=== PATIENT | female | born 1940 | race Caucasian/White ===

== ENCOUNTER → 2017-10-05 07:47 | Outpatient (CLI) | payer MEDICARE, SELFPAY ==
[2017-10-05 10:02] LABS: Absolute Lymphocyte Count 1.68 X10^3/ul (0.83-4.51); Absolute Neutrophil Count 2.9 X10^3/uL (2.0-7.7); Basophil# 0.05 X10^3/uL; Basophil% 0.9 % (0-1); Eosinophil# 0.15 X10^3/uL; Eosinophils% 2.8 % (0-5); Hematocrit 37.8 % (37-47); Hemoglobin 12.4 g/dl (12.0-15.0); Lymphocyte # 1.68 X10^3/ul (4.0); Lymphocyte % 31.1 % (19-41); Mean Corp Hgb Conc 32.8 g/gl (32-36); Mean Corpuscular Hgb 31.5 pg (27.0-32.0); Mean Corpuscular Volume 95.9 fL (81-99); Mean Platelet Vol. 9.3 fl (6.2-12.0); Monocyte% 11.1 % (0-10); Neutrophil % 53.5 % (47-70); POSITIVE COUNT NO; POSITIVE DIFFERENTIAL NO; Platelet Count 261 K/mm3 (150-450); RBC Distribution Width CV 12.8 % (11.6-14.6); RBC Distribution Width SD 43.5 fl (35.1-43.9); Red Blood Count 3.94 M/mm3 (4.2-5.4); White Blood Count 5.4 K/mm3 (4.4-11.0)
[2017-10-05 10:03] LABS: POSITIVE MORPHOLOGY NO
[2017-10-05 10:09] LABS: Color, Urine Yellow (Yellow); Glucose, Dipstick Normal (Normal); Ketone-Dipstick Negative (Negative); Leukocyte Esterase-Dipstick 25 /ul (Negative); Nitrite-Dipstick Negative (Negative); Occult Blood-Urine Negative /ul (Negative); Protein-Dipstick 30 mg/dl (Negative); Specific Gravity, Urine 1.015 (1.002-1.030); Urine Bilirubin Dipstick Negative (Negative); Urine Clarity Clear (Clear); Urine Urobilinogen Normal (Normal)
[2017-10-05 10:14] LABS: Cholesterol 230 mg/dL (200); High Density Lipoprotein 53 mg/dL; Triglycerides 185 mg/dL; Very Low Density Lipoprotein 37 mg/dL (5-40)
== END ==
PROVIDERS: Family Provider Family Medicine; PCP Family Medicine; Visit Provider Family Medicine
DX: Z00.00 Encounter for general adult medical examination without abnormal findings (principal); R10.32 Left lower quadrant pain; I10 Essential (primary) hypertension; E78.5 Hyperlipidemia, unspecified
CPT/HCPCS: 36415; 80061; 81002; 85025

== ENCOUNTER → 2018-01-24 10:13 | Outpatient (CLI) | payer MEDICARE, SELFPAY ==
--- NOTE | 2018-01-24 10:15 | BI_ITS ---
MAMMOGRAPHY - UNILATERAL DIAGNOSTIC: LEFT BREAST REASON FOR EXAM: Female, 77 years old. Prior right mastectomy. PERTINENT HISTORY: Personal history of breast cancer. Mother with breast cancer. TECHNIQUE: Digital unilateral breast mai (3D mammographic acquisition) in the CC and MLO projections. 2-D mediolateral oblique (MLO) and craniocaudad (CC) views of both breasts were obtained. CAD: Full Field Digital Mammography with Computer Added Detection was performed. COMPARISON: Comparison is made with prior study dated October 09, 2016 and August 15, 2013. FINDINGS: Breast Composition: The left breast is heterogeneously dense, which may obscure small masses. There are no dominant masses or suspicious calcifications. No other significant abnormalities are identified. There has been no significant change since the prior study. BI/UNILAT LT SCRN W/CAD IMPRESSION: Stable unilateral diagnostic mammogram. One year follow-up mammogram recommended. (A) ASSESSMENT CATEGORY: BIRADS Category 1: Negative. A letter regarding these results will be sent to the patient by the facility within 30 days. Approximately 10% of breast cancers are not detected by mammography. A normal mammogram should not delay biopsy of a clinically suspicious abnormality. Electronically Signed: Luis M Tracey MD at 11:22 EST Tel [phone], Service support ,
--- OUTSIDE RECORDS SUMMARY | 2018-03-21 12:06 | XMS RPT_ITS ---
:1940 Author Organization [facility] Care Team Providers Name Role Phone Canelo Harley Attending Unavailable Canelo Harley Referring Unavailable Canelo Harley Primary Care Unavailable Canelo Harley Attending Unavailable Canelo Harley Referring Unavailable Canelo Harley Primary Care Unavailable PROBLEMS PROBLEMS DATE TYPE CONDITION / CODE ATTENDING STATUS SOURCE 10/05/2017 Unknown R10.32 - Left Canelo Harley Active [place] lower quadrant Community pain / Hospital R10.32(ICD-10) Repository 10/05/2017 Unknown E78.5 - Canelo Harley Active [place] Hyperlipidemia, Community unspecified / Hospital E78.5(ICD-10) Repository PROCEDURES PROCEDURES No Procedure Records FoundRESULTS RESULTS UNILAT LT SCRN Observed: 01/24/2018 Status: F Source: [place] W/CAD 10:16 AM [facility] REPOSITORY [facility] Imaging Services [address] [place] [address] UNILAT LT SCRN W/CAD MR#: [id number] Acct: [id number] Name: HALIMA GIORDANO Rep #: [id number] : 1940 F 77 From: Luis M Tracye MD PCP: Canelo Harley MD Status: REG CLI Study: UNILAT LT SCRN W/CAD Date of Exam: 01/24/18 Exam# [id number] Ordering Dr: Canelo Harley MD MAMMOGRAPHY - UNILATERAL DIAGNOSTIC: LEFT BREAST REASON FOR EXAM: Female, 77 years old. Prior right mastectomy. PERTINENT HISTORY: Personal history of breast cancer. Mother with breast cancer. TECHNIQUE: Digital unilateral breast mai (3D mammographic acquisition) in the CC and MLO projections. 2-D mediolateral oblique (MLO) and craniocaudad (CC) views of both breasts were obtained. CAD: Full Field Digital Mammography with Computer Added Detection was performed. COMPARISON: Comparison is made with prior study dated October 09, 2016 and August 15, 2013. FINDINGS: Breast Composition: The left breast is heterogeneously dense, which may obscure small masses. There are no dominant masses or suspicious calcifications. No other significant abnormalities are identified. There has been no significant change since the prior study. BI/UNILAT LT SCRN W/CAD IMPRESSION: Stable unilateral diagnostic mammogram. One year follow-up mammogram recommended. (A) ASSESSMENT CATEGORY: BIRADS Category 1: Negative. A letter regarding these results will be sent to the patient by the facility within 30 days. Approximately 10% of breast cancers are not detected by mammography. A normal mammogram should not delay biopsy of a clinically suspicious abnormality. Electronically Signed: Luis M Tracey MD at 11:22 EST Tel [phone], Service support , CC: Canelo Harley MD Flame Burner: Signed CBC W/DIFF, AUTOMATED Collected: 10/05/2017 Status: F Source: [place] 7:56 AM [facility] [place], [place] REPOSITORY TYPE CODE TESTS RESULT OUT OF RANGE REFERENCE UNITS LAB L100.1000 4.4-11.0 K/mm3 Normal WBC 5.4 LAB L100.1200 4.2-5.4 M/mm3 Low RBC 3.94 LAB L100.1300 12.0-15.0 g/dl Normal HGB 12.4 LAB L100.1400 37-47 % Normal HCT 37.8 LAB L100.1500 81-99 fL Normal MCV 95.9 LAB L100.1600 27.0-32.0 pg Normal MCH 31.5 LAB L100.1700 32-36 g/gl Normal MCHC 32.8 LAB L100.1810 11.6-14.6 % Normal RDW CV 12.8 LAB L100.1820 35.1-43.9 fl Normal RDW SD 43.5 LAB L100.1900 150-450 K/mm3 Normal PLT 261 LAB L100.2000 6.2-12.0 fl Normal MPV 9.3 LAB L100.2100 47-70 % Normal NEUT% 53.5 LAB L100.2200 19-41 % Normal LY% 31.1 LAB L100.2300 0-10 % High MONO% 11.1 LAB L100.2400 0-5 % Normal EO% 2.8 LAB L100.2500 0-1 % Normal BASO% 0.9 LAB L100.2550 0.0-0.9 % Normal IM GRAN % 0.600 Result Comment: IG% - Immature Granulocytes (promyelocytes, myelocytes and metamyelocytes) > 1% indicates that a LEFT SHIFT is Present. LAB L100.2620 2.0-7.7 X10 3/uL Normal Absolute Neut 2.9 LAB L100.2720 0.83-4.51 X10 3/ul Normal Absolute Lymph 1.68 Performed By: #### L100.0100 #### [facility] [address] [place], [address] URINALYSIS, ROUTINE Collected: 10/05/2017 Status: F Source: [place] (DIPSTICK) 7:56 AM [facility] [place] [place] REPOSITORY Order Comment: How was Urine Obtained? CLEAN CATCH TYPE CODE TESTS RESULT OUT OF RANGE REFERENCE UNITS LAB L400.3000 Yellow COLOR Normal Yellow LAB L400.3050 Clear Normal CLARITY Clear LAB L400.3200 Normal mg/dl Normal GLUCOSE, UR Normal LAB L400.3300 Negative mg/dL Normal BILIRUBIN URINE Negative LAB L400.3400 Negative mg/dl Normal KETONE UR Negative LAB L400.3465 1.002-1.030 Normal SP.GR. DIPSTX 1.015 LAB L400.3550 5.0 - 8.0 pH UR Normal 6.0 LAB L400.3600 Negative mg/dl High PROT 30 DIPSTX LAB L400.3700 Normal mg/dl Normal UROBILI Normal LAB L400.3750 Negative Normal NITRITE UR Negative LAB L400.3780 Negative /ul Normal OCCULT BLOOD-UR Negative LAB L400.3800 Negative /ul High LEUK 25 ESTERASE Performed By: #### L400.2010 #### [facility] [address] [facility] [place], [place], [address] LIPID PROFILE Collected: 10/05/2017 Status: F Source: [place] 7:56 AM [facility] [place] [place] REPOSITORY TYPE CODE TESTS RESULT OUT OF RANGE REFERENCE UNITS LAB L501.4900 200 mg/dL High CHOL 230 Result Comment: <200 mg/dL Desirable 200-240 mg/dL Borderline >240 mg/dL High Risk LAB L501.5000 mg/dL Normal TRIG 185 Result Comment: The drugs N-Acetylcysteine and Metamizole may falsely depress this assay. Serum Triglycerides Reference Interval Normal <150 mg/dL Borderline high 150 - 199 mg/dL High 200 - 499 mg/dL Very High > or = 500 mg/dL LAB L501.6400 mg/dL Normal HDL 53 Result Comment: The drugs N-Acetylcysteine and Metamizole may falsely depress this assay. Reference Range HDL <40 mg/dL Low HDL Cholesterol HDL >or= 60 mg/dL High HDL Cholesterol LAB L501.6500 0-130 mg/dL High LDL 140 LAB L501.6600 5-40 mg/dL Normal VLDL 37 Performed By: #### L500.4100 #### [facility] [address] [facility] [place], [place], [address] ALLERGIES ALLERGIES DATE TYPE / CODE NAME / CODE REACTION SEVERITY SOURCE 01/25/2016 Drug tetracycline Unknown Unknown [facility] Allergy/4160 /[id number]( [facility] 81378(SNOMED RXNORM) Repository CT) ENCOUNTERS ENCOUNTERS ADMIT/DISCHARGE ACCOUNT ADMITTING ENCOUNTER LOCATION SOURCE NUMBER CLASS 01/24/2018 [id number] Ambulatory [place] [facility] ing:OPBI Repository 10/05/2017 [id number] Amb[place] [facility] ing:MTLAB Repository PAYERS PAYERS ENCOUNTER GUARANTOR PAYER SUBSCRIBER SOURCE 01/24/2018 HALIMA Velazquez Primary HALIMA [id number] [facility] Community [id number] Number: Repository [address]Tjq: 330 [id number] [phone] () Date:[id number] [address] [place] [address] [id number]: 01/24/2018 Secondary NOT GIVENUNK [place] Insurance:SELF PAY [facility] Number: Effective Repository Date:2017-12-13 10/05/2017 HALIMA Velazquez Primary HALIMA [id number] [facility] Community [place] [id number], [place] [address]Yps: Number: Repository [id number] () Date:[id number] [address] [place] [id number]: 10/05/2017 Secondary NOT GIVENUNK [place] Insurance:SELF PAY [facility] Number: Effective Repository Date:2017-10-05
== END ==
PROVIDERS: Family Provider Family Medicine; PCP Family Medicine; Referring Provider Family Medicine; Visit Provider Family Medicine
DX: Z12.31 Encounter for screening mammogram for malignant neoplasm of breast (principal); Z90.11 Acquired absence of right breast and nipple; Z85.3 Personal history of malignant neoplasm of breast; Z80.3 Family history of malignant neoplasm of breast
CPT/HCPCS: 77061; 77063; 77067; G0279

== ENCOUNTER 2018-11-02 12:27 | Emergency (ER) | payer MEDICARE, SELFPAY ==
[2018-11-02 12:28] VITALS: BP 214/105; PULSE 72; RESP 17; TEMP 36.7; O2SAT 99; BMI 23.8
--- NOTE | 2018-11-02 12:53 | EKG12_ITS ---
Test Reason : DYSRHYTHMIA Blood Pressure : / mmHG Vent. Rate : 056 BPM Atrial Rate : 056 BPM P-R Int : 212 ms QRS Dur : 082 ms QT Int : 462 ms P-R-T Axes : 072 023 052 degrees QTc Int : 445 ms Sinus bradycardia with 1st degree A-V block with Premature atrial complexes Otherwise normal ECG Confirmed by FILI PERSON ([id number]), magazine editor LUCY RICO ([id number]) on 11/11/2018 2:56:26 PM Referred By: [place] Confirmed By:FILI PERSON
[2018-11-02 13:00] LABS: Absolute Lymphocyte Count 1.67 X10^3/uL (0.83-4.51); Absolute Neutrophil Count 5.6 X10^3/uL (2.0-7.7); Basophil# 0.05 X10^3/uL; Basophil% 0.6 % (0-1); Eosinophils% 1.2 % (0-5); Hematocrit 40.3 % (37-47); Hemoglobin 13.1 g/dL (12.0-15.0); Lymphocyte # 1.67 X10^3/ul (4.0); Lymphocyte % 20.5 % (19-41); Mean Corp Hgb Conc 32.5 g/dL (32-36); Mean Corpuscular Hgb 31.3 pg (27.0-32.0); Mean Corpuscular Volume 96.4 fL (81-99); Mean Platelet Vol. 9.2 fl (6.2-12.0); Monocyte# 0.66 X10^3/uL; Monocyte% 8.1 % (0-10); NRBC Flagged by Analyzer 0 % (0-5); Neutrophil # 5.64 X10^3/uL (2.7-7.7); Neutrophil % 69.4 % (47-70); Platelet Count 300 K/mm3 (150-450); RBC Distribution Width CV 12.6 % (11.6-14.6); Red Blood Count 4.18 M/mm3 (4.2-5.4); White Blood Count 8.1 K/mm3 (4.4-11.0)
[2018-11-02 13:16] VITALS: BP 217/87; PULSE 64; RESP 15; O2SAT 97
[2018-11-02] MEDS: Metoprolol Tartrate 25 MG Tablet PO (13:17)
[2018-11-02 13:19] LABS: Anion Gap 5 (5-15); BUN 21 mg/dL (7-18); BUN/Creat Ratio 14.8 RATIO (10-20); Calcium,Total 9.1 mg/dL (8.5-10.1); Chloride 109 mmol/L (98-107); Creatinine, Serum 1.42 mg/dL (0.55-1.02); EST Glomerular Filtration Rate 38 mL/min (>60); Est Glom Filt Rate - Afr Amer 46 mL/min (>60); Estimated Creatinine Clearance 33.02 ml/min; Glucose 104 mg/dL (74-106); Potassium 4.3 mmol/L (3.5-5.1); Sodium Level 140 mmol/L (136-145)
--- NOTE | 2018-11-02 14:17 | ED.VIS.GEN ---
History of Present Illness Chief Complaint: Hypertension Narrative: Patient presenting for evaluation secondary to hypertension. Patient has a long-standing history of hypertension and is on 25 mg of metoprolol once a day, and 40 mg of quinapril once a day. Patient states that she has been on that for quite a long time. She reports that over the course of last week she has been dealing with high blood pressures and some intermittent headaches. She denies any visual changes numbness weakness chest pain shortness of breath orthopnea or exertional dyspnea. No peripheral edema is noted. No changes or missed medication doses. Review of systems otherwise negative. Past Medical History - Allergies and Home Meds Allergies/Adverse Reactions: Allergies tetracycline Adverse Reaction (Verified 11/02/18 12:28) Unknown Primary Care Physician: Canelo Harley MD [Primary Care Provider] - Past Medical History: - - Hypertension Smoking Status: Never smoker Review of Systems All systems negative except as indicated Neurological: Reports: Headache Physical Exam Vital Signs/Narrative: Vital Signs Temp Pulse Resp BP Pulse Ox 11/02/18 13:16 64 15 217/87 H 97 11/02/18 12:28 98.1 F 72 17 214/105 H 99 Inital Vital Signs reviewed: Yes General: Well nourished, Well developed, No Acute Distress Head: Normocephalic, Atraumatic Eyes: Perrl, EOMI ENT: Moist mucous membranes, No rhinorrhea Neck: Supple, Nontender Cardiovascular: Regular rate, Regular rhythm, No murmurs Respiratory: No distress, CTA bilaterally, Chest nontender Abdomen: Soft, Nontender, Nondistended, Normal bowel sounds Back: Nontender, Normal Inspection Extremities: Nontender, No edema Skin: Normal color, No rash Neurological: Alert, Oriented x3, Cranial nerves II-XII grossly intact, Normal Strength, Normal Sensation Psychological: Normal affect, Normal Mood Diagnostic/Tx/Re-eval - EKG Follow-up EKG Interpretation: - - First-degree AV block with OK interval of 212 ventricular rate is [address] segments normal T waves no evidence of acute ischemia or arrhythmia - Medical Decision Making Patient had secondary to hypertension. She was found to be significantly hypertensive she was given a dose of metoprolol in the emergency department. Patient's work-up for endorgan damage including CBC and chemistry showed only modest elevation of her creatinine from 1.2-1 0.4- troponin normal electrolytes. She is not having any strokelike symptoms I do not believe that CT is indicated. Patient continued to have hypertension in the emergency department, I believe that she would benefit from upward titration of her medications. I recommended that she start taking her metoprolol 25 mg twice a day, as well as her quinapril 40 mg twice a day. Patient was instructed to follow-up with primary care next week. She was given signs and symptoms which to return. Patient was discharged ED Disposition - Plan for ED Patient: Disposition: Home or Assisted Living Diagnosis: Hypertension Instructions: HYPERTENSION, New (Begin Treatment) Referrals: Canelo Harley MD [Primary Care Provider] - 1 Week Additional Instructions: Take your metoprolol 25 mg twice a day, and your quinapril 40 mg twice a day
[2018-11-02 14:51] VITALS: BP 218/62; PULSE 71; RESP 16; O2SAT 98
[2018-11-02] MEDS: Lisinopril 40 MG Tablet PO (14:52)
== END 2018-11-02 14:52 | disposition home or self-care (01) ==
PROVIDERS: Emergency Provider Emergency Medicine; Family Provider Family Medicine; PCP Family Medicine
DX: I10 Essential (primary) hypertension (principal); I44.0 Atrioventricular block, first degree; Z88.1 Allergy status to other antibiotic agents; Z79.899 Other long term (current) drug therapy
CPT/HCPCS: 80048; 84484; 85025; 93005; 99283; A4216

== ENCOUNTER → 2018-12-19 08:06 | Outpatient (CLI) | payer MEDICARE, SELFPAY ==
[2018-12-19 09:56] LABS: Absolute Lymphocyte Count 1.31 X10^3/uL (0.83-4.51); Absolute Neutrophil Count 3.5 X10^3/uL (2.0-7.7); Basophil# 0.03 X10^3/uL; Basophil% 0.5 % (0-1); Eosinophil# 0.14 X10^3/uL; Eosinophils% 2.5 % (0-5); Hematocrit 37.6 % (37-47); Hemoglobin 12.2 g/dL (12.0-15.0); Lymphocyte # 1.31 X10^3/ul (4.0); Lymphocyte % 23.5 % (19-41); Mean Corp Hgb Conc 32.4 g/dL (32-36); Mean Corpuscular Hgb 31.6 pg (27.0-32.0); Mean Corpuscular Volume 97.4 fL (81-99); Mean Platelet Vol. 9.4 fl (6.2-12.0); Monocyte# 0.57 X10^3/uL; Monocyte% 10.2 % (0-10); NRBC Flagged by Analyzer 0 % (0-5); Neutrophil % 62.9 % (47-70); Platelet Count 240 K/mm3 (150-450); RBC Distribution Width CV 12.8 % (11.6-14.6); RBC Distribution Width SD 45.8 fl (35.1-43.9); Red Blood Count 3.86 M/mm3 (4.2-5.4); White Blood Count 5.6 K/mm3 (4.4-11.0)
[2018-12-19 09:59] LABS: Color, Urine Yellow (Yellow); Glucose, Dipstick Normal (Normal); Ketone-Dipstick Negative (Negative); Leukocyte Esterase-Dipstick Negative /ul (Negative); Nitrite-Dipstick Negative (Negative); Occult Blood-Urine Negative /ul (Negative); Protein-Dipstick Negative (Negative); Urine Bilirubin Dipstick Negative (Negative); Urine Clarity Sl. Cloudy (Clear); Urine Urobilinogen Normal (Normal)
[2018-12-19 10:13] LABS: ALB/GLOB Ratio 1.2 RATIO (0.9-2.4); AST(SGOT) 19 U/L (15-37); Alanine Aminotransfer ALT/SGPT 21 U/L (13-56); Albumin, Serum 3.8 g/dL (3.2-5.0); Alkaline Phosphatase 80 U/L (45-117); Anion Gap 5 (5-15); BUN 21 mg/dL (7-18); BUN/Creat Ratio 16.5 RATIO (10-20); Chloride 109 mmol/L (98-107); Cholesterol 218 mg/dL (200); Creatinine, Serum 1.27 mg/dL (0.55-1.02); EST Glomerular Filtration Rate 43 mL/min (>60); Est Glom Filt Rate - Afr Amer 52 mL/min (>60); Globulin 3.3 g/dL (2.2-4.2); Glucose 109 mg/dL (74-106); High Density Lipoprotein 51 mg/dL; Potassium 4.8 mmol/L (3.5-5.1); Protein, Total 7.1 g/dL (6.4-8.2); Sodium Level 141 mmol/L (136-145); Triglycerides 164 mg/dL; Very Low Density Lipoprotein 33 mg/dL (5-40)
== END ==
PROVIDERS: Family Provider Family Medicine; PCP Family Medicine; Referring Provider Family Medicine; Visit Provider Family Medicine
DX: Z00.00 Encounter for general adult medical examination without abnormal findings (principal); I10 Essential (primary) hypertension; E78.5 Hyperlipidemia, unspecified
CPT/HCPCS: 36415; 80053; 80061; 81002; 85025

== ENCOUNTER → 2019-02-27 11:22 | Outpatient (CLI) | payer MEDICARE, SELFPAY ==
--- NOTE | 2019-02-27 11:26 | BI_ITS ---
MAMMOGRAPHY - UNILATERAL SCREENING: LEFT BREAST REASON FOR EXAM: Female, 78 years old. Routine annual screening examination (unilateral). PERTINENT HISTORY: Prior right mastectomy. Personal history of breast cancer. TECHNIQUE: Digital examination. Mediolateral oblique (MLO) and craniocaudad (CC) views of the breast were obtained. CAD: CAD was performed on this study. COMPARISON: January 24, 2018. FINDINGS: Breast Composition: The breasts are heterogeneously dense, which may obscure small masses. There are no dominant masses or suspicious calcifications. There are scattered, typically benign appearing calcifications. No other significant abnormalities are identified. BI/SCREEN MAMM (CAD) W/LORRAINE UNI L IMPRESSION: Stable bilateral screening mammogram. ASSESSMENT CATEGORY: BIRADS Category 2: Benign. A letter regarding these results will be sent to the patient by the facility within 30 days. FOLLOW UP RECOMMENDATION: Yearly follow up mammogram recommended. (A) [id number] Approximately 10% of breast cancers are not detected by mammography. A normal mammogram should not delay biopsy of a clinically suspicious abnormality. [id number] Electronically Signed: Vicente Kovacs MD at 12:43 EST , Service support ,
== END ==
PROVIDERS: Family Provider Family Medicine; PCP Family Medicine; Referring Provider Family Medicine; Visit Provider Family Medicine
DX: Z12.31 Encounter for screening mammogram for malignant neoplasm of breast (principal)
CPT/HCPCS: 77063; 77067

== ENCOUNTER → 2020-06-29 08:04 | Outpatient (CLI) | payer MEDICARE, SELFPAY ==
[2020-06-29 10:03] LABS: Absolute Lymphocyte Count 1.38 X10^3/uL (0.83-4.51); Absolute Neutrophil Count 3.6 X10^3/uL (2.0-7.7); Basophil# 0.04 X10^3/uL; Basophil% 0.7 % (0-1); Eosinophil# 0.14 X10^3/uL; Eosinophils% 2.4 % (0-5); Hematocrit 39.8 % (37-47); Hemoglobin 12.6 g/dL (12.0-15.0); Lymphocyte # 1.38 X10^3/ul (0.83-4.51); Lymphocyte % 23.9 % (19-41); Mean Corp Hgb Conc 31.7 g/dL (32-36); Mean Corpuscular Hgb 30.4 pg (27.0-32.0); Mean Corpuscular Volume 96.1 fL (81-99); Mean Platelet Vol. 9.5 fl (6.2-12.0); Monocyte# 0.64 X10^3/uL; Monocyte% 11.1 % (0-10); NRBC Flagged by Analyzer 0 % (0-5); Neutrophil # 3.57 X10^3/uL (2.7-7.7); Neutrophil % 61.7 % (47-70); Platelet Count 262 K/mm3 (150-450); RBC Distribution Width CV 12.7 % (11.6-14.6); RBC Distribution Width SD 45.1 fl (35.1-43.9); Red Blood Count 4.14 M/mm3 (4.2-5.4); White Blood Count 5.8 K/mm3 (4.4-11.0)
[2020-06-29 10:35] LABS: Cholesterol 263 mg/dL (200); High Density Lipoprotein 55 mg/dL; Triglycerides 188 mg/dL; Very Low Density Lipoprotein 38 mg/dL (5-40)
== END ==
PROVIDERS: PCP Family Medicine; Referring Provider Family Medicine; Visit Provider Family Medicine
DX: E78.5 Hyperlipidemia, unspecified (principal); I10 Essential (primary) hypertension
CPT/HCPCS: 36415; 80061; 85025

== ENCOUNTER → 2020-12-20 08:03 | Outpatient (CLI) | payer MEDICARE, SELFPAY ==
[2020-12-20 10:19] LABS: Absolute Lymphocyte Count 1.25 X10^3/uL (0.83-4.51); Absolute Neutrophil Count 3.5 X10^3/uL (2.0-7.7); Basophil# 0.02 X10^3/uL; Basophil% 0.4 % (0-1); Eosinophil# 0.12 X10^3/uL; Eosinophils% 2.2 % (0-5); Hematocrit 35.7 % (37-47); Hemoglobin 11.6 g/dL (12.0-15.0); Lymphocyte # 1.25 X10^3/ul (0.83-4.51); Lymphocyte % 22.5 % (19-41); Mean Corp Hgb Conc 32.5 g/dL (32-36); Mean Corpuscular Volume 98.3 fL (81-99); Monocyte# 0.59 X10^3/uL; Monocyte% 10.6 % (0-10); NRBC Flagged by Analyzer 0 % (0-5); Neutrophil # 3.54 X10^3/uL (2.7-7.7); Neutrophil % 63.8 % (47-70); Platelet Count 220 K/mm3 (150-450); RBC Distribution Width CV 12.6 % (11.6-14.6); RBC Distribution Width SD 45.4 fl (35.1-43.9); Red Blood Count 3.63 M/mm3 (4.2-5.4); White Blood Count 5.6 K/mm3 (4.4-11.0)
[2020-12-20 10:34] LABS: AST(SGOT) 18 U/L (15-37); Alanine Aminotransfer ALT/SGPT 17 U/L (13-56); Albumin, Serum 3.4 g/dL (3.2-5.0); Alkaline Phosphatase 74 U/L (45-117); Anion Gap 6 (5-15); BUN 26 mg/dL (7-18); BUN/Creat Ratio 18.7 RATIO (10-20); Calcium,Total 8.8 mg/dL (8.5-10.1); Chloride 109 mmol/L (98-107); Cholesterol 224 mg/dL (200); Creatinine, Serum 1.39 mg/dL (0.55-1.02); EST Glomerular Filtration Rate 39 mL/min (>60); Est Glom Filt Rate - Afr Amer 47 mL/min (>60); Globulin 3.3 g/dL (2.2-4.2); Glucose 104 mg/dL (74-106); High Density Lipoprotein 49 mg/dL; Potassium 4.7 mmol/L (3.5-5.1); Protein, Total 6.7 g/dL (6.4-8.2); Sodium Level 140 mmol/L (136-145); Triglycerides 172 mg/dL; Very Low Density Lipoprotein 34 mg/dL (5-40)
== END ==
PROVIDERS: PCP Family Medicine; Referring Provider Family Medicine; Visit Provider Family Medicine
DX: I10 Essential (primary) hypertension (principal); E78.5 Hyperlipidemia, unspecified
CPT/HCPCS: 36415; 80053; 80061; 85025

== ENCOUNTER 2021-02-12 11:03 | Emergency (ER) | payer OTHER, MEDICARE, SELFPAY ==
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
[2021-02-12 11:04] VITALS: BP 212/92; PULSE 87; RESP 18; TEMP 36.7; O2SAT 98; BMI 24.3
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
== END 2021-02-12 12:20 | disposition home or self-care (01) ==
PROVIDERS: Emergency Provider Emergency Medicine; PCP Family Medicine
DX: S62.611A Displaced fracture of proximal phalanx of left index finger, initial encounter for closed fracture (principal); S60.222A Contusion of left hand, initial encounter; V49.40XA Driver injured in collision with unspecified motor vehicles in traffic accident, initial encounter; W22.11XA Striking against or struck by driver side automobile airbag, initial encounter; Y93.89 Activity, other specified; Y92.9 Unspecified place or not applicable; Y99.9 Unspecified external cause status; I10 Essential (primary) hypertension; Z79.899 Other long term (current) drug therapy
CPT/HCPCS: 29125; 73130; 99282

== ENCOUNTER 2021-06-16 17:52 | Emergency (ER) | payer MEDICARE, SELFPAY ==
[2021-06-16] VITALS (12 sets, daily range): BP systolic 192–224; BP diastolic 72–94; PULSE 73–86; RESP 16–23; TEMP 36.7–36.8; O2SAT 97–100; BMI 24.4
--- NOTE | 2021-06-16 17:54 | CT_ITS ---
STUDY: CT HEAD STROKE PROTOCOL W/O CONTRAST INJECTION REASON FOR EXAM: Female, 81 years old. Neuro deficit, acute, stroke suspected RADIATION DOSAGE (If Supplied By Facility): CTDIvol = ( 44 ) mGy, DLP = ( 779 ) mGycm TECHNIQUE: Transaxial CT imaging of the brain was performed without administration of intravenous contrast material. Individualized dose optimization techniques were used for this CT. COMPARISON: No relevant priors. FINDINGS: Normal soft tissue structures. Normal calvarium. There is mild cerebral atrophy with widening of the extra-axial spaces and ventricular dilatation. There are areas of decreased attenuation within the white matter tracts of the supratentorial brain, consistent with microvascular disease changes. There is a lacunar infarct of the left basal ganglia. Normal brainstem. Normal cerebellum. There is no intracranial hemorrhage. There is left middle cervical artery increased density with calcification or focal thrombus, series 2 image 17/42. Normal visualized paranasal sinuses. ASPECT score: 10 CT/STROKE Brain/Head without Cont IMPRESSION: Chronic involutional changes of the brain. Left middle cerebral artery thrombus versus atherosclerosis. N.B. : The above Results were Read Back by Michael Barahona MD to Dr. Beau Iniguez MD, and understanding confirmed on 06/16/2021 18:16:52 (ET). Electronically Signed: Michael Barahona MD at 18:18 EDT ,
--- NOTE | 2021-06-16 17:54 | EKG12_ITS ---
Test Reason : STROKE Blood Pressure : / mmHG Vent. Rate : 078 BPM Atrial Rate : 078 BPM P-R Int : 200 ms QRS Dur : 092 ms QT Int : 398 ms P-R-T Axes : 058 013 056 degrees QTc Int : 453 ms Normal sinus rhythm Septal infarct , age undetermined Abnormal ECG Confirmed by ALEX NIETO, OBI ([id number]), graphics editor LUCAS SPEAR ([id number]) on 06/21/2021 8:48:55 AM Referred By: TL Confirmed By:OBI JOHNSON MD
--- NOTE | 2021-06-16 17:55 | CT_ITS ---
STUDY: CTA HEAD AND NECK WITH CONTRAST REASON FOR EXAM: Female, 81 years old. Neuro deficit, acute, stroke suspected , slurred speech RADIATION DOSAGE (If Supplied By Facility): CTDIvol = ( 21.37 ) mGy, DLP = ( 688.85 ) mGycm TECHNIQUE: CT angiography was performed with a multi-detector CT scanner. Data acquisition was obtained from the skull base through the vertex following intravenous administration of 100mL Isovue-370. MIP images were reconstructed from the axial data set. Post-processing of the angiographic images was performed, with multiplanar reformation and 3D reconstruction. Individualized dose optimization techniques were used for this CT. COMPARISON: No relevant priors. FINDINGS: Normal bilateral petrous carotid arteries. Normal right cavernous carotid artery with a normal supraclinoid bifurcation. Normal left cavernous carotid artery with a normal supraclinoid bifurcation. There is moderate, 50-69% focal narrowing of the right A1 segments of the anterior cerebral artery. Normal left A1 segments of the anterior cerebral artery. Normal intact anterior communicating artery (ACOM). Normal bilateral A2 segments of the anterior cerebral arteries. Normal right M1 and M2 segments of the middle cerebral arteries, with a normal M1 bifurcation. There is irregularity of the left M1 and M2 branches with moderate, 50-69% luminal narrowing, suggesting atherosclerotic plaque formation, without an occlusion. Normal right posterior communicating artery (PCOM). Normal left posterior communicating artery (PCOM). Normal bilateral vertebral arteries. Normal basilar artery with a normal basilar bifurcation. The visualized bilateral superior cerebellar (SCA) arteries are normal. Normal bilateral P1, P2 and visualized P3 segments of the posterior cerebral arteries. There is no demonstrated aneurysm of the [place] of [place]. There is no acute abnormality of the visualized brain. AORTIC ARCH: Normal visualized aortic arch. Normal origins of the brachiocephalic, left common carotid, and left subclavian arteries. RIGHT CAROTID ARTERIES: Normal right common carotid artery (CCA). Normal right common carotid bulb. Normal origin of the right internal carotid (ICA) artery without a hemodynamically significant stenosis. There is atherosclerotic tortuous elongation of the cervical portion of the right internal carotid artery. Normal origin of the right external carotid artery (ECA). LEFT CAROTID ARTERIES: Normal left common carotid artery (CCA). There is mild atherosclerotic plaque formation with minimal narrowing of the left carotid bulb. There is mild atherosclerotic plaque formation of the origin of the left internal carotid artery with less than 50% cross sectional diameter stenosis. Normal visualized cervical portion of the left internal carotid artery. Normal origin of the left external carotid artery (ECA). VERTEBRAL ARTERIES: Normal bilateral vertebral arteries. 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 N.B. : The above Results were Read Back by Michael Barahona MD to Beau Iniguez and understanding confirmed on 06/16/2021 18:17:14 (ET). Electronically Signed: Michael Barahona MD at 18:28 EDT ,
[2021-06-16 18:20] LABS: Absolute Lymphocyte Count 1.79 X10^3/uL (0.83-4.51); Absolute Neutrophil Count 4.5 X10^3/uL (2.0-7.7); Basophil# 0.03 X10^3/uL; Basophil% 0.4 % (0-1); Eosinophil# 0.12 X10^3/uL; Eosinophils% 1.6 % (0-5); Hematocrit 39.1 % (37-47); Hemoglobin 12.7 g/dL (12.0-15.0); Lymphocyte # 1.79 X10^3/ul (0.83-4.51); Lymphocyte % 24.5 % (19-41); Mean Corp Hgb Conc 32.5 g/dL (32-36); Mean Corpuscular Hgb 31.5 pg (27.0-32.0); Mean Platelet Vol. 9.1 fl (6.2-12.0); Monocyte# 0.88 X10^3/uL; NRBC Flagged by Analyzer 0 % (0-5); Neutrophil # 4.46 X10^3/uL (2.7-7.7); Platelet Count 280 K/mm3 (150-450); RBC Distribution Width CV 12.6 % (11.6-14.6); RBC Distribution Width SD 45.1 fl (35.1-43.9); Red Blood Count 4.03 M/mm3 (4.2-5.4); White Blood Count 7.3 K/mm3 (4.4-11.0)
[2021-06-16 18:26] LABS: Partial Thromboplast Time 27.2 Seconds (24.1-36.2); Prothrombin Time (Protime)PT. 12.7 SECONDS (11.7-14.9)
[2021-06-16 18:30] LABS: Anion Gap 6 (5-15); BUN 30 mg/dL (7-18); Calcium,Total 9.1 mg/dL (8.5-10.1); Chloride 109 mmol/L (98-107); Creatinine, Serum 1.67 mg/dL (0.55-1.02); EST Glomerular Filtration Rate 31 mL/min (>60); Est Glom Filt Rate - Afr Amer 38 mL/min (>60); Estimated Creatinine Clearance 26.67 ml/min; Glucose 126 mg/dL (74-106); Potassium 5.2 mmol/L (3.5-5.1); Sodium Level 139 mmol/L (136-145); Troponin-I HS 6 pg/mL (3.0-54.0)
--- NOTE | 2021-06-16 18:51 | EDS_ITS ---
HPI History of Present Illness Chief Complaint: Neuro S/Sx Informant: patient and EMS Narrative Narrative: Patient presenting by EMS for field stroke activation. Last normal 9 AM checked by family at 5:30 PM found to have slurred speech left facial droop. EMS was contacted. On their arrival noted left facial droop slurred speech speech resolving on their arrival. Patient blood glucose 120s. History of hypertension with blood pressure 240/90. No stroke history. Patient does not take anticoagulation medicines. Patient denies headache. PFSH PFSH Medical History HTN (hypertension) Home Medications quinapril 40 mg PO DAILY 01/25/16 [History Last Taken 11/02/18] metoprolol tartrate 25 mg PO BID 11/02/18 [History Last Taken 11/02/18 12:00] latanoprost 1 drp EACH EYE QHS 06/16/21 [History Last Taken Unknown] [id number] [Centrum Silver Women] 1 tab PO DAILY 06/16/21 [History Last Taken Unknown] Allergy/AdvReac Type Severity Reaction Status Date / Time tetracycline AdvReac Unknown Verified 02/12/21 11:06 Surgical History H/O mastectomy Social History Smoking Status: Never smoker ROS ROS ED Constitutional Constitutional ED: Denies chills, fever(s) or sweats Eyes Eyes: Denies change in vision ENT ENT ED: Denies dysphagia or sore throat Cardiovascular Cardiovascular: Denies chest pain, leg edema, palpitations or racing heartbeat Respiratory/Chest Respiratory/Chest: Denies cough, dyspnea or dyspnea on exertion Gastrointestinal Gastrointestinal: Denies abdominal pain, diarrhea, nausea or vomiting Genitourinary Genitourinary ED: Denies dysuria, hematuria or urinary frequency Musculoskeletal Musculoskeletal: Denies back pain, extremity pain or neck pain Integumentary Denies rash or wounds Neurologic Neurologic: Reports other Details: Slurred speech, left facial droop ; Denies headache(s), paresthesias or weakness EXAM Physical Exam Const Vital Signs: 06/16/21 17:54 06/16/21 17:56 06/16/21 18:24 Temperature 98.0 F Temperature Source Oral Pulse Rate 84 82 Respiratory Rate 17 22 H Blood Pressure 224/79 H 218/80 H Blood Pressure Mean 127 126 Pulse Ox 98 97 98 Oxygen Delivery Method Room Air Room Air Room Air 06/16/21 18:27 06/16/21 18:43 06/16/21 18:57 Temperature Temperature Source Pulse Rate 81 81 79 Respiratory Rate 20 H 21 H 16 Blood Pressure 218/80 H 216/94 H 217/72 H Blood Pressure Mean 126 134 120 Pulse Ox 98 98 98 Oxygen Delivery Method Room Air Room Air Room Air 06/16/21 19:30 06/16/21 20:00 06/16/21 20:30 Temperature 98.2 F Temperature Source Oral Pulse Rate 78 79 78 Respiratory Rate 17 16 16 Blood Pressure 205/83 H 194/72 H 194/80 H Blood Pressure Mean 123 112 118 Pulse Ox 100 99 99 Oxygen Delivery Method Nasal Cannula Room Air 06/16/21 21:00 06/16/21 21:30 06/16/21 22:12 Temperature 98.2 F Temperature Source Pulse Rate 74 73 80 Respiratory Rate 20 H 16 21 H Blood Pressure 192/84 H 193/81 H 218/81 H Blood Pressure Mean 120 118 126 Pulse Ox 98 98 99 Oxygen Delivery Method Room Air Room Air Positive well nourished and well developed General Appearance ED: well developed and NAD HEENT Reports moist mucous membranes normocephalic and atraumatic Nose: other Other Details: Mild left lip droop Eyes PERRL, EOMs intact bilaterally and conjunctivae normal General Eye ED: Yes normal appearance of both eyes Neck no lymphadenopathy and supple General: Negative for tenderness Chest Wall Chest: Negative for tenderness Resp normal respiratory effort and normal air movement Effort and Inspection: symmetric chest movement; Negative for respiratory dis tress Cardio regular rate, regular rhythm and no murmurs Peripheral Pulses: pulses 2+ throughout GI normal to inspection, nondistended, normoactive bowel sounds and non-tender Palpation: Negative for guarding or rebound tenderness present Back/Spine no CVA tenderness and no thoracic nor lumbar tenderness Extremity normal to inspection General Extremety ED: Negative for edema or tenderness General Extremity: Negative for edema Neuro oriented x3 and no sensory deficits noted Sensorium / Orientation: awake and alert Skin no rashes or lesions noted and no wounds STROKE Vital Signs/Narrative: Vital Signs Temp Pulse Resp BP Pulse Ox 06/16/21 22:12 98.2 F 80 21 H 218/81 H 99 06/16/21 21:30 73 16 193/81 H 98 06/16/21 21:00 74 20 H 192/84 H 98 06/16/21 20:30 78 16 194/80 H 99 06/16/21 20:00 98.2 F 79 16 194/72 H 99 06/16/21 19:30 78 17 205/83 H 100 Inital Vital Signs reviewed: Yes NIHSS Initial: 1a Level of Consciousness: 0 1b LOC Questions (Score 2 if aphasic/stupor): 0 1c LOC Commands (Only score 1st attempt): 0 2 Best Gaze (If aphasic, use reflexive mvmts.): 0 3 Visual: 0 4 Facial Palsy: 1 5 Motor Arm Right (UN = amputation/fusion): 0 5 Motor Arm Left: 0 6 Motor Leg Right: 0 6 Motor Leg Left: 0 7 Limb ataxia (Only + if out of proportion): 0 8 Sensory (Aphasia/stupor=0 or 1, coma=2): 1 9 Best Language: 0 10 Dysarthria (mute, coma=2, intubated=UN): 0 11 Extinction and Inattention (only scored if +): 0 Total Score: 2 MDM MDM MDM Narrative Medical decision making narrative: Patient initially seen on arrival slurred speech improved, slight left lip droop. She was sent straight to CT with CTA. Discussion with radiologist there is concerns for left middle cerebral artery thrombus versus atherosclerosis on noncontrast scan. 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 There is no thrombus. At the same time stroke neurologist Dr. Stoll at 1815 was on the phone I discussed with her the finding she reviewed the imaging and agree with high-grade stenosis and no thrombus. No tPA. Initial blood pressure was 240 by EMS 224/79 on arrival down to 218 during discussion she states she would like the blood pressure to stay just below 220 and not any higher. With high-grade stenosis she would like her down at [facility]. She recommended rectal aspirin 300 mg no additional loading due to her high blood pressure. Will send to the ED. Son did come the ED confirmed this and agrees with plan to transfer. EKG reviewed and was sinus, labs are stable. Addition reports does have a hypertension history along with left carotid endarterectomy in the past performed here approximate 4 years ago. We will send by ground unless clinically symptoms change. Chest x-ray 1 view reviewed by myself and read by radiology shows no acute process. Lab Data Attestation: I reviewed the patient's lab results. Labs: Laboratory Results - last 24 hr 06/16/21 06/16/21 06/16/21 18:00 18:00 18:00 WBC 7.3 RBC 4.03 L Hgb 12.7 Hct 39.1 MCV 97.0 MCH 31.5 MCHC 32.5 RDW Std Deviation 45.1 H RDW Coeff of Erinn 12.6 Plt Count 280 MPV 9.1 Immature Gran % (Auto) 0.500 Neut % (Auto) 61.0 Lymph % (Auto) 24.5 [place] % (Auto) 12.0 H Eos % (Auto) 1.6 Baso % (Auto) 0.4 Absolute Neuts (auto) 4.5 Absolute Lymphs (auto) 1.79 Nucleated RBC % 0 PT 12.7 INR 1.0 APTT 27.2 Sodium 139 Potassium 5.2 H Chloride 109 H Carbon Dioxide 24.0 Anion Gap 6 BUN 30 H Creatinine 1.67 H Estim Creat Clear Calc 26.67 Est GFR (MDRD) Af Amer 38 L Est GFR (MDRD) Non-Af 31 L BUN/Creatinine Ratio 18.0 Glucose 126 H Calcium 9.1 Troponin I High Sens 6 Radiography Diagnostic Testing: Clinical Impression(s) from Imaging Studies Brain CT 06/16/21 17:54 IMPRESSION: Chronic involutional changes of the brain. Left middle cerebral artery thrombus versus atherosclerosis. N.B. : The above Results were Read Back by Michael Barahona MD to Dr. Beau Iniguez MD, and understanding confirmed on 06/16/2021 18:16:52 (ET). Electronically Signed: Michael Barahona MD at 18:18 EDT Reading Location ID and State: [facility] / [place] , Service support , ADDENDUM: 06/16/21 3695 IMPRESSION: Chronic involutional changes of the brain. Left middle cerebral artery thrombus versus atherosclerosis. N.B. : The above Results were Read Back by Michael Barahona MD to Dr. Beau Iniguez MD, and understanding confirmed on 06/16/2021 18:16:52 (ET). Electronically Signed: Michael Barahona MD at 18:18 EDT Reading Location ID and State: [address] [place] [address] , Service support , Head/Neck CTA 06/16/21 17:55 IMPRESSION: Atherosclerosis with moderate, 50 to 69%, left middle cerebral artery and right A1 stenoses There is mild, less than 50%, narrowing of the left internal carotid artery. N.B. : The above Results were Read Back by Michael Barahona MD to Beau Iniguez and understanding confirmed on 06/16/2021 18:17:14 (ET). Electronically Signed: Michael Barahona MD at 18:28 EDT Reading Location ID and State: [address] [place] [address] , Service support , ADDENDUM: 06/16/21 1835 IMPRESSION: Atherosclerosis with moderate, 50 to 69%, left middle cerebral artery and right A1 stenoses There is mild, less than 50%, narrowing of the left internal carotid artery. N.B. : The above Results were Read Back by Michael Barahona MD to Beau Iniguez and understanding confirmed on 06/16/2021 18:17:14 (ET). Electronically Signed: Michael Barahona MD at 18:28 EDT Reading Location ID and State: [address] [place] [address] , Service support , Chest X-Ray 06/16/21 19:02 IMPRESSION: Cardiac enlargement. No focal infiltrate. Electronically Signed: Michael Barahona MD at 19:41 EDT Reading Location ID and State: [facility] / [place] , Service support , EKG Initial EKG: Attestation: I personally reviewed and interpreted this EKG as follows: Comments: Sinus rate of 78, no ST or T wave changes. Stroke Documentation Questions Stroke Team Activated: Yes Reviewed Inclusion/Exclusion criteria: Yes Was Patient considered for Endovascular Intervention?: Yes-CTA +,PT transferred for further eval of endovascular intervention IV Alteplase (t-PA) Administered: No No contraindications for IV Alteplase (t-PA) administration.: No Not given: Patient refusal: No (No thrombus, outside the window for no peripheral tPA.) Critical Care Time Critical Care Time: Yes Critical care time (excluding procedures): 30-74 minutes, Discussing w/Patient &/or Family/[employer], Discussing w/Consultants, Arranging Admission or Transfer, Performing Direct Patient Care at Bedside and - (35 minutes) Discharge Plan Triage Chief Complaint: Neuro S/Sx ED Provider: Beau Iniguez Dx/Rx/DC Orders Clinical Impression: Acute CVA (cerebrovascular accident), Facial droop, Slurring of speech, 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
[2021-06-16] MEDS: Aspirin 300 MG Suppository RC (18:53)
--- NOTE | 2021-06-16 19:02 | RAD_ITS ---
STUDY: X-RAY CHEST REASON FOR EXAM: Female, 81 years old. Neuro deficit, acute, stroke suspected TECHNIQUE: Single AP portable view of the chest. COMPARISON: None. FINDINGS: There are surgical clips in the right axillary region. There are monitoring devices. The lungs are clear and expanded. There is no demonstrated pleural abnormality. There is mild cardiac enlargement. Normal mediastinum and soledad. There is central vascular prominence. Normal visualized aortic arch and descending thoracic aorta. There is demineralization of the osseous structures. There is degenerative change of the spine. There is posttraumatic change of the left proximal humerus. There is no demonstrated abnormality of the visualized soft tissue structures of the upper abdomen. RAD/Chest 1 View IMPRESSION: Cardiac enlargement. No focal infiltrate. Electronically Signed: Michael Barahona MD at 19:41 EDT ,
== END 2021-06-16 22:28 | disposition other institution (70) ==
PROVIDERS: Emergency Provider Emergency Medicine; PCP Family Medicine; Visit Provider Emergency Medicine
DX: I63.312 Cerebral infarction due to thrombosis of left middle cerebral artery (principal); R47.81 Slurred speech; I10 Essential (primary) hypertension; R29.810 Facial weakness; Z79.899 Other long term (current) drug therapy; R29.702 NIHSS score 2
CPT/HCPCS: 70450; 70496; 70498; 71045; 80048; 84484; 85025; 85610; 85730; 93005; 99285; Q9967; A4216

== ENCOUNTER 2021-06-18 19:40 | Emergency (ER) | payer MEDICARE, SELFPAY ==
[2021-06-18] VITALS (9 sets, daily range): BP systolic 139–177; BP diastolic 65–124; PULSE 70–86; RESP 15–28; TEMP 36.6–37.2; O2SAT 97–99; BMI 23.8; BMI 25.2
--- NOTE | 2021-06-18 19:54 | EKG12_ITS ---
Test Reason : CVA Blood Pressure : / mmHG Vent. Rate : 084 BPM Atrial Rate : 084 BPM P-R Int : 186 ms QRS Dur : 084 ms QT Int : 402 ms P-R-T Axes : 078 045 054 degrees QTc Int : 475 ms Normal sinus rhythm Septal infarct , age undetermined , cannot be excluded Abnormal ECG Confirmed by ALEX NIETO, OBI ([id number]), editor index LUCAS SPEAR ([id number]) on 06/21/2021 9:22:16 AM Referred By: Confirmed By:OBI JOHNSON MD
--- NOTE | 2021-06-18 19:54 | CT_ITS ---
EXAM: CT HEAD WITHOUT IV CONTRAST - CT Head Stroke Protocol W/O Contrast Injection HISTORY: Neuro deficit, acute, stroke suspected TECHNIQUE: Routine protocol CT Head. IV Contrast: None. RADIATION DOSAGE (If Supplied By Facility): CTDIvol = ( ) mGy, DLP = ( ) mGycm Individualized dose optimization techniques were used for this CT. COMPARISON: CT head 06/16/2021. LIMITATIONS: None. FINDINGS: BRAIN: No acute bleed. No edema. Focus of decreased attenuation in the right basal ganglia appears more pronounced compared to prior study may be acute or subacute lacunar infarct. Old lacunar infarct in the left basal ganglia is unchanged. Decreased attenuation in the periventricular white matter bilaterally. Arterial calcifications. VENTRICLES AND SULCI: Not dilated. EXTRA-AXIAL: No hemorrhage, fluid collection, or mass. CALVARIUM / SKULL BASE: Unremarkable. FACE/SINUSES: Unremarkable. SOFT TISSUES: Unremarkable. CT/STROKE Brain/Head without Cont IMPRESSION: Right basal ganglia infarct is more pronounced compared to the study from 2 days ago may be acute or subacute. MRI may be helpful to evaluate for acute infarct as clinically indicated. Chronic microvascular ischemic disease. I discussed the findings with Dr. Cardenas by telephone at 5:21 PM. N.B. : The above Results were Read Back by Breana Castillo MD to Dr. Theresa MD, MD, and understanding confirmed on 06/18/2021 20:21:54 (ET). Electronically Signed: Breana Castillo MD at 20:23 EDT ,
--- NOTE | 2021-06-18 19:54 | RAD_ITS ---
STUDY: X-RAY CHEST REASON FOR EXAM: Female, 81 years old. Neuro deficit, acute, stroke suspected TECHNIQUE: Single AP portable view of the chest. COMPARISON: 06/16/2021 FINDINGS: Right mastectomy. The lungs are clear and expanded. There is no demonstrated pleural abnormality. Normal size heart. Normal mediastinum and soledad. Normal visualized pulmonary arteries. There is atherosclerotic calcification of the aortic arch with tortuosity. Normal visualized thoracic spine. 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 There is no demonstrated abnormality of the visualized soft tissue structures of the upper abdomen. RAD/Chest 1 View IMPRESSION: No airspace consolidation or pleural effusion. Electronically Signed: Dre Sullivan MD ([place]) at 20:47 EDT ,
--- NOTE | 2021-06-18 19:55 | ED.VIS.STROK ---
HPI History of Present Illness Chief Complaint: Weakness Informant: patient Onset/Context/Timing Onset: Hours (3) Timing: Continuous Quality and Location: Positive for Left Leg Weakness and Difficulty with Ambulation Current Severity: Moderate Maximum Severity: Moderate Worsened by: nothing Relieved by: n/a Associated Symptoms Associated Symptoms: Negative for Headache, Nausea, Vomiting and Chest Pain Narrative Narrative: Patient recently had an ischemic stroke, she was seen here and transferred to [facility], they did more testing, there was no intervention performed according to the patient, and she was discharged today, she states her deficits were left-sided weakness with difficulty walking. She has been walking well including this morning, and she states they wheeled her out in a wheelchair to the car and she was able to walk to the car without any difficulty. That was about 1630. She rode home in the car, and got out noticed that she was walking abnormally because her leg was weak and she states that prior to discharge her left lower extremity weakness had been back to normal. She states her left arm is weak and similar to what it had been. She denies any chest pain, shortness of breath, headache at this time, vision changes, or other new symptoms. [facility] Medical History HTN (hypertension) Stroke/cerebrovascular accident Home Medications quinapril 40 mg PO DAILY 01/25/16 [History Last Taken 11/02/18] metoprolol tartrate 25 mg PO BID 11/02/18 [History Last Taken 11/02/18 12:00] latanoprost 1 drp EACH EYE QHS 06/16/21 [History Last Taken Unknown] tqlldqjp-nfe-zpfe-FA-lutein [Centrum Silver Women] 1 tab PO DAILY 06/16/21 [History Last Taken Unknown] aspirin 81 mg PO DAILY 06/18/21 [History Last Taken Unknown] nifedipine 60 mg PO BID 06/18/21 [History Last Taken Unknown] Allergy/AdvReac Type Severity Reaction Status Date / Time tetracycline AdvReac Unknown Verified 02/12/21 11:06 Surgical History H/O mastectomy Social History Smoking Status: Never smoker ROS ROS ED Constitutional Constitutional ED: Denies chills or fever(s) Eyes Eyes: Denies change in vision or diplopia ENT ENT ED: Denies rhinorrhea or sore throat Cardiovascular Cardiovascular: Denies chest pain or palpitations Respiratory/Chest Respiratory/Chest: Denies cough or dyspnea Gastrointestinal Gastrointestinal: Denies abdominal pain, diarrhea, nausea or vomiting Genitourinary Genitourinary ED: Denies dysuria or hematuria Musculoskeletal Musculoskeletal: Denies back pain or neck pain Integumentary Denies abscess or rash Neurologic Neurologic: Reports as per HPI, abnormal gait and weakness; Denies headache(s) or paresthesias Psychiatric Psychiatric: Denies anxiety or suicidal thoughts EXAM Physical Exam Const Vital Signs: 06/18/21 19:41 06/18/21 19:49 06/18/21 19:54 Temperature 98.1 F 97.9 F Temperature Source Temporal Temporal Pulse Rate 86 84 Respiratory Rate 20 H 28 H Respiratory Effort Normal Non-Labored Respiratory Pattern Normal Blood Pressure 177/76 H 142/70 H Blood Pressure Mean 109 94 Pulse Ox 98 99 Oxygen Delivery Method Room Air Room Air 06/18/21 20:21 06/18/21 20:24 06/18/21 20:30 Temperature 98.4 F 98.9 F Temperature Source Temporal Temporal Pulse Rate 82 82 84 Respiratory Rate 21 H 20 H 20 H Respiratory Effort Respiratory Pattern Blood Pressure 142/65 H 147/74 H 145/124 H Blood Pressure Mean 90 98 131 Pulse Ox 98 98 99 Oxygen Delivery Method Room Air Room Air 06/18/21 21:00 06/18/21 21:27 06/18/21 22:00 Temperature 98.4 F 98.1 F 97.9 F Temperature Source Temporal Temporal Temporal Pulse Rate 84 82 79 Respiratory Rate 19 H 15 15 Respiratory Effort Respiratory Pattern Blood Pressure 139/72 H 142/65 H 154/104 H Blood Pressure Mean 94 90 120 Pulse Ox 97 97 97 Oxygen Delivery Method Room Air Room Air Room Air Positive well nourished and well developed General Appearance ED: well developed and NAD HEENT Reports moist mucous membranes normocephalic and atraumatic Eyes PERRL and EOMs intact bilaterally Neck full ROM and supple Resp normal respiratory effort and clear to auscultation bilaterally Cardio regular rate, regular rhythm and no murmurs GI non-tender and non-distended Auscultation: normoactive bowel sounds Palpation: soft Back/Spine no CVA tenderness General Back: other FROM Extremity normal to inspection General Extremety ED: Negative for edema, pulses abnormal or tenderness General Extremity: Negative for edema or pulses abnormal Neuro oriented x3, CN's II-XII intact bilaterally and no sensory deficits noted Neuro Narrative: Drift left arm and leg, otherwise no focal deficits Sensorium / Orientation: awake and alert Skin no rashes or lesions noted and no wounds STROKE Vital Signs/Narrative: Vital Signs Temp Pulse Resp BP Pulse Ox 06/18/21 22:00 97.9 F 79 15 154/104 H 97 06/18/21 21:27 98.1 F 82 15 142/65 H 97 06/18/21 21:00 98.4 F 84 19 H 139/72 H 97 06/18/21 20:30 98.9 F 84 20 H 145/124 H 99 06/18/21 20:24 98.4 F 82 20 H 147/74 H 98 06/18/21 20:21 82 21 H 142/65 H 98 06/18/21 19:54 97.9 F 84 28 H 142/70 H 99 06/18/21 19:41 98.1 F 86 20 H 177/76 H 98 NIHSS Initial: 1a Level of Consciousness: 0 1b LOC Questions (Score 2 if aphasic/stupor): 0 1c LOC Commands (Only score 1st attempt): 0 2 Best Gaze (If aphasic, use reflexive mvmts.): 0 3 Visual: 0 4 Facial Palsy: 0 5 Motor Arm Right (UN = amputation/fusion): 0 5 Motor Arm Left: 1 6 Motor Leg Right: 0 6 Motor Leg Left: 1 7 Limb ataxia (Only + if out of proportion): 0 8 Sensory (Aphasia/stupor=0 or 1, coma=2): 0 9 Best Language: 0 10 Dysarthria (mute, coma=2, intubated=UN): 0 11 Extinction and Inattention (only scored if +): 0 Total Score: 2 MDM MDM MDM Narrative Medical decision making narrative: Patient stable and unchanged when return from CT. Discussed with [facility] stroke neurology Dr. Cuellar over video conferencing, she examined the patient, agrees the patient is worse, knows the patient, and request that we send the patient back there since they just discharged her which I think is perfectly reasonable. Her initial blood pressure was 177/76, now 142/70, she would like the blood pressure higher if we are able, so I will give the patient a liter of fluid and we will prep her for transfer. She agrees that IV tPA not indicated due to recent infarct. The CT shows subacute infarct in the basal ganglia on the right, potentially causing or related to this, but I do not have the MRI to compare it with. No bleed. Lab Data Attestation: I reviewed the patient's lab results. Labs: Laboratory Results - last 24 hr 06/18/21 06/18/21 06/18/21 19:50 19:50 19:50 WBC 8.1 RBC 3.83 L Hgb 12.2 Hct 36.6 L MCV 95.6 MCH 31.9 MCHC 33.3 RDW Std Deviation 46.6 H RDW Coeff of Erinn 13.2 Plt Count 269 MPV 9.2 Immature Gran % (Auto) 0.400 Neut % (Auto) 72.0 H Lymph % (Auto) 15.7 L King % (Auto) 9.4 Eos % (Auto) 2.1 Baso % (Auto) 0.4 Absolute Neuts (auto) 5.8 Absolute Lymphs (auto) 1.27 Nucleated RBC % 0 PT 12.2 INR 0.9 APTT 23.9 L Sodium Cancelled Potassium Cancelled Chloride Cancelled Carbon Dioxide Cancelled Anion Gap Cancelled BUN Cancelled Creatinine Cancelled Estim Creat Clear Calc Cancelled Est GFR (MDRD) Af Amer Cancelled Est GFR (MDRD) Non-Af Cancelled BUN/Creatinine Ratio Cancelled Glucose Cancelled Calcium Cancelled Troponin I High Sens Cancelled 06/18/21 20:30 WBC RBC Hgb Hct MCV MCH MCHC RDW Std Deviation RDW Coeff of Erinn Plt Count MPV Immature Gran % (Auto) Neut % (Auto) Lymph % (Auto) King % (Auto) Eos % (Auto) Baso % (Auto) Absolute Neuts (auto) Absolute Lymphs (auto) Nucleated RBC % PT INR APTT Sodium 139 Potassium 4.9 Chloride 112 H Carbon Dioxide 22.0 Anion Gap 5 BUN 33 H Creatinine 1.64 H Estim Creat Clear Calc 27.16 Est GFR (MDRD) Af Amer 39 L Est GFR (MDRD) Non-Af 32 L BUN/Creatinine Ratio 20.1 H Glucose 124 H Calcium 8.6 Troponin I High Sens 7 Radiography Diagnostic Testing: Clinical Impression(s) from Imaging Studies Brain CT 06/18/21 19:54 IMPRESSION: Right basal ganglia infarct is more pronounced compared to the study from 2 days ago may be acute or subacute. MRI may be helpful to evaluate for acute infarct as clinically indicated. Chronic microvascular ischemic disease. I discussed the findings with Dr. Cardenas by telephone at 5:21 PM. N.B. : The above Results were Read Back by Breana Castillo MD to Dr. Theresa MD, , and understanding confirmed on 06/18/2021 20:21:54 (ET). Electronically Signed: Breana Castillo MD at 20:23 EDT , ADDENDUM: 06/18/212029 IMPRESSION: Right basal ganglia infarct is more pronounced compared to the study from 2 days ago may be acute or subacute. MRI may be helpful to evaluate for acute infarct as clinically indicated. Chronic microvascular ischemic disease. I discussed the findings with Dr. Cardenas by telephone at 5:21 PM. N.B. : The above Results were Read Back by Breana Castillo MD to Dr. Theresa MD, , and understanding confirmed on 06/18/2021 20:21:54 (ET). Electronically Signed: Breana Castillo MD at 20:23 EDT , Chest X-Ray 06/18/21 19:54 IMPRESSION: No airspace consolidation or pleural effusion. Electronically Signed: Dre Sullivan MD (Brooks) at 20:47 EDT , Rhythm Strip Rhythm Strip: Sinus Rhythm Rate: 86 Ectopy: None Stroke Documentation Questions Stroke Team Activated: Yes Was Patient considered for Endovascular Intervention?: No-CTA not indicated IV Alteplase (t-PA) Administered: No (due to recent cerebral infarct) Critical Care Time Critical Care Time: Yes Critical care time (excluding procedures): 30-74 minutes (35 min), Including time spent:, Discussing w/Patient &/or Family/All Terrain Vehicle Racer, Discussing w/Consultants, Arranging Admission or Transfer and Performing Direct Patient Care at Bedside Discharge Plan Triage Chief Complaint: Weakness ED Provider: Michael Cardenas Dx/Rx/DC Orders Clinical Impression: Acute cerebrovascular accident (CVA) due to ischemia Prescriptions: No Action quinapril 40 MG tablet 40 mg PO DAILY RF: 0 metoprolol tartrate 25 MG tablet 25 mg PO BID RF: 0 latanoprost 0.005 % drops 1 drp EACH EYE QHS RF: 0 Centrum Silver Women 8 mg iron-400 mcg-300 mcg Tablet 1 tab PO DAILY RF: 0 nifedipine 60 mg Tablet Extended Release 60 mg PO BID RF: 0 aspirin 81 mg Capsule 81 mg PO DAILY RF: 0 Primary Care Provider: Canelo Harley Referrals: Canelo Harley MD [Primary Care Provider] - Disposition Disposition: Acute Care Hospital Discharge Location: [facility]
[2021-06-18 20:04] LABS: Absolute Lymphocyte Count 1.27 X10^3/uL (0.83-4.51); Absolute Neutrophil Count 5.8 X10^3/uL (2.0-7.7); Basophil# 0.03 X10^3/uL; Basophil% 0.4 % (0-1); Eosinophil# 0.17 X10^3/uL; Eosinophils% 2.1 % (0-5); Hematocrit 36.6 % (37-47); Hemoglobin 12.2 g/dL (12.0-15.0); Lymphocyte # 1.27 X10^3/ul (0.83-4.51); Lymphocyte % 15.7 % (19-41); Mean Corp Hgb Conc 33.3 g/dL (32-36); Mean Corpuscular Hgb 31.9 pg (27.0-32.0); Mean Corpuscular Volume 95.6 fL (81-99); Mean Platelet Vol. 9.2 fl (6.2-12.0); Monocyte# 0.76 X10^3/uL; Monocyte% 9.4 % (0-10); NRBC Flagged by Analyzer 0 % (0-5); Neutrophil # 5.83 X10^3/uL (2.7-7.7); Platelet Count 269 K/mm3 (150-450); RBC Distribution Width CV 13.2 % (11.6-14.6); RBC Distribution Width SD 46.6 fl (35.1-43.9); Red Blood Count 3.83 M/mm3 (4.2-5.4); White Blood Count 8.1 K/mm3 (4.4-11.0)
[2021-06-18 20:13] LABS: International Normalized Ratio 0.9; Partial Thromboplast Time 23.9 Seconds (24.1-36.2); Prothrombin Time (Protime)PT. 12.2 SECONDS (11.7-14.9)
[2021-06-18] MEDS: 0.9% Normal Saline 1,000 ML 999 ML IV (20:33)
--- NOTE | 2021-06-18 20:34 | CM.ED ---
SW Note Referral Reason: Stroke Alert Referral Source: Stroke Alert SW met with patient's daughter while patient was in imaging. Patient presented to [facility] on for stroke and went to [facility]. Patient's daughter reports she lives in [place] and drove to [place] to be with her mother/patient. Patient was discharged today from [facility] and was doing well so good they told her she could drive home. However, when they got home patient was on the toilet and slumped over so they decided to call the squad. Patient's daughter said that they will have a family meeting tomorrow. Patient resides with her grandson and her other son lives down the street. Patient's daughter reports she is concerned that patient may not be taking her medication correctly. SW provided emotional support. Patient's daughter had discussed the family needing to discuss advanced directives with patient. SW offered to provide patient's daughter with [place] advanced directive booklet and patient's daughter was receptive to obtaining the resource. SW provided advanced directives and information about advanced directive to patient's daughter. Emotional support provided. SW remains available if needs arise. Mary ZUÑIGA
[2021-06-18 20:55] LABS: Anion Gap 5 (5-15); BUN 33 mg/dL (7-18); BUN/Creat Ratio 20.1 RATIO (10-20); Calcium,Total 8.6 mg/dL (8.5-10.1); Chloride 112 mmol/L (98-107); Creatinine, Serum 1.64 mg/dL (0.55-1.02); EST Glomerular Filtration Rate 32 mL/min (>60); Est Glom Filt Rate - Afr Amer 39 mL/min (>60); Estimated Creatinine Clearance 27.16 ml/min; Glucose 124 mg/dL (74-106); Potassium 4.9 mmol/L (3.5-5.1); Sodium Level 139 mmol/L (136-145); Troponin-I HS 7 pg/mL (3.0-54.0)
== END 2021-06-18 22:32 | disposition short-term general hospital (02) ==
PROVIDERS: Emergency Provider Emergency Medicine; PCP Family Medicine; Visit Provider Emergency Medicine
DX: I63.81 Other cerebral infarction due to occlusion or stenosis of small artery (principal); G81.94 Hemiplegia, unspecified affecting left nondominant side; R29.702 NIHSS score 2; I10 Essential (primary) hypertension; Z79.899 Other long term (current) drug therapy; Z86.73 Personal history of transient ischemic attack (TIA), and cerebral infarction without residual deficits
CPT/HCPCS: 70450; 71045; 80048; 84484; 85025; 85610; 85730; 93005; 96360; 99285; J7030; A4216

== ENCOUNTER 2021-08-24 11:59 | Emergency (ER) | payer MEDICARE, SELFPAY ==
[2021-08-24 12:00] VITALS: BP 129/71; PULSE 70; RESP 18; TEMP 36.4; O2SAT 100; BMI 22.5
--- NOTE | 2021-08-24 12:26 | EKG12_ITS ---
Test Reason : SOB Blood Pressure : / mmHG Vent. Rate : 065 BPM Atrial Rate : 065 BPM P-R Int : 246 ms QRS Dur : 090 ms QT Int : 428 ms P-R-T Axes : 069 010 030 degrees QTc Int : 445 ms Sinus rhythm with 1st degree A-V block Otherwise normal ECG Confirmed by CAROL NIETO, GURMEET ([id number]), assignment editor LUCAS SPEAR ([id number]) on 08/25/2021 11:20:00 A M Referred By: DENG Confirmed By:ABBE MEDINA MD
--- NOTE | 2021-08-24 12:27 | EX.ED.DYSGE1 ---
HPI History of Present Illness Chief Complaint: Shortness of Breath Detail of Chief Complaint: Shortness of breath and weight loss Informant: patient Narrative Narrative: Patient presents the emergency department complaint of shortness of breath for the last 2 weeks with exertion. Patient denies any chest pain or pressure or heaviness. She denies recent travel or surgery. Patient did have a stroke in May and was seen at [facility] for that. Patient states that she has lost about 20 pounds in the last 30 days and just has no appetite. Patient's daughter came to see her today and advised that she be evaluated in the emergency department. Patient denies any blood in her stool or black tarry stool. Patient has remote history of breast cancer with right mastectomy in 1993. She denies urinary symptoms. She denies fever or cough. [facility] Medical History (Updated 08/24/21 @ 15:[address] Holli Clemente DO) HTN (hypertension) Hypercholesteremia Stroke/cerebrovascular accident Home Medications quinapril 40 mg tablet 40 mg PO DAILY 01/25/16 [History Last Taken 11/02/18] metoprolol tartrate 25 mg tablet 25 mg PO BID 11/02/18 [History Last Taken 11/02/18 12:00] latanoprost 0.005 % eye drops 1 drp EACH EYE QHS 06/16/21 [History Last Taken Unknown] multivit with rxaurjkt-sjzd-KU-lutein 8 mg iron-400 mcg-300 mcg tablet (Centrum Silver Women) 1 tab PO DAILY 06/16/21 [History Last Taken Unknown] aspirin 81 mg capsule 81 mg PO DAILY 06/18/21 [History Last Taken Unknown] nifedipine 60 mg tablet,extended release 60 mg PO BID 06/18/21 [History Last Taken Unknown] cephalexin 500 mg capsule 500 mg PO Q6 #28 CAPSULES 08/24/21 [Rx Last Taken Unknown] Allergy/AdvReac Type Severity Reaction Status Date / Time tetracycline AdvReac Unknown Verified 08/24/21 12:00 Surgical History H/O mastectomy Social History Smoking Status: Never smoker ROS ROS ED ROS Narrative Weight loss Review of Systems ROS Unobtainable: other Constitutional Constitutional ED: Reports lethargy; Denies chills, fever(s), sweats or weight loss Eyes Eyes: Denies blurry vision, change in vision or diplopia ENT ENT ED: Denies rhinorrhea or sore throat Cardiovascular Cardiovascular: Reports chest pain and racing heartbeat; Denies orthopnea Respiratory/Chest Respiratory/Chest: Reports dyspnea and dyspnea on exertion; Denies cough, orthopnea or sputum Gastrointestinal Gastrointestinal: Denies abdominal pain, diarrhea, nausea or vomiting Genitourinary Genitourinary ED: Denies dysuria, hematuria or urinary frequency Musculoskeletal Musculoskeletal: Denies arthralgias, back pain, myalgias or neck pain Integumentary Denies abscess, Abrasions or rash Neurologic Neurologic: Reports other Details: Dizziness ; Denies headache(s) or weakness Psychiatric Psychiatric: Denies anxiety, depression or suicidal thoughts Endocrine Endocrinology: Denies polydipsia, polyphagia or polyuria Hematologic/Lymphatic Hematologic/Lymphatic: Denies easy bleeding, easy bruising or lymphadenopathy Allergic/Immunologic Allergic/Immunologic ED: Denies mouth swelling, tongue swelling or urticaria EXAM Physical Exam Const Vital Signs: 08/24/21 12:00 08/24/21 14:10 Temperature 97.6 F L Temperature Source Temporal Pulse Rate 70 62 Respiratory Rate 18 18 Blood Pressure 129/71 H Blood Pressure Mean 90 Pulse Ox 100 97 Oxygen Delivery Method Room Air Room Air Positive well nourished and well developed General Appearance ED: well developed and NAD HEENT Reports TM's clear and moist mucous membranes normocephalic and atraumatic; Negative for trauma or tenderness Tympanic Membrane ED: Yes TM's clear Eyes PERRL and EOMs intact bilaterally General Eye ED: Negative for pale conjunctiva or scleral icterus Neck no lymphadenopathy, supple and no JVD General: Negative for tenderness Chest Wall inspection of chest normal and palpation of chest normal Chest: Negative for tenderness Resp normal respiratory effort and clear to auscultation bilaterally Effort and Inspection: Negative for respiratory distress or pain with movement Auscultation: Negative for rhonchi, wheezes or diminished lung sounds Cardio regular rate, regular rhythm, S1 normal heart sound, S2 normal heart sound and no murmurs Peripheral Pulses: pulses 2+ throughout GI normal to inspection, nondistended, normoactive bowel sounds, soft to palpation, non-tender, non-distended and no masses Back/Spine no CVA tenderness and no thoracic nor lumbar tenderness Extremity normal to inspection General Extremety ED: Negative for edema General Extremity: Negative for edema Neuro oriented x3, CN's II-XII intact bilaterally, no sensory deficits noted and gait normal Sensorium / Orientation: awake, alert, oriented to person, oriented to place and oriented to time Motor Exam: strength 5/5 throughout and strength abnormal Psych mental status grossly normal Skin no rashes or lesions noted and no wounds MDM MDM MDM Narrative Medical decision making narrative: IV line established on arrival. EKG obtained arrival showed a sinus rhythm with a first-degree AV block with no acute ST segment changes. Troponin was normal. Chemistries unremarkable other than a slightly elevated creatinine at 1.76 which is slightly elevated and chronically. Urinalysis was significant for 500 cassette esterase and 25-50 WBCs without bacteria. Urine culture was sent. Patient was started on Keflex for suspected UTI. D-dimer was normal when corrected for age. Chest x-ray showed no acute disease process. At this point etiology of her exertional dyspnea is unclear and her weight loss is unclear. I recommended follow-up with her primary care physician to arrange for outpatient stress testing as well as colonoscopy and further work-up as indicated. At this point I do not see an acute disease process. Daughter states that since the stroke patient also has been more stressed and really has not been eating very much. There are some concern that there may be some anxiety and some depression. Patient not suicidal. Daughter will make outpatient follow-up arrangements with patient. Lab Data Attestation: I reviewed the patient's lab results. Labs: Laboratory Results - last 24 hr 08/24/21 08/24/21 08/24/21 12:45 12:45 12:45 WBC 9.3 RBC 3.55 L Hgb 11.5 L Hct 34.7 L MCV 97.7 MCH 32.4 H MCHC 33.1 RDW Std Deviation 46.9 H RDW Coeff of Erinn 13.1 Plt Count 287 MPV 9.2 Immature Gran % (Auto) 0.900 Neut % (Auto) 77.6 H Lymph % (Auto) 13.2 L Hamilton % (Auto) 7.5 Eos % (Auto) 0.5 Baso % (Auto) 0.3 Absolute Neuts (auto) 7.2 Absolute Lymphs (auto) 1.22 Nucleated RBC % 0 D-Dimer Quant (PE/DVT) 0.51 H* Sodium 141 Potassium 4.9 Chloride 110 H Carbon Dioxide 24.0 Anion Gap 7 BUN 24 H Creatinine 1.76 H Estim Creat Clear Calc 24.43 Est GFR (MDRD) Af Amer 35 L Est GFR (MDRD) Non-Af 29 L BUN/Creatinine Ratio 13.6 Glucose 150 H Calcium 9.1 Troponin I High Sens 14 Urine Color Urine Clarity Urine pH Ur Specific Johnson Urine Protein Urine Glucose (UA) Urine Ketones Urine Occult Blood Urine Nitrite Urine Bilirubin Urine Urobilinogen Ur Leukocyte Esterase Urine RBC Urine WBC Ur Squamous Epith Cells Urine Bacteria Urine Mucus 08/24/21 13:45 WBC RBC Hgb Hct MCV MCH MCHC RDW Std Deviation RDW Coeff of Erinn Plt Count MPV Immature Gran % (Auto) Neut % (Auto) Lymph % (Auto) Hamilton % (Auto) Eos % (Auto) Baso % (Auto) Absolute Neuts (auto) Absolute Lymphs (auto) Nucleated RBC % D-Dimer Quant (PE/DVT) Sodium Potassium Chloride Carbon Dioxide Anion Gap BUN Creatinine Estim Creat Clear Calc Est GFR (MDRD) Af Amer Est GFR (MDRD) Non-Af BUN/Creatinine Ratio Glucose Calcium Troponin I High Sens Urine Color Yellow Urine Clarity Sl. Cloudy Urine pH 5.0 Ur Specific Johnson 1.020 Urine Protein 30 H Urine Glucose (UA) Normal Urine Ketones 5 H Urine Occult Blood Negative Urine Nitrite Negative Urine Bilirubin Negative Urine Urobilinogen 1 H Ur Leukocyte Esterase 500 H Urine RBC 0 SEEN Urine WBC 25-50 SEEN Ur Squamous Epith Cells 0-5 SEEN Urine Bacteria 0 SEEN Urine Mucus 0 SEEN Radiography Diagnostic Testing: Clinical Impression(s) from Imaging Studies Chest X-Ray 08/24/21 13:00 IMPRESSION: Normal x-ray examination of the chest. Electronically Signed: Jani Yu MD at 13:29 EDT , Discharge Plan Triage Chief Complaint: Shortness of Breath ED Provider: Holli Clemente Dx/Rx/DC Orders Clinical Impression: Exertional dyspnea, Acute UTI, Weight loss Instructions: ED Dyspnea Prescriptions: New cephalexin [cephalexin] 500 mg capsule 500 mg PO Q6 Qty: 28 0RF No Action quinapril 40 MG tablet 40 mg PO DAILY metoprolol tartrate 25 MG tablet 25 mg PO BID Label Comments: TAKE 1 TABLET BY MOUTH EVERY 12 HOURS latanoprost 0.005 % drops 1 drp EACH EYE QHS Label Comments: Instill 1 drop in both eyes daily Centrum Silver Women 8 mg iron-400 mcg-300 mcg Tablet 1 tab PO DAILY nifedipine 60 mg Tablet Extended Release 60 mg PO BID aspirin 81 mg Capsule 81 mg PO DAILY Primary Care Provider: Canelo Harley Referrals: Canelo Harley MD [Primary Care Provider] - 3-5 Days Activity Restrictions/Additional Instructions: Follow-up with your primary care physician for possible outpatient stress testing as well as further evaluation into your recent weight loss including possibly colonoscopy. Disposition Disposition: Home, Self Care
[2021-08-24 12:53] LABS: Absolute Lymphocyte Count 1.22 X10^3/uL (0.83-4.51); Absolute Neutrophil Count 7.2 X10^3/uL (2.0-7.7); Basophil# 0.03 X10^3/uL; Basophil% 0.3 % (0-1); Eosinophil# 0.05 X10^3/uL; Eosinophils% 0.5 % (0-5); Hematocrit 34.7 % (37-47); Hemoglobin 11.5 g/dL (12.0-15.0); Lymphocyte # 1.22 X10^3/ul (0.83-4.51); Lymphocyte % 13.2 % (19-41); Mean Corp Hgb Conc 33.1 g/dL (32-36); Mean Corpuscular Hgb 32.4 pg (27.0-32.0); Mean Corpuscular Volume 97.7 fL (81-99); Mean Platelet Vol. 9.2 fl (6.2-12.0); Monocyte# 0.69 X10^3/uL; Monocyte% 7.5 % (0-10); NRBC Flagged by Analyzer 0 % (0-5); Neutrophil # 7.18 X10^3/uL (2.7-7.7); Neutrophil % 77.6 % (47-70); Platelet Count 287 K/mm3 (150-450); RBC Distribution Width CV 13.1 % (11.6-14.6); RBC Distribution Width SD 46.9 fl (35.1-43.9); Red Blood Count 3.55 M/mm3 (4.2-5.4); White Blood Count 9.3 K/mm3 (4.4-11.0)
--- NOTE | 2021-08-24 13:00 | RAD_ITS ---
STUDY: X-RAY CHEST REASON FOR EXAM: Female, 81 years old. shortness of breath TECHNIQUE: Single AP portable view of the chest. COMPARISON: 06/18/2021 FINDINGS: Status post right axillary lymph node dissection. The lungs are clear and expanded. There is no demonstrated pleural abnormality. Normal size heart. Normal mediastinum and soledad. Normal visualized pulmonary arteries. Normal visualized aortic arch and descending thoracic aorta. Normal visualized thoracic spine. Normal visualized ribs, clavicles, and shoulders. There is no demonstrated abnormality of the visualized soft tissue structures of the upper abdomen. RAD/Chest 1 View (Portable) IMPRESSION: Normal x-ray examination of the chest. Electronically Signed: Jani uY MD at 13:29 EDT ,
[2021-08-24 13:10] LABS: Anion Gap 7 (5-15); BUN 24 mg/dL (7-18); BUN/Creat Ratio 13.6 RATIO (10-20); Calcium,Total 9.1 mg/dL (8.5-10.1); Chloride 110 mmol/L (98-107); Creatinine, Serum 1.76 mg/dL (0.55-1.02); EST Glomerular Filtration Rate 29 mL/min (>60); Est Glom Filt Rate - Afr Amer 35 mL/min (>60); Estimated Creatinine Clearance 24.43 ml/min; Glucose 150 mg/dL (74-106); Potassium 4.9 mmol/L (3.5-5.1); Sodium Level 141 mmol/L (136-145); Troponin-I HS 14 pg/mL (3.0-54.0)
[2021-08-24 13:20] LABS: D-Dimer Quantitative (DVT/PE) 0.51 FEU/ug/m (0.27-0.49)
[2021-08-24 13:48] LABS: Bacteria 0 SEEN /hpf (None Seen); Mucous, Urine 0 SEEN /hpf (<or=2+); Red Blood Cells-Urine 0 SEEN /hpf (0-5)
[2021-08-24 13:55] LABS: Color, Urine Yellow (Yellow); Glucose, Dipstick Normal (Normal); Ketone-Dipstick 5 mg/dl (Negative); Leukocyte Esterase-Dipstick 500 /ul (Negative); Nitrite-Dipstick Negative (Negative); Occult Blood-Urine Negative /ul (Negative); Protein-Dipstick 30 mg/dl (Negative); Urine Bilirubin Dipstick Negative (Negative); Urine Clarity Sl. Cloudy (Clear); Urine Urobilinogen 1 mg/dl (Normal)
[2021-08-24 14:01] LABS: Squamous Epithelial Cells - UA 0-5 SEEN /hpf (5-10); White Blood Cells 25-50 SEEN /hpf (0-5)
[2021-08-24 14:10] VITALS: PULSE 62; RESP 18; O2SAT 97
[2021-08-24 15:00] VITALS: O2SAT 97
[2021-08-24] MEDS: Cephalexin 250 MG Capsule 500 MG PO (15:39)
== END 2021-08-24 15:53 | disposition home or self-care (01) ==
PROVIDERS: Emergency Provider Emergency Medicine; PCP Family Medicine; Visit Provider Emergency Medicine
DX: R06.09 Other forms of dyspnea (principal); N39.0 Urinary tract infection, site not specified; R63.4 Abnormal weight loss; I10 Essential (primary) hypertension; E78.00 Pure hypercholesterolemia, unspecified; Z68.22 Body mass index [BMI] 22.0-22.9, adult; Z79.82 Long term (current) use of aspirin; Z79.899 Other long term (current) drug therapy; Z86.73 Personal history of transient ischemic attack (TIA), and cerebral infarction without residual deficits
CPT/HCPCS: 71045; 80048; 81001; 84484; 85025; 85379; 87086; 87088; 87811; 93005; 99285; A4216

== ENCOUNTER 2021-10-14 12:15 | Emergency (ER) | payer MEDICARE, SELFPAY ==
[2021-10-14 12:17] VITALS: BP 190/79; PULSE 61; RESP 18; TEMP 36.6; O2SAT 99; BMI 20.5
[2021-10-14 13:00] VITALS: BP 182/92
--- NOTE | 2021-10-14 14:08 | EDS_ITS ---
HPI History of Present Illness Chief Complaint: Hypertension Narrative Narrative: Patient presents with her son because of elevated blood pressure. She takes metoprolol 25 mg orally. She is asymptomatic because she had been diagnosed with a stroke in May of this month, and was on metoprolol and nifedipine. They weaned her off the nifedipine recently, but over the last few days her son has noticed that her blood pressure has been elevating. She had intermittent dizziness, but currently feels well. No chest pain or shortness of breath. No other symptoms. She took her medication this morning and took her blood pressure just prior to arrival where it was elevated in the 180s systolic. [facility] Medical History (Updated 10/14/21 @ 14:14 by Davide Llamas MD) HTN (hypertension) Hypercholesteremia Stroke/cerebrovascular accident Home Medications quinapril 40 mg tablet 40 mg PO DAILY 01/25/16 [History Last Taken 11/02/18] metoprolol tartrate 25 mg tablet 25 mg PO BID 11/02/18 [History Last Taken 11/02/18 12:00] latanoprost 0.005 % eye drops 1 drp EACH EYE QHS 06/16/21 [History Last Taken Unknown] aspirin 81 mg capsule 81 mg PO DAILY 06/18/21 [History Last Taken Unknown] atorvastatin 80 mg tablet 80 mg PO DAILY 10/14/21 [History Last Taken Unknown] metoprolol tartrate 50 mg tablet 50 mg PO DAILY #14 tabs 10/14/21 [Rx Last Taken Unknown] Allergy/AdvReac Type Severity Reaction Status Date / Time tetracycline AdvReac Unknown Verified 10/14/21 12:18 Surgical History H/O mastectomy Social History Smoking Status: Never smoker ROS ROS ED ROS Narrative Constitutional: No fever, no chills. Elevated blood pressure. HEENT: No sore throat. No neck pain. No loss of vision. No rhinorrhea. Cardiovascular: No chest pain. No palpitations. No pedal edema. Respiratory: No cough, no shortness of breath. Abdominal: No abdominal pain. No nausea. No vomiting. Genitourinary: No dysuria. No hematuria. Musculoskeletal: No myalgias. No arthralgias. Neurologic: No headaches. No dizziness. No lightheadedness. Skin: No rash. No change in color. Psychiatric: No depression. No anxiety. EXAM Physical Exam Narrative Exam Narrative: Afebrile. Vital signs noted. HEENT: Normocephalic. Atraumatic. PERRL, EOMI. Neck soft and supple. No point tenderness or step off. Cardiovascular: Regular rate and rhythm. No murmurs, rubs, or gallops appreciated. Respiratory: No tachypnea. Lungs clear to auscultation bilaterally. Gastrointestinal: Abdomen soft, nontender, with normoactive bowel sounds. No rebound or guarding. Neurological: Awake. Alert. Nonfocal, nonlateralizing. Skin: No rash. Normal color. No pallor. Musculoskeletal: No pedal edema. Full range of motion extremities. Const Vital Signs: 10/14/21 12:17 10/14/21 12:47 10/14/21 13:00 Temperature 97.8 F Temperature Source Temporal Pulse Rate 61 Respiratory Rate 18 Respiratory Effort Normal Non-Labored Respiratory Pattern Normal Blood Pressure 190/79 H 182/92 H Blood Pressure Mean 116 122 Pulse Ox 99 Oxygen Delivery Method Room Air MDM MDM MDM Narrative Medical decision making narrative: Once again, patient is asymptomatic here. Her blood pressure is 182/92. I do feel this is because they have recently weaned her off nifedipine. I discussed patient with the nurse practitioner for Dr. Quach, who reviewed the patient's chart over the phone. They suggested starting her on an CLIFF inhibitor. As she is already on 1 medication I will start her out at 5 mg orally. However, it was noted that she takes quinapril 40 mg daily and took it this morning. I did note that she takes metoprolol regular release I do feel that she would benefit from 50 mg extended release. She was given a dose of 25 mg extended release metoprolol here in the emergency department. She will keep an eye on her blood pressure and heart rate. Additionally, she states she has a follow-up appointment with her primary care physician on the , approximately 6 days from now. I feel she be discharged safely home with follow-up. Return instructions to the emergency department were reviewed. Disposition is discharged home in stable condition. Discharge Plan Triage Chief Complaint: Hypertension Other Complaint: Dizziness ED Provider: Davide Llamas Dx/Rx/DC Orders Clinical Impression: Hypertension, uncontrolled, History of stroke, Asymptomatic hypertension Instructions: ED Hypertension, Established, ED High Blood Pressure Hypertension Prescriptions: New metoprolol tartrate 50 mg tablet 50 mg PO DAILY Qty: 14 0RF No Action quinapril 40 MG tablet 40 mg PO DAILY metoprolol tartrate 25 MG tablet 25 mg PO BID Label Comments: TAKE 1 TABLET BY MOUTH EVERY 12 HOURS latanoprost 0.005 % drops 1 drp EACH EYE QHS Label Comments: Instill 1 drop in both eyes daily aspirin 81 mg Capsule 81 mg PO DAILY atorvastatin 80 mg tablet 80 mg PO DAILY Label Comments: Take 1 tablet by mouth once a day Primary Care Provider: Linda Quach Referrals: Linda Quach, DO [Primary Care Provider] - Keep [place] appointment Activity Restrictions/Additional Instructions: Continue taking your quinapril 40 mg orally daily. Stop taking metoprolol regular release 25 mg, and start metoprolol XL 50 mg orally once a day until seen by your primary care provider. Disposition Disposition: Home, Self Care
[2021-10-14 14:11] VITALS: RESP 16
[2021-10-14] MEDS: Metoprolol(XL)Succ 25 MG Tablet PO (14:32)
[2021-10-14 14:35] VITALS: BP 159/77; PULSE 74; RESP 16; O2SAT 95
== END 2021-10-14 14:39 | disposition home or self-care (01) ==
PROVIDERS: Emergency Provider Emergency Medicine; PCP Family Medicine; Visit Provider Emergency Medicine
DX: I10 Essential (primary) hypertension (principal); E78.00 Pure hypercholesterolemia, unspecified; Z79.82 Long term (current) use of aspirin; Z79.899 Other long term (current) drug therapy; Z86.73 Personal history of transient ischemic attack (TIA), and cerebral infarction without residual deficits
CPT/HCPCS: 99283

== ENCOUNTER 2021-10-17 01:37 | Emergency (ER) | payer MEDICARE, SELFPAY ==
[2021-10-17 01:37] VITALS: BP 225/93; PULSE 65; RESP 16; TEMP 36.6; O2SAT 99; BMI 20.2
--- NOTE | 2021-10-17 02:00 | EDS_ITS ---
HPI History of Present Illness Chief Complaint: Hypertension Informant: patient and family Onset/Context/Timing Onset: Today (past 3-4 hrs) Context: Onset with activity (sleep; woke her up w/ head discomfort) Timing: Continuous Quality: discomfort, not headache Current Severity: Mild Maximum Severity: Moderate Worsened by: nothing but BP was up Relieved by: taking extra quinapril 40mg Associated Symptoms Associated Symptoms: none Narrative Narrative: Patient has history of high blood pressure, she was seen here 3 days ago for the same thing except not as symptomatic tonight. She was awakened with discomfort in her head, which she felt the last time her blood pressure was elevated. She took her blood pressure and it was over 200 systolic so she took an extra quinapril 40 mg tonight. She waited a couple hours and still felt symptomatic recheck her blood pressure and still over 200 so she presents to the emergency department. At the time of my evaluation her blood pressure is 193 systolic, then 200/77, she states she is feeling better, she developed no dizziness, nausea, focal neurologic symptoms, chest discomfort, shortness of breath, confusion, vision change. She was recently prescribed a higher dose of her usual metoprolol tartrate, from 25 twice daily to 50 twice daily, and she has been compliant with her other medications. States she has a history of a stroke that affected her left side, she feels she has recovered from that and none of those symptoms have recurred tonight. [facility] Medical History HTN (hypertension) Hypercholesteremia Stroke/cerebrovascular accident Home Medications quinapril 40 mg tablet 40 mg PO DAILY 01/25/16 [History Last Taken 11/02/18] metoprolol tartrate 25 mg tablet 25 mg PO BID 11/02/18 [History Last Taken 11/02/18 12:00] latanoprost 0.005 % eye drops 1 drp EACH EYE QHS 06/16/21 [History Last Taken Unknown] aspirin 81 mg capsule 81 mg PO DAILY 06/18/21 [History Last Taken Unknown] atorvastatin 80 mg tablet 80 mg PO DAILY 10/14/21 [History Last Taken Unknown] metoprolol tartrate 50 mg tablet 50 mg PO DAILY #14 tabs 10/14/21 [Rx Last Taken Unknown] clonidine HCl 0.1 mg tablet 0.1 mg PO BID PRN SBP > 180 #10 tabs 10/17/21 [Rx Last Taken Unknown] Allergy/AdvReac Type Severity Reaction Status Date / Time tetracycline AdvReac Unknown Verified 10/17/21 01:41 Surgical History H/O mastectomy Social History Smoking Status: Never smoker ROS ROS ED Constitutional Constitutional ED: Denies chills or fever(s) Eyes Eyes: Denies blurry vision, change in vision or diplopia ENT ENT ED: Denies rhinorrhea or sore throat Cardiovascular Cardiovascular: Denies chest pain or palpitations Respiratory/Chest Respiratory/Chest: Denies cough or dyspnea Gastrointestinal Gastrointestinal: Denies abdominal pain, diarrhea, nausea or vomiting Genitourinary Genitourinary ED: Denies dysuria or hematuria Musculoskeletal Musculoskeletal: Denies back pain or neck pain Integumentary Denies abscess or rash Neurologic Neurologic: Reports as per HPI; Denies headache(s), paresthesias or weakness Psychiatric Psychiatric: Denies anxiety or suicidal thoughts EXAM Physical Exam Const Vital Signs: 10/17/21 01:37 10/17/21 01:41 10/17/21 02:46 Temperature 97.8 F Temperature Source Temporal Pulse Rate 65 Respiratory Rate 16 Respiratory Effort Normal Non-Labored Respiratory Pattern Normal Blood Pressure 225/93 H 192/69 H Blood Pressure Mean 137 110 Pulse Ox 99 Oxygen Delivery Method Room Air Positive well nourished and well developed General Appearance ED: well developed and NAD HEENT Reports moist mucous membranes normocephalic and atraumatic Eyes PERRL and EOMs intact bilaterally Neck full ROM and supple Resp normal respiratory effort and clear to auscultation bilaterally Cardio regular rate, regular rhythm and no murmurs Rate: Negative for tachycardic GI non-tender and non-distended Auscultation: normoactive bowel sounds Palpation: soft Back/Spine no CVA tenderness General Back: other FROM Extremity normal to inspection General Extremety ED: Negative for edema, pulses abnormal or tenderness General Extremity: Negative for edema or pulses abnormal Neuro oriented x3, CN's II-XII intact bilaterally, no sensory deficits noted and gait normal Teressa Coma Scale: document GCS findings Spontaneous Obeys Commands Oriented 15 Sensorium / Orientation: awake and alert Motor Exam: strength 5/5 throughout Skin no rashes or lesions noted and no wounds MDM MDM MDM Narrative Medical decision making narrative: Patient was given clonidine 0.1 mg orally and observed. Her symptoms had already almost completely resolved and further improved to resolution, her blood pressure gradually came down over the next hour or 2 to 139/67. She was able to walk without feeling lightheaded or poorly. Until she can follow-up with her doctor I will prescribe her clonidine to use as needed, she was advised to do that instead of doubling up on her CLIFF inhibitor. She is comfortable with that plan. Discharge Plan Triage Chief Complaint: Hypertension ED Provider: Michael Cardenas Dx/Rx/DC Orders Clinical Impression: Accelerated hypertension Instructions: Hypertension Dc Prescriptions: New clonidine HCl 0.1 mg tablet 0.1 mg PO BID PRN (Reason: SBP > 180) Qty: 10 0RF No Action quinapril 40 MG tablet 40 mg PO DAILY metoprolol tartrate 25 MG tablet 25 mg PO BID Label Comments: TAKE 1 TABLET BY MOUTH EVERY 12 HOURS latanoprost 0.005 % drops 1 drp EACH EYE QHS Label Comments: Instill 1 drop in both eyes daily aspirin 81 mg Capsule 81 mg PO DAILY atorvastatin 80 mg tablet 80 mg PO DAILY Label Comments: Take 1 tablet by mouth once a day metoprolol tartrate 50 mg tablet 50 mg PO DAILY Qty: 14 0RF Primary Care Provider: Linda Quach Referrals: Linda Quach, [Primary Care Provider] - 3-5 Days Disposition Disposition: Home, Self Care
[2021-10-17] MEDS: cloNIDine HCl 0.1 MG Tablet PO (02:03)
[2021-10-17 02:46] VITALS: BP 192/69
[2021-10-17 03:31] VITALS: BP 139/67; PULSE 53; RESP 15; O2SAT 98
== END 2021-10-17 03:46 | disposition home or self-care (01) ==
PROVIDERS: Emergency Provider Emergency Medicine; PCP Family Medicine; Visit Provider Emergency Medicine
DX: I10 Essential (primary) hypertension (principal); E78.00 Pure hypercholesterolemia, unspecified; Z79.899 Other long term (current) drug therapy; Z86.73 Personal history of transient ischemic attack (TIA), and cerebral infarction without residual deficits
CPT/HCPCS: 99283

== ENCOUNTER → 2022-04-20 | Outpatient (CLI) | payer MEDICARE, SELFPAY ==
[2022-04-20 10:32] LABS: Absolute Lymphocyte Count 1.28 X10^3/uL (0.83-4.51); Absolute Neutrophil Count 3.3 X10^3/uL (2.0-7.7); Basophil# 0.05 X10^3/uL; Basophil% 0.9 % (0-1); Eosinophil# 0.13 X10^3/uL; Eosinophils% 2.4 % (0-5); Hematocrit 36.6 % (37-47); Hemoglobin 11.6 g/dL (12.0-15.0); Lymphocyte # 1.28 X10^3/ul (0.83-4.51); Lymphocyte % 24.1 % (19-41); Mean Corp Hgb Conc 31.7 g/dL (32-36); Mean Corpuscular Hgb 31.6 pg (27.0-32.0); Mean Corpuscular Volume 99.7 fL (81-99); Mean Platelet Vol. 9.6 fl (6.2-12.0); Monocyte# 0.51 X10^3/uL; Monocyte% 9.6 % (0-10); NRBC Flagged by Analyzer 0 % (0-5); Neutrophil # 3.32 X10^3/uL (2.7-7.7); Neutrophil % 62.6 % (47-70); Platelet Count 234 K/mm3 (150-450); RBC Distribution Width CV 13.2 % (11.6-14.6); RBC Distribution Width SD 48.6 fl (35.1-43.9); Red Blood Count 3.67 M/mm3 (4.2-5.4); White Blood Count 5.3 K/mm3 (4.4-11.0)
[2022-04-20 10:54] LABS: Hemoglobin A1c 5.3 % (3.8-5.6)
[2022-04-20 11:36] LABS: ALB/GLOB Ratio 1.2 RATIO (0.9-2.4); AST(SGOT) 21 U/L (15-37); Alanine Aminotransfer ALT/SGPT 19 U/L (13-56); Albumin, Serum 3.6 g/dL (3.2-5.0); Alkaline Phosphatase 65 U/L (45-117); Anion Gap 6 (5-15); BUN 26 mg/dL (7-18); BUN/Creat Ratio 17.8 RATIO (10-20); Calcium,Total 9.2 mg/dL (8.5-10.1); Chloride 113 mmol/L (98-107); Cholesterol 132 mg/dL (200); Creatinine, Serum 1.46 mg/dL (0.55-1.02); EST Glomerular Filtration Rate 36 mL/min (>60); Est Glom Filt Rate - Afr Amer 44 mL/min (>60); Glucose 107 mg/dL (74-106); High Density Lipoprotein 70 mg/dL; Potassium 4.8 mmol/L (3.5-5.1); Protein, Total 6.6 g/dL (6.4-8.2); Sodium Level 143 mmol/L (136-145); Thyroid Stim Hormone (TSH) 0.93 uIU/mL (0.358-3.74); Triglycerides 90 mg/dL; Very Low Density Lipoprotein 18 mg/dL (5-40)
== END | disposition home or self-care (01) ==
LOC: MTLAB 08:01
PROVIDERS: PCP Family Medicine; Referring Provider Family Medicine; Visit Provider Family Medicine
DX: E78.5 Hyperlipidemia, unspecified (principal); Z79.899 Other long term (current) drug therapy
CPT/HCPCS: 36415; 80053; 80061; 83036; 84443; 85025

== ENCOUNTER → 2022-05-04 | Outpatient (CLI) | payer MEDICARE, SELFPAY ==
[2022-05-04 09:56] LABS: Absolute Lymphocyte Count 1.12 X10^3/uL (0.83-4.51); Absolute Neutrophil Count 3.7 X10^3/uL (2.0-7.7); Basophil# 0.03 X10^3/uL; Basophil% 0.5 % (0-1); Eosinophil# 0.15 X10^3/uL; Eosinophils% 2.7 % (0-5); Hematocrit 34.4 % (37-47); Lymphocyte # 1.12 X10^3/ul (0.83-4.51); Lymphocyte % 19.9 % (19-41); Mean Corpuscular Hgb 31.4 pg (27.0-32.0); Mean Corpuscular Volume 98.3 fL (81-99); Mean Platelet Vol. 9.2 fl (6.2-12.0); Monocyte# 0.62 X10^3/uL; NRBC Flagged by Analyzer 0 % (0-5); Neutrophil % 65.5 % (47-70); Platelet Count 218 K/mm3 (150-450); RBC Distribution Width CV 13.1 % (11.6-14.6); RBC Distribution Width SD 46.7 fl (35.1-43.9); White Blood Count 5.6 K/mm3 (4.4-11.0)
[2022-05-04 10:12] LABS: Vitamin B12 419 pg/mL (211-911)
[2022-05-04 10:28] LABS: Anion Gap 7 (5-15); BUN 27 mg/dL (7-18); BUN/Creat Ratio 18.6 RATIO (10-20); Calcium,Total 9.4 mg/dL (8.5-10.1); Chloride 110 mmol/L (98-107); Creatinine, Serum 1.45 mg/dL (0.55-1.02); EST Glomerular Filtration Rate 37 mL/min (>60); Est Glom Filt Rate - Afr Amer 44 mL/min (>60); Ferritin 100 ng/mL (8-252); Glucose 101 mg/dL (74-106); Iron 84 ug/dL (50-170); Iron Binding Capacity,Total 303 ug/dL (250-450); Potassium 4.4 mmol/L (3.5-5.1); Sodium Level 141 mmol/L (136-145)
== END | disposition home or self-care (01) ==
LOC: MTLAB 07:39
PROVIDERS: PCP Family Medicine; Referring Provider Family Medicine; Visit Provider Family Medicine
DX: D64.9 Anemia, unspecified (principal)
CPT/HCPCS: 36415; 80048; 82607; 82728; 83540; 83550; 85025

== ENCOUNTER → 2022-07-12 | Outpatient (CLI) | payer MEDICARE, SELFPAY ==
--- NOTE | 2022-07-12 13:37 | BI_ITS ---
MAMMOGRAPHY - UNILATERAL SCREENING: LEFT BREAST REASON FOR EXAM: Female, 82 years old. Routine annual screening examination (unilateral). PERTINENT HISTORY: Personal history of breast cancer. Prior right mastectomy. Mother with breast cancer. TECHNIQUE: Digital unilateral breast lorraine (3D mammographic acquisition) in the CC and MLO projections. 2-D mediolateral oblique (MLO) and craniocaudad (CC) views of both breasts were obtained. CAD: Full Field Digital Mammography with Computer Added Detection was performed. COMPARISON: Comparison is made with prior examination dated July 29, 2019 and January 25, 2008. FINDINGS: Breast Composition: The breasts are heterogeneously dense, which may obscure small masses. There are no dominant masses or suspicious calcifications. No other significant abnormalities are identified. There has been no significant change since the prior study. BI/SCREEN MAMM (CAD) W/LORRAINE UNI L IMPRESSION: Stable unilateral screening mammogram. Yearly follow-up mammogram recommended. (A) ASSESSMENT CATEGORY: BIRADS Category 1: Negative. A letter regarding these results will be sent to the patient by the facility within 30 days. Approximately 10% of breast cancers are not detected by mammography. A normal mammogram should not delay biopsy of a clinically suspicious abnormality. [id number] Electronically Signed: Luis M Tracey MD at 14:04 EDT ,
== END | disposition home or self-care (01) ==
LOC: OPBI 13:35
PROVIDERS: PCP Family Medicine; Referring Provider Family Medicine; Visit Provider Family Medicine
DX: Z12.31 Encounter for screening mammogram for malignant neoplasm of breast (principal); Z90.11 Acquired absence of right breast and nipple; Z85.3 Personal history of malignant neoplasm of breast; Z80.3 Family history of malignant neoplasm of breast
CPT/HCPCS: 77063; 77067

== ENCOUNTER → 2023-02-27 | Outpatient (CLI) | payer MEDICARE, SELFPAY ==
--- NOTE | 2023-02-27 15:33 | BD_ITS ---
STUDY: DUAL ENERGY X-RAY ABSORPTIOMETRY / DXA REASON FOR EXAM: Female, 82 years old. [id number] TECHNIQUE: Bone Mineral Density (BMD) measurements of lumbar spine and bilateral hips were obtained. COMPARISON: None. FINDINGS: Lumbar Spine (L1-L4): g/cm2 (0.957) / T-score (-0.8) / Z-score (2.0) Findings are suggestive of normal bone density with a low fracture risk. Left Femur Total: g/cm2 (0.817) / T-score (-1.0) / Z-score (1.3) Left Femoral Neck: g/cm2 (0.642) / T-score (-1.9) / Z-score (0.6) Right Femur Total: g/cm2 (0.729) / T-score (-1.7) / Z-score (0.6) Right Femoral Neck: g/cm2 (0.544) / T-score (-2.7) / Z-score (-0.2) BD/Dexa Bone Density Study IMPRESSION: The patient is considered osteoporotic as outlined below according to World [employer] Organization (WHO) criteria with a high fracture risk. Reference Information: The T-score is the number of standard deviations above or below the standard which is normal for young adults at their peak bone mineral density. The World Health Organization (WHO) interprets the T-scores as follows: Above -1 Normal bone density Between -1 and -2.5 Osteopenia Equal to / or below -2.5 Osteoporosis As a practical clinical guideline, osteopenia may be graded as follows: Mild -1 through -1.5 Moderate -1.6 through -2.0 Severe -2.1 through -2.4 The Z-score is the number of standard deviations above or below age-matched controls. A Z-score of less than -1.5 would be considered abnormal. References: 1. NIH Osteoporosis and Related Bone Diseases www osteo.org 2. International Society for Clinical Densitometry www iscd.org 3. National Osteoporosis Foundation www nof.org Electronically Signed: Luis M Tracey MD at 14:48 EST ,
--- OUTSIDE RECORDS SUMMARY | 2023-02-27 18:01 | XMS RPT_ITS | CCD ---
Author Name Unknown Address [address] [place] [address] Organization [facility] Care Team Providers Care Color Paste Mixing Supervisor Name Role Phone Jossie Lomas MD Primary Care Provider SIMÓN DESOUZA Admitting Unavailable SIMÓN DESOUZA Attending Unavailable FUAD RAINES Referring Unavailable CONSULT, NEUROLOGY-STROKE ALERT Consulting Unavailable JOSSIE LOMAS Primary Care Unavailable JOE ROBLES Referring Unavailable ROD CUELLAR Admitting Unavailable ROD CUELLAR Attending Unavailable JOSSIE LOMAS Primary Care Unavailable MARLEY CASTANO Attending Unavailable ROD CUELLAR Referring Unavailable Jossie Lomas MD Primary Care Provider Unavailable Primary Care Provider Unavailabl e Allergies Allergy Classification Reported Allergen(s) Allergy Type Date of Onset Reaction(s) Facility (7 sources) Tetracycline; Translations: [TETRACYCLINE] Drug Allergy 10-27-2015 GI Upset [facility] Work Phone: (1 source) atorvastatin Drug Allergy 09-13-2016 Unknown [facility] Medications Current Medications Medication Drug Class(es) Dates Sig (Normalized) Sig (Original) amoxicillin 875 mg / clavulanate 125 mg oral tablet (1 source) Penicillin-class Antibacterial Start: 05-05-2022 End: 05-10-2022 take 1 tablet by mouth twice daily amoxicillin-clav ulanic acid (AUGMENTIN) 875-125 mg per tablet Take 1 tablet by mouth twice daily for 5 days. 10 tablet 0 05/05/2022 05/10/2022 Active Completed/Discontinued Medications Medication Drug Class(es) Dates Sig (Normalized) Sig (Original) Acetaminophen (2 sources) Start: 06-19-2021 End: 06-24-2021 take 1 tablet by mouth every four hours as needed acetaminophen (TYLENOL) tablet 650 mg Problems Problem Classification Problem Date Documented Date Episodic/Chronic Acute cerebrovascular disease (6 sources) Cerebrovascular accident; Translations: [Cerebral infarction, unspecified] Onset: 06-17-2021 Chronic Deficiency and other anemia (3 sources) Anemia; Translations: [Anemia, unspecified] Onset: 06-21-2021 Episodic Disorders of lipid metabolism (1 source) Hyperlipoproteinemia; 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 E Codes: Natural/environment (1 source) Cat bite - wound; Translations: [Bitten by cat, initial encounter] Episodic Fluid and electrolyte disorders (3 sources) Disorder of electrolytes; Translations: [Other disorders of electrolyte and fluid balance, not elsewhere classified] Onset: 06-21-2021 Episodic Other diseases of kidney and ureters (3 sources) Kidney disease; Translations: [Disorder of kidney and ureter, unspecified] Onset: 06-21-2021 Episodic Transient cerebral ischemia (1 source) Cerebral ischemia; Translations: [Transient cerebral ischemic attack, unspecified] Chronic Results Test Name Value Interpretation Reference Range Facil ity Vital Signs Date Time Vital Sign Value Performing Clinician Joann samuels 05-05-2022 18:01-0500 Body temperature 97.5 [degF] Krislyn Aberegg PA Work Phone: [facility] 05-05-2022 18:01-0500 Body weight 67.86 kg Krislyn Aberegg PA Work Phone: [facility] 05-05-2022 18:01-0500 Diastolic blood pressure 92 mm[Hg] Krislyn Aberegg PA Work Phone: [facility] 05-05-2022 18:01-0500 Heart rate 71 /min Krislyn Aberegg PA Work Phone: [facility] 05-05-2022 18:01-0500 Respiratory rate 16 /min Krislyn Aberegg PA Work Phone: [facility] 05-05-2022 18:01-0500 SaO2% (BldA) [Mass fraction] 99 % Krislyn Aberegg PA Work Phone: [facility] 05-05-2022 18:01-0500 Systolic blood pressure 168 mm[Hg] Margarito GARCIA Work Phone: [facility] 07-28-2021 08:34-0400 Body height 175.3 cm Marley Castano RANGE MANAGER[employer] Work Phone: [facility] Encounters Encounter Date Encounter Type Care Provider Facility Start: 05-05-2022 End: 05-05-2022 ambulatory Facility:[facility] Start: 05-05-2022 End: 05-05-2022 Patient encounter procedure Margarito GARCIA Work Phone: [facility] Procedures Date Procedure Procedure Detail Performing Clinician Start: 06-24-2021 CBC AND ELECTRONIC DIFF Amy Ho R[employer] MANAGER[employer] Work Phone: Start: 06-24-2021 Complete blood count with white cell differential, automated Amy Robbie Ho [employer] MANAGER[employer] Work Phone: Start: 06-24-2021 Electrolyte panel Dania ca E Vic [employer] Work Phone: Start: 06-22-2021 Blood count platelet automated Suellen Abad MD Work Phone: Start: 06-21-2021 CONTINUOUS CARDIAC MONITORING STRIP Other Other Start: 06-21-2021 Creatinine blood Suellen Abad MD Work Phone: Start: 06-20-2021 CONTINUOUS CARDIAC MONITORING STRIP Other Other Start: 06-20-2021 Creatinine blood Suellen Abad MD Work Phone: Start: 06-19-2021 CONTINUOUS CARDIAC MONITORING STRIP Other Other Start: 06-19-2021 Mri brain brain stem w/o contrast material Suellen Abad MD Work Phone: Start: 06-19-2021 Hemoglobin glycosyla adryan a1c Suellen Abad MD Work Phone: Start: 06-19-2021 Hepatic function panel Suellen Abad MD Work Phone: Start: 06-18-2021 CONTINUOUS CARDIAC MONITORING STRIP Other Other Start: 06-18-2021 Electrolyte panel Christina Schwartz R[employer] MANAGER[employer] Work Phone: Start: 06-18-2021 Hepatic function panel Christina Schwartz [employer] MANAGER[employer] Work Phone: Start: 06-17-2021 Assay of magnesium Juanita Schwartz [employer] MANAGER[employer] Work Phone: Start: 06-17-2021 Echo tthrc r-t 2d w/wom-mode compl spec&colr d Suzy Luke [employer] MANAGER[employer] Work Phone: Start: 06-17-2021 IP CONSULT TO SPEECH THERAPY Jim Bhakta Naila R[employer] MANAGER[employer] Work Phone: Start: 06-17-2021 Mri brain brain stem w/o contrast material Fred Tidwell MD Work Phone: Start: 06-17-2021 CBC AND ELECTRONIC DIFF Jim Livia Naila [employer] MANAGER[employer] Work Phone: Start: 06-17-2021 Complete blood count with white cell differential, automated Jim Livia Yoo R[employer] MANAGER[employer] Work Phone: Start: 06-17-2021 GOLD TOP TUBE Agnes Elkins MD Work Phone: Start: 06-17-2021 Hemoglobin glycosyla adryan a1c Fred Tidwell MD Work Phone: Start: 06-17-2021 Lipid panel Fred friend MD Work Phone: Start: 06-17-2021 LT BLUE TOP TUBE Agnes Elkins MD Work Phone: Start: 06-17-2021 MINT GREEN TOP TUBE Miguel Ágnel Elkins MD Work Phone: Plan of Treatment Date Care Activity Detail Author Start: 06-17-2022 End: 06-17-2022 Cardiac event recording EVENT MONITOR, CARDIAC ECG Routine Cerebrovascular accident (CVA), unspecified mechanism Transient cerebral ischemia, unspecified type Expected: 06/17/2022, Expires: 06/17/2022 [facility] Immunizations Immunization Date Immunization Notes Care Provider Ximena jenkins 05-05-2022 TD(adult) unspecifie d formulation Margarito GARCIA Work Phone: [facility] Work Phone: 05-05-2022 tetanus and diphther ia toxoids, adsorbed, preservative free, for adult use (5 Lf of tetanus toxoid and 2 Lf of diphtheria toxoid) Margarito GARCIA Work Phone: [facility] 06-19-2021 COVID-19 mRNA vaccin e - monster-sucrose (by [employer]) HOLDER TOP 0.3 mL Rod Cuellar MD Work Phone: [facility] 06-19-2021 COVID-19 vaccine, MONSTER-SUCROSE, Pfizer, 0.3 ML Rod Cuellar MD Work Phone: [facility] 06-19-2021 pneumococcal vaccine , unspecified formulation Rod Cuellar MD Work Phone: [facility] 01-25-2016 tetanus and diphther ia toxoids, adsorbed, preservative free, for adult use (2 Lf of tetanus toxoid and 2 Lf of diphtheria toxoid) Margarito GARCIA Work Phone: [facility] Payers Date Payer Category Payer Unknown [facility] ANTHLUIS MIGUEL [employer] O [id number] 2022-Present [phone] [address] [place] [address] HMO [id number] 2022 Unknown [id number] 2021 Medicare [id number] 2021 Medicare [id number] 2013 Medicare [employer] [place] [place] [id number] 2013-Present [phone] [address] [place] [address] [facility] [id number] 1938 Unknown [id number] 1938 Unknown [id number] 1938 Unknown [id number] Social History Date Type Detail Facility Tobacco smoking status NHIS Tobacco smoking consumption unknown [facility] Start: 1940 Sex Assigned At Not on file [facility] Start: 06-07-2021 End: 08-24-2021 Exposure to SARS-CoV-2 (event) Not sure [facility] Start: 07-28-2021 End: 05-05-2022 Tobacco smoking status NHIS Ex-smoker [facility] End: [birth year]26-1956 History of tobacco use Current smoker [facility] End: 02-26-1956 History of tobacco use Cigarette Smoker [facility] Start: 07-28-2021 Tobacco use and exposure Smokeless tobacco non-user [facility] Start: 07-28-2021 Alcohol intake Lifetime non-d manda (finding) [facility] Start: 10-27-2015 End: 05-05-2022 Alcohol intake Not Asked [facility] Clinical Notes 06-17-2021 to 05-05-2022 JOSE Johnson - 05/05/2022 6:13 PM ESTPatient InstructionsTelephone Encounter - Amberly Ferguson LPN - 08/24/2021 9:05 AM EDTPatient InstructionsKOBE Cisneros - 06/24/2021 2:01 PM EDT Note Date & Type Note Facility 05-05-2022 Note HNO ID: [id number] Author: JOSE Johnson Service: ? Author Type: Physician Plating Stripper Type: Progress Notes Filed: 05/11/2022 9:42 AM Note Text: This note was created using Reconnexriter. Subjective Patrica Newman is a 81 year old female. HPI 81-year-old female presents for cat bite to right hand. She is right-hand dominant. States that her cat bit her 3 days ago. Her cat is up-to-date on vaccines. She has a laceration over the dorsum of her right hand. She has mild surrounding redness. No difficulty moving the hand. She has not had any drainage from the wound. No numbness or tingling in the hand. No fevers. Last tetanus was in 2016. PAST MEDICAL HISTORY Diagnosis Date Glaucoma Hyperlipidemia Hypertension PAST SURGICAL HISTORY Procedure Laterality Date BREAST SURGERY HX ALLERGIES Atorvastatin and Tetracycline MEDICATIONS aspirin 81 mg chewable tablet Take 1 tablet by mouth once daily. atorvastatin (LIPITOR) 80 mg tablet Take by mouth. enalapril (VASOTEC) 10 mg tablet Take 10 mg by mouth once daily. metoprolol succinate ER (TOPROL XL) 50 mg 24 hr tablet Take 50 mg by mouth once daily. amoxicillin-clavulanic acid (AUGMENTIN) 875-125 mg per tablet Take 1 tablet by mouth twice daily for 5 days. quinapril (ACCUPRIL) 20 mg tablet Take 20 mg by mouth daily at bedtime. (Patient not taking: Reported on 05/05/2022) TETRAHYDROZOLINE HCL/ZN SULF (EYE DROPS OPHTHALMIC) Use in eyes. FAMILY HISTORY Problem Relation Age of Onset Cancer Mother Aneurysm Father Social History Tobacco Use Smoking status: Former Types: Cigarettes Substance Use Topics Drug use: Never Review of Systems Constitutional: Negative for chills and fever. HENT: Negative for congestion, ear pain and sore throat. Respiratory: Negative for cough and shortness of breath. Cardiovascular: Negative for chest pain. Gastrointestinal: Negative for diarrhea and vomiting. Skin: Positive for wound. Objective BP 168/92 Pulse 71 Temp 36.4 ?C (97.5 ?F) (Tympanic) Resp 16 Wt 67.9 kg (149 lb 9.6 oz) SpO2 99% Physical Exam Vitals and nursing note reviewed. Constitutional: General: She is not in acute distress. Appearance: Normal appearance. She is not toxic-appearing. Cardiovascular: Rate and Rhythm: Normal rate and regular rhythm. Pulmonary: Effort: Pulmonary effort is normal. Breath sounds: Normal breath sounds. Musculoskeletal: Right hand: Swelling, laceration and tenderness present. Normal capillary refill. Normal pulse. Hands: Comments: Small superficial laceration from cat bite as noted above on image. No drainage from the wound. No bleeding. No fluctuance. No foreign body seen. Tender to touch. Mild surrounding erythema with minimal swelling. Normal ROM right hand. Manager Of Broadcast Content strength 5/5. Cap refill less than 2 seconds. Normal sensation. No lymphatic streaking noted. Radial and ulnar pulses 2+. Neurological: Mental Status: She is alert. Assessment and Plan ASSESSMENT/PLAN: 1. Cat bite, initial encounter - ICD9: 879.8, E906.3, ICD10: W55.01XA -Tetanus administered. -Rx for Augmentin. Creatinine clearance calculated at 34. No renal dose adjustment needed at this point. -Recommended XR to rule out any foreign body or broken tooth in the wound although it does not appear or feel like there is foreign body. XR not available at time of exam. Discussed with patient coming back tomorrow AM for XR, but she declines. She will continue to watch the wound. States that she checked her cat's teeth afterwards and none appeared broken. -Recommended follow-up with PCP on Sunday for wound recheck. -Advised to go to ER if she develops worsening redness, swelling, difficulty moving the hand, lymphangitic streaking, fevers. She understands. -Wound care instructions given. 2. Laceration of right hand, foreign body presence unspecified, initial encounter - ICD9: 882.0, ICD10: S61.411A (primary diagnosis) - see above. Wound care instructions given. - RX Augmentin. Diagnosis and treatment plan were discussed and questions were answered to the patient's satisfaction. Pt acknowledged understanding of concepts and follow up plan. Specific signs and symptoms that would indicate the need for higher level of care were discussed in detail warranting prompt ER evaluation. JOSE Johnson [facility] 05-05-2022 History of Present illness Narrative Images from the original note were not included. This note was created using NoteWriter. Subjective Patrica Newman is a 81 year old female. HPI 81-year-old female presents for cat bite to right hand. She is right-hand dominant. States that her cat bit her 3 days ago. Her cat is up-to-date on vaccines. She has a laceration over the dorsum of her right hand. She has mild surrounding redness. No difficulty moving the hand. She has not had any drainage from the wound. No numbness or tingling in the hand. No fevers. Last tetanus was in 2016. PAST MEDICAL HISTORY Diagnosis Date Glaucoma Hyperlipidemia Hypertension PAST SURGICAL HISTORY Procedure Laterality Date BREAST SURGERY HX ALLERGIES Atorvastatin and Tetracycline MEDICATIONS aspirin 81 mg chewable tablet Take 1 tablet by mouth once daily. atorvastatin (LIPITOR) 80 mg tablet Take by mouth. enalapril (VASOTEC) 10 mg tablet Take 10 mg by mouth once daily. metoprolol succinate ER (TOPROL XL) 50 mg 24 hr tablet Take 50 mg by mouth once daily. amoxicillin-clavulanic acid (AUGMENTIN) 875-125 mg per tablet Take 1 tablet by mouth twice daily for 5 days. quinapril (ACCUPRIL) 20 mg tablet Take 20 mg by mouth daily at bedtime. (Patient not taking: Reported on 05/05/2022) TETRAHYDROZOLINE HCL/ZN SULF (EYE DROPS OPHTHALMIC) Use in eyes. FAMILY HISTORY Problem Relation Age of Onset Cancer Mother Aneurysm Father Social History Tobacco Use Smoking status: Former Types: Cigarettes Substance Use Topics Drug use: Never Review of Systems Constitutional: Negative for chills and fever. HENT: Negative for congestion, ear pain and sore throat. Respiratory: Negative for cough and shortness of breath. Cardiovascular: Negative for chest pain. Gastrointestinal: Negative for diarrhea and vomiting. Skin: Positive for wound. Objective BP 168/92 Pulse 71 Temp 36.4 C (97.5 F) (Tympanic) Resp 16 Wt 67.9 kg (149 lb 9.6 oz) SpO2 99% Physical Exam Vitals and nursing note reviewed. Constitutional: General: She is not in acute distress. Appearance: Normal appearance. She is not toxic-appearing. Cardiovascular: Rate and Rhythm: Normal rate and regular rhythm. Pulmonary: Effort: Pulmonary effort is normal. Breath sounds: Normal breath sounds. Musculoskeletal: Right hand: Swelling, laceration and tenderness present. Normal capillary refill. Normal pulse. Hands: Comments: Small superficial laceration from cat bite as noted above on image. No drainage from the wound. No bleeding. No fluctuance. No foreign body seen. Tender to touch. Mild surrounding erythema with minimal swelling. Normal ROM right hand. Manager Of Broadcast Content strength 5/5. Cap refill less than 2 seconds. Normal sensation. No lymphatic streaking noted. Radial and ulnar pulses 2+. Neurological: Mental Status: She is alert. Assessment and Plan ASSESSMENT/PLAN: 1. Cat bite, initial encounter - ICD9: 879.8, E906.3, ICD10: W55.01XA -Tetanus administered. -Rx for Augmentin. Creatinine clearance calculated at 34. No renal dose adjustment needed at this point. -Recommended XR to rule out any foreign body or broken tooth in the wound although it does not appear or feel like there is foreign body. XR not available at time of exam. Discussed with patient coming back tomorrow AM for XR, but she declines. She will continue to watch the wound. States that she checked her cat's teeth afterwards and none appeared broken. -Recommended follow-up with PCP on Sunday for wound recheck. -Advised to go to ER if she develops worsening redness, swelling, difficulty moving the hand, lymphangitic streaking, fevers. She understands. -Wound care instructions given. Diagnosis and treatment plan were discussed and questions were answered to the patient's satisfaction. Pt acknowledged understanding of concepts and follow up plan. Specific signs and symptoms that would indicate the need for higher level of care were discussed in detail warranting prompt ER evaluation. JOSE Johnson documented in this encounter [facility] 05-05-2022 Instructions JOSE Johnson - 05/05/2022 6:11 PM EST Keep wound clean and dry. Wash with Dial unscented soap and water. You may apply antibiotic ointment. Follow-up with PCP in 2 days for wound recheck. Take antibiotic as prescribed. Finish all this medication. If you develop fevers, worsening redness, difficulty moving the hand, streaks of redness of the arm, go to the emergency room immediately. documented in this encounter [facility] 08-24-2021 Miscellaneous Notes Pt's daughter called with concerns about mothers weight loss of 20 lbs in the past month, loss of appetite. She needs to make an appointment to see Dr Cricket Ferguson LPN August 24, 2021 9:09 AM documented in this encounter [facility] 07-28-2021 Instructions LEO Miller - 07/28/2021 9:40 AM EDT Call if patient is not taking atorvastatin at home. documented in this encounter [facility] 07-28-2021 History of Present illness Narrative [facility] Department of Neurology Section of Cerebrovascular Disease and Neurocritical Care Hospital Follow Up IDENTIFYING PATIENT INFORMATION: Patrica Newman MR# [id number] 07/28/2021 CHIEF COMPLAINT: Follow up after hospitalization HISTORY OF PRESENT ILLNESS: The patient Patrica Newman is a 81 y.o. female has a past medical history of Essential hypertension, benign. Patrica Newman who presents to the outpatient stroke clinic accompanied in the office by her Son Alen. Patrica Newman for follow-up after recent hospitalization. For details, please refer to the discharge summary dated 06/24/21. In summary, the patient was admitted to the hospital 06/17/21-06/18/21, who originally presented as a transfer from OSH following resolution of left sided weakness. Patient LKW was on 06/16 at 0900. Patient developed symptoms of slurred speech, left sided leg and arm weakness (leg greater than arm). mRS 0. On arrival to OSH, vitals were BP 224/79, HR 84, Temp 98.0F, SpO2 97%. They were evaluated via Telestroke by Dr. Douglass. CT head was obtained and w/o significant findings. CTA with question of L MCA high grade stenosis. Patient was then transferred to [facility] for further evaluation. Upon arrival to [facility] ED, vitals were BP 224/87, HR 75, Temp 97.6F, SpO2 98%, RR 16. Blood pressure was being checked regularly at home. Patient was seen by PCP on previous Sunday with BP of 120/80. Blood pressure average at home were SBP 150's. On initial examination NIHSS obtained was 0. MRI obtained showed acute infarcts in the R BG. The patient was evaluated by therapies who felt she could go home without additional therapy. 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 MRI brain: Acute infarcts within the right basal ganglia within the MCA territory. No evidence of hemorrhagic transformation or significant mass effect. OSH CTA brain/neck: 50-69% focal narrowing of the right A1 segment of the STEVENSON. Left M1 and M2 50-69% . Less than 50% of the L ICA. TTE: EF 65-70% LDL 156, a1c 5.5. Patient started on ASA 81mg lifelong. Pt was discharged 06/18 after completing workup for R BG acute stroke thought to 2/2 small vessel disease. At discharge patient had an NIHSS of 0. She was able to walk around with physical therapy. Her family noted some dysarthria during their 1.5 hour ride home after discharge. At home, she was unable to stand up to go to the bathroom. Notable increased left lower extremity weakness. EMS was called and she was taken to [facility], where she was noted to have LLE weakness with NIHSS of 1. Pt was transferred directly to the [facility] neurovascular service for further workup. Upon arrival BP 175/78. NIHSS 2 for dysarthria and LLE drift. Her MRI brain showed more confluent/larger area of infarction in the right basal ganglia from time of discharge. No hemorrhage. 06/18/21 episode of worsening LLE weakness was deemed related to completion of RBG infarct. No changes in medical management. Patient was subsequently discharged on 06/24/21 PAST MEDICALHISTORY: Past Medical History: Diagnosis Date Essential hypertension, benign PAST SURGICAL HISTORY: No past surgical history on file. CURRENT MEDICATIONS: Current Outpatient Medications Medication Sig Dispense Refill aspirin 81 MG Chew Tab chewable tablet Chew 1 tablet daily. 30 tablet 3 metoprolol 25 MG tab regular release Take 1 tablet by mouth every 12 hours. 60 tablet 3 NIFEdipine 60 MG Tab SR 24 HR tablet Take 1 tablet by mouth every 12 hours. 60 tablet 3 quinapril 40 MG tablet Take 40 mg by mouth daily. No current facility-administered medications for this visit. ALLERGIES: Allergies Allergen Reactions Tetracycline SOCIAL HISTORY: Psycho-Social History: She has no history on file for tobacco use, alcohol use, and drug use. 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 FAMILY HISTORY: No family history of early strokes PAIN ASSESSMENT (Patient reports Pain): none FALL ASSESSMENT: none MEDICATION COMPLIANCE: Takes medication as prescribed without missed doses RECENT HOSPITALIZATION: none HOME HEALTH NEEDS: none FUNCTIONAL ASSESSMENT (Able to perform all ADLs): Performs all ADL's independently REVIEW OF SYSTEMS: No history of fever, chills, sweats, weight loss, vision loss, double vision,visual scintillations, blurring, hearing loss, tinnitus, voice change, speech problems, chest pain, dyspnea, palpitations, cough, swallowing difficulties, nausea, vomiting, diarrhea, constipation, hematuria, dysuria, frequency, joint pain, joint swelling, rash, easy bruising, bleeding, headache, memory loss, dizzy, LOC, sensory loss, numbness, tingling, tremors, twitches, seizures, balance problems, gait problems, coordination difficulties, depression, fatigue, or insomnia. Positive Review of Systems: focal motor weakness, fatigue PHYSICAL EXAM: Vitals: 07/28/21 0834 BP: 176/78 Pulse: 95 Temp: 98.1 degrees F (36.7 degrees C) TempSrc: Infrared Weight: 69.7 kg (153 lb 9.6 oz) Height: 1.753 m (5' 9 ) Blood pressure elevated in clinic. Will continue to check and record blood pressures and discuss with PCP if blood pressures are consistently elevated >140s. Average SBP 130s per patient. Neurological examination: General: The patient appears nutritionally appropriate, well-groomed, and appears comfortable in no acute distress. Mental Status: The patient s mental status was normal including orientation, memory, attention span, concentration, and fund of knowledge. Language was intact. Cranial nerves: Visual read full, pupils were equal and reactive to light, and extra-ocular motion was intact. Face motion and sensation were symmetric. Hearing was symmetric to bilateral finger rub. Palate was symmetric. Bilateral shoulder shrug was intact. Tongue was midline with normal movement. There was no dysarthria. Motor: No pronator drift. Bilateral fast finger movements were symmetric. -5/5 LUE/LLE muscle strength. Sensation: Intact light touch bilaterally, no extinction. Coordination: Bilateral finger to nose was normal. Gait: Gait was narrow-based and steady. NIH STROKE SCALE 1a. Level of consciousness: 0 1b. Level of consciousness questions: 0 1c. Level of consciousness commands: 0 2. Best Gaze: 0 3. Visual: 0 4. Facial Palsy: 0 5a. Motor left arm: 0 5b. Motor right arm: 0 6a. Motor left le 6b. Motor right le 7. Limb Ataxia: 0 8. Sensory: 0 9. Best Language: 0 10. Dysarthria: 0 11. Extinction and Inattention: 0 TOTAL: 0 Modified [facility]: 1 DATA: HgBA1c: Lab Results Component Value Date HGBA1C 5.5 06/19/2021 Lipid panel: Lab Results Component Value Date CHOLESTEROL 199 06/19/2021 TRIG 142 06/19/2021 HDL 47 06/19/2021 LDLCALC 124 (H) 06/19/2021 RADIOLOGY REVIEW: I have reviewed radiology image(s) and report(s) of: MRI BRAIN WITHOUT CONTRAST Narrative: EXAM: MRI BRAIN WITHOUT CONTRAST, 06/19/2021 15:27 PM COMPARISON: Radiograph from June 17 CLINICAL INDICATIONS: 81 years Female Stroke Workup; TECHNIQUE: A series of multisequence, multiplanar images of the brain are obtained without intravenous contrast. Thank you for allowing me to assist in the care of your patient. If health care providers have questions or concerns regarding this report, please text me on [employer] secure chat, and for any emergent needs please call or text my personal cell - S. Cristina Hankins MD. FINDINGS: Progressive acute insults in the right basal ganglia since June 17 with more confluent infarct in the right caudate body and putamen involving the posterior limb internal capsule. No hemorrhage. Scattered white matter changes including a tiny old left cerebellar insult. Remote left caudate infarct. Flow-voids patent. Normal ventricles and sulci with some volume loss. Sinuses clear. Orbits normal. Mastoids are mostly clear with minor left-sided fluid. Normal nasopharynx and extracranial structures. Impression: IMPRESSION: Now more confluent/larger area of infarction in the right basal ganglia from 2 days ago. No hemorrhage. SSMENT: The patient is a 81 y.o. female with a history of has a past medical history of Essential hypertension, benign. who presents to outpatient stroke clinic for follow-up after recent hospitalization. 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 Readmission on 06/18/21 of worsening LLE weakness was deemed related to completion of RBG infarct. No changes in medical management. Patient was subsequently discharged on 06/24/21 Patient was started on statin therapy in hospital, which caused significant leg cramps per patient. Medication (atorvastatin was discontinued). Patient states primary care started her on atorvastatin 80mg without issue. Medication reconciled to include atorvastatin. Patient to notify this provider if patient taking different statin or medication. Patient discharged on ASA 81mg. Patient was sent home with cardiac event monitor today (07/28/21), so no results available. Patient attending PT/OT twice a week with overall improvement of symptoms. Discussed natural history, prognosis, and treatment of stroke as well as recovery issues.Discussed incidence and natural history of post stroke fatigue.For secondary stroke prevention, the patient should continue daily anti-platelet medication and vascular risk factor modification. PLAN: ? Anti-platelet medication: continue ASA 81mg lifelong ? Physical therapy/Speech therapy/Rehabilitation ? To reduce the risk of future ischemic stroke, the patient needs continued vascular risk factor modification. The following are the recommended guidelines*: ? LDL Goal: < 70 mg/dL ? Smoking Cessation ? Diabetes management: Goal <6.5 ? Blood pressure control: should achieve <140/80 mmHg. BP management should aim to achieve termite exterminator control in a reasonable amount of time, taking into consideration the individual patient's requirements and characteristics. ? Weight Management: Goal for BMI is 18.5-24.9 kg/m2. ? Alcohol: No more than 2 drinks/day for men or 1 drink/day for non- women. ? Promote lifestyle modification: weight control, physical activity, moderation of alcohol intake, moderate sodium intake. ? Follow-up with Neurovascular 6 months ADDITIONAL RECOMMENDATIONS: Will defer any further evaluation that may be warranted to patients primary care physician. Thank you for allowing me to participate in the care of Patrica Newman. If you have any questions or concerns please contact me. LEO Miller 07/28/2021 8:58 AM I spent about 45 minutes today with patient, reviewing history, and hospital records, MRs, CTs, labs, examining patient, discussing impressions, answering questions and charting. *References: (1) Felix et al, Stroke 2011, [phone]:[id number]; (2) Ulcas et al, Stroke 2006, [id number]; (3) Kerry et al, Stroke 2006; 37: [phone]; (4) Caroline Baldwin. ANDREA 2003, [id number]; (5) Lance, et al, Circulation 2001, 103-163; (6) Abdul, et al, Stroke 1999, 6021-7110;(7) ATP III. See also http:///nhlbi.nih.gov/guidelines/c holesterol/index.htm documented in this encounter [facility] 06-24-2021 Miscellaneous Notes PIV removed. AVS/DARCY reviewed with patient. Patient waiting for daughter to arrive to transport home. Problem: Patient Care Overview Goal: Plan of Care Review Outcome: Adequate for Discharge Goal: Individualization & Mutuality Outcome: Adequate for Discharge Goal: Discharge Needs Assessment Outcome: Adequate for Discharge Goal: Interdisciplinary Rounds/Family Conf Outcome: Adequate for Discharge Problem: Dysphagia (Adult) Goal: Identify Related Risk Factors and Signs and Symptoms Description: Related risk factors and signs and symptoms are identified upon initiation of Human Response Clinical Practice Guideline (CPG) Outcome: Adequate for Discharge Goal: Functional/Safe Swallow Description: Patient will demonstrate the desired outcomes by discharge/transition of care. Outcome: Adequate for Discharge Goal: Compensatory Techniques to Improve Safety/Function with Swallowing Description: Patient will demonstrate the desired outcomes by discharge/transition of care. Outcome: Adequate for Discharge Problem: Stroke (Ischemic) (Adult) Goal: Signs and Symptoms of Listed Potential Problems Will be Absent, Minimized or Managed (Stroke) Description: Signs and symptoms of listed potential problems will be absent, minimized or managed by discharge/transition of care (reference Stroke (Ischemic) (Adult) CPG). Outcome: Adequate for Discharge Stroke patient education has been reviewed and all required elements are complete and personalized. Care plan documentation complete and patient adequate for discharge. Next dose medication details have been added to the AVS as appropriate. Problem: PT - Mobility Goal: Ambulation Description: Pt will ambulate 300 feet with least restrictive device with supervision to improve ability to navigate home environment. Outcome: Progressing Toward Goal Goal: Stairs Description: Pt will ascend/descend 3 stairs with no railings with stand by assist with least restrictive device to improve ability to perform functional mobility necessary in recommended discharge environment. Outcome: Progressing Toward Goal Problem: PT - Transfers Goal: Supine <-> Sit Description: Pt will perform bed mobility with flat bed & no rail with independence in order to improve functional mobility and safety. Outcome: Progressing Toward Goal Goal: Sit <-> Stand Description: Pt will perform sit to/from stand transfers with supervision with least restrictive device in order to improve functional mobility and safety. Outcome: Progressing Toward Goal Problem: OT - ADLs Goal: Grooming Description: Pt will complete grooming in standing with modified independence for improved ability to safely complete ADLs. Outcome: Ongoing Problem: OT - Balance Goal: Balance - Standing Description: Pt will perform 10 minutes of functional ADL task in standing with modified independence and balance level of modified Independent to promote safety and improved balance required for self-care activities. Outcome: Ongoing Problem: OT - Strength/ROM Goal: Neuro Re-education Description: Pt will participate in neuro re-ed of (RUE/LUE) to improve strength by 1 muscle grade in each group, for improved use in ADLs. Outcome: Ongoing Problem: OT - Cognition Goal: Cognition Home Maintenance Description: Pt will complete simulated home maintenance task (medication management, finance management, etc.) with modified independence to promote safety and success at discharge destination. Outcome: Ongoing Problem: Patient Care Overview Goal: Plan of Care Review Outcome: Met This Shift Flowsheets (Taken 06/22/2021 1504) Plan Of Care Reviewed With: family patient Goal: Discharge Needs Assessment Outcome: Progressing Toward Goal Flowsheets (Taken 06/22/2021 1504) Outpatient/Agency/Support Group Needs: inpatient rehabilitation facility correction facility Goal: Interdisciplinary Rounds/Family Conf Outcome: Met This Shift Flowsheets (Taken 06/22/2021 1504) Participants: advanced practice nurse patient nursing physician physical therapy family social work/services occupational therapy Problem: Stroke (Ischemic) (Adult) Goal: Signs and Symptoms of Listed Potential Problems Will be Absent, Minimized or Managed (Stroke) Description: Signs and symptoms of listed potential problems will be absent, minimized or managed by discharge/transition of care (reference Stroke (Ischemic) (Adult) CPG). Outcome: Progressing Toward Goal Flowsheets (Taken 06/22/2021 1504) Problems Assessed (Stroke (Ischemic)/TIA): all Problems Present (Stroke (Ischemic)/TIA): situational response NIHSS- 0 Problem: OT - Dressing Goal: Lower Body Dressing Description: Pt will complete LE dressing tasks with modified independence for improved ability to complete self-care activities. Outcome: Ongoing Problem: OT - ADLs Goal: Grooming Description: Pt will complete grooming in standing with modified independence for improved ability to safely complete ADLs. Outcome: Ongoing Goal: Bathing Description: Pt will perform full body bathing routine with modified independence while seated for improved ability to complete self-care activities. Outcome: Ongoing Problem: OT - Balance Goal: Balance - Standing Description: Pt will perform 10 minutes of functional ADL task in standing with modified independence and balance level of modified Independent to promote safety and improved balance required for self-care activities. Outcome: Ongoing Problem: OT - Strength/ROM Goal: Neuro Re-education Description: Pt will participate in neuro re-ed of (RUE/LUE) to improve strength by 1 muscle grade in each group, for improved use in ADLs. Outcome: Ongoing Problem: OT - Balance Goal: Balance - Standing Description: Pt will perform 10 minutes of functional ADL task in standing with modified independence and balance level of modified Independent to promote safety and improved balance required for self-care activities. Outcome: Ongoing Problem: OT - Strength/ROM Goal: Neuro Re-education Description: Pt will participate in neuro re-ed of (RUE/LUE) to improve strength by 1 muscle grade in each group, for improved use in ADLs. Outcome: Ongoing Problem: FURNITURE SANDER - Cognition Goal: Memory Goal 2 Description: Patient will demonstrate understanding of x3 external or internal memory strategies with inconsistent minimal cues, across 1-2 sessions in order to facilitate improvements with memory for greater level of independence. Outcome: Ongoing Goal: Meticognition Goal 2 Description: Patient will state x2-3 changes in function that impact his/her level of independence, with min prompts, across 1-2 sessions in order to improve insight into deficits, improve safety and improve level of independence. Outcome: Ongoing Problem: OT - ADLs Goal: Grooming Description: Pt will complete grooming in standing with modified independence for improved ability to safely complete ADLs. Outcome: Ongoing Problem: OT - Balance Goal: Balance - Standing Description: Pt will perform 10 minutes of functional ADL task in standing with modified independence and balance level of modified Independent to promote safety and improved balance required for self-care activities. Outcome: Ongoing Problem: OT - Strength/ROM Goal: Neuro Re-education Description: Pt will participate in neuro re-ed of (RUE/LUE) to improve strength by 1 muscle grade in each group, for improved use in ADLs. Outcome: Ongoing Problem: OT - Dressing Goal: Lower Body Dressing Description: Pt will complete LE dressing tasks with modified independence for improved ability to complete self-care activities. Outcome: Ongoing Problem: OT - ADLs Goal: Grooming Description: Pt will complete grooming in standing with modified independence for improved ability to safely complete ADLs. Outcome: Ongoing Goal: Bathing Description: Pt will perform full body bathing routine with modified independence while seated for improved ability to complete self-care activities. Outcome: Ongoing Problem: OT - Balance Goal: Balance - Standing Description: Pt will perform 10 minutes of functional ADL task in standing with modified independence and balance level of modified Independent to promote safety and improved balance required for self-care activities. Outcome: Ongoing Problem: OT - Strength/ROM Goal: Neuro Re-education Description: Pt will participate in neuro re-ed of (RUE/LUE) to improve strength by 1 muscle grade in each group, for improved use in ADLs. Outcome: Ongoing Problem: OT - Cognition Goal: Cognition Home Maintenance Description: Pt will complete simulated home maintenance task (medication management, finance management, etc.) with modified independence to promote safety and success at discharge destination. Outcome: Ongoing Problem: PT - Mobility Goal: Ambulation Description: Pt will ambulate 100 feet with least restrictive device with standby assistance to improve ability to navigate home environment. Outcome: Ongoing Goal: Stairs Description: Pt will ascend/descend 3 stairs with no railings with contact guard assistance with least restrictive device to improve ability to perform functional mobility necessary in recommended discharge environment. Outcome: Ongoing Problem: PT - Transfers Goal: Supine <-> Sit Description: Pt will perform bed mobility with flat bed & no rail with independence in order to improve functional mobility and safety. Outcome: Ongoing Goal: Sit <-> Stand Description: Pt will perform sit to/from stand transfers with supervision with least restrictive device in order to improve functional mobility and safety. Outcome: Ongoing I certify that this patient requires inpatient services at this time. I anticipate the expected length of stay will include at least two midnights. Inpatient services are due to the following medical concerns stroke. Plans for post hospitalization care will be discharge to [facility]. Please see the H&P note by Dr. Abad for full note. Repeat brain MRI pending. Plan: -Follow up brain MRI, possibly extension of the known right basal ganglia stroke -Therapy evaluation for placement -Rest of the stroke work up completed during her last admission -Permissive HTN -COVID booster and Pneumococcal vaccine ordered per patient request, daughter aware Patient's daughter was updated at bedside. Provider NIH Stroke Scale NIH Interval (Provider): daily NIH Level of Conciousness (Provider): 0 NIH LOC Questions (Provider): 0 NIH LOC Commands (Provider): 0 NIH Best Gaze (Provider): 0 NIH Visual (Provider): 0 NIH Facial Palsy (Provider): 0 NIH Left Arm Motor (Provider): 0 NIH Right Arm Motor (Provider): 0 NIH Left Leg Motor (Provider): 0 NIH Right Leg Motor (Provider): 0 NIH Limb Ataxia (Provider): 0 NIH Sensory (Provider): 0 NIH Best Language (Provider): 0 NIH Dysarthria (Provider): 0 NIH Extinction and Inattention (Provider): 0 NIH Total Score (Provider): 0 LEO Olson 06/19/2021 1:15 PM documented in this encounter [facility] 06-24-2021 Note Formatting of this n ote might be different from the original. PIV removed. AVS/DARCY reviewed with patient. Patient waiting for daughter to arrive to transport home. [facility] 06-24-2021 Note Formatting of this n ote might be different from the original. Problem: Patient Care Overview Goal: Plan of Care Review Outcome: Adequate for Discharge Goal: Individualization & Mutuality Outcome: Adequate for Discharge Goal: Discharge Needs Assessment Outcome: Adequate for Discharge Goal: Interdisciplinary Rounds/Family Conf Outcome: Adequate for Discharge Problem: Dysphagia (Adult) Goal: Identify Related Risk Factors and Signs and Symptoms Description: Related risk factors and signs and symptoms are identified upon initiation of Human Response Clinical Practice Guideline (CPG) Outcome: Adequate for Discharge Goal: Functional/Safe Swallow Description: Patient will demonstrate the desired outcomes by discharge/transition of care. Outcome: Adequate for Discharge Goal: Compensatory Techniques to Improve Safety/Function with Swallowing Description: Patient will demonstrate the desired outcomes by discharge/transition of care. Outcome: Adequate for Discharge Problem: Stroke (Ischemic) (Adult) Goal: Signs and Symptoms of Listed Potential Problems Will be Absent, Minimized or Managed (Stroke) Description: Signs and symptoms of listed potential problems will be absent, minimized or managed by discharge/transition of care (reference Stroke (Ischemic) (Adult) CPG). Outcome: Adequate for Discharge [facility] 06-24-2021 Note Formatting of this n ote might be different from the original. Stroke patient education has been reviewed and all required elements are complete and personalized. Care plan documentation complete and patient adequate for discharge. Next dose medication details have been added to the AVS as appropriate. [facility] 06-24-2021 History of Present illness Narrative Placement Plan Expected Discharge Date: 06/25/2021 Referred Level of Care: SNF Barriers: Current Referrals and Status 1. [facility]- denied Per admissions, precert has been denied for SNF level of care. SHIPFITTER HELPER updated. TEETEE Babcock, KOBE-S Marketing Manager Health Communications for 10 BS NEUROVASCULAR STROKE SERVICE Daily Progress Note IDENTIFYING INFORMATION Patrica Newman MR# [id number] 06/24/2021 HISTORY OF PRESENT ILLNESS Patrica Newman is a 81 y.o. female with PMH significant for HTN and recent R BG acute stroke who presents as a re-admission for LLE weakness. Pt was discharged 06/18 after completing workup for R BG acute stroke thought to 2/2 small vessel disease. At discharge pt had an NIHSS of 0. She was able to walk around with physical therapy. Her family noted some dysarthria during their 1.5 hour ride home after discharge. At home, she was unable to stand up to go to the bathroom. EMS was called and she was taken to [facility], where she was noted to have LLE weakness with NIHSS of 1. Pt was transferred directly to the [facility] neurovascular service for further workup. Upon arrival BP 175/78. A stroke alert was not called for STAT consultation. NIHSS 2 for dysarthria and LLE drift. INTERVAL HISTORY 06/20- MRI brain complete, therapies recommending IPR 06/21- [facility], precert denied, discussed with patient/family, VM left to initiate peer to peer 06/22-Add metoprolol, discussed dispo options with family 06/23-start low dose lisinopril, recheck creatinine tmw 06/24- [facility], SNF precert pending PHYSICAL EXAM Gen: awake, alert HEENT: normocephalic, no scalp lesions or tenderness Neck: trachea midline CV: +S1S2, RRR, no m/r/g Lungs: LCTA bilaterally with equal chest rise Abd: soft, nontender, nondistended, +BS x4 quadrants Extrem: Warm and well perfused, no edema, 2+ pulses bilaterally Neuro: Oriented x4, [place] x 4, sensation intact and equal bilaterally to light touch CN II - All visual read intact CN II/III - PERRL CN III/IV/ - EOMI CN V - Light touch to face intact in V1-3 CN VII - Facial movement intact and symmetrical bilaterally CN VIII - Hearing intact CN X - Cough present CN XI - muscular movement of shoulders and sternocleidomastoid muscles intact and equal bilaterally CN XII - midline protrusion of tongue MOTOR EXAMINATION: 06/30 NIHSS 06/24/2021 Provider NIH Stroke Scale NIH Interval (Provider): daily NIH Level of Conciousness (Provider): 0 NIH LOC Questions (Provider): 0 NIH LOC Commands (Provider): 0 NIH Best Gaze (Provider): 0 NIH Visual (Provider): 0 NIH Facial Palsy (Provider): 0 NIH Left Arm Motor (Provider): 0 NIH Right Arm Motor (Provider): 0 NIH Left Leg Motor (Provider): 0 NIH Right Leg Motor (Provider): 0 NIH Limb Ataxia (Provider): 0 NIH Sensory (Provider): 0 NIH Best Language (Provider): 0 NIH Dysarthria (Provider): 0 NIH Extinction and Inattention (Provider): 0 NIH Total Score (Provider): 0 ASSESSMENT AND PLAN Neuro: R BG stroke MRI brain-Now more confluent/larger area of infarction in the right basal ganglia -prior work up complete, no further work up indicated -Stroke Etiology (TOAST Criteria): -Antiplatelet plan: ASA 81 mg daily -Statin therapy: intolerant due to muscle cramps -Blood Pressure goal: normotension Ischemic Stroke Core Measures -NIHSS on admission 2 -Patient has been started on Mechanical (SCD's) and Pharmacological (SQ heparin/Lovenox) DVT prophylaxis. -Antiplatelet therapy has been initiated, Aspirin 81mg daily. -Anticoagulation therapy was not indicated for this patient, -Patients LDL 142 and HgbA1c 5.5 were checked and the patient will not be discharged on Atorvastatin d/t inability to tolerate -Dysphagia screening ordered, and will be completed prior to patient receiving oral intake. -Stroke education booklet has been ordered and will be provided by the RN that includes both written and verbal education to the patient and family regarding ischemic strokes. We have reviewed the patient's personal modifiable risk factors including: HTN, HLD as well as education on reducing these risk factors -Patient is being assessed for Rehab by PT/OT/Speech and PM&R if indicated. HTN (POA) -senior living goal after stroke is less than 130/80 -Continue on CLIFF inhibitor and BB at home -start lisinopril 10 mg 06/23 (on quinopril at home) -06/21 nifedipine increased to home dose, 60mg q12hr -06/22-restart home metoprolol 25 mg every 12 hours -06/24 BP stable Disposition: Patrica Newman will likely be discharged when arrangements are made pending insurance approval. Everett Soriano Gogolisa, RANGE MANAGER-SALON STYLIST 06/24/2021 10:09 AM VITAL SIGNS Temp: [97.6 F (36.4 C)-98.7 F (37.1 C)] 97.8 F (36.6 C) Pulse (Heart Rate): [72-82] 82 Resp Rate: [14-24] 16 BP: (131-138)/(59-68) 138/68 O2 Sat (%): [97 %-100 %] 97 % Oxygen Therapy: Oxygen Therapy O2 Sat (%): 97 % O2 Device: room air Intake/Output: Intake/Output Summary (Last 24 hours) at 06/24/2021 1009 Last data filed at 06/24/2021 0925 Gross per 24 hour Intake 1047.5 ml Output -- Net 1047.5 ml LABS/CULTURES Lab Results Component Value Date WBC 7.12 06/24/2021 HGB 11.3 (L) 06/24/2021 HCT 34.3 (L) 06/24/2021 PLATELET 253 06/24/2021 MCV 96.3 06/24/2021 Lab Results Component Value Date SODIUM 140 06/24/2021 POTASSIUM 4.8 06/24/2021 CHLORIDE 111 (H) 06/24/2021 CO2 20 (L) 06/24/2021 BUN 44 (H) 06/24/2021 CREATSERUM 1.56 (H) 06/24/2021 GLUCOSE 90 06/24/2021 Lab Results Component Value Date CHOLESTEROL 199 06/19/2021 CHOLESTEROL 238 (H) 06/17/2021 CHOLESTEROL 233 (H) 06/17/2021 TRIG 142 06/19/2021 TRIG 162 (H) 06/17/2021 TRIG 153 (H) 06/17/2021 HDL 47 06/19/2021 HDL 50 06/17/2021 HDL 49 06/17/2021 LDLCALC 124 (H) 06/19/2021 LDLCALC 156 (H) 06/17/2021 LDLCALC 153 (H) 06/17/2021 Lab Results Component Value Date HGBA1C 5.5 06/19/2021 Lab Results Component Value Date ALBUMIN 3.6 06/19/2021 , No results found for: CPK, TROP IMAGING/DIAGNOSTIC STUDIES MRI BRAIN WITHOUT CONTRAST Final Result IMPRESSION: Now more confluent/larger area of infarction in the right basal ganglia from 2 days ago. No hemorrhage. CATIONS aspirin 81 mg Oral Daily Or aspirin 300 mg Rectal Daily heparin 5,000 Units Subcutaneous Q8H latanoprost 1 drop Both Eyes QHS lisinopril 10 mg Oral Daily metoprolol 25 mg Oral Q12H NIFEdipine 60 mg Oral Q12H pneumococcal 23-valent 0.5 mL Intramuscular Once During Admission senna 8.6 mg Oral QAM Or senna 8.6 mg Per NG tube QAM Provided emotional and spiritual support to the patient. Production Maintenance Mechanic support is available as needed. Chaplains are available in-house 24 hours a day and 7 days a week. For urgent matters in [facility], please page [phone]. If the request is not urgent, please enter a consult. Consults are responded to within 24 hours. STEPHEN KRAUSE M.A, [place] [employer] 18/09 Pager 1500 [facility] Pager [address] [place]: [phone] 06/23/21 9045 Clinical Encounter Type Visited With Patient Visit Type Follow-up Pastoral Time Spent 15 min Spiritual Assessment Spiritual Observation Spirituality helpful Emotional Observation Coping well Interventions Provided Active listening;Supportive presence Facilitated Verbalization of feelings Monologist Education Monologist Service Available Yes Plan of Care Continue Visiting PRN Acute Physical Therapy Treatment Prior to Admission AMPAC score(s): PRIOR LEVEL AM-PAC Mobility Raw Score: 23 PRIOR LEVEL AM-PAC Activity Raw Score: 24 Current AM-PAC score(s): CURRENT AM-PAC Mobility Raw Score: 19 Based on the above AM-PAC score(s) and PT clinical judgment, patient is a good candidate for discharge to Inpatient Rehab Facility Supporting Factors (would benefit from skilled therapy services): Patient status is anticipated to be appropriate to tolerate inpatient rehab therapy requirements at time of discharge from acute care, Impaired functional status, Decreased strength, Impaired balance, Decreased endurance necessitating skilled therapy services, but able to tolerate therapy requirements for inpatient rehab, Impaired self-care abilities, Assistance needed with functional mobility, Fall risk, Recent decline in functional mobility, Patient has appropriate assistance and setup at home for ultimate discharge to home once patient has progressed functionally following inpatient rehab Mobility equipment available at home: none used ADL equipment available at home: none Equipment needed for discharge: to be determined Current therapy frequency recommendation in acute: Therapy Frequency: 5 times a week Precautions and Weightbearing Status: Existing Precautions/Restrictions: fall Patient Safety Communication Prior to Visit: Nursing Respiratory Status O2 Device: room air Subjective: Pt agreeable to therapy. Unclear if able to have 24/7 supervision/assist at home at this time. Pain: General Pain Documentation (Adult, OB, Peds) Presence of Pain: denies pain/discomfort Objective/Observation: Vitals/Vitals Responses to Treatment: WFL Cognition Overall Cognitive Status: Within Functional Limits Arousal/Alertness: Appropriate responses to stimuli Orientation Level: Oriented X4 Following Commands: Follows all commands and directions without difficulty Extremity Assessments: See PT Evaluation flowsheet for Extremity Measurement updates. Balance: Sitting Balance Static Sitting-Level of Assistance: Supervision Skilled Rationale: Positioning Sitting Balance Skilled Intervention/Details: pt sat edge of chair in prepartion for gait Standing Balance Static Standing-Level of Assistance: Contact guard Dynamic Standing-Level of Assistance: Contact guard Standing-Balance Support: Gait belt Skilled Rationale: Verbal cues, Hand placement Standing Balance Skilled Intervention/Details: pt preformed dynamic reaching in multiple planes outside SHELLY and standing with eyes closed in order to challenge balance for 5-6 min. Pt showed good ankle/hip stratgey to maintain balance and no need for additional assist. Mobility Assessment/Intervention: Transfer Assessment/Intervention: Sit to Stand Transfer Pi[place] Level: Sit->Stand: contact guard assist Assistive Device: Sit->Stand: armed chair, 2 wheeled walker Skilled Rationale: Hand placement, Verbal cues, Sequencing Skilled Intervention/Details: Sit->Stand: pt preformed multiple stands in session requiring uE support on armed chair. x5 sequential sit to stands in order to increase strength in which last 2 stands required min assist and increased time due to muscle fatigue. PT cued for eccentric quad control and for scooting to edge of chair. PT noted momentum strategies to ascend. Gait/Functional Mobility Assessment/Intervention: Gait Assessment Pi[place] Level: Gait: contact guard assist Assistive Device: Gait: 2 wheeled walker, gait belt Gait Distance (feet): 150x2 Gait Deviations Identified: decreased gait speed, decreased heel strike, decreased step length, flexed posture, shuffling Gait Skilled Rationale: verbal, tactile, upright posture, increase step length, increase step width Skilled Intervention/Details - Gait: pt demonstrated path deviation towards L side. PT cued for increased step length and speed in order to replicate pt baseline gait. PT cued for upright posturing with trunk and neck extension. pt completed gait training for last 100 feet without AD requireing contact gaurd in order to progress to PLOF. Stairs Assessment/Intervention: Stairs Assessment Piute Level: Stair Negotiation: contact guard assist Assistive Device: Stair Negotiation: right rail (ascending) Number of stairs: 6 Stairs Skilled Rationale: verbal, tactile, nonreciprocal pattern Skilled Intervention/Details - Stairs: pt ascended stairs with reciprocepical pattern up the steps and nonreceprical pattern descending. PT provided education on LE sequencing to increase safety. PT provided contact gaurd due to unsteadiness. Outcome Score(s): CURRENT [facility] Basic Mobility Inpatient Short Form Turning over in bed: 4 - No Assistance Sitting/standing from chair: 3 - A Little Assistance Moving from lying on back to sittin - A Little Assistance Moving to and from bed to chair: 3 - A Little Assistance Walk in hospital room: 3 - A Little Assistance Climbing 3-5 steps with a railin - A Little Assistance CURRENT [facility] Mobility Raw Score: 19 CURRENT [facility] Mobility Functional Limitation/Modifier: 41.77% Currently Impaired in Basic Mobility - CK Interventions: Assessment & Plan: Pt making good progress towards goals. Pt would benefit from continued PT to address functional impairments and return to PLOF. Patient Instruction/Education this session: upright posturing, safe stair navigation Plan for next session: gait without AD, stairs, sit to stands Acute PT Goals Plan of Care by Jania Carter PT at 06/23/2021 2:38 PM Version 1 of 1 Problem: PT - Mobility Goal: Ambulation Description: Pt will ambulate 300 feet with least restrictive device with supervision to improve ability to navigate home environment. Outcome: Progressing Toward Goal Goal: Stairs Description: Pt will ascend/descend 3 stairs with no railings with stand by assist with least restrictive device to improve ability to perform functional mobility necessary in recommended discharge environment. Outcome: Progressing Toward Goal Problem: PT - Transfers Goal: Supine <-> Sit Description: Pt will perform bed mobility with flat bed & no rail with independence in order to improve functional mobility and safety. Outcome: Progressing Toward Goal Goal: Sit <-> Stand Description: Pt will perform sit to/from stand transfers with supervision with least restrictive device in order to improve functional mobility and safety. Outcome: Progressing Toward Goal PT treatment consisted of Therapeutic Activity, Gait/Stair Training and Neuro Muscle Re-Education to work and progress towards above goal(s). Treating Therapist: Amanda Benitez Additional Details: Co-evaluation/co-treatment performed?: No simultaneous treatment performed I was assisted by Jania Carter DPT for today's session. and I used facemask, protective eye shield, and gloves in today's patient interaction. Patient location at end of session: chair Alarms on at end of session: chair alarm Needs in reach. Time In: 1235 Time Out: 1300 Total Visit Time: 25 minutes Total Treatment Time (skilled, billable minutes): 25 minutes Upon discontinuation of Acute Care Physical Therapy Services or patient discharge from the hospital this note represents the current Physical Therapy Discharge Summary. Associated attestation - Jania Carter PT - 06/23/2021 3:14 PM EDT I, Jania Carter PT, provided direct guidance in the room during this patient care session. I attest that all documentation reflects accurate skilled clinical decisions and judgements. Placement Plan Expected Discharge Date: 06/24/2021 Referred Level of Care: SNF Barriers: precert Current Referrals and Status 1. [facility] SNF- accepted Still no response from peer to peer request. Admissions is in agreement to submit precert for SNF level of care at [facility] once updated PT note is sent. following. 1530 PT note sent to [facility]. TEETEE Babcock, KOBE-Bo Marketing Manager Health Communications for 10 BS Acute Occupational Therapy Treatment Prior to Admission AM-PAC Score: PRIOR LEVEL AM-PAC Activity Raw Score: 24 PRIOR LEVEL AM-PAC Mobility Raw Score: 23 Current AM-PAC score(s): CURRENT AM-PAC Activity Raw Score: 20 Based on the above AM-PAC score(s), and OT clinical judgment, discharge destination recommendation is: Inpatient Rehab facility. May progress to home with family support Discharge Barriers: Patient needs assistance with ADLs, Patient needs assistance with IADLs (see note below), Patient needs assistance with functional mobility Mobility equipment available at home: none used ADL equipment available at home: none Equipment recommendations for discharge: Current therapy frequency recommendation(s) in acute: 5 times a week Precautions and Weightbearing Status: OT Existing Precautions/Restrictions: fall Patient Safety Communication Prior to Visit: Nursing Subjective: Agreeable to therapy, pleasant throughout Pain: General Pain Documentation (Adult, OB, Peds) Presence of Pain: denies pain/discomfort Objective/Observation: Vitals/Vitals Responses to Treatment: VSS Cognition Overall Cognitive Status: Within Functional Limits Arousal/Alertness: Appropriate responses to stimuli Orientation Level: Oriented X4 Following Commands: Follows all commands and directions without difficulty Safety Judgment: Decreased awareness of need for assistance Cognition Comments: Pt found standing in room without assist ADL Assessment/Intervention: ADLs: ADL Assessment: Grooming Deficit Grooming Assistance: Stand by Grooming Location: standing at sink Grooming Deficit: Generalized weakness, Activity tolerance Grooming Skilled Rationale (Verbal/Tactile/Visual/Demonstrati on): Supervision, Setup, Technique of activity Grooming Intervention/Details: Standing to brush hair, face and dentures X 10 minutes Balance: Standing Balance Static Standing-Level of Assistance: Contact guard, Stand-by assist Dynamic Standing-Level of Assistance: Contact guard Standing-Balance Support: Gait belt Skilled Rationale: Verbal cues, Hand placement Transfer Assessment/Intervention: Sit to Stand Transfer Piute Level: Sit->Stand: contact guard assist Skilled Rationale: Hand placement, Verbal cues Outcome Score(s): SLUMS Total Score: 26 CURRENT AM-PAC Daily Activity Inpatient Short Form Putting on/Taking Off Lower Body Clothin - A Little Assistance Bathin - A Little Assistance Toiletin - A Little Assistance Putting on/Taking Off Upper Body Clothin - No Assistance Groomin - A Little Assistance Eatin - No Assistance CURRENT AM-PAC Activity Raw Score: 20 CURRENT AM-PAC Activity Functional Limitation/Modifier: 38.32% Currently Impaired in Daily Activity - CJ Interventions: Intervention 1 Intervention Name: SLUMs assessment Details: Completed to assess overall cognition and home safety awareness for IADLs Assessment & Plan: Pt with good progress towards goals. Pt scored 26/30 on SLUMS with 27 being a normative score. Pt able to answer higher level comprehension questions throughout assessment and difficulty with higher level abstract concepts. Pt with no LOB during session as she was able to correct some standing postural swaying. Due to progress, could discharge home with family support and OP therapy Plan for next session: Address fine motor skills Acute OT Goals Plan of Care by Chani Lee OT at 06/23/2021 12:24 PM Version 1 of 1 Problem: OT - ADLs Goal: Grooming Description: Pt will complete grooming in standing with modified independence for improved ability to safely complete ADLs. Outcome: Ongoing Problem: OT - Balance Goal: Balance - Standing Description: Pt will perform 10 minutes of functional ADL task in standing with modified independence and balance level of modified Independent to promote safety and improved balance required for self-care activities. Outcome: Ongoing Problem: OT - Strength/ROM Goal: Neuro Re-education Description: Pt will participate in neuro re-ed of (RUE/LUE) to improve strength by 1 muscle grade in each group, for improved use in ADLs. Outcome: Ongoing Problem: OT - Cognition Goal: Cognition Home Maintenance Description: Pt will complete simulated home maintenance task (medication management, finance management, etc.) with modified independence to promote safety and success at discharge destination. Outcome: Ongoing OT treatment consisted of ADL retraining, balance training, cognitive training and transfer training to work and progress towards above goal(s). Treating Therapist: Chani Lee OT Additional Details: Co-evaluation/co-treatment performed?: No simultaneous treatment performed I used facemask, protective eye shield, and gloves in today's patient interaction. Patient location at end of session: chair Alarms on at end of session: chair alarm Needs in reach. Time In: 1013 Time Out: 1040 Total Visit Time: 27 minutes Total Treatment Time (skilled, billable minutes): 27 minutes Upon discontinuation of Acute Care Occupational Therapy Services or patient discharge from the hospital this note represents the current Occupational Therapy Discharge Summary. NEUROVASCULAR STROKE SERVICE Daily Progress Note IDENTIFYING INFORMATION Patrica Newman MR# [id number] 06/23/2021 HISTORY OF PRESENT ILLNESS Patrica Newman is a 81 y.o. female with PMH significant for HTN and recent R BG acute stroke who presents as a re-admission for LLE weakness. Pt was discharged 06/18 after completing workup for R BG acute stroke thought to 2/2 small vessel disease. At discharge pt had an NIHSS of 0. She was able to walk around with physical therapy. Her family noted some dysarthria during their 1.5 hour ride home after discharge. At home, she was unable to stand up to go to the bathroom. EMS was called and she was taken to [facility], where she was noted to have LLE weakness with NIHSS of 1. Pt was transferred directly to the [facility] neurovascular service for further workup. Upon arrival BP 175/78. A stroke alert was not called for STAT consultation. NIHSS 2 for dysarthria and LLE drift. INTERVAL HISTORY 06/20- MRI brain complete, therapies recommending IPR 06/21- EDWARD, precert denied, discussed with patient/family, VM left to initiate peer to peer 06/22-Add metoprolol, discussed dispo options with family 06/23-start low dose lisinopril, recheck creatinine tmw PHYSICAL EXAM Gen: awake, alert HEENT: normocephalic, no scalp lesions or tenderness Neck: trachea midline CV: +S1S2, RRR, no m/r/g Lungs: LCTA bilaterally with equal chest rise Abd: soft, nontender, nondistended, +BS x4 quadrants Extrem: Warm and well perfused, no edema, 2+ pulses bilaterally Neuro: Oriented x4, [place] x 4, sensation intact and equal bilaterally to light touch CN II - All visual read intact CN II/III - PERRL CN III/IV/ - EOMI CN V - Light touch to face intact in V1-3 CN VII - Facial movement intact and symmetrical bilaterally CN VIII - Hearing intact CN X - Cough present CN XI - muscular movement of shoulders and sternocleidomastoid muscles intact and equal bilaterally CN XII - midline protrusion of tongue MOTOR EXAMINATION: 06/30 NIHSS 06/23/2021 Provider NIH Stroke Scale NIH Interval (Provider): daily NIH Level of Conciousness (Provider): 0 NIH LOC Questions (Provider): 0 NIH LOC Commands (Provider): 0 NIH Best Gaze (Provider): 0 NIH Visual (Provider): 0 NIH Facial Palsy (Provider): 0 NIH Left Arm Motor (Provider): 0 NIH Right Arm Motor (Provider): 0 NIH Left Leg Motor (Provider): 0 NIH Right Leg Motor (Provider): 0 NIH Limb Ataxia (Provider): 0 NIH Sensory (Provider): 0 NIH Best Language (Provider): 0 NIH Dysarthria (Provider): 0 NIH Extinction and Inattention (Provider): 0 NIH Total Score (Provider): 0 ASSESSMENT AND PLAN Neuro: R BG stroke MRI brain-Now more confluent/larger area of infarction in the right basal ganglia -prior work up complete, no further work up indicated -Stroke Etiology (TOAST Criteria): -Antiplatelet plan: ASA 81 mg daily -Statin therapy: intolerant due to muscle cramps -Blood Pressure goal: normotension Ischemic Stroke Core Measures -NIHSS on admission 2 -Patient has been started on Mechanical (SCD's) and Pharmacological (SQ heparin/Lovenox) DVT prophylaxis. -Antiplatelet therapy has been initiated, Aspirin 81mg daily. -Anticoagulation therapy was not indicated for this patient, -Patients LDL 142 and HgbA1c 5.5 were checked and the patient will not be discharged on Atorvastatin d/t inability to tolerate -Dysphagia screening ordered, and will be completed prior to patient receiving oral intake. -Stroke education booklet has been ordered and will be provided by the RN that includes both written and verbal education to the patient and family regarding ischemic strokes. We have reviewed the patient's personal modifiable risk factors including: HTN, HLD as well as education on reducing these risk factors -Patient is being assessed for Rehab by PT/OT/Speech and PM&R if indicated. HTN (POA) -long term care social worker goal after stroke is less than 130/80 -Continue on CLIFF inhibitor and BB at home -start lisinopril 10 mg 06/23 (on quinopril at home) -06/21 nifedipine increased to home dose, 60mg q12hr -06/22-restart home metoprolol 25 mg every 12 hours Disposition: Patrica Newman will likely be discharged to to [facility] pending peer to peer. Amy Ho APRN-SALON STYLIST 06/23/2021 7:07 AM VITAL SIGNS Temp: [97.9 F (36.6 C)-98.1 F (36.7 C)] 98.1 F (36.7 C) Pulse (Heart Rate): [78-96] 78 Resp Rate: [16-18] 16 BP: (146-171)/(65-77) 160/72 O2 Sat (%): [97 %-100 %] 97 % Weight: [68.7 kg (151 lb 6.4 oz)] 68.7 kg (151 lb 6.4 oz) Oxygen Therapy: Oxygen Therapy O2 Sat (%): 97 % O2 Device: room air Intake/Output: Intake/Output Summary (Last 24 hours) at 06/23/2021 0707 Last data filed at 06/23/2021 0420 Gross per 24 hour Intake 1630 ml Output 1375 ml Net 255 ml LABS/CULTURES Lab Results Component Value Date WBC 6.27 06/21/2021 HGB 11.1 (L) 06/21/2021 HCT 33.9 (L) 06/21/2021 PLATELET 231 06/22/2021 MCV 97.4 06/21/2021 Lab Results Component Value Date SODIUM 140 06/21/2021 POTASSIUM 4.4 06/21/2021 CHLORIDE 112 (H) 06/21/2021 CO2 20 (L) 06/21/2021 BUN 28 (H) 06/21/2021 CREATSERUM 1.23 (H) 06/21/2021 GLUCOSE 102 (H) 06/21/2021 Lab Results Component Value Date CHOLESTEROL 199 06/19/2021 CHOLESTEROL 238 (H) 06/17/2021 CHOLESTEROL 233 (H) 06/17/2021 TRIG 142 06/19/2021 TRIG 162 (H) 06/17/2021 TRIG 153 (H) 06/17/2021 HDL 47 06/19/2021 HDL 50 06/17/2021 HDL 49 06/17/2021 LDLCALC 124 (H) 06/19/2021 LDLCALC 156 (H) 06/17/2021 LDLCALC 153 (H) 06/17/2021 Lab Results Component Value Date HGBA1C 5.5 06/19/2021 Lab Results Component Value Date ALBUMIN 3.6 06/19/2021 , No results found for: CPK, TROP IMAGING/DIAGNOSTIC STUDIES MRI BRAIN WITHOUT CONTRAST Final Result IMPRESSION: Now more confluent/larger area of infarction in the right basal ganglia from 2 days ago. No hemorrhage. CATIONS aspirin 81 mg Oral Daily Or aspirin 300 mg Rectal Daily enoxaparin 40 mg Subcutaneous Q24H latanoprost 1 drop Both Eyes QHS metoprolol 25 mg Oral Q12H NIFEdipine 60 mg Oral Q12H pneumococcal 23-valent 0.5 mL Intramuscular Once During Admission senna 8.6 mg Oral QAM Or senna 8.6 mg Per NG tube QAM Associated attestation - Andi Bashir MD - 06/27/2021 12:30 AM EDT I have interviewed and examined patient on 06/23/21. I have reviewed old records. I have independently reviewed all labs and imaging including MRI's and CT's. I have personally performed an H&P and reviewed resident's/SHIPFITTER HELPER's note and agree with the plan of care. Data and Imaging Reviewed by me personally: DATA LABS: LDL 142 and HgbA1c 5.5 RADIOLOGY REVIEW: I have reviewed radiology image(s) and reports(s) of: Now more confluent/larger area of infarction in the right basal ganglia -prior work up complete Objective, O/N: EDWARD, start CLIFF Assessment/Plan completed in its entirety by myself : Diagnosis: SubAcute R BG stroke, Etiology /TOAST criteria: - . Recent stroke workup compelted. She felt weaker, no new stroke, completion of old stroke. Swallow evaluation. SBP goal < 140. Continue daily anti-platelet medication (ASA) and vascular risk factor modification, intolerant to statins, will get weekly MAB from PCP. . DVT prophylaxis with SCDs and heparin SQ. Stroke education and smoking cessation. PT/OT consults. Andi Bashir MD Dispo - IPR - precert denied. The following are the risk factors for mortality: Infarction Due to Cerebral Artery Occlusion Introduced self and role of the square shear operator to patient. Provided emotional and spiritual support through active listening/supportive presence, prayer, and validation of feelings. Chaplains are available in-house 24 hours a day and 7 days a week. For urgent matters in [facility], please page [phone]. If the request is not urgent, please enter a consult. Consults are responded to within 24 hours. STEPHEN KRAUSE M.A, [facility] 18/09 Pager 1500 [place] Pager [phone] [place]: [phone] 06/22/21 1500 Clinical Encounter Type Visited With Patient Visit Type Introduction Pastoral Time Spent 15 min Sabianist Encounters Sabianist Needs Prayer Spiritual Assessment Spiritual Observation Spirituality helpful Emotional Observation Sad Hope Observation Specific hope focus Support Observation Some support;By Family Interventions Provided Active listening;Prayer;Supportive presence Facilitated Verbalization of feelings Monologist Education Monologist Service Available Yes Plan of Care Continue Visiting PRN Acute Occupational Therapy Treatment Prior to Admission AM-PAC Score: PRIOR LEVEL AM-PAC Activity Raw Score: 24 PRIOR LEVEL AM-PAC Mobility Raw Score: 23 Current AM-PAC score(s): CURRENT AM-PAC Activity Raw Score: 19 Based on the above AM-PAC score(s), and OT clinical judgment, discharge destination recommendation is: Inpatient Rehab Facility Discharge Barriers: Patient needs assistance with ADLs, Patient needs assistance with IADLs (see note below), Patient needs assistance with functional mobility Mobility equipment available at home: none used ADL equipment available at home: none Equipment recommendations for discharge: Current therapy frequency recommendation(s) in acute: 5 times a week Precautions and Weightbearing Status: OT Existing Precautions/Restrictions: fall Patient Safety Communication Prior to Visit: Nursing Communication order: Okay to shower off of tele Subjective: Agreeable to therapy, feels good after her shower Pain: General Pain Documentation (Adult, OB, Peds) Presence of Pain: denies pain/discomfort Objective/Observation: Vitals/Vitals Responses to Treatment: VSS Cognition Overall Cognitive Status: Impaired Arousal/Alertness: Appropriate responses to stimuli Orientation Level: Oriented X4 Following Commands: Follows all commands and directions without difficulty Safety Judgment: Decreased awareness of need for assistance, Decreased awareness of need for safety Awareness of Errors: Assistance required to identify errors made Deficits: Decreased awareness of deficits ADL Assessment/Intervention: ADLs: ADL Assessment: Bathing Deficit, UE Dressing Deficit, LE Dressing Deficit Bathing Assistance: Contact guard assist Bathing Location: seated on shower chair, standing in shower (Assist for standing) Bathing Deficit: Activity tolerance, Balance Bathing Skilled Rationale (Verbal/Tactile/Visual/Demonstrati on): Supervision, Setup, Technique of activity UE Dressing Assistance: Contact guard assist UE Dressing Location: seated in chair UE Dressing Deficit: Activity tolerance UE Dressing Skilled Rationale (Verbal/Tactile/Visual/Demonstrati on): Setup, Supervision, Technique of activity LE Dressing Assistance: Contact guard assist LE Dressing Location: seated in chair LE Dressing Deficit: Activity tolerance, Balance LE Dressing Skilled Rationale (Verbal/Tactile/Visual/Demonstrati on): Setup, Supervision Toilet Assistance: Contact guard assist Toileting Location: toilet Toileting Deficit: Activity tolerance, Balance Toilet Skilled Rationale (Verbal/Tactile/Visual/Demonstrati on): Supervision, Setup, Technique of activity Toileting Intervention/Details: Assist for balance during pericare Balance: Standing Balance Static Standing-Level of Assistance: Minimum assistance Dynamic Standing-Level of Assistance: Minimum assistance Skilled Rationale: Hand placement, Verbal cues Transfer Assessment/Intervention: Sit to Stand Transfer [place] Level: Sit->Stand: minimum assist (75% patient effort) Skilled Rationale: Hand placement, Verbal cues Functional Mobility: Functional Mobility Pi[place] Level: Functional Mobility/Gait: contact guard assist Functional Mobility Distance: Distance needed to access restroom Functional Mobility Deficits: Balance Functional Mobility Skilled Rationale: Cues for increased safety, Verbal cues CURRENT AM-PAC Daily Activity Inpatient Short Form Putting on/Taking Off Lower Body Clothin - A Little Assistance Bathin - A Little Assistance Toiletin - A Little Assistance Putting on/Taking Off Upper Body Clothin - A Little Assistance Groomin - A Little Assistance Eatin - No Assistance CURRENT AM-PAC Activity Raw Score: 19 CURRENT AM-PAC Activity Functional Limitation/Modifier: 42.80% Currently Impaired in Daily Activity - CK Assessment & Plan: Pt with good progress towards goals. Continues with deficits in balance this session with retropulsion noted throughout particularly when standing to dry off body, but able to correct with cueing. Pt also with lateral leaning to R side during mobility with min assist to correct. Due to pt's deficits in transfers, balance, higher level processing required for IADLs and occupational duties, pt would benefit from continued OT services before safe discharge home. Plan for next session: Address higher level cognition and dynamic balance Acute OT Goals Plan of Care by Chani Lee OT at 06/22/2021 2:35 PM Version 1 of 1 Problem: OT - Dressing Goal: Lower Body Dressing Description: Pt will complete LE dressing tasks with modified independence for improved ability to complete self-care activities. Outcome: Ongoing Problem: OT - ADLs Goal: Grooming Description: Pt will complete grooming in standing with modified independence for improved ability to safely complete ADLs. Outcome: Ongoing Goal: Bathing Description: Pt will perform full body bathing routine with modified independence while seated for improved ability to complete self-care activities. Outcome: Ongoing Problem: OT - Balance Goal: Balance - Standing Description: Pt will perform 10 minutes of functional ADL task in standing with modified independence and balance level of modified Independent to promote safety and improved balance required for self-care activities. Outcome: Ongoing Problem: OT - Strength/ROM Goal: Neuro Re-education Description: Pt will participate in neuro re-ed of (RUE/LUE) to improve strength by 1 muscle grade in each group, for improved use in ADLs. Outcome: Ongoing OT treatment consisted of ADL retraining, balance training, strengthening and transfer training to work and progress towards above goal(s). Treating Therapist: Chani Lee OT Additional Details: Co-evaluation/co-treatment performed?: No simultaneous treatment performed I was assisted by Martha Bernard for today's session. and I used facemask, protective eye shield, and gloves in today's patient interaction. Patient location at end of session: chair Alarms on at end of session: chair alarm Needs in reach. Time In: 1335 Time Out: 1408 Total Visit Time: 33 minutes Total Treatment Time (skilled, billable minutes): 33 minutes Upon discontinuation of Acute Care Occupational Therapy Services or patient discharge from the hospital this note represents the current Occupational Therapy Discharge Summary. Progression of Care Note Expected Discharge Date: 06/24/2021 Medical Milestones Remaining: None Assessment and Discharge Plan as of 06/22/2021 2:04 PM Plan was discussed with Patient and Family member (daughter) on this date. Anticipated discharge disposition: Inpatient Rehab Facility Anticipated Services at Discharge: Physical Therapy, Occupational Therapy, Long-Term, Outpatient follow up Barriers to Discharge: Insurance Authorization Explanation of Barriers: Need to complete peer to peer as insurance denied IPR for Pt. KOBE Duncan Fountain Operator 2-1006 Readmission Risk Score Risk of Readmission: 4.1 Category Reference: High:16-100 Mod-High:10-16 Mod-Low: 5-10 Low: 0-5 Placement Plan Expected Discharge Date: 06/24/2021 Referred Level of Care: IPR v SNF Barriers: peer to peer Current Referrals and Status 1. [facility]- accepted Peer to peer pending for IPR precert denial. SW met with pt and daughter at bedside to update on insurance denial and attempt to appeal this decision. SW explained that if peer to peer is denied, [facility] is able to attempt precert for this level of care next. Pt and family are in agreement with this plan. SW discussed backup plan and community resources in the case that all inpatient levels of care are denied by insurance. SW following. TEETEE Babcock, KOBE-S Marketing Manager Health Communications for 10 BS NEUROVASCULAR STROKE SERVICE Daily Progress Note IDENTIFYING INFORMATION Patrica Newman MR# [id number] 06/22/2021 HISTORY OF PRESENT ILLNESS Patrica Newman is a 81 y.o. female with PMH significant for HTN and recent R BG acute stroke who presents as a re-admission for LLE weakness. Pt was discharged 06/18 after completing workup for R BG acute stroke thought to 2/2 small vessel disease. At discharge pt had an NIHSS of 0. She was able to walk around with physical therapy. Her family noted some dysarthria during their 1.5 hour ride home after discharge. At home, she was unable to stand up to go to the bathroom. EMS was called and she was taken to [facility], where she was noted to have LLE weakness with NIHSS of 1. Pt was transferred directly to the [facility] neurovascular service for further workup. Upon arrival BP 175/78. A stroke alert was not called for STAT consultation. NIHSS 2 for dysarthria and LLE drift. INTERVAL HISTORY 06/20- MRI brain complete, therapies recommending IPR 06/21- [facility], precert denied, discussed with patient/family, VM left to initiate peer to peer 06/22-Add metoprolol, discussed dispo options with family PHYSICAL EXAM Gen: awake, alert HEENT: normocephalic, no scalp lesions or tenderness Neck: trachea midline No JVD CV: +S1S2, RRR, no m/r/g Lungs: LCTA bilaterally with equal chest rise Abd: soft, nontender, nondistended, +BS x4 quadrants Extrem: Warm and well perfused, no edema, 2+ pulses bilaterally Neuro: Oriented x4, [place] x 4, sensation intact and equal bilaterally to light touch CN II - All visual read intact CN II/III - PERRL CN III/IV/ - EOMI CN V - Light touch to face intact in V1-3 CN VII - Facial movement intact and symmetrical bilaterally CN VIII - Hearing intact CN X - Cough present CN XI - muscular movement of shoulders and sternocleidomastoid muscles intact and equal bilaterally CN XII - midline protrusion of tongue MOTOR EXAMINATION: 06/30 NIHSS 06/22/2021 Provider NIH Stroke Scale NIH Interval (Provider): daily NIH Level of Conciousness (Provider): 0 NIH LOC Questions (Provider): 0 NIH LOC Commands (Provider): 0 NIH Best Gaze (Provider): 0 NIH Visual (Provider): 0 NIH Facial Palsy (Provider): 0 NIH Left Arm Motor (Provider): 0 NIH Right Arm Motor (Provider): 0 NIH Left Leg Motor (Provider): 0 NIH Right Leg Motor (Provider): 0 NIH Limb Ataxia (Provider): 0 NIH Sensory (Provider): 0 NIH Best Language (Provider): 0 NIH Dysarthria (Provider): 0 NIH Extinction and Inattention (Provider): 0 NIH Total Score (Provider): 0 ASSESSMENT AND PLAN Neuro: R BG stroke MRI brain-Now more confluent/larger area of infarction in the right basal ganglia -prior work up complete, no further work up indicated -Stroke Etiology (TOAST Criteria): -Antiplatelet plan: ASA 81 mg daily -Statin therapy: intolerant due to muscle cramps -Blood Pressure goal: normotension Ischemic Stroke Core Measures -NIHSS on admission 2 -Patient has been started on Mechanical (SCD's) and Pharmacological (SQ heparin/Lovenox) DVT prophylaxis. -Antiplatelet therapy has been initiated, Aspirin 81mg daily. -Anticoagulation therapy was not indicated for this patient, -Patients LDL 142 and HgbA1c 5.5 were checked and the patient will not be discharged on Atorvastatin d/t inability to tolerate -Dysphagia screening ordered, and will be completed prior to patient receiving oral intake. -Stroke education booklet has been ordered and will be provided by the RN that includes both written and verbal education to the patient and family regarding ischemic strokes. We have reviewed the patient's personal modifiable risk factors including: HTN, HLD as well as education on reducing these risk factors -Patient is being assessed for Rehab by PT/OT/Speech and PM&R if indicated. HTN (POA) -senior living goal after stroke is less than 130/80 -Continue on CLIFF inhibitor and BB at home -06/21 nifedipine increased to home dose, 60mg q12hr -06/22-restart home metoprolol 25 mg every 12 hours Disposition: Patrica Newman will likely be discharged to to [facility] pending peer to peer. Amy Ho, [place]AT-SALON STYLIST 06/22/2021 6:47 AM VITAL SIGNS Temp: [97 F (36.1 C)-98.3 F (36.8 C)] 97 F (36.1 C) Pulse (Heart Rate): [81-93] 86 Resp Rate: [16-20] 18 BP: (145-172)/(61-72) 160/61 O2 Sat (%): [95 %-98 %] 98 % Oxygen Therapy: Oxygen Therapy O2 Sat (%): 98 % O2 Device: room air Intake/Output: Intake/Output Summary (Last 24 hours) at 06/22/2021 0647 Last data filed at 06/22/2021 0600 Gross per 24 hour Intake 1040 ml Output 875 ml Net 165 ml LABS/CULTURES Lab Results Component Value Date WBC 6.27 06/21/2021 HGB 11.1 (L) 06/21/2021 HCT 33.9 (L) 06/21/2021 PLATELET 231 06/22/2021 MCV 97.4 06/21/2021 Lab Results Component Value Date SODIUM 140 06/21/2021 POTASSIUM 4.4 06/21/2021 CHLORIDE 112 (H) 06/21/2021 CO2 20 (L) 06/21/2021 BUN 28 (H) 06/21/2021 CREATSERUM 1.23 (H) 06/21/2021 GLUCOSE 102 (H) 06/21/2021 Lab Results Component Value Date CHOLESTEROL 199 06/19/2021 CHOLESTEROL 238 (H) 06/17/2021 CHOLESTEROL 233 (H) 06/17/2021 TRIG 142 06/19/2021 TRIG 162 (H) 06/17/2021 TRIG 153 (H) 06/17/2021 HDL 47 06/19/2021 HDL 50 06/17/2021 HDL 49 06/17/2021 LDLCALC 124 (H) 06/19/2021 LDLCALC 156 (H) 06/17/2021 LDLCALC 153 (H) 06/17/2021 Lab Results Component Value Date HGBA1C 5.5 06/19/2021 Lab Results Component Value Date ALBUMIN 3.6 06/19/2021 , No results found for: CPK, TROP IMAGING/DIAGNOSTIC STUDIES MRI BRAIN WITHOUT CONTRAST Final Result IMPRESSION: Now more confluent/larger area of infarction in the right basal ganglia from 2 days ago. No hemorrhage. CATIONS aspirin 81 mg Oral Daily Or aspirin 300 mg Rectal Daily atorvastatin 80 mg Oral QHS enoxaparin 40 mg Subcutaneous Q24H latanoprost 1 drop Both Eyes QHS NIFEdipine 60 mg Oral Q12H pneumococcal 23-valent 0.5 mL Intramuscular Once During Admission senna 8.6 mg Oral QAM Or senna 8.6 mg Per NG tube QAM Associated attestation - Andi Bashir MD - 06/27/2021 12:29 AM EDT I have interviewed and examined patient on 06/22/21. I have reviewed old records. I have independently reviewed all labs and imaging including MRI's and CT's. I have personally performed an H&P and reviewed resident's/SHIPFITTER HELPER's note and agree with the plan of care. Data and Imaging Reviewed by me personally: DATA LABS: LDL 142 and HgbA1c 5.5 RADIOLOGY REVIEW: I have reviewed radiology image(s) and reports(s) of: Now more confluent/larger area of infarction in the right basal ganglia -prior work up complete Objective, O/N: EDWARD, add BB Assessment/Plan completed in its entirety by myself : Diagnosis: SubAcute R BG stroke, Etiology /TOAST criteria: - . Recent stroke workup compelted. She felt weaker, no new stroke, completion of old stroke. Swallow evaluation. SBP goal < 140. Continue daily anti-platelet medication (ASA) and vascular risk factor modification, intolerant to statins, will get weekly MAB from PCP. . DVT prophylaxis with SCDs and heparin SQ. Stroke education and smoking cessation. PT/OT consults. Andi Bashir MD Dispo - IPR - precert denied. The following are the risk factors for mortality: Infarction Due to Cerebral Artery Occlusion Acute Occupational Therapy Treatment Prior to Admission AM-PAC Score: PRIOR LEVEL AM-PAC Activity Raw Score: 24 PRIOR LEVEL AM-PAC Mobility Raw Score: 23 Current AM-PAC score(s): CURRENT AM-PAC Activity Raw Score: 19 Based on the above AM-PAC score(s), and OT clinical judgment, discharge destination recommendation is: Inpatient Rehab Facility Discharge Barriers: Patient needs assistance with ADLs, Patient needs assistance with IADLs (see note below), Patient needs assistance with functional mobility Mobility equipment available at home: none used ADL equipment available at home: none Equipment recommendations for discharge: Current therapy frequency recommendation(s) in acute: 5 times a week Precautions and Weightbearing Status: OT Existing Precautions/Restrictions: fall Patient Safety Communication Prior to Visit: Nursing Subjective: Agreeable to therapy, pleasant throughout Pain: General Pain Documentation (Adult, OB, Peds) Presence of Pain: denies pain/discomfort Objective/Observation: Vitals/Vitals Responses to Treatment: VSS. Stated my heart feels like it is beating fast with heart rate at 103 at that time Cognition Overall Cognitive Status: Impaired Arousal/Alertness: Appropriate responses to stimuli Orientation Level: Oriented X4 Following Commands: Follows one step commands without difficulty Safety Judgment: Decreased awareness of need for assistance, Decreased awareness of need for safety Awareness of Errors: Assistance required to identify errors made Deficits: Decreased awareness of deficits Balance: Standing Balance Static Standing-Level of Assistance: Contact guard Dynamic Standing-Level of Assistance: Minimum assistance Standing-Balance Support: Gait belt Skilled Rationale: Verbal cues, Hand placement Transfer Assessment/Intervention: Sit to Stand Transfer Pi[place] Level: Sit->Stand: minimum assist (75% patient effort) Skilled Rationale: Hand placement, Verbal cues Skilled Intervention/Details: Sit->Stand: Momentum strategies noted Functional Mobility: Functional Mobility [place] Level: Functional Mobility/Gait: contact guard assist Assistive Device: Functional Mobility/Gait: gait belt Functional Mobility Distance: Distance needed for common household mobility Functional Mobility Deficits: Balance Functional Mobility Skilled Rationale: Cues for increased safety, Verbal cues Skilled Intervention/Details - Functional Mobility/Gait: several min LOB she corrected and veering throughout CURRENT [facility] Daily Activity Inpatient Short Form Putting on/Taking Off Lower Body Clothin - A Little Assistance Bathin - A Little Assistance Toiletin - A Little Assistance Putting on/Taking Off Upper Body Clothin - A Little Assistance Groomin - A Little Assistance Eatin - No Assistance CURRENT [facility] Activity Raw Score: 19 CURRENT [facility] Activity Functional Limitation/Modifier: 42.80% Currently Impaired in Daily Activity - CK Interventions: Intervention 1 Intervention Name: Reaching and grasp Details: Scanning in hallway for targets with 75% accuracy. Pt required cueing for scanning to locate targets , however no LOB when grasping with LUE Intervention 2 Intervention Name: Fine motor Details: Completed 9 hole peg test and educated on use of curos caps to practice dexterity tasks with LUE 9 Hole Peg: LUE: 52.19 Seconds RUE: 30.10 Seconds Age Female Left (Seconds) Female Right (Seconds) 71+ 18.45-29.77 16.47-28.51 Intervention 3 Intervention Name: Balance Details: Static standing with pt required to reach and grasp wtih LUE and throw into basket to address coordination and dynamic standing balance Assessment & Plan: Pt with good progress towards goals. Improved balance with mobility, but still veering throughout mobility tasks. Pt also with decreased fine motor skills with LUE as evidenced by 9 hole peg assessment. 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 Plan for next session: address fine motor skills Acute OT Goals Plan of Care by Chani Lee OT at 06/21/2021 2:13 PM Version 1 of 1 Problem: OT - Balance Goal: Balance - Standing Description: Pt will perform 10 minutes of functional ADL task in standing with modified independence and balance level of modified Independent to promote safety and improved balance required for self-care activities. Outcome: Ongoing Problem: OT - Strength/ROM Goal: Neuro Re-education Description: Pt will participate in neuro re-ed of (RUE/LUE) to improve strength by 1 muscle grade in each group, for improved use in ADLs. Outcome: Ongoing OT treatment consisted of balance training, neuromuscular re-education and transfer training to work and progress towards above goal(s). Treating Therapist: Chani Lee OT Additional Details: Co-evaluation/co-treatment performed?: No simultaneous treatment performed I used facemask, protective eye shield, and gloves in today's patient interaction. Patient location at end of session: chair Alarms on at end of session: none Needs in reach. Time In: 1332 Time Out: 1357 Total Visit Time: 25 minutes Total Treatment Time (skilled, billable minutes): 25 minutes Upon discontinuation of Acute Care Occupational Therapy Services or patient discharge from the hospital this note represents the current Occupational Therapy Discharge Summary. Acute Care FURNITURE SANDER Speech/Language/Cognitive Evaluation Best mode of Communication: spoken language (regular speech) Discharge Recommendations: Based on the below outcome measures/assessment score(s) and FURNITURE SANDER clinical judgment, discharge destination recommendation is: Deferred to PT/OT recomendations related to mobility Discharge Barriers: 1:1 assist needed for IADL's including medication management and finances Supporting factors for discharge setting: Impaired cognitive skills limiting safety/insight Acute FURNITURE SANDER Outcomes Tracking Communicate basic wants and needs?: yes Demo insight/appreciation of deficits?: no Appreciate deficits - Details: emerging Complete basic problem solving?: yes Current therapy frequency recommendation in acute: Speech/Lang/Cog Therapy Frequency: 3 times a week Clinical Impression: Patirca Newman presents with mild cognitive communication deficits, characterized by deficits in the areas of insight and short term memory. Short term memory deficits appear baseline per most recent FURNITURE SANDER evaluation as well as pt report. This FURNITURE SANDER previously evaluated this pt on 06/17/21, pt noted to have decreased insight into deficits compared to most recent evaluation. Expressive/receptive language intact, able to communicate wants and needs. Pt would benefit from ongoing FURNITURE SANDER services to address noted deficits. Patient Instruction/Education this session: Role of FURNITURE SANDER and POC Plan for next session: Address POC Subjective: Sitting upright in chair, pleasant and agreeable to evaluation. Pain: General Pain Documentation (Adult, OB, Peds) Presence of Pain: denies pain/discomfort Patient History Comments: Patrica Newman is a 81 y.o. female with recent R BG acute stroke (06/17) who presents as a re-admission for LLE weakness. MRI Brain revealed more confluent/larger area of infarction in the right basal ganglia. 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 Respiratory Status: Room Air EXPRESSIVE LANGUAGE: Intact Task: Answering 'wh' Questions Intact Repetition Intact Verbalize Basic Wants and Needs Intact Functional Participation in Conversation Intact Expressive Language Characteristics: Fluent RECEPTIVE LANGUAGE: Intact Task: Follow 1-Step Commands Intact Answers Basic Y/N Questions Intact Conversational Comprehension Intact READING: Intact (Presumed intact, pt able to read items in room) Task: Functional Environmental Reading Intact WRITING: Unable to assess SOCIAL INTERACTION/PRAGMATICS: Intact Task: Initiates Conversation Intact Takes Turns in Communication Intact Maintains Eye Contact Intact Maintains Topic Intact Shifts Topics Appropriately Intact Affect Intact Responds Appropriately to Questions Intact COGNITION: Impaired Task: Arousal/Alertness Appropriate responses to stimuli Orientation Level Oriented X4 Safety Judgment Decreased awareness of need for safety Awareness of Errors Assistance required to identify errors made Deficits Decreased awareness of deficits Attention Span Appears intact Memory Decreased short term memory Problem Solving Able to problem solve independently Cognition Comments Decreased insight to deficits. CRANIAL NERVE EXAMINATION: Cranial Nerve Exam CN V (Trigeminal) strong equal bilateral strength of masseter and temporal muscles CN VII (Facial) strong bilateral movement of upper and lower face CN IX (glossopharyngeal) uvula is midline CN X (Vagus) uvula is midline CN XI (Accessory) strong and equal rotation of head CN XII (Hypoglossal) clearly articulated speech, tongue midline with strong equal strength MOTOR SPEECH TASKS: Intact Task: Speech Intelligibility Intact VOCAL PARAMETERS: Intact Task: Vocal Quality WDL Subjective Voice Evaluation Grade of dysphonia (G): 0 Roughness (R): 0 Breathiness (B): 0 Asthenia (A): 0 Strain (S): 0 FURNITURE SANDER Outcomes: The Orientation Log (O-Log) is designed to be a quick quantitative measure of orientational status for use at bedside with rehabilitation inpatients. Place, time, and situational (Etiology/Event + Pathology/Deficits) domains are assessed. Patient responses are scored according to the following criteria: 3 = correct spontaneously or upon first free recall attempt; 2 = correct upon logical cueing (e.g., That was yesterday, so today must be ); 1 = correct upon multiple choice or phonemic cuing; and 0 = incorrect despite cueing, inappropriate response, or unable to respond. Patient scored Total Score: this date. The Cognitive Log (Cog-Log) is designed to be a quick quantitative measure of cognition for use at bedside with rehabilitation patients. It is intended for individuals who have achieved consistent accurate orientation, such as measured by the Orientation Log (O-Log). The Cog-Log can be used to document cognitive progress on a daily basis, in the areas of immediate memory, reasoning, thought organization and attention. All items are scored from 0 to 3 for a total possible score of 30, which can be graphed for quick reference. Patient scored Total Score: this date. Patient with noted difficulty in the areas of short term memory and insight and was noted to benefit from logical cues. Acute FURNITURE SANDER Goals Plan of Care by MEGHAN Elias at 06/21/2021 2:08 PM Version 1 of 1 Problem: FURNITURE SANDER - Cognition Goal: Memory Goal 2 Description: Patient will demonstrate understanding of x3 external or internal memory strategies with inconsistent minimal cues, across 1-2 sessions in order to facilitate improvements with memory for greater level of independence. Outcome: Ongoing Goal: Meticognition Goal 2 Description: Patient will state x2-3 changes in function that impact his/her level of independence, with min prompts, across 1-2 sessions in order to improve insight into deficits, improve safety and improve level of independence. Outcome: Ongoing I used facemask, protective eye shield, and gloves in today's patient interaction. Speech Language Pathologist: MEGHAN Elias Time In: 1408 Time Out: 1433 Total Visit Time: 25 minutes Total Treatment Time (skilled, billable minutes): 25 minutes Patient location at end of session: chair Alarms on at end of session: FURNITURE SANDER did not touch/manage existing alarms this session. Needs in reach. Upon discontinuation of Acute Care Speech Therapy Services or patient discharge from the hospital this note represents the current Speech Therapy Discharge Summary Acute Care Speech Language Pathology Note Received consult for swallow evaluation. However, patient passed [place] Swallow Screening by nursing. Swallow eval by FURNITURE SANDER will not be completed at this time unless this service notified of change in status or re-consult for swallow eval placed. FURNITURE SANDER to proceed with speech/language/cognitive evaluation per order. Thank you. No charge Keshia Hogan MA, [facility]FURNITURE SANDER Email: [email or web address] Placement Plan Expected Discharge Date: 06/24/2021 Referred Level of Care: IPR Barriers: precert denied Current Referrals and Status 1. [facility] SW notified by [facility] that precert has been denied stating pt does not meet IPR criteria. A peer to peer can be completed by calling and updated clinicals need faxed to [phone]. SW updated team and will continue to follow. TEETEE Babcock, KOBE-Bo Marketing Manager Health Communications for [facility] NEUROVASCULAR STROKE SERVICE Daily Progress Note IDENTIFYING INFORMATION Patrica Newman MR# [id number] 06/21/2021 HISTORY OF PRESENT ILLNESS Patrica Newman is a 81 y.o. female with PMH significant for HTN and recent R BG acute stroke who presents as a re-admission for LLE weakness. Pt was discharged 06/18 after completing workup for R BG acute stroke thought to 2/2 small vessel disease. At discharge pt had an NIHSS of 0. She was able to walk around with physical therapy. Her family noted some dysarthria during their 1.5 hour ride home after discharge. At home, she was unable to stand up to go to the bathroom. EMS was called and she was taken to [facility], where she was noted to have LLE weakness with NIHSS of 1. Pt was transferred directly to the [facility] neurovascular service for further workup. Upon arrival BP 175/78. A stroke alert was not called for STAT consultation. NIHSS 2 for dysarthria and LLE drift. INTERVAL HISTORY 06/20- MRI brain complete, therapies recommending IPR 06/21- [place], precert denied, discussed with patient/family, VM left to initiate peer to peer PHYSICAL EXAM Gen: awake, alert HEENT: normocephalic, no scalp lesions or tenderness Neck: trachea midline No JVD CV: +S1S2, RRR, no m/r/g Lungs: LCTA bilaterally with equal chest rise Abd: soft, nontender, nondistended, +BS x4 quadrants Extrem: Warm and well perfused, no edema, 2+ pulses bilaterally Neuro: Oriented x4, [place] x 4, sensation intact and equal bilaterally to light touch CN II - All visual read intact CN II/III - PERRL CN III/IV/ - EOMI CN V - Light touch to face intact in V1-3 CN VII - Facial movement intact and symmetrical bilaterally CN VIII - Hearing intact CN X - Cough present CN XI - muscular movement of shoulders and sternocleidomastoid muscles intact and equal bilaterally CN XII - midline protrusion of tongue MOTOR EXAMINATION: 06/30 NIHSS 06/21/2021 Provider NIH Stroke Scale NIH Interval (Provider): daily NIH Level of Conciousness (Provider): 0 NIH LOC Questions (Provider): 0 NIH LOC Commands (Provider): 0 NIH Best Gaze (Provider): 0 NIH Visual (Provider): 0 NIH Facial Palsy (Provider): 0 NIH Left Arm Motor (Provider): 0 NIH Right Arm Motor (Provider): 0 NIH Left Leg Motor (Provider): 0 NIH Right Leg Motor (Provider): 0 NIH Limb Ataxia (Provider): 0 NIH Sensory (Provider): 0 NIH Best Language (Provider): 0 NIH Dysarthria (Provider): 0 NIH Extinction and Inattention (Provider): 0 NIH Total Score (Provider): 0 ASSESSMENT AND PLAN Neuro: R BG stroke MRI brain-Now more confluent/larger area of infarction in the right basal ganglia -prior work up complete, no further work up indicated -Stroke Etiology (TOAST Criteria): -Antiplatelet plan: ASA 81 mg daily -Statin therapy: intolerant due to muscle cramps -Blood Pressure goal: normotension Ischemic Stroke Core Measures -NIHSS on admission 2 -Patient has been started on Mechanical (SCD's) and Pharmacological (SQ heparin/Lovenox) DVT prophylaxis. -Antiplatelet therapy has been initiated, Aspirin 81mg daily. -Anticoagulation therapy was not indicated for this patient, -Patients LDL 142 and HgbA1c 5.5 were checked and the patient will not be discharged on Atorvastatin d/t inability to tolerate -Dysphagia screening ordered, and will be completed prior to patient receiving oral intake. -Stroke education booklet has been ordered and will be provided by the RN that includes both written and verbal education to the patient and family regarding ischemic strokes. We have reviewed the patient's personal modifiable risk factors including: HTN, HLD as well as education on reducing these risk factors -Patient is being assessed for Rehab by PT/OT/Speech and PM&R if indicated. HTN (POA) -senior living goal after stroke is less than 130/80 -Continue on CLIFF inhibitor and BB at home -06/21 nifedipine increased to home dose, 60mg q12hr Disposition: Patrica Newman will likely be discharged to to [facility] pending peer to peer. Everett Wise APRN-ELVIN 06/21/2021 12:50 PM VITAL SIGNS Temp: [97.8 F (36.6 C)-98.4 F (36.9 C)] 98 F (36.7 C) Pulse (Heart Rate): [71-97] 86 Resp Rate: [18-20] 18 BP: (133-182)/(62-77) 172/71 O2 Sat (%): [95 %-100 %] 98 % Weight: [71.5 kg (157 lb 9.6 oz)] 71.5 kg (157 lb 9.6 oz) Oxygen Therapy: Oxygen Therapy O2 Sat (%): 98 % O2 Device: room air Intake/Output: Intake/Output Summary (Last 24 hours) at 06/21/2021 1250 Last data filed at 06/20/2021 204 Gross per 24 hour Intake 960 ml Output -- Net 960 ml LABS/CULTURES Lab Results Component Value Date WBC 6.27 06/21/2021 HGB 11.1 (L) 06/21/2021 HCT 33.9 (L) 06/21/2021 PLATELET 228 06/21/2021 MCV 97.4 06/21/2021 Lab Results Component Value Date SODIUM 140 06/21/2021 POTASSIUM 4.4 06/21/2021 CHLORIDE 112 (H) 06/21/2021 CO2 20 (L) 06/21/2021 BUN 28 (H) 06/21/2021 CREATSERUM 1.23 (H) 06/21/2021 GLUCOSE 102 (H) 06/21/2021 Lab Results Component Value Date CHOLESTEROL 199 06/19/2021 CHOLESTEROL 238 (H) 06/17/2021 CHOLESTEROL 233 (H) 06/17/2021 TRIG 142 06/19/2021 TRIG 162 (H) 06/17/2021 TRIG 153 (H) 06/17/2021 HDL 47 06/19/2021 HDL 50 06/17/2021 HDL 49 06/17/2021 LDLCALC 124 (H) 06/19/2021 LDLCALC 156 (H) 06/17/2021 LDLCALC 153 (H) 06/17/2021 Lab Results Component Value Date HGBA1C 5.5 06/19/2021 Lab Results Component Value Date ALBUMIN 3.6 06/19/2021 , No results found for: CPK, TROP IMAGING/DIAGNOSTIC STUDIES MRI BRAIN WITHOUT CONTRAST Final Result IMPRESSION: Now more confluent/larger area of infarction in the right basal ganglia from 2 days ago. No hemorrhage. CATIONS aspirin 81 mg Oral Daily Or aspirin 300 mg Rectal Daily atorvastatin 80 mg Oral QHS enoxaparin 40 mg Subcutaneous Q24H latanoprost 1 drop Both Eyes QHS NIFEdipine 60 mg Oral Q12H pneumococcal 23-valent 0.5 mL Intramuscular Once During Admission senna 8.6 mg Oral QAM Or senna 8.6 mg Per NG tube QAM Associated attestation - Andi Bashir MD - 06/27/2021 12:28 AM EDT I have interviewed and examined patient on 06/21/21. I have reviewed old records. I have independently reviewed all labs and imaging including MRI's and CT's. I have personally performed an H&P and reviewed resident's/SHIPFITTER HELPER's note and agree with the plan of care. Data and Imaging Reviewed by me personally: DATA LABS: LDL 142 and HgbA1c 5.5 RADIOLOGY REVIEW: I have reviewed radiology image(s) and reports(s) of: Now more confluent/larger area of infarction in the right basal ganglia -prior work up complete Objective, O/N: EDWARD Assessment/Plan completed in its entirety by myself : Diagnosis: SubAcute R BG stroke, Etiology /TOAST criteria: - . Recent stroke workup compelted. She felt weaker, no new stroke, completion of old stroke. Swallow evaluation. SBP goal < 140. Continue daily anti-platelet medication (ASA) and vascular risk factor modification, intolerant to statins, will get weekly MAB from PCP. . DVT prophylaxis with SCDs and heparin SQ. Stroke education and smoking cessation. PT/OT consults. Andi Bashir MD Dispo - IPR - precert denied. The following are the risk factors for mortality: Infarction Due to Cerebral Artery Occlusion Acute Occupational Therapy Treatment Prior to Admission AM-PAC Score: PRIOR LEVEL AM-PAC Activity Raw Score: 24 PRIOR LEVEL AM-PAC Mobility Raw Score: 23 Current AM-PAC score(s): CURRENT AM-PAC Activity Raw Score: 19 Based on the above AM-PAC score(s), and OT clinical judgment, discharge destination recommendation is: Inpatient Rehab Facility Discharge Barriers: Patient needs assistance with ADLs, Patient needs assistance with IADLs (see note below), Patient needs assistance with functional mobility Mobility equipment available at home: none used ADL equipment available at home: none Equipment recommendations for discharge: Current therapy frequency recommendation(s) in acute: 5 times a week Precautions and Weightbearing Status: OT Existing Precautions/Restrictions: fall Patient Safety Communication Prior to Visit: Nursing Subjective: Agreeable to therapy, pleasant throughout Pain: General Pain Documentation (Adult, OB, Peds) Presence of Pain: denies pain/discomfort Objective/Observation: Vitals/Vitals Responses to Treatment: VSS Cognition Overall Cognitive Status: Impaired Arousal/Alertness: Appropriate responses to stimuli Orientation Level: Oriented X4 Following Commands: Follows all commands and directions without difficulty Safety Judgment: Decreased awareness of need for assistance, Decreased awareness of need for safety Awareness of Errors: Assistance required to identify errors made ADL Assessment/Intervention: ADLs: ADL Assessment: Toileting Deficit Grooming Assistance: Contact guard assist Grooming Location: standing at sink Grooming Deficit: Generalized weakness, Activity tolerance Grooming Skilled Rationale (Verbal/Tactile/Visual/Demonstrati on): Setup, Supervision Grooming Intervention/Details: Brushed hair in standing Toilet Assistance: Minimal Toileting Location: toilet Toileting Deficit: Activity tolerance Toilet Skilled Rationale (Verbal/Tactile/Visual/Demonstrati on): Supervision, Setup Toileting Intervention/Details: assist for balance and standing from low commode Balance: Standing Balance Static Standing-Level of Assistance: Contact guard Dynamic Standing-Level of Assistance: Minimum assistance Standing-Balance Support: Gait belt Skilled Rationale: Verbal cues, Hand placement Transfer Assessment/Intervention: Sit to Stand Transfer [place] Level: Sit->Stand: minimum assist (75% patient effort) Skilled Rationale: Verbal cues, Hand placement Skilled Intervention/Details: Sit->Stand: momentum strategies Functional Mobility: Functional Mobility [place] Level: Functional Mobility/Gait: contact guard assist Assistive Device: Functional Mobility/Gait: gait belt Functional Mobility Distance: Distance needed for common household mobility Functional Mobility Deficits: Balance Functional Mobility Skilled Rationale: Cues for increased safety, Verbal cues Skilled Intervention/Details - Functional Mobility/Gait: mild LOB noted throughout, but self corrected. Slowed pace and challenged for increasing pace, however quickly reverted back to slowed speed CURRENT AM-PAC Daily Activity Inpatient Short Form Putting on/Taking Off Lower Body Clothin - A Little Assistance Bathin - A Little Assistance Toiletin - A Little Assistance Putting on/Taking Off Upper Body Clothin - A Little Assistance Groomin - A Little Assistance Eatin - No Assistance CURRENT AM-PAC Activity Raw Score: 19 CURRENT AM-PAC Activity Functional Limitation/Modifier: 42.80% Currently Impaired in Daily Activity - CK Interventions: Intervention 1 Intervention Name: IADL tasks Details: Completed standing task of folding various sizes of laundry X 8 minutes with min assist for balance as pt often with posterior leaning. 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 Improved balance during mobility with pt able to self correct, however during standing tasks, pt retropulsive and required assistance to correct balance. At times, decreased insight into deficits. Due to pt's deficits in transfers, endurance, participation in ADLs, pt would benefit from continued OT services before safe discharge home. Plan for next session: Address dynamic standing balance Acute OT Goals Plan of Care by Chani Lee OT at 06/20/2021 2:47 PM Version 1 of 1 Problem: OT - ADLs Goal: Grooming Description: Pt will complete grooming in standing with modified independence for improved ability to safely complete ADLs. Outcome: Ongoing Problem: OT - Balance Goal: Balance - Standing Description: Pt will perform 10 minutes of functional ADL task in standing with modified independence and balance level of modified Independent to promote safety and improved balance required for self-care activities. Outcome: Ongoing Problem: OT - Strength/ROM Goal: Neuro Re-education Description: Pt will participate in neuro re-ed of (RUE/LUE) to improve strength by 1 muscle grade in each group, for improved use in ADLs. Outcome: Ongoing OT treatment consisted of ADL retraining, IADL retraining, balance training and transfer training to work and progress towards above goal(s). Treating Therapist: Chani Lee OT Additional Details: Co-evaluation/co-treatment performed?: Yes, simultaneous billable treatment I used facemask, protective eye shield, and gloves in today's patient interaction. Patient location at end of session: chair Alarms on at end of session: chair alarm Needs in reach. Time In: 1405 Time Out: 1435 Total Visit Time: 30 minutes Total Treatment Time (skilled, billable minutes): 25 minutes Upon discontinuation of Acute Care Occupational Therapy Services or patient discharge from the hospital this note represents the current Occupational Therapy Discharge Summary. Placement Plan Expected Discharge Date: 06/24/2021 Referred Level of Care: IPR Barriers: precert Current Referrals and Status 1. [facility]- accepted Per CM, pt requests referral to [facility]. SW sent referral and facility is able to accept and start precert. SW updated pt and daughter at bedside and they are in agreement. TEETEE Babcock, KOBE-S Marketing Manager Health Communications for [facility] Discharge Planning Patient Assessment Admission Assessment Patient Assessment Completed: Yes Anticipated discharge disposition: Inpatient Rehab Facility Reason for Admission: stroke like symptoms Is the patient able to participate in the assessment?: Yes Information source: Patient, Review of Medical Record Information Source Name/Contact: Patrica Newman [phone] Demographics Verified and Updated: Yes Has the patient been admitted to any hospital in the last 30 days?: Transferred From Outside Hospital Advanced Care Planning Has the patient completed Advance Directives?: Completed, Not Available in Medical Record Copy of Advance Directives was requested?: Yes Advance Directives Requested From: Pt Legal Next of Kin Does the patient have a Guardian?: No Spouse: No Adult Child(marina), List All Adult Children: Yes Name and Contact information: Alen Newman [phone] Would you like to add additional adult children?: Yes Name and Contact information: Whit Quirozkrista [phone] Referral to Social Work to Identify Legal Next of Kin?: No Reviewed and Updated in Demographics? : Yes Outpatient Providers Does patient have a primary care physician? : Yes When was the patient's last PCP visit?: < 30 days Does the patient follow any specialists?: No Reviewed and updated Care Team?: Yes Patient Care Team: Jossie Lomas MD as PCP - General (Family Medicine) Environment/Caregivers Is the patient from a facility or mcfp?: No Patient lives with: Other Family (grandson) Living Environment: House Does the patient have a first floor set-up with bed and bathroom?: Yes Patient Caregiving Responsibilities: Self Patient-identified caregiver/support network: Family Who does the patient identify as a teachable caregiver(s)?: Child(marina) - Independent Services Does the patient use a home health or hospice agency?: No Current with dialysis?: No Does the patient use any community programs or services?: No Does patient use DME? : none Does the patient use oxygen?: No Does patient use medical supplies? : none Initial ADLs Prior to Arrival What is the patient's baseline physical functioning prior to this acute illness?: independent What is the patient's baseline cognitive functioning prior to this acute illness?: independent Is the patient's baseline functioning changed by this acute illness? : Yes Changes observed : Physical Are there therapy or specialists consults?: Yes Select consult type: PT, OT, FURNITURE SANDER Does the patient's home require any home modifications for discharge? : No CM to recommend therapy or other consults? : No Medication Management Does the patient have prescription insurance coverage? : Yes Is the patient on Anticoagulation? 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 : No Employed?: Yes Coping/Stress Concerns about patient s coping and stress?: No Concerns about patient s caregiver s coping and stress?: Unable to Assess Values and Beliefs Cultural or taoist practices that may impact discharge planning and/or medical care?: No (Church) Initial Discharge Planning Anticipated discharge disposition: Inpatient Rehab Facility Transportation Available for Discharge: Ambulance Anticipated DME: none Anticipated Services at Discharge: Physical Therapy, Occupational Therapy, Long-Term, Outpatient follow up Patient Assessment Completed: Yes Risk of Readmission: 3.5 Category Reference: High:16-100 Mod-High:10-16 Mod-Low: 5-10 Low: 0-5 Expected Discharge Date: 06/24/2021 Readmission Summary and Discharge Planning Narrative CM explained the levels of care to Pt. Pt is agreeable to discharging to inpatient rehabilitation. Pt's choice is [facility]. CM informed SW. Case Management Plan 1. RX, PCP, and demographics reviewed and updated in the system 2. Will monitor team recommendations for level of care at discharge 3. Patient will be provided instructions on follow up appointments 4. Patient will be provided instructions/information on the warning signs and symptoms which may indicate the need to seek medical attention 5. Will continue to follow with medical team to arrange recommended follow up with specialty physicians KOBE Duncan Fountain Operator [phone] NEUROVASCULAR STROKE SERVICE Daily Progress Note IDENTIFYING INFORMATION Patrica Newman MR# [id number] 06/20/2021 HISTORY OF PRESENT ILLNESS Patrica Newman is a 81 y.o. female with PMH significant for HTN and recent R BG acute stroke who presents as a re-admission for LLE weakness. Pt was discharged yesterday 06/18 after completing workup for R BG acute stroke thought to 2/2 small vessel disease. At discharge pt had an NIHSS of 0. She was able to walk around with physical therapy. Her family noted some dysarthria during their 1.5 hour ride home after discharge. At home, she was unable to stand up to go to the bathroom. EMS was called and she was taken to [facility], where she was noted to have LLE weakness with NIHSS of 1. Pt was transferred directly to the [facility] neurovascular service for further workup. Upon arrival BP 175/78. A stroke alert was not called for STAT consultation. NIHSS 2 for dysarthria and LLE drift. INTERVAL HISTORY 06/20-MRI brain complete, therapies recommending IPR PHYSICAL EXAM Gen: awake, alert HEENT: normocephalic, no scalp lesions or tenderness Neck: trachea midline No JVD CV: +S1S2, RRR, no m/r/g Lungs: LCTA bilaterally with equal chest rise Abd: soft, nontender, nondistended, +BS x4 quadrants Extrem: Warm and well perfused, no edema, 2+ pulses bilaterally Neuro: Oriented x4, [place] x 4, sensation intact and equal bilaterally to light touch CN II - All visual read intact CN II/III - PERRL CN III/IV/ - EOMI CN V - Light touch to face intact in V1-3 CN VII - Facial movement intact and symmetrical bilaterally CN VIII - Hearing intact CN X - Cough present CN XI - muscular movement of shoulders and sternocleidomastoid muscles intact and equal bilaterally CN XII - midline protrusion of tongue MOTOR EXAMINATION: 5/5 NIHSS 06/20/2021 Provider NIH Stroke Scale NIH Interval (Provider): daily NIH Level of Conciousness (Provider): 0 NIH LOC Questions (Provider): 0 NIH LOC Commands (Provider): 0 NIH Best Gaze (Provider): 0 NIH Visual (Provider): 0 NIH Facial Palsy (Provider): 0 NIH Left Arm Motor (Provider): 0 NIH Right Arm Motor (Provider): 0 NIH Left Leg Motor (Provider): 0 NIH Right Leg Motor (Provider): 0 NIH Limb Ataxia (Provider): 0 NIH Sensory (Provider): 0 NIH Best Language (Provider): 0 NIH Dysarthria (Provider): 0 NIH Extinction and Inattention (Provider): 0 NIH Total Score (Provider): 0 ASSESSMENT AND PLAN Neuro: R BG stroke MRI brain-Now more confluent/larger area of infarction in the right basal ganglia -prior work up complete, no further work up indicated -Stroke Etiology (TOAST Criteria): -Antiplatelet plan: ASA 81 mg daily -Statin therapy: intolerant due to muscle cramps -Blood Pressure goal: normotension Ischemic Stroke Core Measures -NIHSS on admission 2 -Patient has been started on Mechanical (SCD's) and Pharmacological (SQ heparin/Lovenox) DVT prophylaxis. -Antiplatelet therapy has been initiated, Aspirin 81mg daily. -Anticoagulation therapy was not indicated for this patient, -Patients LDL 142 and HgbA1c 5.5 were checked and the patient will not be discharged on Atorvastatin d/t inability to tolerate -Dysphagia screening ordered, and will be completed prior to patient receiving oral intake. -Stroke education booklet has been ordered and will be provided by the RN that includes both written and verbal education to the patient and family regarding ischemic strokes. We have reviewed the patient's personal modifiable risk factors including: HTN, HLD as well as education on reducing these risk factors -Patient is being assessed for Rehab by PT/OT/Speech and PM&R if indicated. HTN (POA) -long term care social worker goal after stroke is less than 130/80 Continue on CLIFF inhibitor and BB at home -restart nifedipine here (half dose ) Follow up with PCP for further management Disposition: Patrica Newman will likely be discharged to to [facility] Amy Ho APRN-ELVIN 06/20/2021 6:49 AM VITAL SIGNS Temp: [98 F (36.7 C)-98.8 F (37.1 C)] 98.1 F (36.7 C) Pulse (Heart Rate): [78-96] 78 Resp Rate: [16-26] 21 BP: (165-193)/(75-87) 169/78 O2 Sat (%): [97 %-100 %] 98 % Oxygen Therapy: Oxygen Therapy O2 Sat (%): 98 % O2 Device: room air Intake/Output: Intake/Output Summary (Last 24 hours) at 06/20/2021 0649 Last data filed at 06/20/2021 0510 Gross per 24 hour Intake 750 ml Output 750 ml Net 0 ml LABS/CULTURES Lab Results Component Value Date WBC 7.32 06/20/2021 HGB 10.9 (L) 06/20/2021 HCT 34.5 (L) 06/20/2021 PLATELET 225 06/20/2021 MCV 99.1 (H) 06/20/2021 Lab Results Component Value Date SODIUM 140 06/20/2021 POTASSIUM 4.6 06/20/2021 CHLORIDE 111 (H) 06/20/2021 CO2 20 (L) 06/20/2021 BUN 26 (H) 06/20/2021 CREATSERUM 1.39 (H) 06/20/2021 GLUCOSE 100 (H) 06/20/2021 Lab Results Component Value Date CHOLESTEROL 199 06/19/2021 CHOLESTEROL 238 (H) 06/17/2021 CHOLESTEROL 233 (H) 06/17/2021 TRIG 142 06/19/2021 TRIG 162 (H) 06/17/2021 TRIG 153 (H) 06/17/2021 HDL 47 06/19/2021 HDL 50 06/17/2021 HDL 49 06/17/2021 LDLCALC 124 (H) 06/19/2021 LDLCALC 156 (H) 06/17/2021 LDLCALC 153 (H) 06/17/2021 Lab Results Component Value Date HGBA1C 5.5 06/19/2021 Lab Results Component Value Date ALBUMIN 3.6 06/19/2021 , No results found for: CPK, TROP IMAGING/DIAGNOSTIC STUDIES MRI BRAIN WITHOUT CONTRAST Final Result IMPRESSION: Now more confluent/larger area of infarction in the right basal ganglia from 2 days ago. No hemorrhage. CATIONS aspirin 81 mg Oral Daily Or aspirin 300 mg Rectal Daily atorvastatin 80 mg Oral QHS enoxaparin 40 mg Subcutaneous Q24H pneumococcal 23-valent 0.5 mL Intramuscular Once During Admission senna 8.6 mg Oral QAM Or senna 8.6 mg Per NG tube QAM Associated attestation - Andi Bashir MD - 06/27/2021 12:27 AM EDT I have interviewed and examined patient on 06/20/21. I have reviewed old records. I have independently reviewed all labs and imaging including MRI's and CT's. I have personally performed an H&P and reviewed resident's/SHIPFITTER HELPER's note and agree with the plan of care. Data and Imaging Reviewed by me personally: DATA LABS: LDL 142 and HgbA1c 5.5 RADIOLOGY REVIEW: I have reviewed radiology image(s) and reports(s) of: Now more confluent/larger area of infarction in the right basal ganglia -prior work up complete Objective, O/N: EDWARD Assessment/Plan completed in its entirety by myself : Diagnosis: SubAcute R BG stroke, Etiology /TOAST criteria: - . Recent stroke workup compelted. She felt weaker, no new stroke, completion of old stroke. Swallow evaluation. SBP goal < 140. Continue daily anti-platelet medication (ASA) and vascular risk factor modification, intolerant to statins, will get weekly MAB from PCP. . DVT prophylaxis with SCDs and heparin SQ. Stroke education and smoking cessation. PT/OT consults. Andi Bashir MD The following are the risk factors for mortality: Infarction Due to Cerebral Artery Occlusion Acute Occupational Therapy Evaluation Prior to Admission AM-PAC Score: PRIOR LEVEL AM-PAC Activity Raw Score: 24 Current AM-PAC score(s): CURRENT AM-PAC Activity Raw Score: 19 Based on the above AM-PAC score(s) and OT clinical judgment, discharge destination recommendation is: Inpatient Rehab Facility Discharge Barriers: Patient needs assistance with ADLs, Patient needs assistance with IADLs (see note below), Patient needs assistance with functional mobility Mobility equipment available at home: ADL equipment available at home: bedside commode Equipment recommendations for discharge: Current therapy frequency recommendation(s) in acute: 5 times a week Precautions and Weightbearing Status: OT Existing Precautions/Restrictions: fall Patient Safety Communication Prior to Visit: Nursing Subjective: Agreeable to therapy, lacks insight into deficits. 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 Objective/Observation: Vitals/Vitals Responses to Treatment: VSS Vision Screen Currently wearing corrective lenses: Reading only Subjective Patient Complaints: Blurry vision (intermittent) Clinical Observations: Appeared intact Speech Speech: word-finding difficulties (Slight) Hearing Hearing: no gross deficits noted Cognition Overall Cognitive Status: Impaired Arousal/Alertness: Appropriate responses to stimuli Orientation Level: Oriented X4 Following Commands: Follows one step commands without difficulty, Follows one step commands with increased time Safety Judgment: Decreased awareness of need for assistance, Decreased awareness of need for safety Awareness of Errors: Assistance required to correct errors made, Assistance required to identify errors made Deficits: Decreased awareness of deficits ADLs: ADL Assessment: Toileting Deficit ADL Anticipated Performance (ADLs not directly observed this session): Eating, Grooming, Bathing, UE Dressing, LE Dressing Eating Assistance: Independent Grooming Assistance: Contact guard assist Bathing Assistance: Minimal UE Dressing Assistance: Minimal LE Dressing Assistance: Minimal Toilet Assistance: Moderate Toileting Location: toilet Toileting Deficit: Activity tolerance, Generalized weakness Toilet Skilled Rationale (Verbal/Tactile/Visual/Demonstrati on): Setup, Supervision, Technique of activity Extremity Assessments: RUE Assessment RUE Assessment: Within Functional Limits, Strength WFL LUE Assessment LUE Assessment: (Except shoulder to 100 degrees) Left UE Assessment Details: 4+/5 Balance: Standing Balance Static Standing-Level of Assistance: Contact guard Dynamic Standing-Level of Assistance: Minimum assistance Standing-Balance Support: Gait belt Skilled Rationale: Verbal cues, Hand placement, Full extension to upright positioning/posture, Finding/maintaining midline positioning Neuro: Sensation Overall Sensation: Intact Proprioception Proprioception: intact Fine Motor Coordination Left Hand, Finger To Nose: mild impairment Right Hand, Finger To Nose: normal performance Left Hand Thumb/Finger Opposition Skills: mild impairment Right Hand Thumb/Finger Opposition Skills: normal performance Mobility Assessment Supine to Sit Mobility Piute Level: Supine->Sit: contact guard assist Bed Features/Set-up: Supine->Sit: Head of bed elevated Skilled Rationale: Verbal cues, Hand placement Transfer Assessment: Sit to Stand Transfer Piute Level: Sit->Stand: minimum assist (75% patient effort) Skilled Rationale: Hand placement, Verbal cues Skilled Intervention/Details: Sit->Stand: Lateral leaning to R side throughout Toilet Transfer Piute Level: Toilet: moderate assist (50% patient effort) Skilled Rationale: Verbal cues, Hand placement Functional Mobility: Functional Mobility Piute Level: Functional Mobility/Gait: minimum assist (75% patient effort) Assistive Device: Functional Mobility/Gait: gait belt Functional Mobility Distance: Distance needed for common household mobility Functional Mobility Deficits: Balance, Ataxia Functional Mobility Skilled Rationale: Cues for increased safety, Verbal cues, Technique of activity, Finding/maintaining midline positioning Outcome Score(s): Fugl-Luong UE Motor Score: 43 Fugl-Luong Assessment (FMA) of the Upper Extremity Flexor Synergy: -Shoulder retraction: Partial- 1 -Shoulder elevation: Partial- 1 -Shoulder abduction: None-0 -Shoulder external rotation: Full- 2 -Elbow flexion: Full- 2 -Forearm supination: Full- 2 Extensor Synergy: -Shoulder adduction/internal rotation: Full- 2 -Elbow extension: Full- 2 -Forearm pronation: Full- 2 Volitional Movement Mixing Synergies: -Hand to lumbar spine: Partial- 1 -Shoulder flexion 0-90 degrees: Partial- 1 -Pronation-supination (elbow at 90 degrees): Full- 2 Volitional Movement With Little Or No Synergy: -Shoulder abduction 0-90 degrees: Partial- 1 -Shoulder flexion 90-180 degrees: Partial- 1 -Pronation-supination (elbow at 0 degrees): Partial- 1 Wrist: -Stability at 15 degrees extension (elbow at 90 degrees): Partial- 1 -Wrist extension-flexion (elbow at 90 degrees): Partial- 1 -Stability at 15 degrees extension (elbow at 0 degrees): Partial- 1 -Wrist extension-flexion (elbow at 0 degrees): Partial- 1 -Circumduction: Partial- 1 Hand: -Mass flexion: Full- 2 -Mass extension: Full- 2 -Hook grasp: Partial- 1 -Thumb abduction with card: Full- 2 -Pincer grasp with pencil: Full- 2 -Cylinder grasp with can: Full- 2 -Spherical gasp with ball: Full- 2 Coordination/Speed: -Tremor: Slight- 1 -Dysmetria: Slight- 1 -Time: 2-5 seconds- 1 Full FMA Score (out of 60): 43 [facility] Daily Activity Inpatient Short Form Putting on/Taking Off Lower Body Clothin - A Little Assistance Bathin - A Little Assistance Toiletin - A Little Assistance Putting on/Taking Off Upper Body Clothin - A Little Assistance Groomin - A Little Assistance Eatin - No Assistance [facility] Activity Raw Score: 19 [facility] Activity Functional Limitation/Modifier: 42.80% Currently Impaired in Daily Activity - CK Assessment & Plan: Patient was admitted for Recent R BG stroke with discharge home. Once home, pt unable to walk or transfer and seen for therapy evaluation related to ADL performance. Exam findings include impairments in: aerobic capacity, attention, cognitive impairments, balance, endurance, ROM, strength, transfers. These impairments contribute to occupational performance limitations including bathing, grooming, toileting, functional mobility, ADL transfers, dressing. Patient will benefit from skilled occupational therapy to address these impairments, occupational performance limitations, and participation restrictions. Patient's rehab potential is: good, to achieve stated therapy goals. Planned Therapy Interventions (OT Eval): IADL retraining, balance training, ADL retraining, fine motor coordination training, ROM (range of motion), strengthening Patient Instruction/Education this session: Patient Instruction: OT role, plan of care Plan for next session: Address LUE functional use and balance Acute OT Goals Plan of Care by Chani Lee OT at 06/19/2021 1:03 PM Version 1 of 1 Problem: OT - Dressing Goal: Lower Body Dressing Description: Pt will complete LE dressing tasks with modified independence for improved ability to complete self-care activities. Outcome: Ongoing Problem: OT - ADLs Goal: Grooming Description: Pt will complete grooming in standing with modified independence for improved ability to safely complete ADLs. Outcome: Ongoing Goal: Bathing Description: Pt will perform full body bathing routine with modified independence while seated for improved ability to complete self-care activities. Outcome: Ongoing Problem: OT - Balance Goal: Balance - Standing Description: Pt will perform 10 minutes of functional ADL task in standing with modified independence and balance level of modified Independent to promote safety and improved balance required for self-care activities. Outcome: Ongoing Problem: OT - Strength/ROM Goal: Neuro Re-education Description: Pt will participate in neuro re-ed of (RUE/LUE) to improve strength by 1 muscle grade in each group, for improved use in ADLs. Outcome: Ongoing Problem: OT - Cognition Goal: Cognition Home Maintenance Description: Pt will complete simulated home maintenance task (medication management, finance management, etc.) with modified independence to promote safety and success at discharge destination. Outcome: Ongoing Evaluating Therapist: Chani Lee OT Additional Details: Co-evaluation/co-treatment performed?: Yes, simultaneous billable treatment This co-evaluation session performed between OT and PT was beneficial, necessary and provided distinct services in establishing this person's individual plan of care. Medical complexity with functional deficits necessitated two skilled therapy disciplines working concurrently to determine each discipline's goals. This co-treatment was medically necessary due to patient's: Postural control I used facemask, protective eye shield, and gloves in today's patient interaction. OT Evaluation Complexity Occupational Profile and Client History: Moderate - expanded history Assessment of Occupational Performance: Moderate (3-5 performance deficits) Clinical Decision/Performance Deficits: Moderate (detailed assessments w/several treatment options) Time In: 0945 Time Out: 1010 Total Visit Time: 25 minutes Total Treatment Time (skilled, billable minutes): 25 minutes Patient location at end of session: chair Alarms on at end of session: chair alarm Needs in reach. Upon discontinuation of Acute Care Occupational Therapy Services or patient discharge from the hospital this note represents the current Occupational Therapy Discharge Summary. Acute Physical Therapy Evaluation Prior to Admission [facility] score(s): PRIOR LEVEL AM-PAC Mobility Raw Score: 23 Current AM-PAC score(s): CURRENT AM-PAC Mobility Raw Score: 18 Based on the above AM-PAC score(s) and PT clinical judgment, patient is a good candidate for discharge to Inpatient Rehab Facility Supporting Factors (would benefit from skilled therapy services): Patient status is anticipated to be appropriate to tolerate inpatient rehab therapy requirements at time of discharge from acute care, Impaired functional status, Decreased strength, Impaired balance, Decreased endurance necessitating skilled therapy services, but able to tolerate therapy requirements for inpatient rehab, Impaired self-care abilities, Assistance needed with functional mobility, Fall risk, Recent decline in functional mobility, Patient has appropriate assistance and setup at home for ultimate discharge to home once patient has progressed functionally following inpatient rehab Mobility equipment available at home: none used ADL equipment available at home: none Equipment needed for discharge: to be determined Current therapy frequency recommendation in acute: Therapy Frequency: 5 times a week Precautions and Weightbearing Status: Existing Precautions/Restrictions: fall Patient Safety Communication Prior to Visit: Nursing Respiratory Status O2 Device: room air Subjective: Pt agreeable to therapy, daughter present Pain: General Pain Documentation (Adult, OB, Peds) Presence of Pain: denies pain/discomfort Home Setting Residence: House Lives With: child(marina) (daughter) First floor setup: bedroom, walk-in shower Number of stairs to enter home: 3 Number of stairs in home: 0 Stair Railings at Home: entry - no rail Mobility Equipment Available: none used ADL Equipment Available: none Previous Level of Function Prior level ADL Overview: Independent with all ADLs Dominant Hand: Right Bed Mobility/Transfers: independent Ambulation Skills: independent Assistive Device: none used Level of Ambulation: community Prior Level of Function Details: 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, daughter available to help PRN but works during day Objective/Observation: Cognition Overall Cognitive Status: Impaired Arousal/Alertness: Appropriate responses to stimuli Following Commands: Follows one step commands with increased time, Follows one step commands with repetition Safety Judgment: Decreased awareness of need for assistance, Decreased awareness of need for safety Deficits: Decreased awareness of deficits Vision Screen Currently wearing corrective lenses: No, Reading only Vision History: Blurriness in L eye since CVA Speech Speech: no gross deficits noted Hearing Hearing: no gross deficits noted Extremity Assessments: RLE Assessment RLE Assessment: Within Functional Limits LLE Assessment LLE Assessment: AROM WFL, Strength Impaired Left LE Assessment Details: hip flexors/quads 3/5, PF/DF 4/5 Sensation Overall Sensation: Impaired Light Touch: Intact Sensation Comments: initially N/T in LLE but has imrpoved Mobility Assessment: Supine to Sit Mobility Piute Level: Supine->Sit: minimum assist (75% patient effort) Bed Features/Set-up: Supine->Sit: Head of bed elevated, Use of bed rail Skilled Rationale: Verbal cues, Hand placement, Sequencing Skilled Intervention/Details: Supine->Sit: Extra time/cues Balance: Sitting Balance Static Sitting-Level of Assistance: Supervision Dynamic Sitting-Level of Assistance: Supervision Skilled Rationale: Verbal cues, Cues for increased safety Standing Balance Static Standing-Level of Assistance: Minimum assistance Dynamic Standing-Level of Assistance: Minimum assistance Standing-Balance Support: No upper extremity supported, Gait belt Skilled Rationale: Verbal cues, Sequencing, Cues for increased safety Standing Balance Skilled Intervention/Details: Moderate unsteadiness with standing activities with multiple near LOB Transfer Assessment: Sit to Stand Transfer Piute Level: Sit->Stand: minimum assist (75% patient effort) Physical Assist: Sit->Stand: 1 person + 1 person to manage equipment Skilled Rationale: Verbal cues, Hand placement, Sequencing Skilled Intervention/Details: Sit->Stand: x1 from EOB, x1 from low toilet Stand to Sit Transfer Piute Level: Stand->Sit: minimum assist (75% patient effort) Physical Assist: Stand->Sit: 1 person + 1 person to manage equipment Skilled Rationale: Verbal cues, Hand placement, Sequencing, Controlled descent for sitting Skilled Intervention/Details: Stand->Sit: Pt with difficulty controlling descent Gait/Functional Mobility: Gait Assessment Piute Level: Gait: minimum assist (75% patient effort) Physical Assist: Gait: chair follow Assistive Device: Gait: gait belt Gait Distance (feet): 10 + 125 Gait Deviations Identified: decreased frank, decreased gait speed, decreased heel strike, decreased step length, flexed posture, path deviation Gait Skilled Rationale: verbal, upright posture, safety to avoid obstacles Skilled Intervention/Details - Gait: Pt with tendency to deviate towards L, moderate unsteadiness with few near LOB requiring min A to maintain bal Wheelchair Assessment Patient currently uses wheelchair?: No Stairs: Stairs Assessment Piute Level: Stair Negotiation: not tested CURRENT AM-PAC Basic Mobility Inpatient Short Form Turning over in bed: 4 - No Assistance Sitting/standing from chair: 3 - A Little Assistance Moving from lying on back to sittin - A Little Assistance Moving to and from bed to chair: 3 - A Little Assistance Walk in hospital room: 3 - A Little Assistance Climbing 3-5 steps with a railin - A Lot of Assistance [facility]RENT [facility] Mobility Raw Score: 18 [facility]RENT [facility] Mobility Functional Limitation/Modifier: 46.58% Currently Impaired in Basic Mobility - CK Assessment & Plan: Patient was admitted for LLE weakness and seen for therapy evaluation related to functional mobility status. Exam findings include impairments in: Strength, Balance, Coordination, Posture, Transfers, Gait/Locomotion. These impairments contribute to functional limitations including Increased fall risk, Decreased functional mobility. Current clinical presentation is Evolving - changing/inconsistent clinical characteristics (Moderate). Patient history factors impacting Plan Of Care include N/A. Patient will benefit from skilled physical therapy to address these impairments, functional limitations, and participation restrictions and has good rehab potential to achieve therapy goals. Planned Therapy Interventions: balance training, endurance, functional activity tolerance, gait training, neuromuscular re-education Plan for next session: progress per pt tolerance Acute PT Goals Plan of Care by Reshma Wilson PT at 06/19/2021 9:46 AM Version 1 of 1 Problem: PT - Mobility Goal: Ambulation Description: Pt will ambulate 100 feet with least restrictive device with standby assistance to improve ability to navigate home environment. Outcome: Ongoing Goal: Stairs Description: Pt will ascend/descend 3 stairs with no railings with contact guard assistance with least restrictive device to improve ability to perform functional mobility necessary in recommended discharge environment. Outcome: Ongoing Problem: PT - Transfers Goal: Supine <-> Sit Description: Pt will perform bed mobility with flat bed & no rail with independence in order to improve functional mobility and safety. Outcome: Ongoing Goal: Sit <-> Stand Description: Pt will perform sit to/from stand transfers with supervision with least restrictive device in order to improve functional mobility and safety. Outcome: Ongoing Evaluating Therapist: Reshma Wilson PT Additional Details: Co-evaluation/co-treatment performed?: Yes, simultaneous billable treatment This co-evaluation session performed between PT and OT was beneficial, necessary and provided distinct services in establishing this person's individual plan of care. Medical complexity with functional deficits necessitated two skilled therapy disciplines working concurrently to determine each discipline's goals. This co-treatment was medically necessary due to patient's: activity tolerance I used facemask, protective eye shield, and gloves in today's patient interaction. Evaluation Complexity Components History: Moderate (1-2 personal factors and/or comorbidities) Body Systems Review: Moderate (Addressing a total of 3 or more elements) Clinical Presentation: Evolving - changing/inconsistent clinical characteristics (Moderate) Clinical Decision Making: Moderate Time In: 0946 Time Out: 1012 Total Visit Time: 26 minutes Total Treatment Time (skilled, billable minutes): 26 minutes Patient location at end of session: chair Alarms on at end of session: chair alarm Needs in reach. Upon discontinuation of Acute Care Physical Therapy Services or patient discharge from the hospital this note represents the current Physical Therapy Discharge Summary. documented in this encounter [facility] 06-24-2021 Hospital course Narrative Discharge Summary Name: Patrica Newman Age: 81 y.o. Birthday: 1940 Admit Date: 06/19/2021 12:30 AM Discharge Date: 06/24/21 Discharge Time: 1530 Discharge Unit: [address] [place] [address] Admission Information Admitting Physician: Rod Cuellar MD Discharge Information Discharge Physician: Andi Bashir MD Problem List Active Hospital Problems Diagnosis Anemia (Low HGB) Renal disease (High Serum Creatinine) Electrolyte disorder (K, Cl, or Na) Stroke Resolved Hospital Problems No resolved problems to display. Brief Summary of Hospital Course for Discharge Summary: Dear Providers, We recently had the pleasure of taking care of Patrica Newman at [facility]. As you well know Patrica Newman is a 81 y.o. female with PMH significant for HTN and recent R BG acute stroke who presented as a re-admission for LLE weakness. Pt was discharged 06/18 after completing workup for R BG acute stroke thought to 2/2 small vessel disease. At discharge pt had an NIHSS of 0. She was able to walk around with physical therapy. Her family noted some dysarthria during their 1.5 hour ride home after discharge. At home, she was unable to stand up to go to the bathroom. EMS was called and she was taken to [facility], where she was noted to have LLE weakness with NIHSS of 1. Pt was transferred directly to the [facility] neurovascular service for further workup. Upon arrival BP 175/78. A stroke alert was not called for STAT consultation. NIHSS 2 for dysarthria and LLE drift. Her MRI brain showed more confluent/larger area of infarction in the right basal ganglia from 2 days ago (time of discharge). No hemorrhage. She was evaluated by OT, PT and speech therapy. IPR was recommend for her dispo however insurance denied both IPR and SNF level of care. She is being discharged to home with outpatient PT/OT in a stable condition. This discharge plan has been explained to the patient and her daughter. Diagnosis: R basal ganglia stroke Mechanism: small vessel disease Management plan at discharge: -ASA 81mg daily for secondary stroke risk reduction -Patient not discharged on statin due to historic intolerance of statin medications. Recommend discussing alternatives with PCP. -Continue home BP regimen (quinapril, nifedipine, metoprolol) -Outpatient PT/OT Follow up plan after discharge: -Follow up with a vascular neurologist in 2-3 months or as soon as your able to be seen -Follow up with PCP within 2 weeks of discharge Physical exam on the day of discharge: Gen: awake, alert, NAD HEENT: normocephalic, no scalp lesions or tenderness Neck: trachea midline CV: +S1S2, RRR, no m/r/g Lungs: LCTA bilaterally with equal chest rise Abd: soft, nontender, nondistended, +BS x4 quadrants Extrem: Warm and well perfused, no edema Neuro: Oriented x4, [place] x 4, sensation intact and equal bilaterally to light touch CN II - All visual read intact CN II/III - PERRLA CN III/IV/ - EOMI CN V - Light touch to face intact in V1-3 CN VII - Facial movement intact and symmetrical bilaterally CN VIII - Hearing intact CN X - Cough present CN XI - muscular movement of shoulders and sternocleidomastoid muscles intact and equal bilaterally CN XII - midline protrusion of tongue MOTOR EXAMINATION: no drift Provider NIH Stroke Scale NIH Interval (Provider): discharge NIH Level of Conciousness (Provider): 0 NIH LOC Questions (Provider): 0 NIH LOC Commands (Provider): 0 NIH Best Gaze (Provider): 0 NIH Visual (Provider): 0 NIH Facial Palsy (Provider): 0 NIH Left Arm Motor (Provider): 0 NIH Right Arm Motor (Provider): 0 NIH Left Leg Motor (Provider): 0 NIH Right Leg Motor (Provider): 0 NIH Limb Ataxia (Provider): 0 NIH Sensory (Provider): 0 NIH Best Language (Provider): 0 NIH Dysarthria (Provider): 0 NIH Extinction and Inattention (Provider): 0 NIH Total Score (Provider): 0 Modified Stacia Scale Score Premorbid (MRSS): No symptoms Modified Stacia Scale Score at Discharge (MRSS): No significant disability despite symptoms, able to carry out all usual duties and activities Advance Care Planning (ACP) ACP discussion deferred by clinician today. Reason: visit focused on symptom burden Brief Summary of Consults for Discharge Summary: Brief Summary of Procedures and Imaging for Discharge Summary: Summary of last selected lab results and date obtained: Lab Results Component Value Date WBC 7.12 06/24/2021 HGB 11.3 (L) 06/24/2021 HCT 34.3 (L) 06/24/2021 PLATELET 253 06/24/2021 MCV 96.3 06/24/2021 Lab Results Component Value Date SODIUM 140 06/24/2021 POTASSIUM 4.8 06/24/2021 CHLORIDE 111 (H) 06/24/2021 CO2 20 (L) 06/24/2021 BUN 44 (H) 06/24/2021 CREATSERUM 1.56 (H) 06/24/2021 GLUCOSE 90 06/24/2021 Lab Results Component Value Date ALT 8 (L) 06/19/2021 AST 17 06/19/2021 ALKPHOS 57 06/19/2021 BILITOTAL 0.5 06/19/2021 BILIDIRECT 0.1 06/19/2021 Brief Summary of Labs for Discharge Summary: Discharge Orders AMB REFERRAL TO NEUROLOGY AMB REFERRAL TO PHYSICAL THERAPY AMB REFERRAL TO OCCUPATIONAL THERAPY Current Outpatient Meds: Medication List for when you go home CONTINUE taking these medications aspirin 81 MG CHEW chewable tablet Chew 1 tablet daily. metoprolol 25 MG tab regular release Take 1 tablet by mouth every 12 hours. Commonly known as: LOPRESSOR NIFEdipine 60 MG tab XL tablet Take 1 tablet by mouth every 12 hours. Commonly known as: ADALAT-CC quinapril 40 MG TABS Take 40 mg by mouth daily. Commonly known as: ACCUPRIL Medication Instructions: Know your medicines ? Make sure you know why you are taking each medicine. ? Make a master list of all your medicines. Write down the medicine names and doctors' names. Include doses and side effects too. And write down why you take each medicine. Include all prescription and ronx-mhm-xwtbpay medicines, vitamins, and supplements. Keep this list up to date. Take a copy to each doctor visit. ? Know when you will run out of each medicine. Ask your pharmacist if there are ways the drugstore can remind you to refill your medicines so you do not run out. Write refill reminders on your calendar. Don't wait until you have a few pills left. ? Ask your pharmacist to plan your refills so that you can bean picker all your medicines at the same time. This can mean fewer trips to the drugstore. ? If we have prescribed you a new medication during your stay, please contact with your primary physician for refills Follow-up: No follow-up provider specified. Upcoming Appointments (up to five)-Some appointments for Medical Center outpatient clinics or diagnostic testing locations are not displayed below Provider Department Dept Phone 07/28/2021 8:40 AM Marley Castano Neurology [facility] [phone] Associated attestation - Andi Bashir MD - 06/27/2021 12:31 AM EDT I have interviewed and examined patient on 06/24/21. I have reviewed old records. I have independently reviewed all labs and imaging including MRI's and CT's. I have personally performed an H&P and reviewed resident's/SHIPFITTER HELPER's note and agree with the plan of care. Data and Imaging Reviewed by me personally: DATA LABS: LDL 142 and HgbA1c 5.5 RADIOLOGY REVIEW: I have reviewed radiology image(s) and reports(s) of: Now more confluent/larger area of infarction in the right basal ganglia -prior work up complete Objective, O/N: EDWARD, start CLIFF Assessment/Plan completed in its entirety by myself : Diagnosis: SubAcute R BG stroke, Etiology /TOAST criteria: - . Recent stroke workup compelted. She felt weaker, no new stroke, completion of old stroke. Swallow evaluation. SBP goal < 140. Continue daily anti-platelet medication (ASA) and vascular risk factor modification, intolerant to statins, will get weekly MAB from PCP. . DVT prophylaxis with SCDs and heparin SQ. Stroke education and smoking cessation. PT/OT consults. Andi Bashir MD Dispo - IPR and SN denied by Insurance. She will be discharged home with home PT, daughter understands. 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 Problem: PT - Mobility Goal: Ambulation Description: Pt will ambulate 300 feet with least restrictive device with supervision to improve ability to navigate home environment. Outcome: Progressing Toward Goal Goal: Stairs Description: Pt will ascend/descend 3 stairs with no railings with stand by assist with least restrictive device to improve ability to perform functional mobility necessary in recommended discharge environment. Outcome: Progressing Toward Goal Problem: PT - Transfers Goal: Supine <-> Sit Description: Pt will perform bed mobility with flat bed & no rail with independence in order to improve functional mobility and safety. Outcome: Progressing Toward Goal Goal: Sit <-> Stand Description: Pt will perform sit to/from stand transfers with supervision with least restrictive device in order to improve functional mobility and safety. Outcome: Progressing Toward Goal [facility] 06-23-2021 Note Formatting of this n ote might be different from the original. Problem: OT - ADLs Goal: Grooming Description: Pt will complete grooming in standing with modified independence for improved ability to safely complete ADLs. Outcome: Ongoing Problem: OT - Balance Goal: Balance - Standing Description: Pt will perform 10 minutes of functional ADL task in standing with modified independence and balance level of modified Independent to promote safety and improved balance required for self-care activities. Outcome: Ongoing Problem: OT - Strength/ROM Goal: Neuro Re-education Description: Pt will participate in neuro re-ed of (RUE/LUE) to improve strength by 1 muscle grade in each group, for improved use in ADLs. Outcome: Ongoing Problem: OT - Cognition Goal: Cognition Home Maintenance Description: Pt will complete simulated home maintenance task (medication management, finance management, etc.) with modified independence to promote safety and success at discharge destination. Outcome: Ongoing [facility] 06-22-2021 Note Formatting of this n ote might be different from the original. Problem: Patient Care Overview Goal: Plan of Care Review Outcome: Met This Shift Flowsheets (Taken 06/22/2021 1504) Plan Of Care Reviewed With: family patient Goal: Discharge Needs Assessment Outcome: Progressing Toward Goal Flowsheets (Taken 06/22/2021 1504) Outpatient/Agency/Support Group Needs: inpatient rehabilitation facility correction facility Goal: Interdisciplinary Rounds/Family Conf Outcome: Met This Shift Flowsheets (Taken 06/22/2021 1504) Participants: advanced practice nurse patient nursing physician physical therapy family social work/services occupational therapy Problem: Stroke (Ischemic) (Adult) Goal: Signs and Symptoms of Listed Potential Problems Will be Absent, Minimized or Managed (Stroke) Description: Signs and symptoms of listed potential problems will be absent, minimized or managed by discharge/transition of care (reference Stroke (Ischemic) (Adult) CPG). Outcome: Progressing Toward Goal Flowsheets (Taken 06/22/2021 1504) Problems Assessed (Stroke (Ischemic)/TIA): all Problems Present (Stroke (Ischemic)/TIA): situational response NIHSS- 0 [facility] 06-22-2021 Note Formatting of this n ote might be different from the original. Problem: OT - Dressing Goal: Lower Body Dressing Description: Pt will complete LE dressing tasks with modified independence for improved ability to complete self-care activities. Outcome: Ongoing Problem: OT - ADLs Goal: Grooming Description: Pt will complete grooming in standing with modified independence for improved ability to safely complete ADLs. Outcome: Ongoing Goal: Bathing Description: Pt will perform full body bathing routine with modified independence while seated for improved ability to complete self-care activities. Outcome: Ongoing Problem: OT - Balance Goal: Balance - Standing Description: Pt will perform 10 minutes of functional ADL task in standing with modified independence and balance level of modified Independent to promote safety and improved balance required for self-care activities. Outcome: Ongoing Problem: OT - Strength/ROM Goal: Neuro Re-education Description: Pt will participate in neuro re-ed of (RUE/LUE) to improve strength by 1 muscle grade in each group, for improved use in ADLs. Outcome: Ongoing [facility] 06-21-2021 Note Formatting of this n ote might be different from the original. Problem: OT - Balance Goal: Balance - Standing Description: Pt will perform 10 minutes of functional ADL task in standing with modified independence and balance level of modified Independent to promote safety and improved balance required for self-care activities. Outcome: Ongoing Problem: OT - Strength/ROM Goal: Neuro Re-education Description: Pt will participate in neuro re-ed of (RUE/LUE) to improve strength by 1 muscle grade in each group, for improved use in ADLs. Outcome: Ongoing [facility] 06-21-2021 Note Formatting of this n ote might be different from the original. Problem: FURNITURE SANDER - Cognition Goal: Memory Goal 2 Description: Patient will demonstrate understanding of x3 external or internal memory strategies with inconsistent minimal cues, across 1-2 sessions in order to facilitate improvements with memory for greater level of independence. Outcome: Ongoing Goal: Meticognition Goal 2 Description: Patient will state x2-3 changes in function that impact his/her level of independence, with min prompts, across 1-2 sessions in order to improve insight into deficits, improve safety and improve level of independence. Outcome: Ongoing [facility] 06-21-2021 Hospital Discharge instructions Everett Wise APRN-ELVIN - 06/21/2021 12:56 PM EDT Please take these discharge instructions to your primary care doctor follow appointment to show them,keep them for your reference and refer to them often for follow up appointments.It is best to write your appointments on a personal calendar so you do not miss them,call if you need to change any appointments please. Education: What are the most common symptoms of stroke? The following are the most common symptoms of stroke. However, each individual may experience symptoms differently. If any of these symptoms are present, call 911 (or your local ambulance service) immediately. Treatment is most effective when started immediately. Symptoms may be sudden and include: -Weakness or numbness of the face, arm, or leg, especially on one side of the body -Confusion or difficulty speaking or understanding -Problems with vision such as dimness or loss of vision in one or both eyes -Dizziness or problems with balance or coordination -Problems with movement or walking -Severe headaches with no other known cause, especially if sudden onset All of the above warning signs may not occur with each stroke. Do not ignore any of the warning signs, even if they go away - take action immediately. The symptoms of stroke may resemble other medical conditions or problems. Always consult your physician for a diagnosis We have provided both written and verbal education to the patient and family regarding ischemic and hemorrhagic strokes. We have discussed the warning signs/symptoms as well as causes of stroke. We have discussed the importance of activating 911/EMS in the event of these symptoms. We have reviewed the patient's personal risk factors as well as education on reducing these risk factors. [facility] Personalized Stroke Treatment Plan My Stroke Type: [x] Ischemic Stroke (Blockage of blood flow to the brain) [] Hemorrhagic Stroke (Bleeding in the brain) [] TIA- Transient Ischemic Attack (mini-stroke) My Risk Factors Include: [x] High Blood Pressure [] Diabetes [x] High Cholesterol [] Heart Disease [] Atrial Fibrillation (Irregular Heart Rate) [] Smoking [] Obesity [] Clotting Disorder [] Alcohol Abuse [] Drug Abuse [x] Prior History [] Family History [] Obstructive Sleep Apnea My Follow-Up Treatment Goals: [x] Blood Pressure < 140/90 [] Stop Smoking Immediately [x] LDL < 70 with [] HgA1C levels <7% [] Decrease BMI to <25 [x] Take all ordered medications [x] Avoid non-prescription or over the counter medication not cleared by your physician [x] Limit Alcohol use to no more than 1 drink per day for females and 2 drinks per day for males [] Do not drive until cleared [x] Follow up with PCP within a week of discharge to home [x] Follow-up with Neurovascular [x] Follow-up with Occupational,physical and speech therapy if ordered [x] Watch out for depression and seek treatment if needed CONTACTS FOR NEUROVASCULAR SERVICE: - You may call your neurovascular doctors office at [phone], if you have questions between 8:30 am and 4:30 pm. - For off hours or the weekend you may call the office or the hospital technical operator at and ask for the stroke resident continuous absorption process operator to be paged. - If you have any questions or needs, please call Roxanne Mireles RN, stroke memory care program director at [phone] Mon-Fri from - ? Any questions concerning your discharge instructions please call Case Management Office [phone] Patient Stroke Resources: [facility] Stroke Support The [facility] Stroke Support Group is for stroke survivors, friends, and family members. Meets every Sunday from 12:00PM to 1:00PM at [facility]), [address] [place] [address] Trudi Rodriguez, at [phone]. If you are outside of the [facility], contact The [employer] at www.strokeassociation.org or 5-925-4-stroke, or for supports groups in your area. Also refer to the Stroke Education booklet you received as part of your stroke education while you were a patient for additional resources Additional Contacts: Evening and Weekend Contacts If you have questions or concerns during evening, weekend, or holiday hours, please call: -[facility] and [facility] technical operator at [phone]. -[facility] technical operator at [phone] Ask the technical operator to page the on-call doctor for Neurovascular service, they were responsible for your care while you were in the hospital. If you having an emergency, call 911. *In the event of an Emergency: If you have a physical or psychiatric emergency call 911 or go to your local emergency department. You should also call your outpatient provider's emergency number. Other reference numbers: [facility] Intake Office at [phone]; [facility] at [phone]; or Suicide Prevention Hotline at 299-953-1802. *Helpful phone numbers: Free Crisis Hotline: 1-695-386-TALK ( ) Suicide Hotline: 922.667.8292 Seniors Suicide Hotline: 709.576.2500 [facility] Youth: 540.118.6227 [facility] [place]: 567.206.2550 (free counseling) [employer] Access Hotline: 278-172-SQIT (131-980-9450) 24-hour crisis text hotline: Text the word 4hope to 713-117 for crisis support. Texting this number is free if you have [employer], [employer], [employer] or Sprint. [facility] Financial Assistance: If you want to learn more about these programs, please call .There are three programs to help you with the cost of your medical care: Medicaid, Hospital Care Assurance Program (HCAP) & mark If you are without Insurance and believe you may qualify for Medicaid/public assistance: The [facility] Department of Job and Family Services can now process cameron (TANF), food (SNAP) and Medicaid Applications over the phone. Please call 9-021-654[facility] (3092) and apply over the phone or apply online at www.benefits.[place].gov. Sunday-Sunday 8am-12pm noon. Medication Assistance Programs [employer] members can buy 100+ common prescriptions for FREE, $3 or $6. Annual membership is $36 for individuals and $72 for families (up to 6 people, including pets). Sign up online or enroll at your nearest pharmacy! -[employer], web site can provide a significant number of coupons for medications at a much lower yanes. LEO Sears - 06/21/2021 12:53 PM EDT Know your medicines Make sure you know why you are taking each medicine. Make a master list of all your medicines. Write down the medicine names and doctors' names. Include doses and side effects too. And write down why you take each medicine. Include all prescription and vdkb-kcb-rwifdon medicines, vitamins, and supplements. Keep this list up to date. Take a copy to each doctor visit. Know when you will run out of each medicine. Ask your pharmacist if there are ways the drugstore can remind you to refill your medicines so you do not run out. Write refill reminders on your calendar. Don't wait until you have a few pills left. Ask your pharmacist to plan your refills so that you can bean picker all your medicines at the same time. This can mean fewer trips to the drugstore. If we have prescribed you a new medication during your stay, please contact with your primary physician for refills LEO Sears - 06/21/2021 12:54 PM EDT Activity -- Please follow these instructions: -Advance your activity as you can tolerate - You may walk all you want. You may go up and down the steps. Use the railing for support - It is normal for your energy level and sleep patterns to change after a stroke - Take rest periods during the day as needed - Complete recovery may take several weeks, months, up to a year. Patience is noland. LEO Sears - 06/21/2021 12:54 PM EDT Current Diet Orders Procedures DIET REGULAR Standing Status: Standing Number of Occurrences: 1 LEO Sears - 06/21/2021 12:54 PM EDT Notify Your Doctor if you have any of the following: NEUROLOGICAL CHANGES-- Change in alertness Increased sleepiness Nausea and vomiting New onset of numbness or weakness in arms or legs New problems with your bowels or bladder New or worse problems with balance or walking Seizures, new or worsening UNRELIEVED HEADACHE PAIN-- New or increased pain unrelieved with pain medications Pain associated with nausea and vomiting Pain associated with other symptoms QUESTIONS OR PROBLEMS-- Any questions or problems that you are unsure about Deep Vein Thrombosis Symptoms Call your doctor or nurse right away if you have any signs of blood clots such as -Tender, swollen or reddened areas anywhere in your leg. -Numbness or tingling in your lower leg or calf, or at the top of your leg or groin -Skin on you leg looks pale or blue or feels cold to touch -Chest pain or have trouble breathing -Fever or chills documented in this encounter [facility] 06-20-2021 Note Formatting of this n ote might be different from the original. Problem: OT - ADLs Goal: Grooming Description: Pt will complete grooming in standing with modified independence for improved ability to safely complete ADLs. Outcome: Ongoing Problem: OT - Balance Goal: Balance - Standing Description: Pt will perform 10 minutes of functional ADL task in standing with modified independence and balance level of modified Independent to promote safety and improved balance required for self-care activities. Outcome: Ongoing Problem: OT - Strength/ROM Goal: Neuro Re-education Description: Pt will participate in neuro re-ed of (RUE/LUE) to improve strength by 1 muscle grade in each group, for improved use in ADLs. Outcome: Ongoing [facility] 06-19-2021 History and physical note Stroke Attending Addendum: I have interviewed and examined patient. I have reviewed Dr. Abad's note and agree with the following highlights, additions, and addendums: The patient is a 81 y.o. right-handed female with a history of hypertension and recent stroke. On 06/16/2021 at 9a developed symptoms of left hemiparesis and dysarthria that resolved on arrival to [facility]. [facility] for acute changes. Telestroke showed NIHSS-0. OSH CT angiogram head/neck showed 69% RA1 stenosis and 69% left MCA stenosis. The patient was transferred to [facility] ER. On arrival NIHSS was 0 and BP 224/87. LDL 156, HgbA1c 5.5. TTE EF 65%. MRI brain diffusion weighted images shows an acute right basal ganglia infarct. She was discharged home on 06/18/21 with NIHSS-0 on Asa. She got home around 430p and then noted she was unable to walk because of left leg weakness. She presented to [facility] where telestroke by me showed NIHSS-1. She was direct admit to [facility] stroke team. On arrival NIHSS-2. Interval Overnight History: 175/77. Patient feels better today. Neurological examination shows left leg weakness, NIHSS-1 (LLE-1). Assessment/Plan: Right basal ganglia infarct. Repeat MRI brain ordered to look for expansion of infarct. Stroke mechanism is small vessel disease (lacunar) subtype. Permissive HTN for now. Continue daily anti-platelet medication (Asa 81) and vascular risk factor modification. Unable to take lipitor due to muscle aches. PT/OT consults- SNF . EM on discharge. Will give COVID booster shot and PNA shot ((requested by patient while here). Rod Cuellar MD [facility] 06-19-2021 History and physical note Stroke Attending Addendum: I have interviewed and examined patient. I have reviewed Dr. Abad's note and agree with the following highlights, additions, and addendums: The patient is a 81 y.o. right-handed female with a history of hypertension and recent stroke. On 06/16/2021 at developed symptoms of left hemiparesis and dysarthria that resolved on arrival [facility]. [facility] brain was negative for acute changes. Telestroke showed NIHSS-0. OSH CT angiogram head/neck showed 69% RA1 stenosis and 69% left MCA stenosis. The patient was transferred to [facility]. On arrival NIHSS was 0 and BP 224/87. LDL 89, HgbA1c 5.5. TTE EF 65%. MRI brain diffusion weighted images shows an acute right basal ganglia infarct. She was discharged home on 06/18/21 with NIHSS-0 on Asa. She got home around 430p and then noted she was unable to walk because of left leg weakness. She presented to [facility] where telestroke by me showed NIHSS-1. She was direct admit to [facility] stroke team. On arrival NIHSS-2. Interval Overnight History: 175/77. Patient feels better today. Neurological examination shows left leg weakness, NIHSS-1 (LLE-1). Assessment/Plan: Right basal ganglia infarct. Repeat MRI brain ordered to look for expansion of infarct. Stroke mechanism is small vessel disease (lacunar) subtype. Permissive HTN for now. Continue daily anti-platelet medication (Asa 81) and vascular risk factor modification. Unable to take lipitor due to muscle aches. PT/OT consults- SNF . EM on discharge. Will give COVID booster shot and PNA shot ((requested by patient while here). Rod Cuellar MD Images from the original note were not included. NEUROVASCULAR EVALUATION NOTE Date of Evaluation: June 19, 2021 Unit: 1018/A Consultation requested by: Dr. Rod Cuellar MD Patient status: Inpatient Length of stay: 0 days Previous Hospitalization/Records Reviewed: historical medical records Chief Complaint / Reason for Consult Worsening LLE weakness History of present Illness Patrica Newman is a 81 y.o. female with PMH significant for HTN and recent R BG acute stroke who presents as a re-admission for LLE weakness. Pt was discharged yesterday 06/18 after completing workup for R BG acute stroke thought to 2/2 small vessel disease. At discharge pt had an NIHSS of 0. She was able to walk around with physical therapy. Her family noted some dysarthria during their 1.5 hour ride home after discharge. At home, she was unable to stand up to go to the bathroom. EMS was called and she was taken to [facility], where she was noted to have LLE weakness with NIHSS of 1. Pt was transferred directly to the [facility] neurovascular service for further workup. Upon arrival BP 175/78. A stroke alert was not called for STAT consultation. NIHSS 2 for dysarthria and LLE drift. Neurovascular-specific History / Information - Home antiplatelet / anticoagulation therapy: Antiplatelet therapy: Aspirin 81mg. - Patient current risk factors: Stroke risk factors include hypertension. Prior stroke history: yes; lacunar. Location: right BG History of stroke in parents? unknown History of stroke in siblings? unknown - Stroke Diagnostic/Treatment Eligibility Information: She was not a candidate for tPA due to outside of window She was not a candidate for thrombectomy due low NIHSS - Stroke Clinical Assessment Information: NIHSS (Provider) Flowsheet Row First Filed Value Provider NIH Stroke Scale NIH Interval (Provider) admission filed on 06/19/2021 0425 NIH Level of Conciousness (Provider) 0 filed on 06/19/2021 0425 NIH LOC Questions (Provider) 0 filed on 06/19/2021 0425 NIH LOC Commands (Provider) 0 filed on 06/19/2021 0425 NIH Best Gaze (Provider) 0 filed on 06/19/2021 0425 NIH Visual (Provider) 0 filed on 06/19/2021 0425 NIH Facial Palsy (Provider) 0 filed on 06/19/2021 0425 NIH Left Arm Motor (Provider) 0 filed on 06/19/2021 0425 NIH Right Arm Motor (Provider) 0 filed on 06/19/2021 0425 NIH Left Leg Motor (Provider) 1 filed on 06/19/2021 0425 NIH Right Leg Motor (Provider) 0 filed on 06/19/2021 0425 NIH Limb Ataxia (Provider) 0 filed on 06/19/2021 0425 NIH Sensory (Provider) 0 filed on 06/19/2021 0425 NIH Best Language (Provider) 0 filed on 06/19/2021 0425 NIH Dysarthria (Provider) 1 filed on 06/19/2021 0425 NIH Extinction and Inattention (Provider) 0 filed on 06/19/2021 0425 NIH Total Score (Provider) 2 filed on 06/19/2021 0425 Is NIH=0 Within 180 min of Last Known Well Time? -- Stroke Scales Flowsheet Row Most Recent Value Modified Stacia Scale Score Premorbid (MRSS) 0 filed on 06/19/2021 0407 NIH Total Score (Provider) 2 filed on 06/19/2021 0425 Past History Past Medical History: Diagnosis Date Essential hypertension, benign No past surgical history on file. No family history on file. Social History Socioeconomic History Marital status: Allergies Allergen Reactions Tetracycline Medications Prior to Admission Medications Prescriptions Last Dose Informant Patient Reported? Taking? NIFEdipine 60 MG Tab SR 24 HR tablet No No Sig: Take 1 tablet by mouth every 12 hours. aspirin 81 MG Chew Tab chewable tablet No No Sig: Chew 1 tablet daily. metoprolol 25 MG tab regular release No No Sig: Take 1 tablet by mouth every 12 hours. Facility-Administered Medications: None Review of Systems Review of Systems Constitutional: Negative for chills, fatigue and fever. HENT: Negative for sore throat, trouble swallowing and voice change. Eyes: Negative for photophobia and visual disturbance. Respiratory: Negative for cough, shortness of breath and wheezing. Cardiovascular: Negative for chest pain, palpitations and leg swelling. Gastrointestinal: Negative for abdominal pain, diarrhea, nausea and vomiting. Genitourinary: Negative for dysuria, hematuria and urgency. Musculoskeletal: Positive for gait problem. Negative for back pain and neck pain. Neurological: Positive for speech difficulty and weakness. Negative for dizziness and tremors. Vitals Temp: [97.6 F (36.4 C)-98.1 F (36.7 C)] 98.1 F (36.7 C) Pulse (Heart Rate): [90-113] 113 Resp Rate: [20-24] 20 BP: (148-175)/(67-78) 175/78 O2 Sat (%): [98 %-99 %] 98 % Weight: [68.3 kg (150 lb 8 oz)] 68.3 kg (150 lb 8 oz) Body mass index is 22.22 kg/m . Patient Lines/Drains/Airways Status Active Lines, Drains, Airways, & Wound Overview None Physical Exam General Physical Exam General: NAD, lying comfortably in bed HENT: Normal oropharynx and mucosa. Normal external appearance of ears and nose. CV/Chest: Regular rate and rhythm. Lungs: No audible wheezing. Normal work of breathing. No accessory muscle use Abdomen: Non distended, non tender Extremities: Warm and well perfused. No appreciable edema, cyanosis or deformity. Skin: No rash. Normal palpation of skin. Musculoskeletal: No joint tenderness. Normal digits and nails by inspection. No clubbing. Neurologic Examination Mental status/Cognition: Alert; oriented to month and age; good attention; no apparent neglect Speech/language: Fluent; comprehension intact; object naming intact; repetition intact Cranial nerves: CN II Visual read full to confrontation without visual extinction CN III,IV, PERRL. EOMI. CN V Facial sensation intact to light touch bilaterally in V1, V2, V3 CN VII Face, Smile, Eyebrow raise/closure symmetric. CN VIII Hearing grossly intact to voice CN IX & X Soft palate elevates symmetrically in the midline, mild dysarthria CN XI Shoulder shrug with full strength CN XII Tongue protrudes midline Motor: Normal bulk and tone. LLE with slight drift, does not hit bed. All other extremities antigravity without drift Sensation: Intact to light touch throughout without extinction Coordination/Complex Motor: [id number]-[id number] intact bilaterally without dysmetria Laboratory Results CBC: WBC/Hgb/Hct/Plts: 6.68/10.8/33.9/231 (06/20 155) Chem: Bun/Creat/Cl/CO2/Glucose: 28/1.42/113/19/111 (06/20 155) Electrolytes: Na/K+/Phos/Mg/Ca: 142/4.4/--/--/-- (06/20 155) Coags: Lipid panel: Lab Results Component Value Date CHOLESTEROL 199 06/19/2021 TRIG 142 06/19/2021 HDL 47 06/19/2021 LDLCALC 124 (H) 06/19/2021 HA1C: Hemoglobin A1C Date Value Ref Range Status 06/17/2021 5.5 4.7 - 5.6 % Final Imaging MRI BRAIN WITHOUT CONTRAST (Results Pending) Assessment Patrica Newman is a 81 y.o. female with PMH significant for HTN and recent admission with acute infarcts within R BG (discharged on 06/18) who presents as a re-admission on 06/19 for LLE weakness. NIHSS 2 for dysarthria and LLE drift. Possible new R BG infarct vs. completion of prior stroke. Plan - Frequent Neuro checks per stroke unit protocol - MRI Brain stroke protocol - Atorvastatin 80mg daily - Antithrombotic - ASA 81mg daily - DVT ppx - SubQ lovenox - Smoking cessation if applicable - SBP goal - <220, PRN labetalol if HR>60 and PRN Hydralazine if HR<60 - Telemetry monitoring for arrhythmia - 72h - Swallow screen prior to PO intake - Stroke education - PT/OT/FURNITURE SANDER Staff: Dr. Cuellar. Thank you for the opportunity to take part in the care of this patient. Signed, Suellen Abad M.D. Neurology, PGY-4 #[id number] documented in this encounter [facility] 06-19-2021 Note Formatting of this n ote might be different from the original. Problem: OT - Dressing Goal: Lower Body Dressing Description: Pt will complete LE dressing tasks with modified independence for improved ability to complete self-care activities. Outcome: Ongoing Problem: OT - ADLs Goal: Grooming Description: Pt will complete grooming in standing with modified independence for improved ability to safely complete ADLs. Outcome: Ongoing Goal: Bathing Description: Pt will perform full body bathing routine with modified independence while seated for improved ability to complete self-care activities. Outcome: Ongoing Problem: OT - Balance Goal: Balance - Standing Description: Pt will perform 10 minutes of functional ADL task in standing with modified independence and balance level of modified Independent to promote safety and improved balance required for self-care activities. Outcome: Ongoing Problem: OT - Strength/ROM Goal: Neuro Re-education Description: Pt will participate in neuro re-ed of (RUE/LUE) to improve strength by 1 muscle grade in each group, for improved use in ADLs. Outcome: Ongoing Problem: OT - Cognition Goal: Cognition Home Maintenance Description: Pt will complete simulated home maintenance task (medication management, finance management, etc.) with modified independence to promote safety and success at discharge destination. Outcome: Ongoing [facility] 06-19-2021 Note Formatting of this n ote might be different from the original. Problem: PT - Mobility Goal: Ambulation Description: Pt will ambulate 100 feet with least restrictive device with standby assistance to improve ability to navigate home environment. Outcome: Ongoing Goal: Stairs Description: Pt will ascend/descend 3 stairs with no railings with contact guard assistance with least restrictive device to improve ability to perform functional mobility necessary in recommended discharge environment. Outcome: Ongoing Problem: PT - Transfers Goal: Supine <-> Sit Description: Pt will perform bed mobility with flat bed & no rail with independence in order to improve functional mobility and safety. Outcome: Ongoing Goal: Sit <-> Stand Description: Pt will perform sit to/from stand transfers with supervision with least restrictive device in order to improve functional mobility and safety. Outcome: Ongoing [facility] 06-19-2021 Note Formatting of this n ote might be different from the original. I certify that this patient requires inpatient services at this time. I anticipate the expected length of stay will include at least two midnights. Inpatient services are due to the following medical concerns stroke. Plans for post hospitalization care will be discharge to [facility]. [facility] 06-19-2021 Note Formatting of this n ote might be different from the original. Please see the H&P note by Dr. Abad for full note. Repeat brain MRI pending. Plan: -Follow up brain MRI, possibly extension of the known right basal ganglia stroke -Therapy evaluation for placement -Rest of the stroke work up completed during her last admission -Permissive HTN -COVID booster and Pneumococcal vaccine ordered per patient request, daughter aware Patient's daughter was updated at bedside. Provider NIH Stroke Scale NIH Interval (Provider): daily NIH Level of Conciousness (Provider): 0 NIH LOC Questions (Provider): 0 NIH LOC Commands (Provider): 0 NIH Best Gaze (Provider): 0 NIH Visual (Provider): 0 NIH Facial Palsy (Provider): 0 NIH Left Arm Motor (Provider): 0 NIH Right Arm Motor (Provider): 0 NIH Left Leg Motor (Provider): 0 NIH Right Leg Motor (Provider): 0 NIH Limb Ataxia (Provider): 0 NIH Sensory (Provider): 0 NIH Best Language (Provider): 0 NIH Dysarthria (Provider): 0 NIH Extinction and Inattention (Provider): 0 NIH Total Score (Provider): 0 LEO Olson 06/19/2021 1:15 PM [facility] 06-19-2021 History and physical note Images from the original note were not included. NEUROVASCULAR EVALUATION NOTE Date of Evaluation: June 19, 2021 Unit: 1018/A Consultation requested by: Dr. Rod Cuellar MD Patient status: Inpatient Length of stay: 0 days Previous Hospitalization/Records Reviewed: historical medical records Chief Complaint / Reason for Consult Worsening LLE weakness History of present Illness Patrica Newman is a 81 y.o. female with PMH significant for HTN and recent R BG acute stroke who presents as a re-admission for LLE weakness. Pt was discharged yesterday 06/18 after completing workup for R BG acute stroke thought to 2/2 small vessel disease. At discharge pt had an NIHSS of 0. She was able to walk around with physical therapy. Her family noted some dysarthria during their 1.5 hour ride home after discharge. At home, she was unable to stand up to go to the bathroom. EMS was called and she was taken to [facility], where she was noted to have LLE weakness with NIHSS of 1. Pt was transferred directly to the [facility] neurovascular service for further workup. Upon arrival BP 175/78. A stroke alert was not called for STAT consultation. NIHSS 2 for dysarthria and LLE drift. Neurovascular-specific History / Information - Home antiplatelet / anticoagulation therapy: Antiplatelet therapy: Aspirin 81mg. - Patient current risk factors: Stroke risk factors include hypertension. Prior stroke history: yes; lacunar. Location: right BG History of stroke in parents? unknown History of stroke in siblings? unknown - Stroke Diagnostic/Treatment Eligibility Information: She was not a candidate for tPA due to outside of window She was not a candidate for thrombectomy due low NIHSS - Stroke Clinical Assessment Information: NIHSS (Provider) Flowsheet Row First Filed Value Provider NIH Stroke Scale NIH Interval (Provider) admission filed on 06/19/2021 042 NIH Level of Conciousness (Provider) 0 filed on 06/19/2021 0425 NIH LOC Questions (Provider) 0 filed on 06/19/2021 0425 NIH LOC Commands (Provider) 0 filed on 06/19/2021 0425 NIH Best Gaze (Provider) 0 filed on 06/19/2021 0425 NIH Visual (Provider) 0 filed on 06/19/2021 0425 NIH Facial Palsy (Provider) 0 filed on 06/19/2021 0425 NIH Left Arm Motor (Provider) 0 filed on 06/19/2021 0425 NIH Right Arm Motor (Provider) 0 filed on 06/19/2021 0425 NIH Left Leg Motor (Provider) 1 filed on 06/19/2021 0425 NIH Right Leg Motor (Provider) 0 filed on 06/19/2021 0425 NIH Limb Ataxia (Provider) 0 filed on 06/19/2021 0425 NIH Sensory (Provider) 0 filed on 06/19/2021 0425 NIH Best Language (Provider) 0 filed on 06/19/2021 0425 NIH Dysarthria (Provider) 1 filed on 06/19/2021 0425 NIH Extinction and Inattention (Provider) 0 filed on 06/19/2021 0425 NIH Total Score (Provider) 2 filed on 06/19/2021 042 Is NIH=0 Within 180 min of Last Known Well Time? -- Stroke Scales Flowsheet Row Most Recent Value Modified Dickey Scale Score Premorbid (MRSS) 0 filed on 06/19/2021 0407 NIH Total Score (Provider) 2 filed on 06/19/2021 042 Past History Past Medical History: Diagnosis Date Essential hypertension, benign No past surgical history on file. No family history on file. Social History Socioeconomic History Marital status: Allergies Allergen Reactions Tetracycline Medications Prior to Admission Medications Prescriptions Last Dose Informant Patient Reported? Taking? NIFEdipine 60 MG Tab SR 24 HR tablet No No Sig: Take 1 tablet by mouth every 12 hours. aspirin 81 MG Chew Tab chewable tablet No No Sig: Chew 1 tablet daily. metoprolol 25 MG tab regular release No No Sig: Take 1 tablet by mouth every 12 hours. Facility-Administered Medications: None Review of Systems Review of Systems Constitutional: Negative for chills, fatigue and fever. HENT: Negative for sore throat, trouble swallowing and voice change. Eyes: Negative for photophobia and visual disturbance. Respiratory: Negative for cough, shortness of breath and wheezing. Cardiovascular: Negative for chest pain, palpitations and leg swelling. Gastrointestinal: Negative for abdominal pain, diarrhea, nausea and vomiting. Genitourinary: Negative for dysuria, hematuria and urgency. Musculoskeletal: Positive for gait problem. Negative for back pain and neck pain. Neurological: Positive for speech difficulty and weakness. Negative for dizziness and tremors. Vitals Temp: [97.6 F (36.4 C)-98.1 F (36.7 C)] 98.1 F (36.7 C) Pulse (Heart Rate): [90-113] 113 Resp Rate: [20-24] 20 BP: (148-175)/(67-78) 175/78 O2 Sat (%): [98 %-99 %] 98 % Weight: [68.3 kg (150 lb 8 oz)] 68.3 kg (150 lb 8 oz) Body mass index is 22.22 kg/m . Patient Lines/Drains/Airways Status Active Lines, Drains, Airways, & Wound Overview None Physical Exam General Physical Exam General: NAD, lying comfortably in bed HENT: Normal oropharynx and mucosa. Normal external appearance of ears and nose. CV/Chest: Regular rate and rhythm. Lungs: No audible wheezing. Normal work of breathing. No accessory muscle use Abdomen: Non distended, non tender Extremities: Warm and well perfused. No appreciable edema, cyanosis or deformity. Skin: No rash. Normal palpation of skin. Musculoskeletal: No joint tenderness. Normal digits and nails by inspection. No clubbing. Neurologic Examination Mental status/Cognition: Alert; oriented to month and age; good attention; no apparent neglect Speech/language: Fluent; comprehension intact; object naming intact; repetition intact Cranial nerves: CN II Visual read full to confrontation without visual extinction CN III,IV, PERRL. EOMI. CN V Facial sensation intact to light touch bilaterally in V1, V2, V3 CN VII Face, Smile, Eyebrow raise/closure symmetric. CN VIII Hearing grossly intact to voice CN IX & X Soft palate elevates symmetrically in the midline, mild dysarthria CN XI Shoulder shrug with full strength CN XII Tongue protrudes midline Motor: Normal bulk and tone. LLE with slight drift, does not hit bed. All other extremities antigravity without drift Sensation: Intact to light touch throughout without extinction Coordination/Complex Motor: Akqmjk-am-qpoi intact bilaterally without dysmetria Laboratory Results CBC: WBC/Hgb/Hct/Plts: 6.68/10.8/33.9/231 (06/20 155) Chem: Bun/Creat/Cl/CO2/Glucose: 28/1.42/113/19/111 (06/20 155) Electrolytes: Na/K+/Phos/Mg/Ca: 142/4.4/--/--/-- (06/20 155) Coags: Lipid panel: Lab Results Component Value Date CHOLESTEROL 199 06/19/2021 TRIG 142 06/19/2021 HDL 47 06/19/2021 LDLCALC 124 (H) 06/19/2021 HA1C: Hemoglobin A1C Date Value Ref Range Status 06/17/2021 5.5 4.7 - 5.6 % Final Imaging MRI BRAIN WITHOUT CONTRAST (Results Pending) Assessment Patrica Newman is a 81 y.o. female with PMH significant for HTN and recent admission with acute infarcts within R BG (discharged on 06/18) who presents as a re-admission on 06/19 for LLE weakness. NIHSS 2 for dysarthria and LLE drift. Possible new R BG infarct vs. completion of prior stroke. Plan - Frequent Neuro checks per stroke unit protocol - MRI Brain stroke protocol - Atorvastatin 80mg daily - Antithrombotic - ASA 81mg daily - DVT ppx - SubQ lovenox - Smoking cessation if applicable - SBP goal - <220, PRN labetalol if HR>60 and PRN Hydralazine if HR<60 - Telemetry monitoring for arrhythmia - 72h - Swallow screen prior to PO intake - Stroke education - PT/OT/FURNITURE SANDER Staff: Dr. Cuellar. Thank you for the opportunity to take part in the care of this patient. Signed, Suellen Abad M.D. Neurology, PGY-4 #[id number] [facility] Work Phone: 06-18-2021 History of Present illness Narrative Stroke Attending Addendum: I have interviewed and examined patient. I have reviewed Amy Ho CNP's note and agree with the following highlights, additions, and addendums: The patient is a 81 y.o. right-handed female with a history of hypertension who on 06/16/2021 at 9a developed symptoms of left hemiparesis and dysarthria that resolved on arrival to [facility] ER. The patient presented to an O[facility] where CT brain was negative for acute changes. Telestroke showed NIHSS-0. OSH CT angiogram head/neck showed 69% RA1 stenosis and 69% left MCA stenosis. The patient was transferred to [facility] ER. On arrival NIHSS was 0 and BP 224/87. LDL 156, HgbA1c 5.5. TTE EF 65%. MRI brain diffusion weighted images shows an acute right basal ganglia infarct. Interval Overnight History: 165/74. No acute events.Patient feels at baseline. Neurological examination shows nonfocal exam, NIHSS-0. Assessment/Plan: DWI + (RBG) TIA. TIA work-up completed. Continue daily anti-platelet medication (Asa 81) and vascular risk factor modification. On nifedipine, lisinopril,metoprolol. Unable to take lipitor due to muscle aches. Follow-up with PCP. DC home today. EM on discharge. Rod Cuellar MD 06/18/21 1026 Social Work Screenings Screening patient has qualified for Depression Patient appropriate for screening? Yes Depression Screening Over the past two weeks have you been bothered by feeling down, depressed, or hopeless? No Do you have a history of depression? No Interventions Intervention Needed? No DHARA Chance Circular Stuffer For Social Work assistance for the weekend, please contact for assistance as needed (8:00am - 4:30pm): [facility]: [phone] Amanda: [phone] Francisco Javier: [phone] Gab/MICU/PCU Dwight: [phone] Acute Physical Therapy Evaluation Prior to Admission [facility] score(s): PRIOR LEVEL AM-PAC Mobility Raw Score: 24 Current AM-PAC score(s): CURRENT AM-PAC Mobility Raw Score: 24 Based on the above AM-PAC score(s) and PT clinical judgment, patient is a good candidate for discharge to (home with prn family assist) icu manager, Chey, notified. Mobility equipment available at home: none used ADL equipment available at home: Equipment needed for discharge: none Current therapy frequency recommendation in acute: Therapy Frequency: no therapy warranted Precautions and Weightbearing Status: Existing Precautions/Restrictions: fall Patient Safety Communication Prior to Visit: Nursing (Sarah) Subjective: Past Medical History: Diagnosis Date Essential hypertension, benign No past surgical history on file. Pain: General Pain Documentation (Adult, OB, Peds) Presence of Pain: denies pain/discomfort Home Setting Residence: House-1st setup of 2 story home Lives With: (adult grandson, who works, daughter may stay with pt short term) Mobility Equipment Available: none used Previous Level of Function Bed Mobility/Transfers: independent Ambulation Skills: independent Assistive Device: none used Level of Ambulation: community Objective/Observation: Vitals/Vitals Responses to Treatment: 229/89 before OOB, 231/93 after OOB Cognition Overall Cognitive Status: Impaired (decreased STM) Vision Screen Currently wearing corrective lenses: No Speech Speech: no gross deficits noted Hearing Hearing: no gross deficits noted Extremity Assessments: RLE Assessment RLE Assessment: Within Functional Limits LLE Assessment LLE Assessment: Within Functional Limits Skin Integrity Skin Integrity Description: WFL Edema Edema: none noted Mobility Assessment: Supine to Sit Mobility Piute Level: Supine->Sit: modified independence Bed Features/Set-up: Supine->Sit: Head of bed elevated Sit to Supine Mobility Piute Level: Sit->Supine: independent Balance: Standing Balance Dynamic Standing-Level of Assistance: Independent Transfer Assessment: Sit to Stand Transfer Piute Level: Sit->Stand: independent Stand to Sit Transfer Piute Level: Stand->Sit: independent Gait/Functional Mobility: Gait Assessment Piute Level: Gait: independent Gait Distance (feet): 150 Stairs: Outcome Score(s): CURRENT [facility] Basic Mobility Inpatient Short Form Turning over in bed: 4 - No Assistance Sitting/standing from chair: 4 - No Assistance Moving from lying on back to sittin - No Assistance Moving to and from bed to chair: 4 - No Assistance Walk in hospital room: 4 - No Assistance Climbing 3-5 steps with a railin - No Assistance [facility] Mobility Raw Score: 24 [facility] Mobility Functional Limitation/Modifier: 0.00% Currently Impaired in Basic Mobility - Interventions: Assessment & Plan: Patient was admitted for left weakness and seen for therapy evaluation related to mobility assessment. Per notes Patrica Newman is a 81 y.o. female with PMHx HTN who presents to the Emergency Department for left sided weakness. Patient states that when she woke up this morning she felt normal. Reports that sometime around this afternoon she began having weakness in her left lower leg. Patient also endorsed slurring of speech that her granddaughter noticed. Patient states that this lasted for about 45 minutes and then resolved. Patient denies any other symptoms. Patient states that currently she is back to her baseline. Patient denies any modifying factors for the symptoms. Patient denies any headache, vision changes, chest pain, shortness of breath, nausea, vomiting, urinary symptoms. Patient has not taken any other medications today. Patient denies any other symptoms or modifying factors. Denies any history of stroke or TIA. 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 However, pt demonstrates memory issues/cognitive impairment and may require supervision for safety. Exam findings include impairments in: na . These impairments contribute to functional limitations including Increased fall risk. Current clinical presentation is Stable - unchanging or predictable (Low). Patient history factors impacting Plan Of Care include na. Patient will benefit from skilled physical therapy to address these impairments, functional limitations, and participation restrictions and has other (see comments) rehab potential to achieve therapy goals. Planned Therapy Interventions: other (see comments) Plan for next session: discharge Acute PT Goals Notes from 06/17/2021 2:34 AM through 06/17/2021 2:34 PM No notes of this type exist for this encounter. Evaluating Therapist: I wore mask, gloves, protective eye wear during this interaction. I was assisted by OT during this visit. Amira Márquez, [id number] Pager [phone] Additional Details: Co-evaluation/co-treatment performed?: Yes, simultaneous billable treatment This co-evaluation session performed between PT and OT was beneficial, necessary and provided distinct services in establishing this person's individual plan of care. Medical complexity with functional deficits necessitated two skilled therapy disciplines working concurrently to determine each discipline's goals. This co-treatment was medically necessary due to patient's: mobility Evaluation Complexity Components History: High (3 personal factors and/or comorbidities) Body Systems Review: Low (Addressing 1-2 elements) Clinical Presentation: Stable - unchanging or predictable (Low) Clinical Decision Making: Low Time In: 1116 Time Out: 1138 Total Visit Time: 22 minutes Total Treatment Time (skilled, billable minutes): 22 minutes Patient location at end of session: bed with head of bed elevated Alarms on at end of session: RN aware Needs in reach. Upon discontinuation of Acute Care Physical Therapy Services or patient discharge from the hospital this note represents the current Physical Therapy Discharge Summary. Acute Occupational Therapy Evaluation Prior to Admission AM-PAC Score: PRIOR LEVEL AM-PAC Activity Raw Score: 24 Current AM-PAC score(s): CURRENT AM-PAC Activity Raw Score: 22 Based on the above AM-PAC score(s) and OT clinical judgment, discharge destination recommendation is: Home with Outpatient Rehab Services Discharge Barriers: Patient needs assistance with IADLs (see note below) Mobility equipment available at home: none used ADL equipment available at home: Equipment recommendations for discharge: none Current therapy frequency recommendation(s) in acute: 3 times a week Precautions and Weightbearing Status: OT Existing Precautions/Restrictions: fall Patient Safety Communication Prior to Visit: Nursing Respiratory Status O2 Device: room air Subjective: Pt agreeable to therapy session. Pain: General Pain Documentation (Adult, OB, Peds) Presence of Pain: denies pain/discomfort Home Setting Residence: House Lives With: (Grandson who works, daughter and son available to provide 24/7 supervision) First floor setup: bedroom, walk-in shower, grab bars Second floor setup: (does not have to access) Number of stairs to enter home: 0 Mobility Equipment Available: none used Previous Level of Function Prior level ADL Overview: Independent with all ADLs Dominant Hand: Right Bed Mobility/Transfers: independent Ambulation Skills: independent Assistive Device: none used Level of Ambulation: community IADL History IADLs: independent Primary Language: [place] IADL Comments: 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, daughter reports pt has been forgetting to take her medication occassionally Objective/Observation: Vitals/Vitals Responses to Treatment: BP 229/89 prior to functional tasks and 231/93 after, RN aware Vision Screen Currently wearing corrective lenses: No Subjective Patient Complaints: (blurred vision resolved) Clinical Observations: appears WFL Speech Speech: no gross deficits noted Hearing Hearing: no gross deficits noted Cognition Overall Cognitive Status: Impaired Arousal/Alertness: Appropriate responses to stimuli Orientation Level: Oriented X4 Following Commands: Follows all commands and directions without difficulty Safety Judgment: Good awareness of safety precautions Awareness of Errors: Decreased awareness of errors Deficits: Decreased awareness of deficits Attention Span: Appears intact Memory: Decreased short term memory Problem Solving: Assistance required to generate solutions Cognition Comments: Pt repeating same story during session ADLs: ADL Assessment: Toileting Deficit ADL Anticipated Performance (ADLs not directly observed this session): Eating, Grooming, Bathing, UE Dressing, LE Dressing Eating Assistance: Independent Grooming Assistance: Independent Grooming Location: standing at sink Grooming Deficit: Increased time to complete Grooming Skilled Rationale (Verbal/Tactile/Visual/Demonstrati on): Technique of activity Grooming Intervention/Details: Pt able to wash her hands while standing at the sink with independence Bathing Assistance: Supervision UE Dressing Assistance: Independent LE Dressing Assistance: Supervision Toilet Assistance: Independent Toileting Location: toilet Toileting Deficit: Increased time to complete Toilet Skilled Rationale (Verbal/Tactile/Visual/Demonstrati on): Facilitate positioning Toileting Intervention/Details: Pt able to complete prisca hygiene and clothing management without difficulty Extremity Assessments: RUE Assessment RUE Assessment: Within Functional Limits LUE Assessment LUE Assessment: Within Functional Limits Balance: Sitting Balance Static Sitting-Level of Assistance: Independent Dynamic Sitting-Level of Assistance: Independent Standing Balance Static Standing-Level of Assistance: Independent Dynamic Standing-Level of Assistance: Supervision Standing-Balance Support: No upper extremity supported Neuro: Sensation Overall Sensation: Intact Sensation Comments: Pt reports no numbness/tingling Proprioception Proprioception: intact Gross Coordination Gross Coordination: bilat UE intact Fine Motor Coordination Additional Documentation: Yes Fine Motor Coordination Left Hand Thumb/Finger Opposition Skills: normal performance Right Hand Thumb/Finger Opposition Skills: normal performance Left Hand, Manipulation of Objects: normal performance Right Hand, Manipulation of Objects: normal performance Left Hand, Diadochokinesis Skills: normal performance Right Hand, Diadochokinesis Skills: normal performance Skin and Edema: Skin Integrity Skin Integrity Description: WFL (visible areas) Edema Edema: none noted Mobility Assessment: Supine to Sit Mobility Pi[place] Level: Supine->Sit: modified independence Bed Features/Set-up: Supine->Sit: Head of bed elevated Sit to Supine Mobility [place] Level: Sit->Supine: independent Transfer Assessment: Sit to Stand Transfer [place] Level: Sit->Stand: independent Stand to Sit Transfer Pi[place] Level: Stand->Sit: independent Functional Mobility: Functional Mobility Pi[place] Level: Functional Mobility/Gait: supervision Functional Mobility Distance: Distance needed to access restroom Functional Mobility Deficits: Balance Functional Mobility Skilled Rationale: Cues for increased safety Outcome Score(s): [facility] Daily Activity Inpatient Short Form Putting on/Taking Off Lower Body Clothin - A Little Assistance Bathin - A Little Assistance Toiletin - No Assistance Putting on/Taking Off Upper Body Clothin - No Assistance Groomin - No Assistance Eatin - No Assistance [facility] Activity Raw Score: 22 [facility] Activity Functional Limitation/Modifier: 25.80% Currently Impaired in Daily Activity - CJ Interventions: -Educated pt and pt's daughter on importance of pill box and initial assistance to ensure accuracy. Assessment & Plan: Patrica Newman is a 81 y.o. female with PMHx HTN who presents to the Emergency Department for left sided weakness. Exam findings include impairments in: cognitive impairments, endurance, transfers. These impairments contribute to occupational performance limitations including bathing, dressing, functional mobility, ADL transfers, work/school integration, home management tasks. The following factors impact the plan of care: Past Medical History: Diagnosis Date Essential hypertension, benign No past surgical history on file. Patient will benefit from skilled occupational therapy to address these impairments, occupational performance limitations, and participation restrictions. Patient's rehab potential is: good, to achieve stated therapy goals. Planned Therapy Interventions (OT Eval): IADL retraining Patient Instruction/Education this session: Patient Instruction: role of OT, pursed lip breathing, importance of OOB activities, safety awareness Plan for next session: continue current plan of care Acute OT Goals Plan of Care by Shoshana Levy OT at 06/17/2021 11:40 AM Version 1 of 1 Problem: OT - Cognition Goal: Cognition Home Maintenance Description: Pt will complete simulated home maintenance task (medication management, finance management, etc.) with modified independence to promote safety and success at discharge destination. Outcome: Ongoing Problem: OT - Other Goal: Safety awareness Description: Pt will demonstrate good safety awareness during I/ADL's with min or less cueing. Outcome: Ongoing Evaluating Therapist: Shoshana Levy OT Additional Details: Co-evaluation/co-treatment performed?: Yes, simultaneous billable treatment This co-evaluation session performed between OT and PT was beneficial, necessary and provided distinct services in establishing this person's individual plan of care. Medical complexity with functional deficits necessitated two skilled therapy disciplines working concurrently to determine each discipline's goals. This co-treatment was medically necessary due to patient's: medical status I was assisted by JOEY Fowler, for today's session. OT Evaluation Complexity Occupational Profile and Client History: Low - brief history Assessment of Occupational Performance: Low (1-3 performance deficits) Clinical Decision/Performance Deficits: Low (problem-focused assessments w/limited treatment options) Time In: 1116 Time Out: 1140 Total Visit Time: 24 minutes Total Treatment Time (skilled, billable minutes): 24 minutes Patient location at end of session: bed with head of bed elevated Alarms on at end of session: none Needs in reach. Upon discontinuation of Acute Care Occupational Therapy Services or patient discharge from the hospital this note represents the current Occupational Therapy Discharge Summary. Brief Updated: HPI: Patrica Newman is a 81 y.o. female with a past medical history significant for hypertension who presents as a transfer from OSH following resolution of weakness. Patient LKW was on 06/16 at 0900. Patient then developed symptoms of slurred speech, L-sided weakness. mRS 0. They were then taken to [facility] via EMS. On arrival to OSH, vitals were BP 224/79, HR 84, Temp 98.0F, SpO2 97%. They were evaluated via Telestroke by Dr. Douglass. CT head was obtained and w/o significant findings. CTA with question of L MCA high grade stenosis. Patient was then transferred to [facility] for further evaluation. Upon arrival to [facility] ED, vitals were BP 224/87, HR 75, Temp 97.6F, SpO2 98%, RR 16. On my initial examination NIHSS obtained was 0. A stroke alert was not called for STAT consultation. Provider NIH Stroke Scale NIH Interval (Provider): admission NIH Level of Conciousness (Provider): 0 NIH LOC Questions (Provider): 0 NIH LOC Commands (Provider): 0 NIH Best Gaze (Provider): 0 NIH Visual (Provider): 0 NIH Facial Palsy (Provider): 0 NIH Left Arm Motor (Provider): 0 NIH Right Arm Motor (Provider): 0 NIH Left Leg Motor (Provider): 0 NIH Right Leg Motor (Provider): 0 NIH Limb Ataxia (Provider): 0 NIH Sensory (Provider): 0 NIH Best Language (Provider): 0 NIH Dysarthria (Provider): 0 NIH Extinction and Inattention (Provider): 0 NIH Total Score (Provider): 0 Imaging: MRI brain: Acute infarcts within the right basal ganglia within the MCA territory. No evidence of hemorrhagic transformation or significant mass effect. OSH CTA brain/neck: 50-69% focal narrowing of the right A1 segment of the ST[place]. Left M1 and M2 50-69% . Less than 50% of the L ICA. TTE: EF 65-70% LDL 156, a1c 5.5 Dx: Basal ganglia infarct Etiology: small vessel disease Stroke Plan: Antiplatelet therapy: ASA 81 mg daily life-long Statin therapy: Atorvastatin 80 mg daily Event monitor upon discharge Consult PT/OT/ST Follow up with [facility] outpatient upon hospital discharge Recommendations: Patient will need to start ASA 81 mg daily life-long as well as statin therapy for secondary stroke risk reduction. Patient SBP on admission 227. Would start bp medication before hospital discharge as well as follow-up with PCP for bp management. Patient will need to be discharge with a 30-day even monitor as well as follow-up with [facility] outpatient. I have seen and examined the patient with the team today 06/17/21. I have personally reviewed all the imaging studies and laboratory data and also reviewed the note. I agree with the assessment and plan with the following additions. SIMÓN DESOUZA MD Acute Care Speech-Language Pathology Clinical Swallow Evaluation Diet recommendation: Recommended Method of Nutrition: PO Recommended Diet Grade: regular Recommended Liquid Consistency: liquid- thin (IDDSI 0) Recommended Medication Administration (as appropriate per MD): Per patient preference Type of Cues/Supervision: none Assistance: independent Other Recommendations: Discharge Recommendations: Based on the below outcome measures/assessment score(s) and FURNITURE SANDER clinical judgment, discharge destination recommendation is: Skilled FURNITURE SANDER services not warranted at discharge Acute FURNITURE SANDER Outcomes Tracking Communicate basic wants and needs?: yes Demo insight/appreciation of deficits?: yes Complete basic problem solving?: yes Current therapy frequency recommendation in acute care: Speech/Lang/Cog Therapy Frequency: no therapy warranted Swallow Therapy Frequency: no therapy warranted Date of Admission: 06/17/2021 Date of Evaluation: 06/17/2021 Attending Physician: Vladimir Curiel MD General Patient Information Name: Patrica Newman Gender: female Date of : 1940 Primary Diagnosis: ICD-10-CM 1. Cerebrovascular accident (CVA), unspecified mechanism I63.9 Past Medical History: Diagnosis Date Essential hypertension, benign No past surgical history on file. Pain: General Pain Documentation (Adult, OB, Peds) Presence of Pain: denies pain/discomfort Patient History Comments: Pt is a 81 y.o. female who presents from outside hospital with transient weakness to LLE, slurred speech, difficulty with word finding, and left facial droop. Symptoms resolved upon arrival to [facility], NIH of 0 upon arrival. MRI brain revealed acute infarcts within the right basal ganglia. PMH significant for HTN. Prior FURNITURE SANDER history: None on file. Current Method of Nutrition: Route of Nutrition: NPO Respiratory Status: O2 Device: room air O2 Sat (%): 100 % Resp Rate: 18 Subjective: Pleasant and agreeable to evaluation. Pt's daughter at bedside for evaluation. Exam limited by cognition: No Objective Evaluation: Oral Motor: Cranial Nerve Exam CN V (Trigeminal) strong equal bilateral strength of masseter and temporal muscles CN VII (Facial) strong bilateral movement of upper and lower face CN IX (Glossopharyngeal) uvula is midline CN X (Vagus) uvula is midline CN XI (Accessory) strong and equal rotation of head CN XII (Hypoglossal) clearly articulated speech Vocal Quality: WDL GRBAS: A perceptual rating scale for voice parameters Rating scale of 0 to 3 0 = no impairment 1 = minimal to mild impairment 2 = moderate impairment 3 = severe impairment Subjective Voice Evaluation Grade of dysphonia (G): 0 Roughness (R): 0 Breathiness (B): 0 Asthenia (A): 0 Strain (S): 0 Positioning: High Black's (60-90 degrees) Anticipatory Phase: Intact Foods and Liquids Trialed: Modality: Amount: Thin Straw 3oz Regular solid Self-fed x3 Oral Phase Function Comments Oral Mucosa Intact Dentition Natural teeth Labial Closure Intact Mastication Intact Oral Stasis Absent Cough before the swallow Absent Oral Phase Summary: Oral phase of the swallow appears intact. Pharyngeal Phase Function Comments Perceived Swallow Present Cough Response No Throat Clear No Subjective Complaint of Residue Absent Pharyngeal Phase Summary: Pharyngeal phase of the swallow appears intact, no clinical s/s of aspiration. Strategies Trialed: Strategy: Effectiveness: Katt Swallow Screen: Katt Swallow Screening Screening Exclusion Criteria: none, continue with [place] Swallow Screening Cognitive Screen: Orientation: able to give name, able to name place, able to name current year Cognitive Screen: Command Following: able to open mouth, able to smile, able to stick out tongue Oral Motor Function : able to close lips, able to move tongue to corners of lips Voice and Swallow Outcomes: Functional Oral Intake Scale: Level 7 - Total oral intake with no restrictions Clinical Impression: Patrica Newman presents with suspected functional oropharyngeal swallowing abilities s/p acute right basal ganglia stroke. No clinical s/s of aspiration noted throughout evaluation. Recommend regular diet and thin liquids. No FURNITURE SANDER services warranted, FURNITURE SANDER to sign off. Acute FURNITURE SANDER Goals Notes from 06/16/2021 11:19 PM through 06/17/2021 11:19 AM 1. Pt will verbalize understanding of results and recommendations from today's evaluation. - Goal met. Speech Language Pathologist: MEGHAN Elias Time In: 907 Time Out: 934 Total Visit Time: 27 minutes Total Treatment Time (skilled, billable minutes): 27 minutes I used facemask, protective eye shield, and gloves in today's patient interaction. Patient location at end of session: bed with head of bed elevated Alarms on at end of session: none Needs in reach. Upon discontinuation of Acute Care Speech Therapy Services or patient discharge from the hospital this note represents the current Speech Therapy Discharge Summary Acute Care FURNITURE SANDER Speech/Language/Cognitive Evaluation Best mode of Communication: spoken language (regular speech) Discharge Recommendations: Based on the below outcome measures/assessment score(s) and FURNITURE SANDER clinical judgment, discharge destination recommendation is: Skilled FURNITURE SANDER services not warranted at discharge Acute FURNITURE SANDER Outcomes Tracking Communicate basic wants and needs?: yes Demo insight/appreciation of deficits?: yes Complete basic problem solving?: yes Current therapy frequency recommendation in acute: Speech/Lang/Cog Therapy Frequency: no therapy warranted Swallow Therapy Frequency: no therapy warranted Clinical Impression: Patrica Newman presents with functional cognitive communication abilities s/p acute right basal ganglia stroke. Noted to have mild short term memory deficits, however these appear baseline per pt and daughter report. Oriented x4 and able to communicate regarding medical course, insight to current deficits. Expressive/receptive language intact, able to communicate wants and needs. No dysarthria. No further FURNITURE SANDER services warranted. Patient Instruction/Education this session: Role of FURNITURE SANDER Plan for next session: n/a Subjective: Pleasant and agreeable to evaluation. Pt's daughter at bedside for evaluation. Pain: General Pain Documentation (Adult, OB, Peds) Presence of Pain: denies pain/discomfort Patient History Comments: Patrica Newman is a 81 y.o. female who presents from outside hospital with transient weakness to LLE, slurred speech, difficulty with word finding, and left facial droop. Symptoms resolved upon arrival to [facility], NIH of 0 upon arrival. MRI brain revealed acute infarcts within the right basal ganglia. PMH significant for HTN. 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 Reports her family lives close and visits frequently. Respiratory Status: Room Air EXPRESSIVE LANGUAGE: Intact Task: Answering 'wh' Questions Intact Repetition Intact Verbalize Basic Wants and Needs Intact Functional Participation in Conversation Intact Expressive Language Characteristics: Fluent RECEPTIVE LANGUAGE: Intact Task: Follow 1-Step Commands Intact Answers Basic Y/N Questions Intact Conversational Comprehension Intact READING: Unable to assess WRITING: Unable to assess SOCIAL INTERACTION/PRAGMATICS: Intact Task: Initiates Conversation Intact Takes Turns in Communication Intact Maintains Eye Contact Intact Maintains Topic Intact Shifts Topics Appropriately Intact Affect Intact Responds Appropriately to Questions Intact COGNITION: Impaired Task: Arousal/Alertness Appropriate responses to stimuli Orientation Level Oriented X4 Safety Judgment Good awareness of safety precautions Awareness of Errors Good awareness of errors made Deficits Fully aware of deficits Attention Span Appears intact Memory Decreased short term memory (baseline) Problem Solving Able to problem solve independently Cognition Comments Deficits in the area of short term memory, however these deficits appear baseline. CRANIAL NERVE EXAMINATION: Cranial Nerve Exam CN V (Trigeminal) strong equal bilateral strength of masseter and temporal muscles CN VII (Facial) strong bilateral movement of upper and lower face CN IX (glossopharyngeal) uvula is midline CN X (Vagus) uvula is midline CN XI (Accessory) strong and equal rotation of head CN XII (Hypoglossal) clearly articulated speech MOTOR SPEECH TASKS: Intact Task: Speech Intelligibility Intact VOCAL PARAMETERS: Intact Task: Vocal Quality WDL Subjective Voice Evaluation Grade of dysphonia (G): 0 Roughness (R): 0 Breathiness (B): 0 Asthenia (A): 0 Strain (S): 0 FURNITURE SANDER Outcomes: The Orientation Log (O-Log) is designed to be a quick quantitative measure of orientational status for use at bedside with rehabilitation inpatients. Place, time, and situational (Etiology/Event + Pathology/Deficits) domains are assessed. Patient responses are scored according to the following criteria: 3 = correct spontaneously or upon first free recall attempt; 2 = correct upon logical cueing (e.g., That was yesterday, so today must be ); 1 = correct upon multiple choice or phonemic cuing; and 0 = incorrect despite cueing, inappropriate response, or unable to respond. Patient scored Total Score: this . The Cognitive Log (Cog-Log) is designed to be a quick quantitative measure of cognition for use at bedside with rehabilitation patients. It is intended for individuals who have achieved consistent accurate orientation, such as measured by the Orientation Log (O-Log). The Cog-Log can be used to document cognitive progress on a daily basis, in the areas of immediate memory, reasoning, thought organization and attention. All items are scored from 0 to 3 for a total possible score of 30, which can be graphed for quick reference. Patient scored Total Score: 27/30 this date. Patient with noted difficulty in the areas of short term memory (deficits appear baseline) and was noted to benefit from repetition and logical cues. Acute FURNITURE SANDER Goals Notes from 06/16/2021 11:35 PM through 06/17/2021 11:35 AM 1. Pt will verbalize understanding of results and recommendations from today's evaluation. - Goal met. I used facemask, protective eye shield, and gloves in today's patient interaction. Speech Language Pathologist: MEGHAN Elias Time In: 907 Time Out: 934 Total Visit Time: 27 minutes Total Treatment Time (skilled, billable minutes): 27 minutes Patient location at end of session: bed with head of bed elevated Alarms on at end of session: none Needs in reach. Upon discontinuation of Acute Care Speech Therapy Services or patient discharge from the hospital this note represents the current Speech Therapy Discharge Summary documented in this encounter [facility] 06-18-2021 Hospital course Narrative Discharge Summary Name: Patrica Newman Age: 81 y.o. Birthday: 1940 Admit Date: 06/17/2021 12:15 AM Discharge Date: 06/18/2021 Discharge Time: 1330 Discharge Unit: [id number] Admission Information Admitting Physician: Simón Desouza MD Discharge Information Discharge Physician: Dr Rod Cuellar Problem List Active Hospital Problems Diagnosis Stroke Resolved Hospital Problems No resolved problems to display. Brief Summary of Hospital Course for Discharge Summary: Dear Providers, We recently had the pleasure of taking care of Patrica Newman at [facility]. As you well know Patrica Newman is a 81 y.o. female with a past medical history significant for hypertension who presents as a transfer from [facility] following resolution of weakness. Patient LKW was on 06/16 at 0900. Patient then developed symptoms of slurred speech, L-sided weakness. mRS 0. They were then taken to [facility] via EMS. On arrival to OSH, vitals were BP 224/79, HR 84, Temp 98.0F, SpO2 97%. They were evaluated via Telestroke by Dr. Douglass. CT head was obtained and w/o significant findings. CTA with question of L MCA high grade stenosis. Patient was then transferred to [facility] for further evaluation. Upon arrival to [facility] ED, vitals were BP 224/87, HR 75, Temp 97.6F, SpO2 98%, RR 16. On my initial examination NIHSS obtained was 0. Brief summary of Imaging: MRI brain: Acute infarcts within the right basal ganglia within the MCA territory. No evidence of hemorrhagic transformation or significant mass effect. OSH CTA brain/neck: 50-69% focal narrowing of the right A1 segment of the STEVENSON. Left M1 and M2 50-69% . Less than 50% of the L ICA. TTE: EF 65-70% LDL 156, a1c 5.5 Dx: R MCA stroke Etiology of stroke: likely small vessel disease Interventions: Antiplatelet therapy: ASA 81 mg daily life-long Statin therapy: Atorvastatin 80 mg daily Event monitor upon discharge Follow up with [facility] outpatient upon hospital discharge Additional medical issues: HTN: long term care social worker goal after stroke is less than 130/80 Continue on CLIFF inhibitor and BB Follow up with PCP for further management Follow up appointments or imaging: Follow up appointment with PCP within 7-10 days of hospital discharge Follow up appointment with [facility] in outpatient stroke clinic On the day of discharge the patient was afebrile, vital signs were stable. Cardiac and pulmonary exams were normal. Neuro: a/o x3. Ramu x4 with purpose NIH on admission and discharge 0 MRS on admission and discharge 0 Amy Ho, RANGE MANAGER-SALON STYLIST Summary of last selected lab results and date obtained: Lab Results Component Value Date WBC 7.90 06/18/2021 HGB 13.2 06/18/2021 HCT 40.7 06/18/2021 PLATELET 268 06/18/2021 MCV 97.4 06/18/2021 Lab Results Component Value Date SODIUM 140 06/18/2021 POTASSIUM 4.7 06/18/2021 CHLORIDE 109 (H) 06/18/2021 CO2 18 (L) 06/18/2021 BUN 23 06/18/2021 CREATSERUM 1.29 (H) 06/18/2021 GLUCOSE 112 (H) 06/18/2021 Lab Results Component Value Date ALT 9 06/18/2021 AST 21 06/18/2021 ALKPHOS 70 06/18/2021 BILITOTAL 0.5 06/18/2021 BILIDIRECT <0.1 06/18/2021 Brief Summary of Labs for Discharge Summary: Discharge Orders AMB REFERRAL TO NEUROLOGY EVENT MONITOR, CARDIAC Current Outpatient Meds: Medication List for when you go home START taking these medications aspirin 81 MG CHEW chewable tablet Chew 1 tablet daily. Start taking on: June 19, 2021 metoprolol 25 MG tab regular release Take 1 tablet by mouth every 12 hours. Commonly known as: LOPRESSOR NIFEdipine 60 MG tab XL tablet Take 1 tablet by mouth every 12 hours. Commonly known as: ADALAT-CC Medication Instructions: Know your medicines ? Make sure you know why you are taking each medicine. ? Make a master list of all your medicines. Write down the medicine names and doctors' names. Include doses and side effects too. And write down why you take each medicine. Include all prescription and edue-uhd-azblwvr medicines, vitamins, and supplements. Keep this list up to date. Take a copy to each doctor visit. ? Know when you will run out of each medicine. Ask your pharmacist if there are ways the drugstore can remind you to refill your medicines so you do not run out. Write refill reminders on your calendar. Don't wait until you have a few pills left. ? Ask your pharmacist to plan your refills so that you can bean picker all your medicines at the same time. This can mean fewer trips to the drugstore. ? If we have prescribed you a new medication during your stay, please contact with your primary physician for refills Follow-up: LEO Miller [address] [facility] [id number] Follow up on 06/21/2021 Neurology/Stroke Clinic appointment scheduled with Marley Seo for 06-20-21 @ 9:20am. Please arrive at 9:05am and bring your photo ID & insurance cards for your appointment. Occupational Therapy It is recommended that you get outpatient OT. Please call the facility of your choice. Follow up Please call to arrange OT near your home. Upcoming Appointments (up to five)-Some appointments for Medical Center outpatient clinics or diagnostic testing locations are not displayed below Provider Department Dept Phone 06/20/2021 9:20 AM Marley Castano Neurology [facility] [phone] documented in this encounter [facility] 06-18-2021 Note Formatting of this n ote might be different from the original. Stroke education booklet has been provided both written and verbal education to the patient and family regarding ischemic strokes. We have discussed the warning signs/symptoms as well as causes of stroke. We have discussed the importance of activating 911/EMS in the event of these symptoms. We have reviewed the patient's personal modifiable risk factors including: HTN, unhealthy diet/HLD as well as education on reducing these risk factors. [facility] Miscellaneous Notes Stroke education booklet has been provided both written and verbal education to the patient and family regarding ischemic strokes. We have discussed the warning signs/symptoms as well as causes of stroke. We have discussed the importance of activating 911/EMS in the event of these symptoms. We have reviewed the patient's personal modifiable risk factors including: HTN, unhealthy diet/HLD as well as education on reducing these risk factors. Problem: Patient Care Overview Goal: Plan of Care Review Outcome: Adequate for Discharge Goal: Individualization & Mutuality Outcome: Adequate for Discharge Goal: Discharge Needs Assessment Outcome: Adequate for Discharge Goal: Interdisciplinary Rounds/Family Conf Outcome: Adequate for Discharge Problem: Stroke (Ischemic) (Adult) Goal: Signs and Symptoms of Listed Potential Problems Will be Absent, Minimized or Managed (Stroke) Description: Signs and symptoms of listed potential problems will be absent, minimized or managed by discharge/transition of care (reference Stroke (Ischemic) (Adult) CPG). Outcome: Adequate for Discharge Problem: OT - Cognition Goal: Cognition Home Maintenance Description: Pt will complete simulated home maintenance task (medication management, finance management, etc.) with modified independence to promote safety and success at discharge destination. Outcome: Adequate for Discharge Problem: OT - Other Goal: Safety awareness Description: Pt will demonstrate good safety awareness during I/ADL's with min or less cueing. Outcome: Adequate for Discharge Problem: OT - Cognition Goal: Cognition Home Maintenance Description: Pt will complete simulated home maintenance task (medication management, finance management, etc.) with modified independence to promote safety and success at discharge destination. Outcome: Ongoing Problem: OT - Other Goal: Safety awareness Description: Pt will demonstrate good safety awareness during I/ADL's with min or less cueing. Outcome: Ongoing DEPARTMENT OF EMERGENCY MEDICINE CHIEF COMPLAINT Speech changes LLE weakness Left facial droop HISTORY OF PRESENT ILLNESS Patrica Newman is a 81 y.o. female was appropriately risk stratified for observation level of care and was placed on the EDOU TIA protocol. This patient has a history of HTN. She presents with concern for transient weakness to LLE, slurred speech, difficulty with word finding and also reports left facial droop. No report of headache, dizziness. Denies fever and chills. No report of chest pain and shortness of breath. She was seen at OSH where she had a CT head which was negative for bleed and a CTA which showed Left MCA stenosis. Aspirin was given at OSH/ She was transferred to [facility] and evaluated by neurovascular. Further observation was recommended. Personal, surgical, family, and social history reviewed with patient. REVIEW OF SYSTEMS Review of Systems Constitutional: Negative for chills and fever. Eyes: Positive for blurred vision (left -resolved). Respiratory: Negative for cough and shortness of breath. Cardiovascular: Negative for chest pain and palpitations. Gastrointestinal: Negative for abdominal pain, nausea and vomiting. Genitourinary: Negative for dysuria. Musculoskeletal: Negative for myalgias. Skin: Negative for rash. Neurological: Positive for speech change and weakness (LLE -resolved). Negative for dizziness, sensory change, loss of consciousness and headaches. All other systems reviewed and are negative. All Other Systems Were Reviewed And Negative Unless Otherwise Noted PAST MEDICAL HISTORY Past Medical History: Diagnosis Date Essential hypertension, benign SURGICAL HISTORY Mastectomy MEDICATIONS GIVEN IN THE ED Medications ondansetron 4mg/2ml (ZOFRAN) injection 4 mg (has no administration in time range) Or ondansetron (ZOFRAN) tablet 4 mg (has no administration in time range) acetaminophen (TYLENOL) tablet 650 mg (has no administration in time range) alum/mag hydrox.-simethicone oral suspension 30 mL (has no administration in time range) lisinopril (PRINIVIL) tablet 40 mg (40 mg Oral Given 06/17/21107) metoprolol (LOPRESSOR) tablet 25 mg (25 mg Oral Given 06/17/21107) ALLERGIES Tetracycline FAMILY HISTORY Hx brain aneurysm- dad History reviewed. No pertinent family history. SOCIAL HISTORY Social History Socioeconomic History Marital status: Spouse name: Not on file Number of children: Not on file Years of education: Not on file Highest education level: Not on file Occupational History Not on file Tobacco Use Smoking status: Not on file Smokeless tobacco: Not on file Substance and Sexual Activity Alcohol use: Not on file Drug use: Not on file Sexual activity: Not on file Other Topics Concern Not on file Social History Narrative Not on file Social Determinants of Health Financial Resource Strain: Not on file Food Insecurity: Not on file Transportation Needs: Not on file Physical Activity: Not on file Stress: Not on file Social Connections: Not on file Intimate Partner Violence: Not on file Housing Stability: Not on file PHYSICAL EXAM BP 188/79 Pulse 64 Temp 97.6 F (36.4 C) (Oral) Resp 18 Ht 1.753 m (5' 9 ) SpO2 100% Physical Exam Vitals reviewed. Constitutional: General: She is not in acute distress. Appearance: Normal appearance. She is not ill-appearing. HENT: Head: Normocephalic and atraumatic. Nose: Nose normal. Eyes: Conjunctiva/sclera: Conjunctivae normal. Cardiovascular: Rate and Rhythm: Normal rate and regular rhythm. Pulmonary: Effort: Pulmonary effort is normal. No respiratory distress. Breath sounds: Normal breath sounds. Abdominal: General: Bowel sounds are normal. Palpations: Abdomen is soft. Tenderness: There is no abdominal tenderness. There is no right CVA tenderness, left CVA tenderness or guarding. Musculoskeletal: General: Normal range of motion. Cervical back: Normal range of motion and neck supple. Skin: General: Skin is warm and dry. Neurological: General: No focal deficit present. Mental Status: She is alert and oriented to person, place, and time. Comments: Patient is alert and oriented x 3. Speech is clear. Moves all extremities. No motor.sensory deficits noted at presents. + mild left facial droop around lips Psychiatric: Mood and Affect: Mood normal. Behavior: Behavior normal. EDOU COURSE & MEDICAL DECISION MAKING Risk stratification appropriate for observation level of care. Patient was placed in EDOU on the TIA protocol. Patient age greater than 64y/o? YES Geriatrics Screening: Delirium Triage Screen: 0 Exclusion Criteria: Non-zero scores are abnormal. The above score does not represent acute delirium based on my assessment. Stage Balance Assessment Score: 0 Exclusion Criteria: Non-zero scores are abnormal. The patient does not need urgent physical and occupational therapy consultation or referral based on the above score and my assessment. ISAR Score: 0 Exclusion Criteria: Before the illness or injury that brought you to the Emergency Department, did you need someone to help you on a regular basis?: No In the last 24 hours, have you needed more help than usual?: No Have you been hospitalized for one or more nights during the past 6 months?: No In general, do you have serious problems with your vision, that cannot be corrected by glasses?: No In general, do you have serious problems with your memory?: No Do you take six or more different medications every day?: No Scores of 2 or higher should prompt consideration of case management consultation. The patient does not need case management based on my assessment. The patient does not Geriatrics consultation or outpatient referral based on the above screening and my assessment. DDx includes: concern for TIA vs CVA I reviewed the patients' medical records and nursing notes and noted their allergies, past medical history, and previous visits. The patient received the following interventions in the ED to date: MRI BRAIN STROKE WITHOUT CONTRAST Final Result IMPRESSION: 1. Acute infarcts within the right basal ganglia within the MCA territory. No evidence of hemorrhagic transformation or significant mass effect. 2. 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 A Critical finding has been discussed with Fred Tidwell MD with a read back to Jose Rust MD on 06/17/2021 5:33 AM . I personally viewed and interpreted these images and I have reviewed and approved this report. CARDIOGRAM (Results Pending) MRI concerning for acute stroke. Neurovasc informed. TTE pending. Awaiting further recommendations. While in the EDOU we will continue to check, monitor and reassess patient and alter our plan as clinically appropriate. PT/OT/FURNITURE SANDER consults placed. I will discuss with the EDOU attending physician. This is a shared visit on 06/17/2021. Electronically signed by: LEO Silver, 06/17/2021 6:40 AM documented in this encounter [facility] 06-18-2021 Note Formatting of this n ote might be different from the original. Problem: Patient Care Overview Goal: Plan of Care Review Outcome: Adequate for Discharge Goal: Individualization & Mutuality Outcome: Adequate for Discharge Goal: Discharge Needs Assessment Outcome: Adequate for Discharge Goal: Interdisciplinary Rounds/Family Conf Outcome: Adequate for Discharge Problem: Stroke (Ischemic) (Adult) Goal: Signs and Symptoms of Listed Potential Problems Will be Absent, Minimized or Managed (Stroke) Description: Signs and symptoms of listed potential problems will be absent, minimized or managed by discharge/transition of care (reference Stroke (Ischemic) (Adult) CPG). Outcome: Adequate for Discharge Problem: OT - Cognition Goal: Cognition Home Maintenance Description: Pt will complete simulated home maintenance task (medication management, finance management, etc.) with modified independence to promote safety and success at discharge destination. Outcome: Adequate for Discharge Problem: OT - Other Goal: Safety awareness Description: Pt will demonstrate good safety awareness during I/ADL's with min or less cueing. Outcome: Adequate for Discharge [facility] 06-17-2021 Physician Emergency department Note This patient was appropriately risk stratified for observation level of care and placed on an observation protocol in our Clinical Decision Unit. The patient's intensity of service and severity of illness was appropriately aligned with observation level of care. Medical Decision Making: This 81-year-old female with put the observation unit for a TIA/CVA workup she presented with left lower extremity and speech changes which have nearly totally resolved. She did have left MCA stenosis on outside CTA. Here she had evidence of an acute CVA but not a large territory involved. Because she was sooo there was thoughts about discharging her but her blood pressure became increasingly difficult to control with systolic so well over 200 diastolic so over 100. A combination of extremely high blood pressure despite giving her medications with new CVA required in admission Physical Exam: Lungs were clear cardiac exam was unremarkable and neurologic exam was unremarkable at the time of our rounds * Disposition: Admit The patient has NOT met appropriate clinical criteria to be discharged from this CDU observation protocol. As such, the patient has failed to be discharged from observation level of care and will require inpatient admission to provide sufficient stabilization and resources to ensure safe disposition. Clinical Impression: 1) acute CVA 2) hypertensive emergency I saw and evaluated the patient with JACKELIN. I provided a substantive portion of the care for this patient. I personally performed all aspects of the medical decision making for this encounter. I have reviewed and verified this with the JACKELIN so that it accurately reflects our care. Vladimir Curiel MD 06/17/211747 [facility] Work Phone: 06-17-2021 Emergency department Note This patient was appropriately risk stratified for observation level of care and placed on an observation protocol in our Clinical Decision Unit. The patient's intensity of service and severity of illness was appropriately aligned with observation level of care. Medical Decision Making: This 81-year-old female with put the observation unit for a TIA/CVA workup she presented with left lower extremity and speech changes which have nearly totally resolved. She did have left MCA stenosis on outside CTA. Here she had evidence of an acute CVA but not a large territory involved. Because she was sooo there was thoughts about discharging her but her blood pressure became increasingly difficult to control with systolic so well over 200 diastolic so over 100. A combination of extremely high blood pressure despite giving her medications with new CVA required in admission Physical Exam: Lungs were clear cardiac exam was unremarkable and neurologic exam was unremarkable at the time of our rounds * Disposition: Admit The patient has NOT met appropriate clinical criteria to be discharged from this CDU observation protocol. As such, the patient has failed to be discharged from observation level of care and will require inpatient admission to provide sufficient stabilization and resources to ensure safe disposition. Clinical Impression: 1) acute CVA 2) hypertensive emergency I saw and evaluated the patient with JACKELIN. I provided a substantive portion of the care for this patient. I personally performed all aspects of the medical decision making for this encounter. I have reviewed and verified this with the JACKELIN so that it accurately reflects our care. Vladimir Curiel MD 06/17/211747 Summary: nursing Patient has bed ready in 1078 B&S. Report called to Gloria MAY.Sarah Wlaton RN Reason for Consult: Social Work-Consult/Stroke Depression Screening/Admitted Prior to 24-hour review timeline SW reviewed Consult Board. SW consult placed for Stroke Depression Screening. The Patient has not been in the ED past the 24-hour timeline and has a room inpatient. ED SW entered a handoff for the inpatient SW to complete the screening when patient is post 24-hour. Nurse to call if Patient request assists. SW will be available throughout the remainder of the shift for Patient/Family Support. Severo Robles, Circular Stuffer, Emergency Dept., ELECTRICIAN-ONLINE FACILITATOR [phone] 06-17-21 @ 10:17am Case Management/Level Glass Vial Filler received a request from the nurse business case analyst to schedule an appointment for the patient with Neurology/Stroke Clinic urgently. The soonest available appointment was then scheduled and placed in the patient's discharge paperwork. The nurse business case analyst was also updated. Established Patient Visit with LEO Jones SundayJune 20 9:20 AM (Arrive by 9:05 AM) Neurology [facility] [address] [facility] [id number] Patient back from MRI Patient moved to MRI CHIEF COMPLAINT No chief complaint on file. Past Medical History: Diagnosis Date Essential hypertension, benign HPI Pertinent Hx: Patrica Newman is a 81 y.o. female with chief complaint of No chief complaint on file. Presents from OSH for LLE weakness, slurred speech. Reports this lasted about 45 min then resolved. Feels at baseline at this time. REVIEW OF SYSTEMS CARDIOVASCULAR: Denies: chest pain RESPIRATORY: Denies: shortness of breath GI: Denies: abdominal pain NEURO: focal weakness (resolved), numbness/tingling, speech problems (resolved) Review of Systems has been reviewed and is otherwise negative unless noted. PHYSICAL EXAM BP (!) 202/85 Pulse 73 Temp 97.6 F (36.4 C) (Oral) Resp (!) 26 Ht 1.753 m (5' 9 ) SpO2 100% No acute distress; EOMI, mucous membranes moist, no neck stiffness/meningismus; lungs CTAB; cardiac RRR; abdomen soft, nontender, no guarding, no rebound tenderness; CN II-XII intact, 5/5 strength in all extremities, sensation intact, normal inponl-qg-jqky testing with no dysmetria, no pronator drift ED COURSE & MEDICAL DECISION MAKING Differential diagnosis includes CVA, TIA, other intracranial pathology, migraine, other stroke mimic. For further evaluation will obtain labs. Analgesic medications PRN, antiemetic medications PRN. Neurovascular c/s. On 06/16/2021 I saw and examined the patient. I discussed the history, examination, and medical decision making as outlined with the resident and agree with the plan of care. Medication list reviewed. I have personally seen and examined this patient. I have fully participated in the care of this patient. I have reviewed all pertinent clinical information, including history, physical exam and plan with the resident. Agnes Elkins MD 06/17/21 0123 dEPARTMENT of Emergency Medicine CHIEF COMPLAINT No chief complaint on file. HPI Patrica Newman is a 81 y.o. female with PMHx HTN who presents to the Emergency Department for left sided weakness. Patient states that when she woke up this morning she felt normal. Reports that sometime around this afternoon she began having weakness in her left lower leg. Patient also endorsed slurring of speech that her granddaughter noticed. Patient states that this lasted for about 45 minutes and then resolved. Patient denies any other symptoms. Patient states that currently she is back to her baseline. Patient denies any modifying factors for the symptoms. Patient denies any headache, vision changes, chest pain, shortness of breath, nausea, vomiting, urinary symptoms. Patient has not taken any other medications today. Patient denies any other symptoms or modifying factors. Denies any history of stroke or TIA. REVIEW OF SYSTEMS Review of Systems Constitutional: Negative for chills and fever. HENT: Negative for congestion and sore throat. Eyes: Negative for pain and visual disturbance. Respiratory: Negative for cough and shortness of breath. Cardiovascular: Negative for chest pain, palpitations and leg swelling. Gastrointestinal: Negative for abdominal pain, nausea and vomiting. Genitourinary: Negative for dysuria and frequency. Musculoskeletal: Negative for arthralgias and myalgias. Skin: Negative for color change and rash. Neurological: Positive for speech difficulty and weakness. Negative for dizziness and headaches. All other systems reviewed and are negative. PAST MEDICAL HISTORY Past Medical History: Diagnosis Date Essential hypertension, benign SURGICAL HISTORY Patient denies PSHx CURRENT MEDICATIONS No current facility-administered medications for this encounter. No current outpatient medications on file. ALLERGIES NKDA FAMILY HISTORY History reviewed. No pertinent family history. SOCIAL HISTORY Never smoker, [place] Island[place] is primary language Social History Socioeconomic History Marital status: Not on file Spouse name: Not on file Number of children: Not on file Years of education: Not on file Highest education level: Not on file Occupational History Not on file Tobacco Use Smoking status: Not on file Smokeless tobacco: Not on file Substance and Sexual Activity Alcohol use: Not on file Drug use: Not on file Sexual activity: Not on file Other Topics Concern Not on file Social History Narrative Not on file Social Determinants of Health Financial Resource Strain: Not on file Food Insecurity: Not on file Transportation Needs: Not on file Physical Activity: Not on file Stress: Not on file Social Connections: Not on file Intimate Partner Violence: Not on file Housing Stability: Not on file PHYSICAL EXAM Ht 1.753 m (5' 9 ) Physical Exam Vitals and nursing note reviewed. Constitutional: General: She is not in acute distress. Appearance: She is not ill-appearing. HENT: Head: Normocephalic and atraumatic. Nose: Nose normal. Mouth/Throat: Mouth: Mucous membranes are moist. Pharynx: Oropharynx is clear. Eyes: Extraocular Movements: Extraocular movements intact. Pupils: Pupils are equal, round, and reactive to light. Cardiovascular: Rate and Rhythm: Normal rate and regular rhythm. Pulses: Normal pulses. Heart sounds: Normal heart sounds. No murmur heard. Pulmonary: Effort: Pulmonary effort is normal. No respiratory distress. Breath sounds: Normal breath sounds. No wheezing. Abdominal: Palpations: Abdomen is soft. There is no mass. Tenderness: There is no abdominal tenderness. There is no guarding. Musculoskeletal: General: No swelling or tenderness. Normal range of motion. Cervical back: Normal range of motion. No rigidity. Lymphadenopathy: Cervical: No cervical adenopathy. Skin: General: Skin is warm and dry. Capillary Refill: Capillary refill takes less than 2 seconds. Findings: No rash. Neurological: General: No focal deficit present. Mental Status: She is alert and oriented to person, place, and time. Cranial Nerves: No cranial nerve deficit. Sensory: No sensory deficit. Motor: No weakness. Gait: Gait normal. Psychiatric: Mood and Affect: Mood normal. Behavior: Behavior normal. ED COURSE & MEDICAL DECISION MAKING Pertinent Labs & Imaging studies if performed reviewed. (See chart for details) Medication list reviewed. EKG Interpretation Interpreted by me Rhythm: sinus Rate: 78 [place]: normal Ectopy: none Conduction: normal ST Segments: no acute change T Waves: no acute change Q Waves: none Assessment: Patrica Newman is a 81 y.o. female with PMHx HTN who presents to the Emergency Department for left sided weakness. Differential Diagnosis includes but is not limited to: TIA, CVA, ICH Medical Decision Making: Patient presents the emergency department alert and in no acute distress. Vital signs unremarkable. Patient's neurologic exam at this point is unremarkable and she is back to her baseline. Patient given her oral blood pressure medications as her blood pressure is highly elevated here in the ED. CT head at [facility]SH without ICH, however dense MCA sign was noted. CTA with 50-69% stenosis of M1 and M2 branches of left MCA. Patient sent to [facility] for Neuro[facility] evaluation, appreciate recs. Patient to CDU for TIA workup (LDL, MRI, echo, A1c). Impression: Weakness, Speech changes Disposition: CDU Thao Gordillo MD Resident 06/17/21227 Symptoms: Slurred speech, L facial droop LKW: 09:00 Any anticoagulant use: Unknown at intake Telestroke completed?: No Accepted in transfer? (include destination / alert level): Yes, Main ED, NO LEVEL/ALERT PER DR. DOUGLASS Additional report: Radiology called report during call. ? L MCA high grade stenosis. Dr. Douglass waiting for CTA to load for review. Per Dr. Douglass, keep SBP <220 for now. Give 300 mg ASA. No level/alert, transfer by ground. No stroke alert called. Patient not currently having slurred speech. Alert and oriented x4. LKW: 1530 Per patient symptoms resolved In an hour. Bed: E026 Expected date: Expected time: Means of arrival: Comments: paty documented in this encounter [facility] 06-17-2021 Emergency department Note Summary: nursing Patient has bed ready in 1078 B&S. Report called to Gloria MAY.Sarah Walton RN [facility] 06-17-2021 Hospital Discharge instructions Christina Schwartz, RANGE MANAGER-SALON STYLIST - 06/17/2021 3:28 PM EDT Please take these discharge instructions to your primary care doctor follow appointment to show them,keep them for your reference and refer to them often for follow up appointments.It is best to write your appointments on a personal calendar so you do not miss them,call if you need to change any appointments please. Education: What are the most common symptoms of stroke? The following are the most common symptoms of stroke. However, each individual may experience symptoms differently. If any of these symptoms are present, call 911 (or your local ambulance service) immediately. Treatment is most effective when started immediately. Symptoms may be sudden and include: -Weakness or numbness of the face, arm, or leg, especially on one side of the body -Confusion or difficulty speaking or understanding -Problems with vision such as dimness or loss of vision in one or both eyes -Dizziness or problems with balance or coordination -Problems with movement or walking -Severe headaches with no other known cause, especially if sudden onset All of the above warning signs may not occur with each stroke. Do not ignore any of the warning signs, even if they go away - take action immediately. The symptoms of stroke may resemble other medical conditions or problems. Always consult your physician for a diagnosis We have provided both written and verbal education to the patient and family regarding ischemic and hemorrhagic strokes. We have discussed the warning signs/symptoms as well as causes of stroke. We have discussed the importance of activating 911/EMS in the event of these symptoms. We have reviewed the patient's personal risk factors as well as education on reducing these risk factors. [facility] Personalized Stroke Treatment Plan My Stroke Type: [] Ischemic Stroke (Blockage of blood flow to the brain) [] Hemorrhagic Stroke (Bleeding in the brain) [] TIA- Transient Ischemic Attack (mini-stroke) My Risk Factors Include: [] High Blood Pressure [] Diabetes [] High Cholesterol [] Heart Disease [] Atrial Fibrillation (Irregular Heart Rate) [] Smoking [] Obesity [] Clotting Disorder [] Alcohol Abuse [] Drug Abuse [] Prior History [] Family History [] Obstructive Sleep Apnea My Follow-Up Treatment Goals: [] Blood Pressure < 120/80 [] Stop Smoking Immediately [] LDL < 70 with CV Disease or <100 without [] HgA1C levels <7% [] Decrease BMI to <25 [x] Take all ordered medications [] Avoid non-prescription or over the counter medication not cleared by your physician [x] Limit Alcohol use to no more than 1 drink per day for females and 2 drinks per day for males [] Do not drive until cleared [x] Follow up with PCP within a week of discharge to home [x] Follow-up with Neurovascular [x] Follow-up with Occupational,physical and speech therapy if ordered [x] Watch out for depression and seek treatment if needed CONTACTS FOR NEUROVASCULAR SERVICE: - You may call your neurovascular doctors office at [phone], if you have questions between 8:30 am and 4:30 pm. - For off hours or the weekend you may call the office or the hospital technical operator at and ask for the stroke resident continuous absorption process operator to be paged. - If you have any questions or needs, please call Roxanne Mireles RN, stroke memory care program director at [phone] Sun-Sun from 08-28 ? Any questions concerning your discharge instructions please call Case Management Office [phone] Patient Stroke Resources: [facility] Stroke Support The [facility] Stroke Support Group is for stroke survivors, friends, and family members. Meets every Sunday from 12:00PM to 1:00PM at [facility]), [address] [place] [address] Trudi Rodriguez, at [phone]. If you are outside of the [facility], contact The [place] [employer] at www.strokeassociation.org or 5-448-2-stroke, or for supports groups in your area. Also refer to the Stroke Education booklet you received as part of your stroke education while you were a patient for additional resources Additional Contacts: Evening and Weekend Contacts If you have questions or concerns during evening, weekend, or holiday hours, please call: -[facility] and [facility] technical operator at [phone]. -[facility] technical operator at [phone] Ask the technical operator to page the on-call doctor for Neurovascular service, they were responsible for your care while you were in the hospital. If you having an emergency, call 911. *In the event of an Emergency: If you have a physical or psychiatric emergency call 911 or go to your local emergency department. You should also call your outpatient provider's emergency number. Other reference numbers: [facility] Intake Office at [phone]; [employer] at 795-295-7347; or Suicide Prevention Hotline at 667-655-5029. *Helpful phone numbers: Free Crisis Hotline: 0-353-611-TALK ( ) Suicide Hotline: 844.435.5094 Seniors Suicide Hotline: 179.971.4573 [facility] Youth: 706.361.7329 Mental Health of [place]: 914.878.8945 (free counseling) [facility] Access Hotline: 240-954-QBLZ (051-969-0190) 24-hour crisis text hotline: Text the word 4hope to 490-020 for crisis support. Texting this number is free if you have [employer], [employer], [employer] or [employer]. [facility] Financial Assistance: If you want to learn more about these programs, please call .There are three programs to help you with the cost of your medical care: Medicaid, Hospital Care Assurance Program (HCAP) & mark If you are without Insurance and believe you may qualify for Medicaid/public assistance: The [facility] Department of Job and Family Services can now process cameron (TANF), food (SNAP) and Medicaid Applications over the phone. Please call [phone] (8057) and apply over the phone or apply online at www.benefits.[place].gov. Sunday-Sunday 8am-12pm noon. Medication Assistance Programs [employer] members can buy 100+ common prescriptions for FREE, $3 or $6. Annual membership is $36 for individuals and $72 for families (up to 6 people, including pets). Sign up online or enroll at your nearest pharmacy! -[employer], web site can provide a significant number of coupons for medications at a much lower yanes. LEO Tao - 06/17/2021 3:27 PM EDT Know your medicines Make sure you know why you are taking each medicine. Make a master list of all your medicines. Write down the medicine names and doctors' names. Include doses and side effects too. And write down why you take each medicine. Include all prescription and [id number] medicines, vitamins, and supplements. Keep this list up to date. Take a copy to each doctor visit. Know when you will run out of each medicine. Ask your pharmacist if there are ways the drugstore can remind you to refill your medicines so you do not run out. Write refill reminders on your calendar. Don't wait until you have a few pills left. Ask your pharmacist to plan your refills so that you can bean picker all your medicines at the same time. This can mean fewer trips to the drugstore. If we have prescribed you a new medication during your stay, please contact with your primary physician for refills NUELLET LEO Tao - 06/17/2021 3:27 PM EDT Activity -- Please follow these instructions: -Advance your activity as you can tolerate - You may walk all you want. You may go up and down the steps. Use the railing for support - It is normal for your energy level and sleep patterns to change after a stroke - Take rest periods during the day as needed - Complete recovery may take several weeks, months, up to a year. Patience is noland. LEO Tao - 06/17/2021 3:27 PM EDT Current Diet Orders Procedures DIET REGULAR Standing Status: Standing Number of Occurrences: 1 LEO Tao - 06/17/2021 3:27 PM EDT Notify Your Doctor if you have any of the following: NEUROLOGICAL CHANGES-- Change in alertness Increased sleepiness Nausea and vomiting New onset of numbness or weakness in arms or legs New problems with your bowels or bladder New or worse problems with balance or walking Seizures, new or worsening UNRELIEVED HEADACHE PAIN-- New or increased pain unrelieved with pain medications Pain associated with nausea and vomiting Pain associated with other symptoms QUESTIONS OR PROBLEMS-- Any questions or problems that you are unsure about Deep Vein Thrombosis Symptoms Call your doctor or nurse right away if you have any signs of blood clots such as -Tender, swollen or reddened areas anywhere in your leg. -Numbness or tingling in your lower leg or calf, or at the top of your leg or groin -Skin on you leg looks pale or blue or feels cold to touch -Chest pain or have trouble breathing -Fever or chills documented in this encounter [facility] 06-17-2021 Emergency department Note Reason for Consult: Social Work-Consult/Stroke Depression Screening/Admitted Prior to 24-hour review timeline SW reviewed Consult Board. SW consult placed for Stroke Depression Screening. The Patient has not been in the ED past the 24-hour timeline and has a room inpatient. ED SW entered a handoff for the inpatient SW to complete the screening when patient is post 24-hour. Nurse to call if Patient request assists. SW will be available throughout the remainder of the shift for Patient/Family Support. Severo Robles, Circular Stuffer, Emergency Dept., TEETEE-ONLINE FACILITATOR [phone] [facility] 06-17-2021 Note Formatting of this n ote might be different from the original. Problem: OT - Cognition Goal: Cognition Home Maintenance Description: Pt will complete simulated home maintenance task (medication management, finance management, etc.) with modified independence to promote safety and success at discharge destination. Outcome: Ongoing Problem: OT - Other Goal: Safety awareness Description: Pt will demonstrate good safety awareness during I/ADL's with min or less cueing. Outcome: Ongoing [facility] 06-17-2021 Emergency department Note 06-17-21 @ 10:17am Case Management/Level Glass Vial Filler received a request from the nurse business case analyst to schedule an appointment for the patient with Neurology/Stroke Clinic urgently. The soonest available appointment was then scheduled and placed in the patient's discharge paperwork. The nurse business case analyst was also updated. Established Patient Visit with LEO Jones SundayJune 20 9:20 AM (Arrive by 9:05 AM) Neurology [facility] [address] [id number] [facility] 06-17-2021 Note Formatting of this n ote is different from the original. DEPARTMENT OF EMERGENCY MEDICINE CHIEF COMPLAINT Speech changes LLE weakness Left facial droop HISTORY OF PRESENT ILLNESS Patrica Newman is a 81 y.o. female was appropriately risk stratified for observation level of care and was placed on the ED TIA protocol. This patient has a history of HTN. She presents with concern for transient weakness to LLE, slurred speech, difficulty with word finding and also reports left facial droop. No report of headache, dizziness. Denies fever and chills. No report of chest pain and shortness of breath. She was seen at [facility] where she had a CT head which was negative for bleed and a CTA which showed Left MCA stenosis. Aspirin was given at OSH/ She was [facility] and evaluated by neurovascular. Further observation was recommended. Personal, surgical, family, and social history reviewed with patient. REVIEW OF SYSTEMS Review of Systems Constitutional: Negative for chills and fever. Eyes: Positive for blurred vision (left -resolved). Respiratory: Negative for cough and shortness of breath. Cardiovascular: Negative for chest pain and palpitations. Gastrointestinal: Negative for abdominal pain, nausea and vomiting. Genitourinary: Negative for dysuria. Musculoskeletal: Negative for myalgias. Skin: Negative for rash. Neurological: Positive for speech change and weakness (LLE -resolved). Negative for dizziness, sensory change, loss of consciousness and headaches. All other systems reviewed and are negative. All Other Systems Were Reviewed And Negative Unless Otherwise Noted PAST MEDICAL HISTORY Past Medical History: Diagnosis Date Essential hypertension, benign SURGICAL HISTORY Mastectomy MEDICATIONS GIVEN IN THE ED Medications ondansetron 4mg/2ml (ZOFRAN) injection 4 mg (has no administration in time range) Or ondansetron (ZOFRAN) tablet 4 mg (has no administration in time range) acetaminophen (TYLENOL) tablet 650 mg (has no administration in time range) alum/mag hydrox.-simethicone oral suspension 30 mL (has no administration in time range) lisinopril (PRINIVIL) tablet 40 mg (40 mg Oral Given 06/17/21107) metoprolol (LOPRESSOR) tablet 25 mg (25 mg Oral Given 06/17/21107) ALLERGIES Tetracycline FAMILY HISTORY Hx brain aneurysm- dad History reviewed. No pertinent family history. SOCIAL HISTORY Social History Socioeconomic History Marital status: Spouse name: Not on file Number of children: Not on file Years of education: Not on file Highest education level: Not on file Occupational History Not on file Tobacco Use Smoking status: Not on file Smokeless tobacco: Not on file Substance and Sexual Activity Alcohol use: Not on file Drug use: Not on file Sexual activity: Not on file Other Topics Concern Not on file Social History Narrative Not on file Social Determinants of Health Financial Resource Strain: Not on file Food Insecurity: Not on file Transportation Needs: Not on file Physical Activity: Not on file Stress: Not on file Social Connections: Not on file Intimate Partner Violence: Not on file Housing Stability: Not on file PHYSICAL EXAM BP 188/79 Pulse 64 Temp 97.6 F (36.4 C) (Oral) Resp 18 Ht 1.753 m (5' 9 ) SpO2 100% Physical Exam Vitals reviewed. Constitutional: General: She is not in acute distress. Appearance: Normal appearance. She is not ill-appearing. HENT: Head: Normocephalic and atraumatic. Nose: Nose normal. Eyes: Conjunctiva/sclera: Conjunctivae normal. Cardiovascular: Rate and Rhythm: Normal rate and regular rhythm. Pulmonary: Effort: Pulmonary effort is normal. No respiratory distress. Breath sounds: Normal breath sounds. Abdominal: General: Bowel sounds are normal. Palpations: Abdomen is soft. Tenderness: There is no abdominal tenderness. There is no right CVA tenderness, left CVA tenderness or guarding. Musculoskeletal: General: Normal range of motion. Cervical back: Normal range of motion and neck supple. Skin: General: Skin is warm and dry. Neurological: General: No focal deficit present. Mental Status: She is alert and oriented to person, place, and time. Comments: Patient is alert and oriented x 3. Speech is clear. Moves all extremities. No motor.sensory deficits noted at presents. + mild left facial droop around lips Psychiatric: Mood and Affect: Mood normal. Behavior: Behavior normal. EDOU COURSE & MEDICAL DECISION MAKING Risk stratification appropriate for observation level of care. Patient was placed in EDOU on the TIA protocol. Patient age greater than 64y/o? YES Geriatrics Screening: Delirium Triage Screen: 0 Exclusion Criteria: Non-zero scores are abnormal. The above score does not represent acute delirium based on my assessment. Stage Balance Assessment Score: 0 Exclusion Criteria: Non-zero scores are abnormal. The patient does not need urgent physical and occupational therapy consultation or referral based on the above score and my assessment. ISAR Score: 0 Exclusion Criteria: Before the illness or injury that brought you to the Emergency Department, did you need someone to help you on a regular basis?: No In the last 24 hours, have you needed more help than usual?: No Have you been hospitalized for one or more nights during the past 6 months?: No In general, do you have serious problems with your vision, that cannot be corrected by glasses?: No In general, do you have serious problems with your memory?: No Do you take six or more different medications every day?: No Scores of 2 or higher should prompt consideration of case management consultation. The patient does not need case management based on my assessment. The patient does not Geriatrics consultation or outpatient referral based on the above screening and my assessment. DDx includes: concern for TIA vs CVA I reviewed the patients' medical records and nursing notes and noted their allergies, past medical history, and previous visits. The patient received the following interventions in the ED to date: MRI BRAIN STROKE WITHOUT CONTRAST Final Result IMPRESSION: 1. Acute infarcts within the right basal ganglia within the MCA territory. No evidence of hemorrhagic transformation or significant mass effect. 2. 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 A Critical finding has been discussed with Fred Tidwell MD with a read back to Jose Rust MD on 06/17/2021 5:33 AM . I personally viewed and interpreted these images and I have reviewed and approved this report. CARDIOGRAM (Results Pending) MRI concerning for acute stroke. Neurovasc informed. TTE pending. Awaiting further recommendations. While in the EDOU we will continue to check, monitor and reassess patient and alter our plan as clinically appropriate. PT/OT/FURNITURE SANDER consults placed. I will discuss with the EDOU attending physician. This is a shared visit on 06/17/2021. Electronically signed by: LEO Silver, 06/17/2021 6:40 AM [facility] 06-17-2021 Emergency department Note Patient back from MRI [facility] 06-17-2021 Emergency department Note Patient moved to MRI [facility] 06-17-2021 Consult note Associated Order (s): IP CONSULT TO NEUROVASCULAR Images from the original note were not included. Neurovascular Evaluation Note Evaluation Date: 06/17/2021 Unit: E026/E026 Consultation was requested by Dr. Agnes Elkins MD Patient status: Emergency Length of stay: 0 days Reason for Consult/Chief Complaint MCA narrowing, LLE weakness for 45 min today now resolved, LKW 1600 History of Present Illness Patrica Newman is a 81 y.o. female with a past medical history significant for hypertension who presents as a transfer from [facility] following resolution of weakness. Patient LKW was on 06/16 at 0900. Patient then developed symptoms of slurred speech, L-sided weakness. mRS 0. They were then taken to [place] via EMS. On arrival to OSH, vitals were BP 224/79, HR 84, Temp 98.0F, SpO2 97%. They were evaluated via Telestroke by Dr. Douglass. CT head was obtained and w/o significant findings. CTA with question of L MCA high grade stenosis. Patient was then transferred to [facility] for further evaluation. Upon arrival to [facility] ED, vitals were BP 224/87, HR 75, Temp 97.6F, SpO2 98%, RR 16. On my initial examination NIHSS obtained was 0. A stroke alert was not called for STAT consultation. Review of Systems A complete review of systems was negative except for what is mentioned in the HPI. Neurovascular-specific History / Information Home antiplatelet/anticoagulation therapy: Antiplatelet therapy: none Anticoagulation: none. Patient Current Risk Factors: Stroke risk factors include hypertension. Prior stroke history: no. Family Hx of Stroke: Parents: no Siblings: no Stroke Diagnostic/Treatment Eligibility Information Stroke Clinical Assessment Information: Past Medical History Medical History: Past Medical History: Diagnosis Date Essential hypertension, benign SURGICAL HISTORY: No past surgical history on file. SOCIAL HISTORY: Medications PRIOR TO ARRIVAL MEDS: Prior to Admission medications Not on File Current Meds: Current Facility Administered Meds: No current facility-administered medications for this encounter. No current outpatient medications on file. Scheduled Meds: Continuous Infusions: PRN Meds: Vitals Objective Findings: Vital Signs (24hrs): Temp: [97.6 F (36.4 C)] 97.6 F (36.4 C) Pulse (Heart Rate): [73-75] 73 Resp Rate: [16-26] 26 BP: (202-224)/(85-87) 202/85 O2 Sat (%): [98 %-100 %] 100 % There is no height or weight on file to calculate BMI. Lines/Drains/Airways/Wounds: Patient Lines/Drains/Airways Status Active Lines, Drains, Airways, & Wound Overview Name Placement date Placement time Site Days Peripheral IV Line - Single Lumen 06/17/21116 wrist, posterior, left 20 gauge 06/17/21116 -- less than 1 Physical Exam General: Laying in bed; in no acute distress. CV: RRR. Pulmonary: No increased work of breathing, Equal chest rise bilaterally, no audible wheezing. Abdomen: soft, non-tender Ext: No cyanosis, edema, or deformity Skin: No rash Neurological Examination Psych and Mental status: alert; oriented to person, place, year, and month; good attention Speech/language: fluent; comprehension intact; object naming intact; repetition intact Cranial nerves: CN II visual read full to confrontation without visual extinction CN III, IV, PERRL. EOMI. CN V facial sensation intact to light touch bilaterally in V1, V2, V3 CN VII face, smile, eyebrow raise/closure symmetric CN VIII hearing grossly intact to voice CN IX & X soft palate elevates symmetrically in the midline, no dysarthria CN XI shoulder shrug full strength bilaterally CNXII tongue protrudes midline Motor: Normal bulk and tone. No pronator drift. SA EE EF HF KE KF DF PF Right 5 5 5 5 5 5 5 5 Left 5 5 5 5 5 5 5 5 Coordination: Wyerac-yb-fszo intact bilaterally. Gquy-rp-ugye intact bilaterally. Rapid alternating movements are normal. Sensation: intact to light touch throughout without extinction. Gait: Deferred Laboratory Results Diagnostics/Procedures: Labs-CBC Labs-Chem 7([facility]) Labs-Coags Additional Labs No results found for: CHOLESTEROL, TRIG, HDL, LDLCALC, LDLDIRECT Labs-Hemoglobin A1C No results found for: HGBA1C Imaging OSH Imaging Prior to Arrival: CT Stroke Head (06/16) No acute hemorrhage or large territory infarct CTA Brain/Neck (06/16) Question of L MCA high grade stenosis Assessment/Impression Patrica Newman is a 81 y.o. female with a past medical history significant for hypertension who presents as a transfer for TIA work up. Patient DRE was on 06/16 at 0900. They then developed symptoms of dysarthria, L-sided weakness. EMS was called and transferred to OSH. CT head was obtained and w/o significant findings. CTA with question of L MCA high grade stenosis. Transfer to [facility]. Initial NIH of 0, mRS 0. Recommend complete work up for TIA as below. Recommendations: - Recommend admit to the CDU The following TIA work up has been ordered: - MRI brain without contrast, stroke protocol - Echocardiogram with bubble study - Hemoglobin A1c - Lipids with reflex to LDL Risk of Stroke after suspected TIA ABCD2 score = 5 Age >60 Y/N BP >140/90 Y/N Clinical features: unilateral weakness/speech disturbance without weakness/ other Duration: <10min / 10-59min / >60min Diabetes Y/N Moderate risk: 4-5 points 2-Day Stroke Risk: 4.1% 7-Day Stroke Risk: 5.9% 90-Day Stroke Risk: 9.8% Patient and plan discussed with neurovascular attending Dr. Freeman. Signed, Fred Tidwell M.D. PGY-2 Department of Neurology I have seen and examined the patient with the team today 06/17/21. I have personally reviewed all the imaging studies and laboratory data and also reviewed the note. I agree with the assessment and plan with the following additions. SIMÓN DESOUZA MD [facility] Work Phone: 06-17-2021 Consult note Associated Order (s): IP CONSULT TO NEUROVASCULAR Images from the original note were not included. Neurovascular Evaluation Note Evaluation Date: 06/17/2021 Unit: E026/E026 Consultation was requested by Dr. Agnes Elkins MD Patient status: Emergency Length of stay: 0 days Reason for Consult/Chief Complaint MCA narrowing, LLE weakness for 45 min today now resolved, LKW 1600 History of Present Illness Patrica Newman is a 81 y.o. female with a past medical history significant for hypertension who presents as a transfer from [facility] following resolution of weakness. Patient DRE was on 06/16 at 0900. Patient then developed symptoms of slurred speech, L-sided weakness. mRS 0. They were then taken to [facility] via EMS. On arrival to OSH, vitals were BP 224/79, HR 84, Temp 98.0F, SpO2 97%. They were evaluated via Telestroke by Dr. Douglass. CT head was obtained and w/o significant findings. CTA with question of L MCA high grade stenosis. Patient was then transferred to [facility] for further evaluation. Upon arrival to [facility] ED, vitals were BP 224/87, HR 75, Temp 97.6F, SpO2 98%, RR 16. On my initial examination NIHSS obtained was 0. A stroke alert was not called for STAT consultation. Review of Systems A complete review of systems was negative except for what is mentioned in the HPI. Neurovascular-specific History / Information Home antiplatelet/anticoagulation therapy: Antiplatelet therapy: none Anticoagulation: none. Patient Current Risk Factors: Stroke risk factors include hypertension. Prior stroke history: no. Family Hx of Stroke: Parents: no Siblings: no Stroke Diagnostic/Treatment Eligibility Information Stroke Clinical Assessment Information: Past Medical History Medical History: Past Medical History: Diagnosis Date Essential hypertension, benign SURGICAL HISTORY: No past surgical history on file. SOCIAL HISTORY: Medications PRIOR TO ARRIVAL MEDS: Prior to Admission medications Not on File Current Meds: Current Facility Administered Meds: No current facility-administered medications for this encounter. No current outpatient medications on file. Scheduled Meds: Continuous Infusions: PRN Meds: Vitals Objective Findings: Vital Signs (24hrs): Temp: [97.6 F (36.4 C)] 97.6 F (36.4 C) Pulse (Heart Rate): [73-75] 73 Resp Rate: [16-26] 26 BP: (202-224)/(85-87) 202/85 O2 Sat (%): [98 %-100 %] 100 % There is no height or weight on file to calculate BMI. Lines/Drains/Airways/Wounds: Patient Lines/Drains/Airways Status Active Lines, Drains, Airways, & Wound Overview Name Placement date Placement time Site Days Peripheral IV Line - Single Lumen 06/17/21 0117 wrist, posterior, left 20 gauge 06/17/21 0117 -- less than 1 Physical Exam General: Laying in bed; in no acute distress. CV: RRR. Pulmonary: No increased work of breathing, Equal chest rise bilaterally, no audible wheezing. Abdomen: soft, non-tender Ext: No cyanosis, edema, or deformity Skin: No rash Neurological Examination Psych and Mental status: alert; oriented to person, place, year, and month; good attention Speech/language: fluent; comprehension intact; object naming intact; repetition intact Cranial nerves: CN II visual read full to confrontation without visual extinction CN III, IV, PERRL. EOMI. CN V facial sensation intact to light touch bilaterally in V1, V2, V3 CN VII face, smile, eyebrow raise/closure symmetric CN VIII hearing grossly intact to voice CN IX & X soft palate elevates symmetrically in the midline, no dysarthria CN XI shoulder shrug full strength bilaterally CNXII tongue protrudes midline Motor: Normal bulk and tone. No pronator drift. SA EE EF HF KE KF DF PF Right 5 5 5 5 5 5 5 5 Left 5 5 5 5 5 5 5 5 Coordination: Gmpkvg-sv-pood intact bilaterally. Bvvh-ac-bolt intact bilaterally. Rapid alternating movements are normal. Sensation: intact to light touch throughout without extinction. Gait: Deferred Laboratory Results Diagnostics/Procedures: Labs-CBC Labs-Chem 7([facility]) Labs-Coags Additional Labs No results found for: CHOLESTEROL, TRIG, HDL, LDLCALC, LDLDIRECT Labs-Hemoglobin A1C No results found for: HGBA1C Imaging OSH Imaging Prior to Arrival: CT Stroke Head (06/16) No acute hemorrhage or large territory infarct CTA Brain/Neck (06/16) Question of L MCA high grade stenosis Assessment/Impression Patrica Newman is a 81 y.o. female with a past medical history significant for hypertension who presents as a transfer for TIA work up. Patient DRE was on 06/16 at 0900. They then developed symptoms of dysarthria, L-sided weakness. EMS was called and transferred to OSH. CT head was obtained and w/o significant findings. CTA with question of L MCA high grade stenosis. Transfer to [facility]. Initial NIH of 0, mRS 0. Recommend complete work up for TIA as below. Recommendations: - Recommend admit to the CDU The following TIA work up has been ordered: - MRI brain without contrast, stroke protocol - Echocardiogram with bubble study - Hemoglobin A1c - Lipids with reflex to LDL Risk of Stroke after suspected TIA ABCD2 score = 5 Age >60 Y/N BP >140/90 Y/N Clinical features: unilateral weakness/speech disturbance without weakness/ other Duration: <10min / 10-59min / >60min Diabetes Y/N Moderate risk: 4-5 points 2-Day Stroke Risk: 4.1% 7-Day Stroke Risk: 5.9% 90-Day Stroke Risk: 9.8% Patient and plan discussed with neurovascular attending Dr. Freeman. Signed, Fred Tidwell M.D. PGY-2 Department of Neurology I have seen and examined the patient with the team today 06/17/21. I have personally reviewed all the imaging studies and laboratory data and also reviewed the note. I agree with the assessment and plan with the following additions. ADNAN SAFDAR, MD documented in this encounter [facility] 06-17-2021 Physician Emergency department Note CHIEF COMPLAINT No chief complaint on file. Past Medical History: Diagnosis Date Essential hypertension, benign HPI Pertinent Hx: Patrica Newman is a 81 y.o. female with chief complaint of No chief complaint on file. Presents from OSH for LLE weakness, slurred speech. Reports this lasted about 45 min then resolved. Feels at baseline at this time. REVIEW OF SYSTEMS CARDIOVASCULAR: Denies: chest pain RESPIRATORY: Denies: shortness of breath GI: Denies: abdominal pain NEURO: focal weakness (resolved), numbness/tingling, speech problems (resolved) Review of Systems has been reviewed and is otherwise negative unless noted. PHYSICAL EXAM BP (!) 202/85 Pulse 73 Temp 97.6 F (36.4 C) (Oral) Resp (!) 26 Ht 1.753 m (5' 9 ) SpO2 100% No acute distress; EOMI, mucous membranes moist, no neck stiffness/meningismus; lungs CTAB; cardiac RRR; abdomen soft, nontender, no guarding, no rebound tenderness; CN II-XII intact, 5/5 strength in all extremities, sensation intact, normal bcczvq-zn-pdkn testing with no dysmetria, no pronator drift ED COURSE & MEDICAL DECISION MAKING Differential diagnosis includes CVA, TIA, other intracranial pathology, migraine, other stroke mimic. For further evaluation will obtain labs. Analgesic medications PRN, antiemetic medications PRN. Neurovascular c/s. On 06/16/2021 I saw and examined the patient. I discussed the history, examination, and medical decision making as outlined with the resident and agree with the plan of care. Medication list reviewed. I have personally seen and examined this patient. I have fully participated in the care of this patient. I have reviewed all pertinent clinical information, including history, physical exam and plan with the resident. Agnes Elkins MD 06/17/21 0123 [facility] Work Phone: 06-17-2021 Physician Emergency department Note dEPARTMENT of Emergency Medicine CHIEF COMPLAINT No chief complaint on file. HPI Patrica Newman is a 81 y.o. female with PMHx HTN who presents to the Emergency Department for left sided weakness. Patient states that when she woke up this morning she felt normal. Reports that sometime around this afternoon she began having weakness in her left lower leg. Patient also endorsed slurring of speech that her granddaughter noticed. Patient states that this lasted for about 45 minutes and then resolved. Patient denies any other symptoms. Patient states that currently she is back to her baseline. Patient denies any modifying factors for the symptoms. Patient denies any headache, vision changes, chest pain, shortness of breath, nausea, vomiting, urinary symptoms. Patient has not taken any other medications today. Patient denies any other symptoms or modifying factors. Denies any history of stroke or TIA. REVIEW OF SYSTEMS Review of Systems Constitutional: Negative for chills and fever. HENT: Negative for congestion and sore throat. Eyes: Negative for pain and visual disturbance. Respiratory: Negative for cough and shortness of breath. Cardiovascular: Negative for chest pain, palpitations and leg swelling. Gastrointestinal: Negative for abdominal pain, nausea and vomiting. Genitourinary: Negative for dysuria and frequency. Musculoskeletal: Negative for arthralgias and myalgias. Skin: Negative for color change and rash. Neurological: Positive for speech difficulty and weakness. Negative for dizziness and headaches. All other systems reviewed and are negative. PAST MEDICAL HISTORY Past Medical History: Diagnosis Date Essential hypertension, benign SURGICAL HISTORY Patient denies PSHx CURRENT MEDICATIONS No current facility-administered medications for this encounter. No current outpatient medications on file. ALLERGIES NKDA FAMILY HISTORY History reviewed. No pertinent family history. SOCIAL HISTORY Never smoker, [place] is primary language Social History Socioeconomic History Marital status: Not on file Spouse name: Not on file Number of children: Not on file Years of education: Not on file Highest education level: Not on file Occupational History Not on file Tobacco Use Smoking status: Not on file Smokeless tobacco: Not on file Substance and Sexual Activity Alcohol use: Not on file Drug use: Not on file Sexual activity: Not on file Other Topics Concern Not on file Social History Narrative Not on file Social Determinants of Health Financial Resource Strain: Not on file Food Insecurity: Not on file Transportation Needs: Not on file Physical Activity: Not on file Stress: Not on file Social Connections: Not on file Intimate Partner Violence: Not on file Housing Stability: Not on file PHYSICAL EXAM Ht 1.753 m (5' 9 ) Physical Exam Vitals and nursing note reviewed. Constitutional: General: She is not in acute distress. Appearance: She is not ill-appearing. HENT: Head: Normocephalic and atraumatic. Nose: Nose normal. Mouth/Throat: Mouth: Mucous membranes are moist. Pharynx: Oropharynx is clear. Eyes: Extraocular Movements: Extraocular movements intact. Pupils: Pupils are equal, round, and reactive to light. Cardiovascular: Rate and Rhythm: Normal rate and regular rhythm. Pulses: Normal pulses. Heart sounds: Normal heart sounds. No murmur heard. Pulmonary: Effort: Pulmonary effort is normal. No respiratory distress. Breath sounds: Normal breath sounds. No wheezing. Abdominal: Palpations: Abdomen is soft. There is no mass. Tenderness: There is no abdominal tenderness. There is no guarding. Musculoskeletal: General: No swelling or tenderness. Normal range of motion. Cervical back: Normal range of motion. No rigidity. Lymphadenopathy: Cervical: No cervical adenopathy. Skin: General: Skin is warm and dry. Capillary Refill: Capillary refill takes less than 2 seconds. Findings: No rash. Neurological: General: No focal deficit present. Mental Status: She is alert and oriented to person, place, and time. Cranial Nerves: No cranial nerve deficit. Sensory: No sensory deficit. Motor: No weakness. Gait: Gait normal. Psychiatric: Mood and Affect: Mood normal. Behavior: Behavior normal. ED COURSE & MEDICAL DECISION MAKING Pertinent Labs & Imaging studies if performed reviewed. (See chart for details) Medication list reviewed. EKG Interpretation Interpreted by me Rhythm: sinus Rate: 78 [place]: normal Ectopy: none Conduction: normal ST Segments: no acute change T Waves: no acute change Q Waves: none Assessment: Patrica Newman is a 81 y.o. female with PMHx HTN who presents to the Emergency Department for left sided weakness. Differential Diagnosis includes but is not limited to: TIA, CVA, ICH Medical Decision Making: Patient presents the emergency department alert and in no acute distress. Vital signs unremarkable. Patient's neurologic exam at this point is unremarkable and she is back to her baseline. Patient given her oral blood pressure medications as her blood pressure is highly elevated here in the ED. CT head at OSH without ICH, however dense MCA sign was noted. CTA with 50-69% stenosis of M1 and M2 branches of left MCA. Patient sent to [facility] for Neuro[facility] evaluation, appreciate recs. Patient to CDU for TIA workup (LDL, MRI, echo, A1c). Impression: Weakness, Speech changes Disposition: CDU Thao Gordillo MD Resident 06/17/21227 [facility] Work Phone: 06-17-2021 Emergency department Note Symptoms: Slurred speech, L facial droop LKW: 09:00 Any anticoagulant use: Unknown at intake Telestroke completed?: No Accepted in transfer? (include destination / alert level): Yes, Main ED, NO LEVEL/ALERT PER DR. DOUGLASS Additional report: Radiology called report during call. ? L MCA high grade stenosis. Dr. Douglass waiting for CTA to load for review. Per Dr. Douglass, keep SBP <220 for now. Give 300 mg ASA. No level/alert, transfer by ground. No stroke alert called. Patient not currently having slurred speech. Alert and oriented x4. LKW: 1530 Per patient symptoms resolved In an hour. [facility] 06-17-2021 Emergency department Note Bed: E026 Expected date: Expected time: Means of arrival: Comments: paty [facility] encounter [facility] Diagnosis Cerebrovascular accident (CVA), unspecified mechanism- Primary Anemia (Low HGB) Anemia, unspecified Renal disease (High Serum Creatinine) Unspecified disorder of kidney and ureter Electrolyte disorder (K, Cl, or Na) Electrolyte and fluid disorders not elsewhere classified [facility] Diagnosis Cerebrovascular accident (CVA) of right basal ganglia- Primary 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 [facility] Diagnosis Cat bite, initial encounter- Primary documented in this encounter [facility] for visit Narrative* Auth/Cert Specialty Diagnoses / Procedures Referred By Bruno t Referred To Contact Diagnoses Transient cerebral ischemia, unspecified type Cerebrovascular accident (CVA), unspecified mechanism Slurred Speech, L Facial Droop, Abnormal CT NO LEVEL/ALERT Referral ID Status Reason Start Date Expiration Date Visits Re quested Visits Authorized [id number] 1 1 [facility] for visit Narrative* Auth/Cert Specialty Diagnoses / Procedures Referred By Bruno t Referred To Contact Diagnoses stroke [place] symptoms Referral ID Status Reason Start Date Expiration Date Visits Re quested Visits Authorized [id number] 1 1 [facility] Reason for Referral Specialty Diagnoses / Procedures Referred By Bruno t Referred To Contact Procedures ECG Christina Schwartz APRN-CNP [address] [place] [address] Referral ID Status Reason Start Date Expiration Date V isits Requested Visits Authorized [id number] New Request 06/17/2021 07/12/2022 1 1 Specialty Diagnoses / Procedures Referred By Bruno t Referred To Contact Christina Schwartz APRN-CNP [address] [place], [place] [id number] Referral ID Status Reason Start Date Expiration Date Visits Re quested Visits Authorized Specialty Diagnoses / Procedures Referred By Bruno t Referred To Contact Procedures PLATELET MONITORING PER PROTOCOL Christina Schwartz APRN-CNP [address] [place], [place] [id number] Referral ID Status Reason Start Date Expiration Date V isits Requested Visits Authorized [id number] New Request 06/17/2021 07/12/2022 1 1 Specialty Diagnoses / Procedures Referred By Bruno t Referred To Contact Procedures DVT/VTE RISK ASSESSMENT Christina Schwartz APRN-CNP [address] [place] [address] Referral ID Status Reason Start Date Expiration Date V isits Requested Visits Authorized [id number] New Request 06/17/2021 07/12/2022 1 1 Specialty Diagnoses / Procedures Referred By Contac t Referred To Contact Diagnoses Cerebrovascular accident (CVA), unspecified mechanism Transient cerebral ischemia, unspecified type Procedures EVENT MONITOR, CARDIAC Christina Schwartz, [employer]GER[employer] [address] [place] [address] Referral ID Status Reason Start Date Expiration Date V isits Requested Visits Authorized [id number] New Request 06/17/2021 07/12/2022 1 1 Specialty Diagnoses / Procedures Referred By Contac t Referred To Contact Neurology Diagnoses Cerebrovascular accident (CVA), unspecified mechanism Suzy Luke, [employer] MA[employer]GER[employer] [address] [place] [address] Referral ID Status Reason Start Date Expiration Date V isits Requested Visits Authorized [id number] Pending Review 06/17/2021 07/12/2022 1 1 Specialty Diagnoses / Procedures Referred By Contac t Referred To Contact Jim Yoo, [employer] MA[employer]GER[employer] [address] [place] [address] Specialty Diagnoses / Procedures Referred By Contac t Referred To Contact Procedures ECG Agnes Elkins MD [address] [place] [address] Referral ID Status Reason Start Date Expiration Date V isits Requested Visits Authorized [id number] Pending Review 06/17/2021 07/12/2022 1 1 Specialty Diagnoses / Procedures Referred By Contac t Referred To Contact Occupational Therapy Diagnoses Cerebrovascular accident (CVA), unspecified mechanism Everett Wise, R[employer] MA[employer]GER[employer] [address] [place] [address] Referral ID Status Reason Start Date Expiration Date V isits Requested Visits Authorized [id number] New Request 06/24/2021 07/19/2022 1 1 Scheduling Instructions [facility] [address] [facility]nd [place] [address] Fax [facility] [address], [address] [place] [address] FAX [facility] [address] [place], [place] [address] FAX [facility] [address] [address] FAX [facility] (Upper [facility]remity and Hand Therapy) [address] [facility], [address] [facility] [id number] FAX [facility] [address] [place] [place] [address] FAX Specialty Diagnoses / Procedures Referred By Bruno toney Referred To Contact Physical Therapy Diagnoses Cerebrovascular accident (CVA), unspecified mechanism Everett Wise, RANGE MANAGER-SALON STYLIST [address] [place] [address] Referral ID Status Reason Start Date Expiration Date V isits Requested Visits Authorized [id number] New Request 06/24/2021 07/19/2022 1 1 Scheduling Instructions [facility] [address] [facility], 2nd [place] [address] Fax [facility] (Neck and Back Therapy) [address] [place] [phone] FAX [facility] [address] [place] [address] FAX Outpatient [facility] [address] [facility] [address] [place], [place] [phone] FAX [facility] [address] [place] [address] FAX [facility] at [facility] [address] [phone] FAX [facility] [address] [place], [place] [phone] FAX [facility] [address] [place], [place] [address] FAX Specialty Diagnoses / Procedures Referred By Bruno toney Referred To Contact Neurology Diagnoses Cerebrovascular accident (CVA), unspecified mechanism Everett Wise, RANGE MANAGER-SALON STYLIST [address] [place] [address] Referral ID Status Reason Start Date Expiration Date V isits Requested Visits Authorized [id number] New Request 06/21/2021 07/16/2022 1 1 Specialty Diagnoses / Procedures Referred By Bruno toney Referred To Contact Procedures ECG Rod Cuellar MD [address] [facility] [place] [address] Referral ID Status Reason Start Date Expiration Date V isits Requested Visits Authorized [id number] New Request 06/19/2021 07/14/2022 1 1 Advance Directives No Advanced Directives Records FoundLatest Code Status on File Code Status Date Activated Date Inactivated Comments Full Code 06/17/2021 12:39 PM Latest Code Status on File Code Status Date Activated Date Inactivated Comments Full Code 06/17/2021 12:39 PM Summary Purpose Family History No Family History Records FoundNo Family History Records Found Additional Source Comments Scheduled Active and Recently Administ ered Medications (unrecognized section and content) Continuous Medication Order 06/16/2021 06/17/2021 06/18/2021 sodium chloride 0.9% IV solution Intravenous, at 75 mL/hr, CONTINUOUS, Starting on Sun06/17/21 at 1245, Until 06/18/21 at 1638, Recovery 1422 ($$New Bag$$ - Provider: Sarah Walton RN)1832 ([employer] - Provider: Lori Rivera RN)1834 (Rate/Dose Verify - Provider: Lori Rivera RN)1928 (Rate/Dose Verify - Provider: Destini Hayes RN)195 (Rate/Dose Verify - Provider: Destini Hayes RN)2020 (Rate/Dose Verify - Provider: Destini Hayes RN)212 (Rate/Dose Verify - Provider: Destini Hayes RN) 0753 (Stopped - Provider: Lori Rivera RN)0858 ($$New Bag$$ - Provider: Lori Rivera RN)1024 (Stopped - Provider: Lori Rivear RN) PRN Medication Order 06/16/2021 06/17/2021 06/18/2021 acetaminophen (TYLENOL) tablet 650 mg 650 mg, Oral, EVERY 6 HOURS NEEDED, Starting on Sun06/17/21 at 0447, Until 06/18/21 at 1638, Mild Pain, Oral temp > 100.4 F, Do not administer unless Dysphagia Screen has been documented as passed; or if liver disease, or elevated Liver Function Tests. alum/mag hydrox.-simethicone oral suspension 30 mL 30 mL, Oral, EVERY 6 HOURS NEEDED, Starting on Sun06/17/21 at 0447, Until 06/18/21 at 1638, Indigestion, Per 5 mL is equivalent to: (Alum-Mag Hydroxide 200-225 mg and Simethicone 20 mg) and (Alum-Mag Hydroxide 200-200 mg and Simethicone 20 mg) hydrALAZINE (APRESOLINE) injection 10 mg 10 mg, Intravenous, EVERY 4 HOURS NEEDED, Starting on Sun06/17/21 at 1655, Until 06/18/21 at 1638, SBP > 180 mmHg, Use as initial dose. Higher dose may be administered if lower dose was previously documented as ineffective 10 minutes after administration and did not result in adverse effects (HR>90), Recovery 1857 (Given - Provider: Lori Rivera RN) labetalol (NORMODYNE) injection 10 mg 10 mg, Intravenous, EVERY 4 HOURS NEEDED, Starting on Sun06/17/21 at 1655, Until 06/18/21 at 1638, SBP > 180 mmHg with HR >60 bpm, Use as initial dose. Higher dose may be administered if lower dose was previously documented as ineffective 10 minutes after administration and did not result in adverse effects (HR<60) For vials: labetalol should be treated as a SINGLE USE VIAL. Discard remaining contents after one use., Recovery 0308 (Given - Provid er: Destini Hayes RN) ondansetron (ZOFRAN) tablet 4 mg(Linked Group 2) 4 mg, Oral, EVERY 4 HOURS NEEDED, Starting on Sun06/17/21 at 0446, Until 06/18/21 at 1638, Nausea / Vomiting ondansetron 4mg/2ml (ZOFRAN) injection 4 mg(Linked Group 2) 4 mg, Intravenous, EVERY 4 HOURS NEEDED, Starting on Sun06/17/21 at 0446, Until 06/18/21 at 1638, Nausea / Vomiting polyethylene glycol (MIRALAX) packet 17 g(Linked Group 3) 17 g, Oral, DAILY NEEDED, Starting on Sun06/17/21 at 1239, Until 06/18/21 at 1638, Constipation If No Bowel Movement in 48 Hours, after bisacodyl, Recovery polyethylene glycol (MIRALAX) packet 17 g(Linked Group 3) 17 g, Per NG tube, DAILY NEEDED, Starting on Sun06/17/21 at 1239, Until 06/18/21 at 1638, Constipation If No Bowel Movement in 48 Hours, after bisacodyl, Recovery Linked Groups Order Group 1: senna (SENOKOT) tablet 8.6 mgJump to med 8.6 mg, Oral, DAILY EVERY MORNING, First dose on Sun06/17/21 at 1245, Until Discontinued
Hold if BM in last 2 hours.
Recovery Or senna (SENOKOT) tablet 8.6 mgJump to med 8.6 mg, Per NG tube, DAILY EVERY MORNING, First dose on Sun06/17/21 at 1245, Until Discontinued
Hold if BM in last 2 hours.
Recovery Group 2: ondansetron 4mg/2ml (ZOFRAN) injection 4 mgJump to med 4 mg, Intravenous, EVERY 4 HOURS NEEDED, Starting on Sun06/17/21 at 0446, Until 06/18/21 at 1638, Nausea / Vomiting Or ondansetron (ZOFRAN) tablet 4 mgJump to med 4 mg, Oral, EVERY 4 HOURS NEEDED, Starting on Sun06/17/21 at 0446, Until 06/18/21 at 1638, Nausea / Vomiting Group 3: polyethylene glycol (MIRALAX) packet 17 gJump to med 17 g, Oral, DAILY NEEDED, Starting on Sun06/17/21 at 1239, Until 06/18/21 at 1638, Constipation If No Bowel Movement in 48 Hours, after bisacodyl, Recovery Or polyethylene glycol (MIRALAX) packet 17 gJump to med 17 g, Per NG tube, DAILY NEEDED, Starting on Sun06/17/21 at 1239, Until 06/18/21 at 1638, Constipation If No Bowel Movement in 48 Hours, after bisacodyl, Recovery Scheduled Medication Order 06/22/2021 06/23/2021 06/24/2021 aspirin chewable tablet 81 mg(Linked Group 1) 81 mg, Oral, DAILY, First dose on 06/19/21 at 0900, Until Discontinued, May begin use of chewable aspirin when patient passes swallow test. 0829 (Given - Provider: Jennifer Terrell RN) 0835 (Given - Provider: Zaria Jennings RN) 0817 (Given - Provider: Agnes Mario RN) aspirin suppository 300 mg(Linked Group 1) 300 mg, Rectal, DAILY, First dose on 06/19/21 at 0900, Until Discontinued, Use suppository until patient passes swallow test. 0829 (See Alternative - Provider: Jennifer Terrell RN) 0835 (See Alternative - Provider: Zaria Jennings RN) 0817 (See Alternative - Provider: Agnes Mario RN) Enoxaparin Sodium (LOVENOX) injection 40 mg (CANCELED) 40 mg, Subcutaneous, EVERY 24 HOURS, First dose on 06/19/21 at 0900, Until Discontinued, , Indications: DVT/PE prophylaxis 0829 (Given - Provider: Jennifer Terrell RN) 0833 (Given - Provider: Zaria Jennings RN) heparin injection 5,000 Units(Linked Group 2) 5,000 Units, Subcutaneous, EVERY 8 HOURS (0800/1600/2200), First dose on Sun06/24/21 at 0800, Until Discontinued 08 (Given - Provider: Agnes Mario RN)1649 (Not Given - Provider: Agnes Mario RN - Reason: Patient/family refused - Comment: pt discharging) latanoprost (XALATAN) 0.005 % ophthalmic solution 1 drop 1 drop, Both Eyes, DAILY AT BEDTIME, First dose on Sun06/20/21 at 2100, Until Discontinued, Remove contact lenses 2035 (Given - Provider: Deb Redd RN) 2007 (Given - Provider: Kari Curiel, RN) lisinopril (PRINIVIL) tablet 10 mg 10 mg, Oral, DAILY, First dose on Sun06/23/21 at 0900, Until Discontinued 08 (Given - Provider: Zaria Jennings RN) 08 (Given - Provider: Agnes Mario RN) metoprolol (LOPRESSOR) tablet 25 mg 25 mg, Oral, EVERY 12 HOURS, First dose on Sun06/22/21 at 0900, Until Discontinued, 08 (Given - Provider: Jennifer Terrell RN)2035 (Given - Provider: Deb Redd RN) 0835 (Given - Provider: Zaria Jennings RN)2007 (Given - Provider: Kari Curiel, RN - Comment: additional dose pulled from pyxis due to first pill falling on floor and being discarded.) 08 (Given - Provider: Agnes Mario RN) NIFEdipine (PROCARDIA XL) tablet XL 60 mg 60 mg, Oral, EVERY 12 HOURS, First dose (after last modification) on Sun06/21/21 at 2100, Until Discontinued, Slow release product. Do not chew or crush. 08 (Given - Provider: Jennifer Terrell RN)2035 (Given - Provider: Deb Redd RN) 0834 (Given - Provider: Zaria Jennings RN)2007 (Given - Provider: Kari Curiel, RN) 0817 (Given - Provider: Agnes Mario, RN) pneumococcal 23-valent (PNEUMOVAX) injection 0.5 mL 0.5 mL, Intramuscular, ONCE DURING ADMISSION, 1 dose, Starting on 06/19/21 at 1314, Until Sun06/24/21 at 1915 senna (SENOKOT) tablet 8.6 mg(Linked Group 3) 8.6 mg, Oral, DAILY EVERY MORNING, First dose on 06/19/21 at 0900, Until Discontinued, Hold if BM in last 2 hours. 0826 (Not Given - Provider: Jennifer Terrell RN - Reason: Patient with symptoms) 0834 (Not Given - Provider: Zaria Jennings RN - Reason: Patient with symptoms) 0817 (Not Given - Provider: Agnes Mario RN - Reason: Patient/family refused) senna (SENOKOT) tablet 8.6 mg(Linked Group 3) 8.6 mg, Per NG tube, DAILY EVERY MORNING, First dose on 06/19/21 at 0900, Until Discontinued, Hold if BM in last 2 hours. 0826 (See Alternative - Provider: Jennifer Terrell RN) 0834 (See Alternative - Provider: Zaria Jennings RN) 0817 (See Alternative - Provider: Agnes Mario RN) PRN Medication Order 06/22/2021 06/23/2021 06/24/2021 acetaminophen (TYLENOL) tablet 650 mg(Linked Group 4) 650 mg, Oral, EVERY 4 HOURS NEEDED, Starting on 06/19/21 at 0110, Until Sun06/24/21 at 1915, Mild Pain, Oral temp > 99.5, Maximum dose of acetaminophen is 4000 mg from all sources in 24 hours. acetaminophen (TYLENOL) tablet 650 mg(Linked Group 4) 650 mg, Per NG tube, EVERY 4 HOURS NEEDED, Starting on 06/19/21 at 0110, Until Sun06/24/21 at 1915, Mild Pain, Oral temp > 99.5, Maximum dose of acetaminophen is 4000 mg from all sources in 24 hours. hydrALAZINE (APRESOLINE) injection 10 mg(Linked Group 5) 10 mg, Intravenous, EVERY 1 HOUR NEEDED, Starting on 06/19/21 at 0110, Until Sun06/24/21 at 1915, Systolic Blood Pressure greater than 220 mmHg and heart rate LESS THAN 60 beats per minute., Use as initial dose. Higher dose may be administered if lower dose was previously documented as ineffective 10 minutes after administration and did not result in adverse effects (HR>90) hydrALAZINE (APRESOLINE) injection 20 mg(Linked Group 5) 20 mg, Intravenous, EVERY 1 HOUR NEEDED, Starting on Sun06/19/21 at 0110, Until Sun06/24/21 at 1915, Systolic Blood Pressure greater than 220 mmHg and heart rate LESS THAN 60 beats per minute., Higher dose may be administered if lower dose was previously documented as ineffective 10 minutes after administration and did not result in adverse effects (HR>90). Decrease back to lower dose if patient has adverse effects, or no PRN used in previous 3 hours labetalol (NORMODYNE) injection 10 mg(Linked Group 6) 10 mg, Intravenous, EVERY 1 HOUR NEEDED, Starting on Sun06/19/21 at 0110, Until Sun06/24/21 at 1915, Systolic Blood Pressure greater than 220 mmHg and heart rate GREATER THAN 60 beats per minute., Use as initial dose. Higher dose may be administered if lower dose was previously documented as ineffective 10 minutes after administration and did not result in adverse effects (HR<60) For vials: labetalol should be treated as a SINGLE USE VIAL. Discard remaining contents after one use. labetalol (NORMODYNE) injection 20 mg(Linked Group 6) 20 mg, Intravenous, EVERY 1 HOUR NEEDED, Starting on Sun06/19/21 at 0110, Until Sun06/24/21 at 1915, Systolic Blood Pressure greater than 220 mmHg and heart rate GREATER THAN 60 beats per minute., Higher dose may be administered if lower dose was previously documented as ineffective 10 minutes after administration and did not result in adverse effects (HR<60). Decrease back to lower dose if patient has adverse effects, or no PRN used in previous 3 hours For vials: labetalol should be treated as a SINGLE USE VIAL. Discard remaining contents after one use. polyethylene glycol (MIRALAX) packet 17 g(Linked Group 7) 17 g, Oral, DAILY NEEDED, Starting on Sun06/19/21 at 0110, Until Sun06/24/21 at 1915, Constipation If No Bowel Movement in 48 Hours, after bisacodyl polyethylene glycol (MIRALAX) packet 17 g(Linked Group 7) 17 g, Per NG tube, DAILY NEEDED, Starting on Sun06/19/21 at 0110, Until Sun06/24/21 at 1915, Constipation If No Bowel Movement in 48 Hours, after bisacodyl Linked Groups Order Group 1: aspirin chewable tablet 81 mgJump to med 81 mg, Oral, DAILY, First dose on Sun06/19/21 at 0900, Until Discontinued
May begin use of chewable aspirin when patient passes swallow test.
Or aspirin suppository 300 mgJump to med 300 mg, Rectal, DAILY, First dose on Sun06/19/21 at 0900, Until Discontinued
Use suppository until patient passes swallow test.
Group 2: heparin injection 5,000 UnitsJump to med 5,000 Units, Subcutaneous, EVERY 8 HOURS (0800/1600/2200), First dose on Sun06/24/21 at 0800, Until Discontinued And PLATELET COUNT (CANCELED) Routine, EVERY 3 DAYS AM LAB, First occurrence on Sun06/24/21 at 0656, Until Specified, New collection Group 3: senna (SENOKOT) tablet 8.6 mgJump to med 8.6 mg, Oral, DAILY EVERY MORNING, First dose on Sun06/19/21 at 0900, Until Discontinued
Hold if BM in last 2 hours.
Or senna (SENOKOT) tablet 8.6 mgJump to med 8.6 mg, Per NG tube, DAILY EVERY MORNING, First dose on Sun06/19/21 at 0900, Until Discontinued
Hold if BM in last 2 hours.
Group 4: acetaminophen (TYLENOL) tablet 650 mgJump to med 650 mg, Oral, EVERY 4 HOURS NEEDED, Starting on Sun06/19/21 at 0110, Until Sun06/24/21 at 1915, Mild Pain, Oral temp > 99.5
Maximum dose of acetaminophen is 4000 mg from all sources in 24 hours.
Or acetaminophen (TYLENOL) tablet 650 mgJump to med 650 mg, Per NG tube, EVERY 4 HOURS NEEDED, Starting on 06/19/21 at 0110, Until Sun06/24/21 at 1915, Mild Pain, Oral temp > 99.5
Maximum dose of acetaminophen is 4000 mg from all sources in 24 hours.
Group 5: hydrALAZINE (APRESOLINE) injection 10 mgJump to med 10 mg, Intravenous, EVERY 1 HOUR NEEDED, Starting on 06/19/21 at 0110, Until Sun06/24/21 at 1915, Systolic Blood Pressure greater than 220 mmHg and heart rate LESS THAN 60 beats per minute.
Use as initial dose. Higher dose may be administered if lower dose was previously documented as ineffective 10 minutes after administration and did not result in adverse effects (HR>90)
Or hydrALAZINE (APRESOLINE) injection 20 mgJump to med 20 mg, Intravenous, EVERY 1 HOUR NEEDED, Starting on 06/19/21 at 0110, Until Sun06/24/21 at 1915, Systolic Blood Pressure greater than 220 mmHg and heart rate LESS THAN 60 beats per minute.
Higher dose may be administered if lower dose was previously documented as ineffective 10 minutes after administration and did not result in adverse effects (HR>90). Decrease back to lower dose if patient has adverse effects, or no PRN used in previous 3 hours
Group 6: labetalol (NORMODYNE) injection 10 mgJump to med 10 mg, Intravenous, EVERY 1 HOUR NEEDED, Starting on 06/19/21 at 0110, Until Sun06/24/21 at 1915, Systolic Blood Pressure greater than 220 mmHg and heart rate GREATER THAN 60 beats per minute.
Use as initial dose. Higher dose may be administered if lower dose was previously documented as ineffective 10 minutes after administration and did not result in adverse effects (HR<60) For vials: labetalol should be treated as a SINGLE USE VIAL. Discard remaining contents after one use.
Or labetalol (NORMODYNE) injection 20 mgJump to med 20 mg, Intravenous, EVERY 1 HOUR NEEDED, Starting on 06/19/21 at 0110, Until Sun06/24/21 at 1915, Systolic Blood Pressure greater than 220 mmHg and heart rate GREATER THAN 60 beats per minute.
Higher dose may be administered if lower dose was previously documented as ineffective 10 minutes after administration and did not result in adverse effects (HR<60). Decrease back to lower dose if patient has adverse effects, or no PRN used in previous 3 hours For vials: labetalol should be treated as a SINGLE USE VIAL. Discard remaining contents after one use.
Group 7: polyethylene glycol (MIRALAX) packet 17 gJump to med 17 g, Oral, DAILY NEEDED, Starting on 06/19/21 at 0110, Until Sun06/24/21 at 1915, Constipation If No Bowel Movement in 48 Hours, after bisacodyl Or polyethylene glycol (MIRALAX) packet 17 gJump to med 17 g, Per NG tube, DAILY NEEDED, Starting on 06/19/21 at 0110, Until Sun06/24/21 at 1915, Constipation If No Bowel Movement in 48 Hours, after bisacodyl Care Teams (unrecognized sec tion and content) Color Paste Mixing Supervisor Relationship Specialty Start Date End Date Jossie Lomas MD [address] [place] [address] PCP - General Family Medicine 06/17/21 Color Paste Mixing Supervisor Relationship Specialty Start Date End Date Jossie Lomas MD [address] [place] [address] PCP - General Family Medicine 06/17/21 Color Paste Mixing Supervisor Relationship Specialty Start Date End Date Jossie Lomas MD PCP - General Family Practice 10/27/15 Color Paste Mixing Supervisor Relationship Specialty Start Date End Date Jossie Lomas MD PCP - General Family Practice 10/27/15 INFORMATION SOURCE (unrecogn ized section and content) DATE CREATED AUTHOR AUTHOR'S ORGANIZ ATION 05/12/2022 [facility] Reason for Visit (unrecogniz ed section and content) Specialty Diagnoses / Procedures Referred By Bruno toney Referred To Contact Certified Nurse Practitioner / Neurology Diagnoses hospital followup Procedures HOSPITAL FOLLOW UP Rod Cuellar MD [address] [place] [place] [address] Marley Castano, RANGE MANAGER-SALON STYLIST [address] [facility] [address] [place] [address] Referral ID Status Reason Start Date Expiration Date Visits Re quested Visits Authorized [id number] Closed 07/28/2021 08/22/2022 1 1 Reason Comments Patient Question weightloss concerns Reason Comments Animal Bite Pt reported (RT) schaeffer d cat bite x3 days. Source Comments (unrecognize d section and content) In the event this informatio n is protected by the Federal Confidentiality of Alcohol and Drug Abuse Patient Records regulations: The Federal rules restrict any use of the information to criminally investigate or prosecute any alcohol or drug abuse patient.[facility] the event this information is protected by the Federal Confidentiality of Alcohol and Drug Abuse Patient Records regulations: The Federal rules restrict any use of the information to criminally investigate or prosecute any alcohol or drug abuse patient.[facility] the event this information is protected by the Federal Confidentiality of Alcohol and Drug Abuse Patient Records regulations: The Federal rules restrict any use of the information to criminally investigate or prosecute any alcohol or drug abuse patient.[facility] FOR RECORDS PERTAINING TO PATIENTS WHO ARE OR HAVE BEEN ENROLLED IN A CHEMICAL DEPENDENCY/SUBSTANCEABUSE PROGRAM, SOME INFORMATION MAY BE OMITTED. This clinical summary was aggregated from multiple sources. Caution should be exercised in using it in the provision of clinical care. This summary normalizes information from multiple sources, and as a consequence, information in this document may materially change the coding, format and clinical context of patient data. In addition, data may be omitted in some cases. CLINICAL DECISIONS SHOULD BE BASED ON THE PRIMARY CLINICAL RECORDS. [facility]. provides no warranty or guarantee of the accuracy or completeness of information in this document.
== END | disposition home or self-care (01) ==
LOC: OPBD 15:27
PROVIDERS: PCP Family Medicine; Referring Provider Family Medicine; Visit Provider Family Medicine
DX: Z13.820 Encounter for screening for osteoporosis (principal); Z78.0 Asymptomatic menopausal state
CPT/HCPCS: 77080

== ENCOUNTER → 2023-06-19 | Outpatient (CLI) | payer MEDICARE, SELFPAY ==
[2023-06-19 10:50] LABS: Hematocrit 34.8 % (37-47); Hemoglobin 11.2 g/dL (12.0-15.0); Mean Corp Hgb Conc 32.2 g/dL (32-36); Mean Corpuscular Hgb 31.8 pg (27.0-32.0); Mean Corpuscular Volume 98.9 fL (81-99); Mean Platelet Vol. 9.8 fl (6.2-12.0); Platelet Count 253 K/mm3 (150-450); RBC Distribution Width CV 13.2 % (11.6-14.6); RBC Distribution Width SD 47.7 fl (35.1-43.9); Red Blood Count 3.52 M/mm3 (4.2-5.4); White Blood Count 5.4 K/mm3 (4.4-11.0)
[2023-06-19 11:08] LABS: Vitamin D,25 Hydroxy 14.9 ng/mL
[2023-06-19 11:33] LABS: ALB/GLOB Ratio 1.2 RATIO (0.9-2.4); AST(SGOT) 23 U/L (15-37); Alanine Aminotransfer ALT/SGPT 19 U/L (13-56); Albumin, Serum 3.7 g/dL (3.2-5.0); Alkaline Phosphatase 84 U/L (45-117); Anion Gap 7 (5-15); BUN 28 mg/dL (7-18); BUN/Creat Ratio 16.2 RATIO (10-20); Calcium,Total 8.9 mg/dL (8.5-10.1); Chloride 112 mmol/L (98-107); Cholesterol 149 mg/dL (200); Creatinine, Serum 1.73 mg/dL (0.55-1.02); EST Glomerular Filtration Rate 30 mL/min (>60); Est Glom Filt Rate - Afr Amer 36 mL/min (>60); Globulin 3.1 g/dL (2.2-4.2); Glucose 106 mg/dL (74-106); High Density Lipoprotein 67 mg/dL; Potassium 4.7 mmol/L (3.5-5.1); Protein, Total 6.8 g/dL (6.4-8.2); Sodium Level 141 mmol/L (136-145); Triglycerides 100 mg/dL; Very Low Density Lipoprotein 20 mg/dL (5-40)
== END | disposition home or self-care (01) ==
LOC: MTLAB 07:34
PROVIDERS: PCP Family Medicine; Referring Provider Family Medicine; Visit Provider Family Medicine
DX: E78.5 Hyperlipidemia, unspecified (principal)
CPT/HCPCS: 36415; 80053; 80061; 82306; 85027

== ENCOUNTER → 2024-02-08 | Outpatient (CLI) | payer MEDICARE, SELFPAY | END | disposition home or self-care (01) | PROVIDERS: PCP Family Medicine | DX: R30.0 Dysuria (principal) | CPT/HCPCS: 87086 ==

== ENCOUNTER → 2024-03-28 | Outpatient (CLI) | payer MEDICARE, SELFPAY ==
[2024-03-28 10:38] LABS: Absolute Lymphocyte Count 0.66 X10^3/uL (0.83-4.51); Absolute Neutrophil Count 2.7 X10^3/uL (2.0-7.7); Basophil# 0.03 X10^3/uL; Basophil% 0.7 % (0-1); Eosinophil# 0.19 X10^3/uL; Eosinophils% 4.7 % (0-5); Hematocrit 31.6 % (37-47); Hemoglobin 10.2 g/dL (12.0-15.0); Lymphocyte # 0.66 X10^3/ul (0.83-4.51); Lymphocyte % 16.4 % (19-41); Mean Corp Hgb Conc 32.3 g/dL (32-36); Mean Corpuscular Volume 99.1 fL (81-99); Mean Platelet Vol. 9.3 fl (6.2-12.0); Monocyte# 0.46 X10^3/uL; Monocyte% 11.4 % (0-10); NRBC Flagged by Analyzer 0 % (0-5); Neutrophil # 2.67 X10^3/uL (2.7-7.7); Neutrophil % 66.3 % (47-70); Platelet Count 225 K/mm3 (150-450); RBC Distribution Width CV 13.4 % (11.6-14.6); RBC Distribution Width SD 48.2 fl (35.1-43.9); Red Blood Count 3.19 M/mm3 (4.2-5.4)
[2024-03-28 11:47] LABS: ALB/GLOB Ratio 1.1 RATIO (0.9-2.4); AST(SGOT) 19 U/L (15-37); Alanine Aminotransfer ALT/SGPT 20 U/L (13-56); Albumin, Serum 3.6 g/dL (3.2-5.0); Alkaline Phosphatase 68 U/L (45-117); Anion Gap 5 (5-15); BUN 29 mg/dL (7-18); BUN/Creat Ratio 18.1 RATIO (10-20); Chloride 111 mmol/L (98-107); Cholesterol 129 mg/dL (200); EST Glomerular Filtration Rate 33 mL/min (>60); Est Glom Filt Rate - Afr Amer 39 mL/min (>60); Globulin 3.3 g/dL (2.2-4.2); Glucose 97 mg/dL (74-106); High Density Lipoprotein 65 mg/dL; Potassium 4.9 mmol/L (3.5-5.1); Protein, Total 6.9 g/dL (6.4-8.2); Sodium Level 139 mmol/L (136-145); Triglycerides 81 mg/dL; Very Low Density Lipoprotein 16 mg/dL (5-40)
[2024-03-29 10:32] LABS: Vitamin D,25 Hydroxy 26.8 ng/mL
== END | disposition home or self-care (01) ==
LOC: MTLAB 07:45
PROVIDERS: PCP Family Medicine; Referring Provider Family Medicine; Visit Provider Family Medicine
DX: I10 Essential (primary) hypertension (principal); M81.0 Age-related osteoporosis without current pathological fracture
CPT/HCPCS: 36415; 80053; 80061; 82306; 85025

== ENCOUNTER → 2024-10-31 | Outpatient (CLI) | payer MEDICARE, SELFPAY ==
[2024-10-31 10:37] LABS: Hematocrit 31.3 % (37-47); Hemoglobin 10.4 g/dL (12.0-15.0); Mean Corp Hgb Conc 33.2 g/dL (32-36); Mean Corpuscular Volume 99.7 fL (81-99); Mean Platelet Vol. 8.9 fl (6.2-12.0); Platelet Count 209 K/mm3 (150-450); RBC Distribution Width CV 13.9 % (11.6-14.6); RBC Distribution Width SD 50.7 fl (35.1-43.9); Red Blood Count 3.14 M/mm3 (4.2-5.4); White Blood Count 3.9 K/mm3 (4.4-11.0)
[2024-10-31 10:40] LABS: Ferritin 190 ng/mL (22-378); Iron 68 ug/dL (50-170); Iron Binding Capacity,Total 279 ug/dL (250-450); Iron Binding Capacity,Unsat 211 ug/dL (228-428)
== END | disposition home or self-care (01) ==
LOC: MTLAB 08:29
PROVIDERS: PCP Family Medicine; Referring Provider Family Medicine; Visit Provider Family Medicine
DX: D64.9 Anemia, unspecified (principal); R53.83 Other fatigue; R79.89 Other specified abnormal findings of blood chemistry
CPT/HCPCS: 36415; 82728; 83540; 83550; 84443; 85027

== ENCOUNTER → 2025-02-17 | Outpatient (CLI) | payer MEDICARE, SELFPAY ==
--- NOTE | 2025-02-17 09:20 | RAD_ITS ---
PROCEDURE: RIGHT SHOULDER MIN 2 VIEWS 02/17/2025 REASON FOR EXAM: S/P FALL/PAIN TECHNIQUE: Procedure Code: RADSH Modality: DX Procedure: SHOULDER MIN 2 VIEWS COMPARISON: None. FINDINGS: No acute fracture or dislocation. 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 Unremarkable soft tissues. Multiple right axillary surgical clips. RAD/Shoulder min 2 Views IMPRESSION: No acute fracture or dislocation. Reading Location: [id number]
== END | disposition home or self-care (01) ==
LOC: MTRAD 09:19
PROVIDERS: PCP Family Medicine; Referring Provider Family Medicine; Visit Provider Family Medicine
DX: M25.511 Pain in right shoulder (principal); W19.XXXA Unspecified fall, initial encounter
CPT/HCPCS: 73030